=== PATIENT | female | born 1970 | race Caucasian/White ===

== ENCOUNTER 2018-06-03 10:42 | Observation (INO) | payer OTHER ==
--- OUTSIDE RECORDS SUMMARY | 2018-06-03 11:07 | XMS REPORT | Continuity of Care Document ---
:[address] [facility] Address [address] [place] [address] Phone Unavailable Care Team Providers Name Role Phone MARNIE ALVAREZ NP Primary Care Physician Insurance Providers Guarantor Debora Banks Address [address] [place] [address] Email [email or web address] Payer [employer] Policy Number [id number] Subscriber's Name Debora Banks Relationship Self / Same As Patient Group Number [id number] Group Name NA Advance Directives Directive Response Recorded Date/Time Advance Directives No 08/12/13 8:16pm Patient/Family Given Education Material R/T Y - 05/22/18....SBM 05/22/18 4: 20pm Directives? Chief Complaint and Reason for Visit Chief Complaint Chest Pain Reason for Visit Myalgia Lupus Anxiety Chest pain Problems Medical Problem Onset Date Status Anxiety Unknown Acute Chest pain Unknown Acute Dental caries into dentine Unknown Acute [id number] Unknown Acute Lupus Unknown Acute Myalgia Unknown Acute Odontalgia Unknown Acute Odontalgia Unknown Acute Medications No medication information available. Social History Social History Problem Response Recorded Date/Time Onset Date Status Hx Physical Abuse No 05/22/2018 3:32pm Not Applicable Not Applicable Smoking Status Start Date Stop Date Never smoker Hospital Discharge Instructions No hospital discharge instruction information available. Plan of Care Discharge Date 05/22/18 6:18pm Instructions/Education Provided Muscle Pain, Adult Nonspecific Chest Pain, [id number] Generalized Anxiety Disorder, Adult Forms Provided Portal Welcome Letter Prescriptions See Medication Section Referrals MARNIE ALVAREZ NP Address: [address] [place] [id number] Additional Instructions/Education SEE YOUR LEATHER CUTTER FOR RECHECK, NECT WEEK. TAKE ALEVE 2 TABLETS TWICE DAILY FOR ACHES & PAIN, AFTER MEALS. CONTACT DR SWEENEY SECRETARY FOR FURTHER DIAGNOSTIC EVALUATION WITHIN 4-5 DAYS Functional Status No functional status information available. Allergies, Adverse Reactions, Alerts Allergen Type Severity Reaction Status Last Updated Codeine ([id number]) Allergy Active 03/30/13 PENICILLIN Allergy Active 03/30/13 SULFA Allergy Active 03/30/13 Immunizations No immunization information available. Vital Signs Acute Vital Signs Vital Response Date/Time Blood Pressure 119/76 mm Hg 05/22/2018 6:31pm Pulse Pulse Rate (adult) 76 beats per minute (60 - 100) 05/22/2018 6:31pm Respiratory Rate 18 breaths per minute (10 - 24) 05/22/2018 6:31pm Temperature Source Oral 05/22/2018 3:32pm Height 5 ft 2 in 05/22/2018 3:32pm Weight 162 lb 05/22/2018 3:32pm Body Mass Index 29.6 kg/m^2 05/22/2018 3:32pm Results Laboratory Results Test Name Result Units Flags Reference Collection Result Comments Date/Time Date/Time White Blood Count 8.2 K/ul 4.0-11.5 05/22/2018 05/22/2018 4:28pm 4:34pm Red Blood Count 4.25 M/ul 3.80-5.20 05/22/2018 05/22/2018 4:28pm 4:34pm Hemoglobin 12.5 g/dl 10.5-15.7 05/22/2018 05/22/2018 4:28pm 4:34pm Hematocrit 38.5 % 34.0-50.0 05/22/2018 05/22/2018 4:28pm 4:34pm Mean Corpuscular 90.7 fl 78-98 05/22/2018 05/22/2018 Volume 4:28pm 4:34pm Mean Corpuscular 29.4 pg 26.2-33.4 05/22/2018 05/22/2018 Hemoglobin 4:28pm 4:34pm Mean Corpuscular 32.4 g/dl 31.5-36.2 05/22/2018 05/22/2018 Hemoglobin Concent 4:28pm 4:34pm Red Cell 12.8 % 11.5-15.5 05/22/2018 05/22/2018 Distribution Width 4:28pm 4:34pm Platelet Count 274 K/ul 137-338 05/22/2018 05/22/2018 4:28pm 4:34pm Mean Platelet 7.7 fl L 8.4-11.8 05/22/2018 05/22/2018 Volume 4:28pm 4:34pm Neutrophils (%) 52.9 % 44.4-80.1 05/22/2018 05/22/2018 (Auto) 4:28pm 4:34pm Lymphocytes (%) 38.6 % 10.0-50.0 05/22/2018 05/22/2018 (Auto) 4:28pm 4:34pm Monocytes (%) 6.2 % 3.6-12.04 05/22/2018 05/22/2018 (Auto) 4:28pm 4:34pm Eosinophils (%) 1.4 % 0.0-5.41 05/22/2018 05/22/2018 (Auto) 4:28pm 4:34pm Basophils (%) 1.0 % H 0.0-0.79 05/22/2018 05/22/2018 (Auto) 4:28pm 4:34pm Prothrombin Time 10.2 SECONDS L 10.3-12.3 05/22/2018 05/22/2018 4:28pm 5:08pm THERAPEUTIC LEVEL: 1.5 to 1.9 times normal range of PT Prothromb Time 0.92 05/22/2018 05/22/2018 International 4:28pm 5:08pm Recommended therapeutic range for patients receiving Ratio warfarin (coumadin) therapy: INR is 2.0 to 3.0 Recommended range for patients with mechanical prosthetic heart valves: INR is 2.5 to 3.5 Activated Partial 19.4 SECONDS L 22.5-37.0 05/22/2018 05/22/2018 Thromboplast Time 4:28pm 5:08pm Random Glucose 107 mg/dL H 74-106 05/22/2018 05/22/2018 4:28pm 4:49pm Blood Urea 13 mg/dL 11-0505/22/2018 05/22/2018 Nitrogen 4:28pm 4:49pm Serum Osmolality 276 L 280-300 05/22/2018 05/22/2018 4:28pm 4:49pm Creatinine 0.6 mg/dL 0.50-0.90 05/22/2018 05/22/2018 4:28pm 4:49pm Glomerular > 60.00 05/22/2018 05/22/2018 GFR RESULTS ARE REPORTED IN mL/min/1.73m2. Filtration Rate 4:28pm 4:49pm Calc Normal GFR: >60mL/min Moderately decreased GFR: 30-59 mL/min Severely decreased GFR: 15-29 mL/min Kidney Failure (or Dialysis): <15 mL/min The calculated eGFR is not valid for patients younger than 18 years or older than 75 years. BUN/Creatinine 21.7 H 12-05/22/2018 05/22/2018 Ratio 4:28pm 4:49pm Sodium Level 138 mmol/L 135-145 05/22/2018 05/22/2018 4:28pm 4:49pm Potassium Level 4.0 mmol/L 3.5-5.2 05/22/2018 05/22/2018 4:28pm 4:49pm Chloride Level 102 mmol/L 98-108 05/22/2018 05/22/2018 4:28pm 4:49pm Carbon Dioxide 24 mmol/L 21-32 05/22/2018 05/22/2018 Level 4:28pm 4:49pm Anion Gap 16.0 mEq/L 12-05/22/2018 05/22/2018 4:28pm 4:49pm Calcium Level 9.1 mg/dL 8.6-10.0 05/22/2018 05/22/2018 4:28pm 4:49pm Total Protein 7.6 g/dL 6.6-8.7 05/22/2018 05/22/2018 4:28pm 4:49pm Albumin 3.9 g/dL 3.5-5.2 05/22/2018 05/22/2018 4:28pm 4:49pm Globulin 3.7 gm/dL 05/22/2018 05/22/2018 4:28pm 4:49pm Albumin/Globulin 1.1 >1.0 05/22/2018 05/22/2018 Ratio 4:28pm 4:49pm Total Bilirubin 0.3 mg/dL 0.0-1.2 05/22/2018 05/22/2018 4:28pm 4:49pm Aspartate Amino 16 U/L 15-32 05/22/2018 05/22/2018 Transf (AST/SGOT) 4:28pm 4:49pm Alanine 9 U/L 0-33 05/22/2018 05/22/2018 Aminotransferase 4:28pm 4:49pm (ALT/SGPT) ZA-Aks-R-Type 81 pg/mL 0-125 05/22/2018 05/22/2018 Natriuretic 4:28pm 4:52pm Peptide Total Alkaline 121 U/L H 35-105 05/22/2018 05/22/2018 Phosphatase 4:28pm 4:49pm Creatine Kinase 121 U/L 20-180 05/22/2018 05/22/2018 4:28pm 4:49pm Troponin I < 0.30 ng/mL 0.0-0.5 05/22/2018 05/22/2018 Published clinical studies have shown elevations of cTnI in 4:28pm 4:52pm patients with myocardial injury, as seen in unstable angina pectoris, cardiac contusions, and heart transplants. Elevations have also been seen in patients with rhabdomyolysis and polymyositis. Elevated troponin levels point to myocardial injury, but are not necessarily indicative of an ischemic mechanism. The term TX should be used when there is evidence of cardiac damage, as detected by marker proteins in a clinical setting consistent with myocardial ischemia. If the clinical circumstance suggests that an ischemic mechanism is unlikely, other causes of cardiac injury should be considered. For diagnostic purposes, the results should always be assessed in conjunction with the patient's medical history, clinical examination and other findings. Creatine Kinase MB 2.7 ng/ml 0.0-3.6 05/22/2018 05/22/2018 4:28pm 4:52pm DIAGNOSTIC CITERIA: CKMB CKMB RELATIVE INDEX SUGGESTIVE OF NON-AMI < or=5 N/A MURCIA ZONE (INCONCLUSIVE) > 5 < or=4 SUGGESTIVE OF AMI >5 > 4 Procedures Procedure Status Date Provider(s) X-ray of chest, single view Completed 05/22/18 YORDY VOGEL MD Encounters Encounter Location Arrival/Admit Date Discharge/Depart Date Attending Provider Registered Kuna 05/22/18 3:28pm YORDY VOGEL MD Emergency Room [facility] Recent Diagnosis
--- OUTSIDE RECORDS SUMMARY | 2018-06-03 11:07 | XMS REPORT ---
:1970 Author Organization [facility] Address [address] [place] [address] Care Team Providers Name Role Phone ROWAN SWEENEY Primary Care Provider Unavailable ROWAN SWEENEY M.D. Unavailable Unavailable Problems This patient has no known problems. Allergies, Adverse Reactions, Alerts This patient has no known allergies or adverse reactions. Medications This patient has no known medications. Results Test Description Test Time Test Comments Text Results Atomic Results Result Comments Sed Rate ESR ([place]) 2016-12-24 23:36:00 Test Item Value Reference Range Comments ESR (test code=HESR) 27 mm/Hr 0-20 CBC with [id number] 21:38:00 Test Item Value Reference Range Comments WBC (test code=WBC) 6.4 K/cumm 4.4-10.5 RBC (test code=RBC) 4.41 M/cumm 3.75-5.20 Hemoglobin (test code=HGB) 12.9 gm/dL 12.2-14.8 Hematocrit (test code=HCT) 41.2 % 36.5-44.4 MCV (test code=MCV) 93.3 fL 80-100 MCH (test code=MCH) 29.1 pg 27.0-32.5 MCHC (test code=MCHC) 31.2 g/dL 32.0-37.5 RDW (test code=RDW) 14.7 % 11.5-14.5 Platelet Count (test code=PLTCT) 316 K/cumm 140-440 MPV (test code=MPV) 10.6 fL Diff Method (test code=DIFFM) Auto Neutrophil (test code=NEUT) 57.1 % 36-70 Lymphocyte (test code=LYMPH) 34.3 % 12-44 Monocyte (test code=MONO) 6.4 % 0-11 Eosinophil (test code=EOS) 1.8 % 0-7 Basophil (test code=BASO) 0.4 % 0-2 Neutro Abs (test code=ANEUT) 3.6 K/cumm 1.6-7.4 Lymph Abs (test code=ALYMPH) 2.2 K/cumm 0.5-4.6 [place] Abs (test code=AMONO) 0.4 K/cumm 0.0-1.2 Eos Abs (test code=AEOS) 0.12 K/cumm 0.00-0.74 Baso Abs (test code=ABASO) 0.0 K/cumm 0.00-0.21
--- NOTE | 2018-06-03 14:30 | RAD REPORT ---
EXAM DESCRIPTION: MRI - Brain W/Wo Cont - 06/03/2018 1:59 pm CLINICAL HISTORY: R/O STROKE, RIGHT SIDE WEAKNESS CVA symptomology, headache, drowsiness COMPARISON: MRA Head Wo Cont dated 06/03/2018 TECHNIQUE: Multi-sequence, multiplanar MR imaging of the brain was performed with contrast. FINDINGS: No intracranial hemorrhage, hydrocephalus, or extra-axial fluid collection. No edema or sh ift of midline structures. No intracranial mass. DWI is negative for acute CVA. The midline structures are normally formed. Moderate mucosal thickening involves the right maxillary antrum. The paranasal sinuses and mastoids are clear. Post-contrast images show no abnormal enhancement to suggest tumor or infection. A small developmenta l venous anomaly is seen in the left frontal lobe. IMPRESSION: Negative for acute CVA or other acute intracranial abnormality. Moderate chronic sinusitis right maxillary antrum.
--- NOTE | 2018-06-03 14:31 | RAD REPORT ---
EXAM DESCRIPTION: MRI - MRA Head Wo Cont - 06/03/2018 1:59 pm CLINICAL HISTORY: r/o stroke CVA COMPARISON: No comparisons FINDINGS: 3D noncontrast [id number] MR angiography of the [place] was performed. No aneurysm, flow-limiting stenosis or vascular malformation is seen. Forward flow seen in codominant vertebral arteries. Vertebrobasilar dolichoectasia is present. The visualized dural venous sinuses appear patent. IMPRESSION: No significant flow abnormality of the [place] is identified.
--- NOTE | 2018-06-03 14:43 | RAD REPORT ---
EXAM DESCRIPTION: MRI - MRA Neck W/Wo Cont - 06/03/2018 2:00 pm CLINICAL HISTORY: R/O STROKE, RIGHT SIDE WEAKNESS Headache, CVA symptomology. COMPARISON: Brain W/Wo Cont dated 06/03/2018; MRA Head Wo Cont dated 06/03/2018 FINDINGS: Contrast enhance 2D [id number] MR angiography of the neck vessels was performed. A left aortic arch is identified with normal great vessel origin pattern. Both common carotid arteries are normal in caliber and size without significant stenosis. Both gallery intern al carotid arteries are normal in caliber without significant stenosis. Vertebral arteries demonstrat e codominant forward flow. IMPRESSION: No significant flow abnormality of the neck vessels.
--- NOTE | 2018-06-03 15:52 | ECHO ---
HEIGHT: 5 ft 2 in WEIGHT: 162 lb 0 oz DATE OF STUDY: 06/03/[address]: Linda Haines MD 2-DIMENSIONAL: YES M.MODE: YES DOPPLER: YES COLOR FLOW: YES TDS: NO PORTABLE: NO DEFINITY: NO BUBBLE STUDY: NO DIAGNOSIS: SYNCOPE CARDIAC HISTORY: CATHERIZATION: YES SURGERY: NO PROSTHETIC VALVE: NO PACEMAKER: NO MEASUREMENTS (cm) DIASTOLIC (NORMALS) SYSTOLIC (NORMALS) IVSd 0.7 (0.6-1.2) LA Diam 3.1 (1.9-4.0) LVEF 66% LVIDd 4.0 (3.5-5.7) LVIDs 2.5 (2.0-3.5) %FS 36% LVPWd 0.9 (0.6-1.2) Ao Diam 2.7 (2.0-3.7) 2 DIMENSIONAL ASSESSMENT: RIGHT ATRIUM: NORMAL LEFT ATRIUM: NORMAL RIGHT VENTRICLE: NORMAL LEFT VENTRICLE: NORMAL TRICUSPID VALVE: NORMAL MITRAL VALVE: NORMAL PULMONIC VALVE: NORMAL AORTIC VALVE: NORMAL PERICARDIAL EFFUSION: NONE AORTIC ROOT: NORMAL LEFT VENTRICULAR WALL MOTION: NORMAL. DOPPLER/COLOR FLOW: PHYSIOLOGIC TRICUSPID REGURGITATION. NORMAL RIGHT VENTRICULAR SYSTOLIC PRESSURE. COMMENTS: NORMAL 2D ECHO WITH DOPPLER TECHNOLOGIST: SRINI BLAKELY
--- NOTE | 2018-06-03 16:45 | P.SSS ---
Patient History Date of Service: 06/03/18 Reason for admission: Syncope History of Present Illness: This is a 47-year-old female with significant past medical history of systemic lupus and hypothyroidism who presented to the hospital after was seen at the urgent care clinic this morning. Patient had a syncopal episode at the house after she woke up, got out of bed she was walking her dogs in the mid back to her kitchen and had a syncopal episode. Patient stated that he she has been feeling well for over a week now and has been having weakness that she notes that it has been getting progressively worse. Patient has had multiple falls in the past due to weakness as well. Patient was recently seen at the [facility] for the similar complaints at that time she had an echocardiogram done which was consistent with pericarditis. Patient was asked to follow up with her bed setter. Patient's next appointment with her bed setter was on June 20 2018. 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 Patient was not given any medication at that time and pericarditis was mild. Patient however did finish the course of antibiotics and steroids recently. No other complaints to offer at this time. By the time patient got here to the hospital her symptoms had resolved. Initial head CT and the urgent care clinic was negative. Patient was sent over here to rule out TIA and complete the syncopal workup. Allergies Sulfa (Sulfonamide Antibiotics) Allergy (Severe, Verified 05/29/16 18:25) Hives/Rash codeine Allergy (Mild, Verified 06/03/18 14:01) Nausea/Vomiting PENICILLINS Allergy (Severe, Uncoded 05/29/16 18:25) Hives/Rash Home Medications: Gabapentin 300 mg PO BID 06/03/18 Hydroxychloroquine [Plaquenil*] 200 mg PO BID 06/03/18 Levothyroxine [Synthroid*] 112 mcg PO [id number] 06/03/18 Nebivolol HCl [Bystolic*] 10 mg PO DAILY 06/03/18 - Past Medical/Surgical History Has patient received pneumonia vaccine in the past: Yes Diabetic: No -: pericarditis -: thyroid disease- hypothyroidism -: hld -: neuropathy -: hypertension -: lupus -: hysterectomy -: tonsillectomy -: appendectomy -: kidney stone removal -: right knee surgery -: left wrist surgery - Family History Father -: Heart disease Notes: heart failure Mother -: Stroke Notes: abdominal aneurysm - Social History Smoking Status: Never smoker Alcohol use: No CD- Drugs: No Caffeine use: Yes Place of Residence: Home Review of Systems 10-point ROS is otherwise unremarkable Physical Examination - Vital Signs Temperature: 97.4 F Blood Pressure: 152/90 Pulse: 62 Respirations: 18 Pulse Ox (%): 99 - Physical Exam General: Alert, In no apparent distress HEENT: Atraumatic, PERRLA, Mucous membr. moist/pink, EOMI, Sclerae nonicteric Neck: Supple, 2+ carotid pulse no bruit, No LAD, Without JVD or thyroid abnormality Respiratory: Clear to auscultation bilaterally, Normal air movement Cardiovascular: Regular rate/rhythm, Normal S1 S2 Gastrointestinal: Normal bowel sounds, No tenderness Musculoskeletal: No tenderness Integumentary: No rashes Neurological: Normal gait, Normal speech, Normal strength at 5/5 x4 extr, Normal tone, Normal affect Lymphatics: No axilla or inguinal lymphadenopathy - Diagnosis (Problem(s)) (1) Syncope Current Visit: Yes Status: Acute Qualifiers: Syncope type: vasovagal syncope Qualified Code(s): R55 - Syncope and collapse (2) Hypothyroidism (acquired) Current Visit: No Status: Chronic (3) SLE (systemic lupus erythematosus) Current Visit: No Status: Chronic Qualifiers: Systemic lupus erythematosus type: unspecified Systemic lupus erythematosus organ involvement: unspecified Qualified Code(s): M32.9 - Systemic lupus erythematosus, unspecified Treatment Summary: Overall during the hospital stay patient remained stable Patient was initially admitted to the hospital for syncopal workup. Patient had a fall in the kitchen this morning. Patient was transferred from the urgent care across the street for further workup to rule out TIA. Neurology was consulted. Head CT initially was negative. Stroke protocol MRA/MRI was negative for any acute abnormality. Patient had an echocardiogram done here in the hospital as well which was within normal limits as well. Patient most likely had a syncopal episode secondary to vasovagal symptoms. Her orthostatics were within normal limits while here in the hospital. Patient then was was able to ambulate tolerating her diet and thus was discharged home under stable condition. Patient was asked to follow up with primary care provider along with Neurology in about 1-2 weeks post discharge. Patient was asked to get an EEG done on Friday as outpatient as per neurology's recommendation. - Disposition Disposition: ROUTINE DISCHARGE Condition: GOOD Patient Discharge Instructions: Please f.u with Neurology and PCP in 1 to 2 week post discharge. No New medication. You are scheduled for EEG on Friday at 10:00 AM Diet: Regular Activity: Ad stacey
[2018-06-03] MEDS ORDERED: GABAPENTIN 300 MG CAP PO SCH (21:00)
[2018-06-03] MEDS ORDERED: ATORVASTATIN 40 MG TAB PO SCH (21:00)
[2018-06-03] MEDS ORDERED: HYDROXYCHLOROQUINE 200MG TAB PO SCH (21:00)
[2018-06-04] MEDS ORDERED: LEVOTHYROXINE SOD 0.112 MG TAB PO SCH (06:00)
[2018-06-04] MEDS ORDERED: ASPIRIN EC 81 MG TAB PO SCH (09:00)
[2018-06-04] MEDS ORDERED: NEBIVOLOL HCL 5 MG TAB PO SCH (09:00)
== END 2018-06-03 17:06 | disposition home or self-care (01) ==
LOC: 2ND 11:05
PROVIDERS: ADMIT Family Medicine; ATTEND Family Medicine
DX: R55 Syncope and collapse (principal); E03.9 Hypothyroidism, unspecified; I10 Essential (primary) hypertension; M32.9 Systemic lupus erythematosus, unspecified; Z88.0 Allergy status to penicillin; Z88.2 Allergy status to sulfonamides
CPT/HCPCS: 70544; 70549; 70553; 93306; A9577; G0378

== ENCOUNTER 2020-10-24 08:49 | Observation (INO) | payer BC, OTHER ==
--- OUTSIDE RECORDS SUMMARY | 2020-10-24 08:53 | XMS REPORT | Continuity of Care Document ---
:1970 Author Organization [facility] t Address [address] [place] [address] Care Team Providers Name Role Phone PATEL Primary Care Physician Unavailable Charles TORRES, T Attending Clinician Unavailable Lab, Fam Pob I Attending Clinician Unavailable Doctor Unassigned, Name Attending Clinician Unavailable Rowdy JONES Attending Clinician ROWAN SWEENEY M.D. Attending Clinician Unavailable ROWAN SWEENEY M.D. Admitting Clinician Unavailable Problems Condition Condition Condition Status Onset Resolution Last Treating Co mments Source Name Details Category Date Date Treatment Clinician Date Rheumatoid Rheumatoid Disease Active 2019-0 [place] arthritis arthritis 5-21 Meth dor[place] of of 00:00: st multiple multiple 00 sites with sites with negative negative rheumatoid rheumatoid factor factor Lupus Lupus Disease Active [place] arthritis arthritis 5 Meth dorcas 00:00: st 00 Nondisplac Nondisplac Disease Active [facility] ed ed 5-06 Methodi fracture fracture 00:00: st of of 00 proximal proximal phalanx of phalanx of right right little little finger, finger, initial initial encounter encounter for closed for closed fracture fracture Closed Closed Disease Active [place] dislocatio dislocatio 07-09 [place] n of n of 00:00: st metacarpop metacarpop 00 halangeal halangeal (MCP) (MCP) joint of joint of left left little little finger finger Allergies, Adverse Reactions, Alerts Allergy Allergy Status Severity Reaction(s) Onset Inactive Treating Comm ents Source Name Type Date Date Clinician Penicill DA Active U [facility] 218 00:00: 00 Sulfa DA Active U [facility]ching [facility] (Sulfona 18 mide 00:00: Antibiot 00 ics) codeine DA Active U Itching [facility] 18 00:00: 00 Codeine Propensi Active [place] ty to 408 Methodi adverse 00:00: st reaction 00 s to drug [facility]icill [facility] Methodi adverse 00:00: st reaction 00 s to drug Sulfa Propensi Active [place] (Sulfona ty to 408 Methodi mide adverse 00:00: st Antibiot reaction 00 ics) s to drug Family History Family Member Diagnosis Comments Start Date Stop Date Source Natural father Heart disease [place] [facility] Natural mother Arthritis [facility] thodist Social History Social Habit Start Date Stop Date Quantity Comments Source Sex Ass[birth year] At [birth year] [place] Lui ethodist 00:00:00 00:00:00 Medications Ordered Filled Start Stop Current Ordering Indication Dosage Frequency Signature Comments Components Source Medication Medication Date Date Medication? Clinician (SIG) Name Name levothyroxi Yes Q24H daily. [place] 08 [facility] (SYNTHROID, 09:51: st LEVOXYL) 50 112 mcg tablet BYSTOLIC 10 2019-0 Yes [place] mg tablet 3-09 Methodi 00:00: st 00 hydroxychlo 2019-0 Yes [place] roquine 1-11 [facility] (PLAQUENIL) 00:00: st 200 mg 00 tablet Vital Signs Vital Name Observation Time Observation Value Comments Source 02 Sat by Pulse Oximetry 2020-07-10 11:32:34 99 /min Body Mass Index 2020-07-10 11:32:34 32.5 Height 2020-07-10 11:32:34 157.48\S\62 Pulse Rate 2020-07-10 11:32:34 69 /min Pulse Strength 2020-07-10 11:32:34 Normal /min Pulse Assessment Method 2020-07-10 11:32:34 Palpation /min Pulse Rhythm 2020-07-10 11:32:34 Regular /min Respiratory Rate 2020-07-10 11:32:34 17 /min Weight 2020-07-10 11:32:34 23820.442\S\2848 02 Sat by Pulse Oximetry 2020-07-08 00:10:12 99 /min Body Mass Index 2020-07-08 00:10:12 32.5 Height 2020-07-08 00:10:12 157.48\S\62 Pulse Rate 2020-07-08 00:10:12 69 /min Pulse Strength 2020-07-08 00:10:12 Normal /min Pulse Assessment Method 2020-07-08 00:10:12 Palpation /min Pulse Rhythm 2020-07-08 00:10:12 Regular /min Respiratory Rate 2020-07-08 00:10:12 17 /min Weight 2020-07-08 00:10:12 09687.442\S\2848 Body Mass Index 2020-07-07 06:48:40 32.5 Height 2020-07-07 06:48:40 157.48\S\62 Weight 2020-07-07 06:48:40 95671.442\S\2848 Body Mass Index 2020-07-07 06:32:21 32.5 Height 2020-07-07 06:32:21 157.48\S\62 Weight 2020-07-07 06:32:21 50753.442\S\2848 WEIGHT 2020-07-06 13:17:00 80.043784 kg HEIGHT 2020-07-06 13:17:00 157.48 cm Procedures This patient has no known procedures. Plan of Care Planned Activity Planned Date Details Comments Source Future Scheduled 2020-12-17 INFLUENZA VACCINE [place] [facility] 00:00:00 [code = INFLUENZA VACCINE] Future Scheduled 2020 BREAST CANCER [facility] thodist Test 00:00:00 SCREENING [code = BREAST CANCER SCREENING] Future Scheduled 2020 COLONOSCOPY SCREENING [place] [facility] Test 00:00:00 [code = COLONOSCOPY SCREENING] Future Scheduled 2020 SHINGLES VACCINES [place] [facility] 00:00:00 (#1) [code = SHINGLES VACCINES (#1)] Future Scheduled 1991 Screening for [facility] thodist Test 00:00:00 malignant neoplasm of cervix (procedure) [code = 540333954] Future Scheduled 1988 Hepatitis C screening [place] [facility] 00:00:00 (procedure) [code = 637675386] Future Scheduled 1982 COVID-19 VACCINE (1) [place] [facility] Test 00:00:00 [code = COVID-19 VACCINE (1)] Encounters Start End Encounter Admission Attending Care Care Encounter Source Date/Time Date/Time Type Type Clinicians Facility Department ID 2020-01-24 2020-01-24 Letter ROHAN Soto [id number] 00:00:00 00:00:00 (Out) Tracy LAGUNA [id number] 2020-01-23 2020-01-23 Laboratory Lab, Adc [facility] [id number] 09:56:16 10:16:16 Only Fam [facility] [id number] Professandrés [phone] nal [address] One 2020-01-23 2020-01-23 Letter Doctor MADRIGAL [id number] 00:00:00 00:00:00 (Out) UnassLUZ ELENA reyes [id number] [place] [id number] 2019-09-02 2019-09-02 Telephone [place] [id number] 00:00:00 00:00:00 [facility] [id number] [place] [id number] [place] [phone] nal 044 Office [address] One Results Test Description Test Time Test Comments Results Result Comments Source Sed Rate ESR ([place]) 2016-12-24 23:36:00 Test Item Value Reference Range Interpretation Comme nts ESR (test code = HESR) 27 mm/Hr 0-20 H CBC with [id number] 21:38:00 Test Item Value Reference Range Interpretation Comments WBC (test code = WBC) 6.4 K/cumm 4.4-10.5 N RBC (test code = RBC) 4.41 M/cumm 3.75-5.20 N Hemoglobin (test code = HGB) 12.9 gm/dL 12.2-14.8 N Hematocrit (test code = HCT) 41.2 % 36.5-44.4 N MCV (test code = MCV) 93.3 fL 80-100 N MCH (test code = MCH) 29.1 pg 27.0-32.5 N MCHC (test code = MCHC) 31.2 g/dL 32.0-37.5 L RDW (test code = RDW) 14.7 % 11.5-14.5 H Platelet Count (test code = 316 K/cumm 140-440 N PLTCT) MPV (test code = MPV) 10.6 fL Diff Method (test code = DIFFM) Auto Neutrophil (test code = NEUT) 57.1 % 36-70 N Lymphocyte (test code = LYMPH) 34.3 % 12-44 N Monocyte (test code = MONO) 6.4 % 0-11 N Eosinophil (test code = EOS) 1.8 % 0-7 N Basophil (test code = BASO) 0.4 % 0-2 N Neutro Abs (test code = ANEUT) 3.6 K/cumm 1.6-7.4 N Lymph Abs (test code = ALYMPH) 2.2 K/cumm 0.5-4.6 N [place] Abs (test code = AMONO) 0.4 K/cumm 0.0-1.2 N Eos Abs (test code = AEOS) 0.12 K/cumm 0.00-0.74 N Baso Abs (test code = ABASO) 0.0 K/cumm 0.00-0.21 N
[2020-10-24 09:21] LABS: Absolute Lymphocytes (CBC) 3.1 K/uL (0.7-4.9); Basophils % 0.7 % (0-1.3); Hematocrit 37.5 % (36.0-45.0); Lymphocytes % 42.8 % (15.3-44.8); MPV 8.8 fL (7.6-11.3); RBC Red Blood Cell Count 4.31 M/uL (3.86-4.86)
[2020-10-24] MEDS ORDERED: MEPERIDINE HCL 25 MG/ML SYR ONE (09:25)
[2020-10-24 09:26] LABS: Protime INR 0.97
[2020-10-24 09:47] LABS: ALT/SGPT 21 U/L (12-78); AST/SGOT 23 U/L (15-37); Albumin 3.8 g/dL (3.4-5.0); Alkaline Phosphatase 130 U/L (45-117); BUN Blood Urea Nitrogen 16 mg/dL (7-18); Bicarbonate 25 mmol/L (21-32); Bilirubin Direct < 0.1 mg/dL (0-0.2); Bilirubin Total 0.4 mg/dL (0.2-1.0); Glucose Level 110 mg/dL (74-106); Magnesium 2.3 mg/dL (1.8-2.4); NT PRO-BNP 70 pg/mL (<125); Potassium 3.8 mmol/L (3.5-5.1); Protein, Total 8.1 g/dL (6.4-8.2); Sodium Level 141 mmol/L (136-145); Troponin (Emerg Dept Use Only) < 0.02 ng/mL (0.0-0.045)
--- NOTE | 2020-10-24 10:13 | RAD REPORT ---
EXAM DESCRIPTION: US - Extremity Venous Uni Ltd - 10/24/2020 9:49 am CLINICAL HISTORY: hx of dvt;Pain;Swelling COMPARISON: None. TECHNIQUE: Real-time sonographic evaluation of the right lower extremity deep venous systems was per formed. FINDINGS: Normal compressibility, flow augmentation, phasic flow and spontaneous flow are identified in the right lower extremity common femoral, superficial femoral, popliteal and posterior tibial vei ns. No intraluminal filling defects seen. IMPRESSION: No DVT in the right lower extremity.
--- NOTE | 2020-10-24 10:25 | RAD REPORT ---
EXAM DESCRIPTION: CT - Chest For Pe Angio - 10/24/2020 10:05 am CLINICAL HISTORY: CHEST PAIN COMPARISON: Thorax Wo Con dated 05/30/2016 TECHNIQUE: Dynamically enhanced 3 mm thick images of the chest were obtained during administration o f approximately 150mL Isovue 370 IV contrast. Coronal and oblique MIP reconstruction images were gene rated and reviewed. Exam utilizes a protocol to evaluate the pulmonary arterial tree. All CT scans are performed using dose optimization technique as appropriate and may include automated exposure control or mA/KV adjustment according to patient size. FINDINGS: No central, lobar or segmental branch pulmonary emboli identified. Motion degradation limi ts assessment of the subsegmental and distal segmental branches. No suspicion for pulmonary emboli in these areas. The aorta as imaged shows no acute or suspicious finding. No pericardial thickening or effusion. No infiltrate or mass in the lung parenchyma. No pleural effusion or pleural thickening. The amount o f motion present could obscure mild interstitial edema or infiltrate. No mediastinal or hilar suspicious masses. No chest wall masses or abnormal axillary lymphadenopathy. No cardiomegaly or pericardial effusion. No coronary artery calcifications seen. IMPRESSION: No pulmonary emboli identified. For branch assessment is limited due to motion. Emboli a re not suspected. No focal lung parenchymal process seen. Respiratory motion could mask minimal interstitial edema or i nfiltrate.
--- NOTE | 2020-10-24 11:11 | RAD REPORT ---
EXAM DESCRIPTION: RAD - Chest Single View - 10/24/2020 10:25 am CLINICAL HISTORY: CHEST PAIN COMPARISON: Single-view chest May 2016 TECHNIQUE: AP portable chest image was obtained 10/24/2020 10:25 am . FINDINGS: Lung volumes are low. Exam is under penetrated. This accentuates heart, vasculature and freedom ng markings. No peripheral mass consolidation. A mild interstitial edema or infiltrate could be maske d. Heart and vasculature are normal. No measurable pleural effusion and no pneumothorax. No acute bon y abnormality seen. No acute aortic findings suspected. IMPRESSION: No acute cardiopulmonary process. Exam limitations accentuate the interstitial pattern potentially masking mild edema or infiltrate.
--- NOTE | 2020-10-24 11:12 | ER ---
[facility]'s [facility] Name: Debora Friday Age: 50 yrs Sex: Female : 1970 Arrival Date: 10/24/2020 Time: 08:50 Bed 7 Private MD: Diagnosis: Chest pain, unspecified Presentation: 10/24 08:43 Chief complaint: EMS states: pt states she was on her way to work this morning and had tw2 to fur puller because she was having chest pain, then she got to work at [employer] was sitting at her desk and started having pressure mid chest area that radiates down LEFT arm, she also states for the past week or so has noticed Right leg \\T\\ arm swelling, had heart cath with repair done in May, hx: htn, lupus. allergies: codeine, pcn, sulfa. we gave 324 mg ASA and 4 mg Zofran, 20 g. to LEFT hand, ekg showed ns, vs stable. Coronavirus screen: At this time, the client does not indicate any symptoms associated with coronavirus-19. Ebola Screen: Patient denies travel to an Ebola-affected area in the 21 days before illness onset. Initial Sepsis Screen: Does the patient meet any 2 criteria? No. Patient's initial sepsis screen is negative. Does the patient have a suspected source of infection? No. Patient's initial sepsis screen is negative. Risk Assessment: Do you want to hurt yourself or someone else? Patient reports no desire to harm self or others. Onset of symptoms was October 24, 2020. 08:43 Method Of Arrival: [facility] tw2 08:43 Acuity: KAYLYNN 3 tw2 08:50 Note provider at bedside at this time. tw2 08:58 Care prior to arrival: Medication(s) given: ASA, 324 mg zofran 4 mg. tw2 Triage Assessment: 08:56 General: Appears in no apparent distress. well groomed, Behavior is calm, cooperative, tw2 appropriate for age. Pain: Denies pain. EENT: No signs and/or symptoms were reported regarding the EENT system. Neuro: Level of Consciousness is awake, alert, obeys commands, Oriented to person, place, time, situation. Cardiovascular: Reports chest pain, while driving to work and also pressure once at work Capillary refill < 3 seconds Patient's skin is warm and dry. Respiratory: Airway is patent Respiratory effort is even, unlabored, Respiratory pattern is regular, symmetrical. GI: No signs and/or symptoms were reported involving the gastrointestinal system. : No signs and/or symptoms were reported regarding the genitourinary system. Musculoskeletal: Range of motion: intact in all extremities. 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 - Social history:: Smoking status: . - Family history:: not pertinent. - Hospitalizations: : No recent hospitalization is reported. Screenin:57 Abuse screen: Denies threats or abuse. Nutritional screening: No deficits noted. tw2 Tuberculosis screening: No symptoms or risk factors identified. Fall Risk None identified. Assessment: 08:57 Reassessment: see triage assessment. tw2 08:58 Pain: Pain radiates to left arm Pain began suddenly. tw2 10:10 Reassessment: Patient appears in no apparent distress at this time. No changes from tw2 previously documented assessment. Patient and/or family updated on plan of care and expected duration. Pain level reassessed. Patient is alert, oriented x 3, equal unlabored respirations, skin warm/dry/pink. pt states "it helped but i still feel this pressure, its just not gone, to be honest I havent felt right since i got my 2nd Moderna vaccine". 10:37 Reassessment: provider at bedside at this time. tw2 11:08 Reassessment: Patient appears in no apparent distress at this time. No changes from tw2 previously documented assessment. Patient and/or family updated on plan of care and expected duration. Pain level reassessed. Patient is alert, oriented x 3, equal unlabored respirations, skin warm/dry/pink. 12:05 Reassessment: Patient appears in no apparent distress at this time. No changes from tw2 previously documented assessment. Patient and/or family updated on plan of care and expected duration. Pain level reassessed. Patient is alert, oriented x 3, equal unlabored respirations, skin warm/dry/pink. 13:00 Reassessment: Patient appears in no apparent distress at this time. No changes from tw2 previously documented assessment. Patient and/or family updated on plan of care and expected duration. Pain level reassessed. Patient is alert, oriented x 3, equal unlabored respirations, skin warm/dry/pink. 14:11 Reassessment: Patient appears in no apparent distress at this time. No changes from tw2 previously documented assessment. Patient and/or family updated on plan of care and expected duration. Pain level reassessed. Patient is alert, oriented x 3, equal unlabored respirations, skin warm/dry/pink. Vital Signs: 08:43 BP 98 / 78; Pulse 75; Resp 18; Temp 98.1(TE); Pulse Ox 100% on R/A; Weight 80.29 kg (R);tw2 10:19 BP 127 / 96; Pulse 66; Resp 17; Pulse Ox 100% on 2 lpm NC; tw2 11:08 BP 99 / 69; Pulse 64; Resp 17; Pulse Ox 96% on R/A; tw2 12:04 BP 126 / 80; Pulse 66; Resp 17; Pulse Ox 96% on R/A; tw2 13:00 BP 108 / 70; Pulse 59; Resp 17; Pulse Ox 97% on R/A; tw2 14:12 BP 122 / 62; Pulse 66; Resp 17; Pulse Ox 100% on R/A; tw2 ED Course: 08:43 Placed in gown. Bed in low position. Call light in reach. monitor worker on. Pulse ox tw2 on. NIBP on. Warm blanket given. 08:50 Patient arrived in ED. tw2 08:54 Dontae Bella MD is Attending Physician. rn 08:55 Triage completed. tw2 08:57 Neris Bedoya RN is Primary Nurse. tw2 08:57 Arm band placed on. tw2 08:58 Maintain EMS IV. Dressing intact. Good blood return noted. Site clean \\T\\ dry. Gauge \\T\\ tw 2 site: 20 g LEFT hand. Patient maintains SpO2 saturation greater than 95% on room air. 09:49 Extremity Venous Uni Ltd US In Process Unspecified. EDMS 10:05 CT Chest For PE Angio In Process Unspecified. EDMS 10:10 Inserted saline lock: 22 gauge in left forearm, using aseptic technique. ,using aseptic tw2 technique. by MARLEY Beth for PE study. 10:25 XRAY Chest (1 view) In Process Unspecified. EDMS 11:10 Rojas Lynn DO is Hospitalizing Provider. rn 12:06 COVID swab sent to lab. jl7 14:11 No provider procedures requiring assistance completed. Patient admitted, IV remains in tw2 place. Administered Medications: 09:08 Drug: Demerol (meperidine) 25 mg {Note: RASS 0.} Route: IVP; Site: left hand; tw2 10:37 Follow up: Response: No adverse reaction; Pain is decreased; RASS: Alert and Calm (0) tw2 11:02 CANCELLED (Duplicate Order): Demerol (meperidine) 25 mg IVP once; RASS on ADMIN: rn Combtv4, Very Agttd3, Agttd2, Rstlss1, AlertClm0, Drwsy-1, Lt Sdtn-2, Mod Sdtn-3, Dp Sdtn-4, UnArsble-5 11:08 Drug: TORadol - (ketorolac) 15 mg Route: IVP; Site: left hand; tw2 12:45 Follow up: Response: No adverse reaction; Pain is decreased tw2 Outcome: 11:11 Decision to Hospitalize by Provider. rn 14:10 Admitted to Med/surg accompanied by tech, via wheelchair, room 207, with chart, Report tw2 called to MELISSA Garsia 14:10 Condition: stable 14:10 Instructed on the need for admit. 14:12 Patient left the ED. tw2 Signatures: Dispatcher [employer] EDMS Dontae Bella MD MD rn Wise, Tara, RN RN tw2 Yuki Espinoza RN RN jl7 Corrections: (The following items were deleted from the chart) 10:25 10:10 Reassessment: Patient appears in no apparent distress at this time. No changes tw2 from previously documented assessment. Patient and/or family updated on plan of care and expected duration. Pain level reassessed. Patient is alert, oriented x 3, equal unlabored respirations, skin warm/dry/pink. tw2
--- NOTE | 2020-10-24 11:12 | EDPHYS ---
Physician Documentation [facility] Name: Debora Friday Age: 50 yrs Sex: Female : 1970 Arrival Date: 10/24/2020 Time: 08:50 Bed 7 Private MD: ED Physician Dontae Bella HPI: 10/24 09:17 This 50 yrs old Female presents to ER via EMS with complaints of Chest Pain > rn 30 y/o. 09:17 The patient or guardian reports chest pain that is located primarily in the substernal rn area. Onset: this morning. The pain radiates to the left shoulder, back. Associated signs and symptoms: Pertinent positives: lower extremity swelling, shortness of breath, Pertinent negatives: abdominal pain, near syncope, palpitations. The chest pain is described as a pressure. Duration: The patient or guardian reports a single episode, that is still ongoing. Modifying factors: The symptoms are alleviated by nothing. the symptoms are aggravated by nothing. Severity of pain: At its worst the pain was moderate in the emergency department the pain has improved. The patient has experienced a previous episode. The patient has not recently seen a physician. Reports mild chest pain this AM prior to work, continued to have chest pressure, + radiation to back and left shoulder, + mild sob. No recent trauma, doesn't feel ill. + Lupus. Has had this once before but different, told was pericarditis. . 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 - Social history:: Smoking status: . - Family history:: not pertinent. - Hospitalizations: : No recent hospitalization is reported. ROS: 09:17 Constitutional: Negative for fever, chills, and weight loss, Eyes: Negative for injury, rn pain, redness, and discharge, Neck: Negative for injury, pain, and swelling, Cardiovascular: Negative for palpitations, and edema, Respiratory: Negative for wheezing Abdomen/GI: Negative for abdominal pain, nausea, vomiting, diarrhea, and constipation, Back: Negative for injury and pain, : Negative for injury, bleeding, discharge, and swelling, MS/Extremity: Negative for injury and deformity, Skin: Negative for injury, rash, and discoloration, Neuro: Negative for headache, weakness, numbness, tingling, and seizure. Exam: 09:17 Constitutional: This is a well developed, well nourished patient who is awake, alert, rn seems anxious Head/Face: Normocephalic, atraumatic. Eyes: Periorbital areas with no swelling, redness, or edema. ENT: No stridor Cardiovascular: Regular rate and rhythm, no murmur or rub. No pulse deficits. Respiratory: Speaking full sentences. No increased work of breathing, no retractions or nasal flaring. Abdomen/GI: Soft, non-tender Skin: Warm, dry with normal turgor. Normal color with no rashes, no lesions, and no evidence of cellulitis. MS/ Extremity: Pulses equal, no cyanosis. Neurovascular intact. Full, normal range of motion. Equal circumference. Neuro: Awake and alert, GCS 15 Vital Signs: 08:43 BP 98 / 78; Pulse 75; Resp 18; Temp 98.1(TE); Pulse Ox 100% on R/A; Weight 80.29 kg (R);tw2 10:19 BP 127 / 96; Pulse 66; Resp 17; Pulse Ox 100% on 2 lpm NC; tw2 11:08 BP 99 / 69; Pulse 64; Resp 17; Pulse Ox 96% on R/A; tw2 12:04 BP 126 / 80; Pulse 66; Resp 17; Pulse Ox 96% on R/A; tw2 13:00 BP 108 / 70; Pulse 59; Resp 17; Pulse Ox 97% on R/A; tw2 14:12 BP 122 / 62; Pulse 66; Resp 17; Pulse Ox 100% on R/A; tw2 MDM: 08:54 Patient medically screened. rn 09:20 ED course: Reports neg cath 5 months ago. . rn 11:02 Differential diagnosis: acute myocardial infarction, acute pericarditis, anxiety, rn coronary artery disease chest wall pain, costochondritis, pleurisy, pneumonia, pneumothorax, pulmonary embolus, stable angina, thoracic aortic disection, unstable angina. The patient was not given aspirin in the Emergency Department. Administered by EMS. Data reviewed: vital signs, nurses notes, lab test result(s), EKG, radiologic studies, CT scan, plain films, and as a result, I will admit patient. Counseling: I had a detailed discussion with the patient and/or guardian regarding: the historical points, exam findings, and any diagnostic results supporting the discharge/admit diagnosis, lab results, radiology results, the need for further work-up and treatment in the hospital. Response to treatment: the patient's symptoms have mildly improved after treatment, and as a result, I will admit patient. Admission orders: after a detailed discussion of the patient's condition and case, the admit orders are written by me. ED course: Pt still complaining of dyspnea and chest pain, will try toradol given allergy to codeine and hx of lupus, most likely inflammatory, could be early pericarditis. CT chest neg for PE or other acute finding, no thickening or pericardium or pericardial effusion. . 10/24 08:55 Order name: Basic Metabolic Panel; Complete Time: 10:03 rn 10/24 08:55 Order name: CBC with Diff; Complete Time: 09:38 rn 10/24 08:55 Order name: LFT's; Complete Time: 10:03 rn 10/24 08:55 Order name: Magnesium; Complete Time: 10:03 rn 10/24 08:55 Order name: NT PRO-BNP; Complete Time: 10:03 rn 10/24 08:55 Order name: PT-INR; Complete Time: 09:38 rn 10/24 08:55 Order name: Troponin (emerg Dept Use Only); Complete Time: 10:03 rn 10/24 08:55 Order name: XRAY Chest (1 view); Complete Time: 11:11 rn 10/24 08:55 Order name: Extremity Venous Uni Ltd US; Complete Time: 10:35 rn 10/24 08:55 Order name: CT Chest For PE Angio; Complete Time: 10:35 rn 10/24 09:59 Order name: CREATININE WHOLE BLOOD EDNY 10/24 12:58 Order name: SARS-COV-2 RT PCR EDNY 10/24 08:55 Order name: EKG; Complete Time: 08:56 rn 10/24 08:55 Order name: Cardiac monitoring; Complete Time: 08:59 rn 10/24 08:55 Order name: EKG - Nurse/Tech; Complete Time: 09:17 rn 10/24 08:55 Order name: IV Saline Lock; Complete Time: 08:59 rn 10/24 08:55 Order name: Labs collected and sent; Complete Time: 09:17 rn 10/24 08:55 Order name: O2 Per Protocol; Complete Time: 08:59 rn 10/24 08:55 Order name: O2 Sat Monitoring; Complete Time: 08:59 rn 10/24 12:08 Order name: Diet Ada 1800 Deo; Complete Time: 12:08 tw2 Administered Medications: 09:08 Drug: Demerol (meperidine) 25 mg {Note: RASS 0.} Route: IVP; Site: left hand; tw2 10:37 Follow up: Response: No adverse reaction; Pain is decreased; RASS: Alert and Calm (0) tw2 11:02 CANCELLED (Duplicate Order): Demerol (meperidine) 25 mg IVP once; RASS on ADMIN: rn Combtv4, Very Agttd3, Agttd2, Rstlss1, AlertClm0, Drwsy-1, Lt Sdtn-2, Mod Sdtn-3, Dp Sdtn-4, UnArsble-5 11:08 Drug: TORadol - (ketorolac) 15 mg Route: IVP; Site: left hand; tw2 12:45 Follow up: Response: No adverse reaction; Pain is decreased tw2 Disposition: 10/24/20 11:11 Hospitalization ordered by Rojas Lynn for Observation. Preliminary diagnosis is Chest pain, unspecified. - Bed requested for Telemetry/MedSurg (observation). - Status is Observation. tw2 - Condition is Stable. - Problem is new. - Symptoms have improved. Signatures: Dispatcher [employer] EDCheryl Ascencio RN RN dw Nieto, Roman, MD MD rn Wise, Tara, RN RN tw2 Corrections: (The following items were deleted from the chart) 09:19 09:17 Constitutional: Negative for fever, chills, and weight loss, Eyes: Negative for rn injury, pain, redness, and discharge, Neck: Negative for injury, pain, and swelling, Cardiovascular: Negative for palpitations, and edema, Respiratory: Negative for shortness of breath, cough, wheezing, and pleuritic chest pain, Abdomen/GI: Negative for abdominal pain, nausea, vomiting, diarrhea, and constipation, Back: Negative for injury and pain, : Negative for injury, bleeding, discharge, and swelling, MS/Extremity: Negative for injury and deformity, Skin: Negative for injury, rash, and discoloration, Neuro: Negative for headache, weakness, numbness, tingling, and seizure, rn 11:02 11:02 Demerol (meperidine) 25 mg IVP once; RASS on ADMIN: Combtv4, Very Agttd3, Agttd2, rn Rstlss1, AlertClm0, Drwsy-1, Lt Sdtn-2, Mod Sdtn-3, Dp Sdtn-4, UnArsble-5 ordered. rn 12:02 11:42 CORONAVIRUS+MR.LAB.BRZ ordered. EDMS EDMS 13:54 11:11 Hospitalization Ordered by Rojas Lynn DO for Observation. Preliminary dw diagnosis is Chest pain, unspecified. Bed requested for Telemetry/MedSurg (observation). Status is Observation. Condition is Stable. Problem is new. Symptoms have improved. rn 14:12 13:54 10/24/2020 11:11 Hospitalization Ordered by Rojas Lynn DO for Observation. tw2 Preliminary diagnosis is Chest pain, unspecified. Bed requested for Telemetry/MedSurg (observation). Status is Observation. Condition is Stable. Problem is new. Symptoms have improved. dw
--- NOTE | 2020-10-24 13:08 | P.HP ---
Certification for Inpatient Patient admitted to: Observation With expected LOS: <2 Midnights Patient will require the following post-hospital care: None Practitioner: I am a practitioner with admitting privileges, knowledge of patient current condition, hospital course, and medical plan of care. Services: Services provided to patient in accordance with Admission requirements found in Title 42 Section 412.3 of the Code of Federal Regulations <Kiya Metcalf - Last Filed: 10/24/20 12:45> Patient admitted to: Observation <Rojas Lynn - Last Filed: 10/24/20 15:20> Patient History Date of Service: 10/24/20 Primary Care Provider: Dr. Rosario Reason for admission: chest pain History of Present Illness: Friday is a 50 y/o F w/HTN, hypothyroid, lupus, prior hx of pericarditis, who presents today w/ episodes of substernal chest pain. She reports feeling some chest pressure while laying down yesterday but the chest pain 10/10 started suddenly today. Each episode lasts about 15min, constant pain, and reports no relieving or exacerbating factors. She c/o lightheadedness, SOB, and pleuritic pain during the episodes. She reports this chest pain feels similar to her pericarditis several years ago but pain is more severe now. She has been noticing unilateral swelling in her R extremities for the past few days. She reports her R ankle was swollen and tender 2 days ago. She c/o blurry vision x 2 days. She denies any fevers. She had a heart cath w/ Dr. Schwartz 6-7 months ago. She has been off plaquenil for a year and is in the process of re-establishing care w/ rheum. No elevated WC Troponin negative BNP normal CXR: No acute cardiopulmonary process. Exam limitations accentuate the interstitial pattern potentially masking mild edema or infiltrate. chest CT chest: No pulmonary emboli identified. For branch assessment is limited due to motion. Emboli are not suspected. No focal lung parenchymal process seen. Respiratory motion could mask minimal interstitial edema or infiltrate. Extremity u/s: No DVT in the right lower extremity. - Past Medical/Surgical History Diabetic: No -: pericarditis -: thyroid disease- hypothyroidism -: hld -: neuropathy -: hypertension -: lupus -: hysterectomy -: tonsillectomy -: appendectomy -: kidney stone removal -: right knee surgery -: left wrist surgery Psychosocial/ Personal History: lives w/ - Family History Father -: Heart disease Notes: heart failure 50s Mother -: Stroke Notes: abdominal aneurysm Brother -: Heart disease - Social History Smoking Status: Never smoker Alcohol use: Yes CD- Drugs: No Caffeine use: Yes <Kiya Metcalf - Last Filed: 10/24/20 12:45> Date of Service: 10/24/20 - Past Medical/Surgical History -: History of pericarditis -: Hypothyroidism -: Hyperlipidemia -: Neuropathy -: Hypertension -: Lupus - Social History Place of Residence: Home <Rojas Lynn - Last Filed: 10/24/20 15:20> Allergies Sulfa (Sulfonamide Antibiotics) Allergy (Severe, Verified 05/29/16 18:25) Hives/Rash codeine Allergy (Mild, Verified 06/03/18 14:01) Nausea/Vomiting PENICILLINS Allergy (Severe, Uncoded 05/29/16 18:25) Hives/Rash Home Medications: Gabapentin 300 mg PO BID 06/03/18 Hydroxychloroquine [Plaquenil*] 200 mg PO BID 06/03/18 Levothyroxine [Synthroid*] 112 mcg PO [id number] 06/03/18 Nebivolol HCl [Bystolic*] 10 mg PO DAILY 06/03/18 Review of Systems Respiratory: As per HPI Cardiovascular: As per HPI <Kiya Metcalf - Last Filed: 10/24/20 12:45> Physical Examination - Physical Exam General: Alert, In no apparent distress, Cooperative HEENT: Atraumatic, Normocephalic, Mucous membr. moist/pink, EOMI Neck: Supple Respiratory: Clear to auscultation bilaterally, Normal air movement Cardiovascular: No edema, Regular rate/rhythm, No rubs Capillary refill: <2 Seconds Gastrointestinal: Normal bowel sounds, Soft and benign, No tenderness, No guarding Musculoskeletal: No clubbing, No swelling Integumentary: No rashes Neurological: Normal speech, Normal tone, Cranial nerves 3-12 intact, Normal affect - Studies Laboratory Data (last 24 hrs) 10/24/20 08:57: PT 11.2, INR 0.97 10/24/20 08:57: WBC 7.30, Hgb 12.9, Hct 37.5, Plt Count 287 10/24/20 08:57: Sodium 141, Potassium 3.8, BUN 16, Creatinine 0.79, Glucose 110 H, Magnesium 2.3, Total Bilirubin 0.4, AST 23, ALT 21, Alkaline Phosphatase 130 H <Kiya Metcalf - Last Filed: 10/24/20 12:45> - Studies Laboratory Data (last 24 hrs) 10/24/20 08:57: PT 11.2, INR 0.97 10/24/20 08:57: WBC 7.30, Hgb 12.9, Hct 37.5, Plt Count 287 10/24/20 08:57: Sodium 141, Potassium 3.8, BUN 16, Creatinine 0.79, Glucose 110 H, Magnesium 2.3, Total Bilirubin 0.4, AST 23, ALT 21, Alkaline Phosphatase 130 H <Rojas Lynn - Last Filed: 10/24/20 15:20> Assessment and Plan - Problems (Diagnosis) (1) Chest pain Onset Date: 05/30/16 Current Visit: Yes Status: Acute Qualifiers: Chest pain type: chest pain on breathing Qualified Code(s): R07.1 - Chest pain on breathing (2) Hypertension Current Visit: Yes Status: Chronic (3) Hypothyroidism Onset Date: 06/04/18 Current Visit: Yes Status: Chronic (4) SLE (systemic lupus erythematosus) Onset Date: 06/04/18 Current Visit: No Status: Chronic Qualifiers: Systemic lupus erythematosus type: unspecified Systemic lupus erythematosus organ involvement: unspecified Qualified Code(s): M32.9 - Systemic lupus erythematosus, unspecified - Plan ACS rule out vs pericarditis vs costochondritis trend cardiac enzymes CXR, EKG, echo ordered telemetry pain medication NSAID ESR, CRP pending thyroid panel pending restart home meds Discharge Plan: Home Plan to discharge in: 24 Hours - Advance Directives Does patient have a Living Will: No Does patient have a Durable POA for Healthcare: No - Code Status/Comfort Care Code Status Assessed: Yes Code Status: Full Code Critical Care: No Time Spent Managing Pts Care (In Minutes): 70 <Kiya Metcalf - Last Filed: 10/24/20 12:45> - Plan Case discussed in detail with physician recruitment assistant. Continue with plan of care. Impression: Chest pain likely noncardiac possible pericarditis Hypertension Lupus Hypothyroidism Plan: Chest pain likely noncardiac possible pericarditis: Patient with recent cardiac workup which was unremarkable including heart catheterization. Spoke with cardiology. No need for further workup at this time. Venous Doppler and CT scan unremarkable. Will monitor cardiac enzymes and telemetry. Will obtain echocardiogram to rule out other causes like pericardial effusion. Obtain CRP and sed rate to evaluate for pericarditis. If abnormal consider steroid taper. Anticipate improvement over the next 24 hr with likely discharge. Hypertension: Continue home medication. Will monitor and adjust appropriately. Lupus: Patient previously on Plaquenil. Not able to follow up with Rheumatology and restart medication due to insurance. Consider restarting Plaquenil at discharge and make sure she follows up with Rheumatology appropriately. Hypothyroidism: Will check tsh and free T4. Continue with medication. <Rojas Lynn - Last Filed: 10/24/20 15:20>
[2020-10-24] MEDS ORDERED: ACETAMINOPHEN 500 MG TAB PO PRN (14:10)
[2020-10-24] MEDS ORDERED: IBUPROFEN 400 MG TAB PO PRN (15:21)
[2020-10-24 15:26] LABS: C-Reactive Protein 9.85 mg/L (<3.00); Thyroid Stimulating Hormone 10.7 uIU/mL (0.360-3.740)
[2020-10-24] MEDS: ENOXAPARIN 40 MG/0.4 ML SQ SCH (17:17)
[2020-10-24 17:24] LABS: Troponin I < 0.02 ng/mL (0.0-0.045)
[2020-10-24 18:12] VITALS: BMI 32.3
[2020-10-24] MEDS ORDERED: HYDROCODONE/APAP 7.5/325 MG TAB PO PRN (20:45)
[2020-10-24] MEDS: ONDANSETRON 4 MG/2 ML VIAL IV PRN (21:43)
[2020-10-24 22:46] LABS: Urine Appearance CLEAR (Clear); Urine Bilirubin NEGATIVE (Negative); Urine Blood 2+ (Negative); Urine Color YELLOW (Yellow); Urine Glucose NEGATIVE (Negative); Urine Protein NEGATIVE (Negative); Urine Specific Gravity >=1.030 (1.005-1.030); Urine Urobilinogen 0.2 mg/dL (0.2-1.0); Urine pH 5.5 (5.0-7.0)
[2020-10-24 22:47] LABS: Urine Microscopic Reflex ORDER UMIC
[2020-10-24] MEDS ORDERED: LORazepam 2 MG/ML VIAL IV ONE (23:24)
[2020-10-24 23:31] LABS: Urine Bacteria <20 /HPF (<20); Urine Urothelial Cells <5 /HPF (NONE SEEN)
[2020-10-24 23:32] LABS: Calcium Oxalate Crystals- Ur MANY (NONE SEEN)
[2020-10-25 01:57] LABS: CKMB Creatine Kinase MB 1.8 ng/mL (1.0-3.6); Troponin I < 0.02 ng/mL (0.0-0.045)
[2020-10-25 04:33] LABS: Absolute Lymphocytes (CBC) 2.2 K/uL (0.7-4.9); Basophils % 0.3 % (0-1.3); Hematocrit 34.6 % (36.0-45.0); Lymphocytes % 37.9 % (15.3-44.8)
[2020-10-25 04:39] LABS: Albumin 3.2 g/dL (3.4-5.0); Bilirubin Total 0.3 mg/dL (0.2-1.0); Phosphorus 3.2 mg/dL (2.5-4.9); Potassium 4.1 mmol/L (3.5-5.1); Protein, Total 7.5 g/dL (6.4-8.2)
[2020-10-25] MEDS ORDERED: LEVOTHYROXINE SOD 0.025 MG TAB PO SCH (06:00)
[2020-10-25] MEDS ORDERED: METHYLPREDNISOLONE 40 MG INJ IV ONE (06:50)
--- NOTE | 2020-10-25 07:25 | P.DS ---
Admission Date: 10/24/20 Discharge Date: 10/25/20 Primary Care Provider: Dr. Rosario; Cardiology-Dr. Schwartz Disposition: ROUTINE DISCHARGE Discharge Condition: GOOD Reason for Admission: chest pain Consultations: none Procedures: COVID: Negative CT scan: FINDINGS: No central, lobar or segmental branch pulmonary emboli identified. Motion degradation limits assessment of the subsegmental and distal segmental branches. No suspicion for pulmonary emboli in these areas. The aorta as imaged shows no acute or suspicious finding. No pericardial thickening or effusion. No infiltrate or mass in the lung parenchyma. No pleural effusion or pleural thickening. The amount of motion present could obscure mild interstitial edema or infiltrate. No mediastinal or hilar suspicious masses. No chest wall masses or abnormal axillary lymphadenopathy. No cardiomegaly or pericardial effusion. No coronary artery calcifications seen. IMPRESSION: No pulmonary emboli identified. For branch assessment is limited due to motion. Emboli are not suspected. No focal lung parenchymal process seen. Respiratory motion could mask minimal interstitial edema or infiltrate. Venous doppler: FINDINGS: Normal compressibility, flow augmentation, phasic flow and spontaneous flow are identified in the right lower extremity common femoral, superficial femoral, popliteal and posterior tibial veins. No intraluminal filling defects seen. IMPRESSION: No DVT in the right lower extremity. CXR: FINDINGS: Lung volumes are low. Exam is under penetrated. This accentuates heart, vasculature and lung markings. No peripheral mass consolidation. A mild interstitial edema or infiltrate could be masked. Heart and vasculature are normal. No measurable pleural effusion and no pneumothorax. No acute bony abnormality seen. No acute aortic findings suspected. IMPRESSION: No acute cardiopulmonary process. Exam limitations accentuate the interstitial pattern potentially masking mild edema or infiltrate. Medical Problem List: Chest pain likely noncardiac Hypertension Lupus Hypothyroidism Brief History of Present Illness: 50-year-old female with history of hypertension, hypothyroidism, lupus and history of pericarditis. Patient presented to the emergency room with chest pain. Chest pain was worse when lying down. Patient was evaluated in the emergency room. EKG and cardiac enzymes unremarkable. Venous Doppler of the right lower extremity unremarkable. CT chest unremarkable. Patient reports seen by cardiology about 6 months ago. She had a heart catheterization at that time which was unremarkable. She also has been off of her Plaquenil for at least 1 year and needs to establish care with rheumatology. Patient was admitted for observation. Hospital Course: Patient presented with chest pain. Cardiac enzymes unremarkable. No significant EKG changes noted. Venous Doppler of the right lower extremity unremarkable. CT scan showed no pulmonary embolism or evidence of pneumonia. Patient with recent heart catheterization 6 months ago with normal heart catheterization. Spoke with cardiology. This is likely noncardiac. No need for further cardiac evaluation. Patient with history of pericarditis. CRP and sed rate were slightly elevated. Patient with underlying history of lupus. She has been off of Plaquenil. Patient given IV Solu-Medrol. At discharge she is without significant chest pain. At discharge she will continue with prednisone 10 mg 1 pill twice daily for 5 days then 1 pill once daily for 5 days. 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 Recommend follow-up with rheumatology to further evaluate. Patient may need to be restarted back on her Plaquenil if recommended. For now we will also recommend to take aspirin 81 mg daily and folic acid 1 mg daily. Patient with hypertension. This appears stable. At discharge she will continue with her medication of Bystolic 10 mg daily. Recommend to maintain blood pressure less than 130/80. Further adjustment can be done by her PCP. Patient with hypothyroidism. TSH was elevated at 10.7. Free T4 low at 0.6. Patient medication was adjusted for better control. Levoxyl was increased from 25 mcg to 50 mcg daily. At discharge she will continue with Levoxyl 50 mcg daily. Recommend to recheck TSH and free T4 in 4 to 6 weeks to further monitor and adjust medication. This could be done with the help of her PCP. Patient with lupus. Patient has seen rheumatology in the past. She was previously on Plaquenil. This was discontinued about 1 year ago. Recommend to follow-up with rheumatology to follow-up his hospitalization and continue her care. We will recommend to continue folic acid 1 mg daily. Patient may need to be restarted on her Plaquenil if rheumatology recommends. Vital Signs/Physical Exam: Temp Pulse Resp BP Pulse Ox 97.6 F 60 18 101/55 L 93 10/25/20 04:00 10/25/20 04:00 10/25/20 04:00 10/25/20 04:00 10/25/20 04:00 General: Alert, In no apparent distress, Oriented x3, Cooperative HEENT: Atraumatic Neck: Supple Respiratory: Clear to auscultation bilaterally, Normal air movement Cardiovascular: Normal pulses, Regular rate/rhythm Gastrointestinal: Normal bowel sounds, Soft and benign, Non-distended, No tenderness, No masses, No rebound, No guarding Musculoskeletal: No erythema, No tenderness, No warmth Integumentary: No tenderness/swelling Neurological: Normal speech, Normal strength at 5/5 x4 extr, Normal tone, Normal affect Laboratory Data at Discharge: WBC 5.90 K/uL (4.3-10.9) D 10/25/20 03:47 Hgb 11.9 g/dL (12.0-15.0) L 10/25/20 03:47 Hct 34.6 % (36.0-45.0) L 10/25/20 03:47 Plt Count 262 K/uL (152-406) 10/25/20 03:47 PT 11.2 SECONDS (9.5-12.5) 10/24/20 08:57 INR 0.97 10/24/20 08:57 Sodium 141 mmol/L (136-145) 10/25/20 03:47 Potassium 4.1 mmol/L (3.5-5.1) 10/25/20 03:47 BUN 20 mg/dL (7-18) H 10/25/20 03:47 Creatinine 0.75 mg/dL (0.55-1.3) 10/25/20 03:47 Glucose 107 mg/dL (74-106) H 10/25/20 03:47 Phosphorus 3.2 mg/dL (2.5-4.9) 10/25/20 03:47 Magnesium 2.3 mg/dL (1.8-2.4) 10/24/20 08:57 Total Bilirubin 0.3 mg/dL (0.2-1.0) 10/25/20 03:47 AST 16 U/L (15-37) 10/25/20 03:47 ALT 18 U/L (12-78) 10/25/20 03:47 Alkaline Phosphatase 117 U/L (45-117) 10/25/20 03:47 Troponin I < 0.02 ng/mL (0.0-0.045) 10/25/20 00:54 Home Medications: Gabapentin 300 mg PO BID 06/03/18 Nebivolol HCl [Bystolic*] 10 mg PO DAILY 06/03/18 Aspirin [Aspirin EC 81 MG] 81 mg PO DAILY #90 tablet. 10/25/20 Folic Acid 1 mg PO DAILY #90 tablet 10/25/20 Levothyroxine Sodium [Levothyroxine] 50 mcg PO DAILY #30 capsule 10/25/20 predniSONE [Deltasone*] 10 mg PO SEECOM #15 tab 10/25/20 New Medications: Aspirin [Aspirin EC 81 MG] 81 mg PO DAILY #90 tablet. predniSONE [Deltasone*] 10 mg PO SEECOM #15 tab Folic Acid 1 mg PO DAILY #90 tablet Levothyroxine Sodium [Levothyroxine] 50 mcg PO DAILY #30 capsule Physician Discharge Instructions: Patient presented with chest pain. Cardiac enzymes unremarkable. No significant EKG changes noted. Venous Doppler of the right lower extremity unremarkable. CT scan showed no pulmonary embolism or evidence of pneumonia. Patient with recent heart catheterization 6 months ago with normal heart catheterization. Spoke with cardiology. This is likely noncardiac. No need for further cardiac evaluation. Patient with history of pericarditis. CRP and sed rate were slightly elevated. Patient with underlying history of lupus. She has been off of Plaquenil. Patient given IV Solu-Medrol. At discharge she is without significant chest pain. At discharge she will continue with prednisone 10 mg 1 pill twice daily for 5 days then 1 pill once daily for 5 days. 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 Recommend follow-up with rheumatology to further evaluate. Patient may need to be restarted back on her Plaquenil if recommended. For now we will also recommend to take aspirin 81 mg daily and folic acid 1 mg daily. Patient with hypertension. This appears stable. At discharge she will continue with her medication of Bystolic 10 mg daily. Recommend to maintain blood pressure less than 130/80. Further adjustment can be done by her PCP. Patient with hypothyroidism. TSH was elevated at 10.7. Free T4 low at 0.6. Patient medication was adjusted for better control. Levoxyl was increased from 25 mcg to 50 mcg daily. At discharge she will continue with Levoxyl 50 mcg d aily. Recommend to recheck TSH and free T4 in 4 to 6 weeks to further monitor and adjust medication. This could be done with the help of her PCP. Patient with lupus. Patient has seen rheumatology in the past. She was previously on Plaquenil. This was discontinued about 1 year ago. Recommend to follow-up with rheumatology to follow-up his hospitalization and continue her care. We will recommend to continue folic acid 1 mg daily. Patient may need to be restarted on her Plaquenil if rheumatology recommends. Diet: AHA Activity: Ad stacey Followup: NONE,NONE [Primary Care Provider] - Time spent managing pt's care (in minutes): 55
--- NOTE | 2020-10-25 07:27 | EKG ---
Test Date: 2020-10-24 Test Time: 09:03:42 Senior Planning Manager: [facility] MEASUREMENT RESULTS: Intervals: Rate: 71 UT: 174 QRSD: 96 QT: 422 QTc: 458 [place]: P: 62 UT: 174 QRS: 9 T: 53 INTERPRETIVE STATEMENTS: Normal sinus rhythm Septal infarct, age undetermined Abnormal ECG Compared to ECG 05/30/2016 07:21:06 Myocardial infarct finding now present Electronically Signed On 10-25-20 07:26:34 CDT by Derrek Rogers
--- NOTE | 2020-10-25 07:52 | RAD REPORT ---
EXAM DESCRIPTION: RAD - Chest Single View - 10/25/2020 4:33 am CLINICAL HISTORY: chest pain COMPARISON: Portable October 24 TECHNIQUE: AP portable chest image was obtained 10/25/2020 4:33 am . FINDINGS: Lungs are clear. Interstitial pattern matches comparison. Heart and vasculature are normal . No measurable pleural effusion and no pneumothorax. No acute bony abnormality seen. No acute aortic findings suspected. IMPRESSION: No acute cardiopulmonary process. No significant change from comparison study.
[2020-10-25 08:09] VITALS: BP 97/58; TEMP 97.2
[2020-10-25] MEDS: ENOXAPARIN 40 MG/0.4 ML SQ SCH (09:00)
[2020-10-25] MEDS ORDERED: predniSONE 10 MG TAB PO SCH (09:00)
[2020-10-25] MEDS ORDERED: NEBIVOLOL HCL 5 MG TAB PO SCH (09:00)
[2020-10-25] MEDS: ONDANSETRON 4 MG/2 ML VIAL IV PRN (09:34)
[2020-10-25 10:51] VITALS: O2SAT 97
[2020-10-25] MEDS ORDERED: FAMOTIDINE 20 MG/2 ML VIAL IV ONE (23:24)
--- NOTE | 2020-10-26 08:58 | ECHO ---
HEIGHT: 5 ft 2 in WEIGHT: 177 lb 0 oz DATE OF STUDY: 10/25/[address]: Kiya Metcalf 2-DIMENSIONAL: YES M.MODE: YES DOPPLER: YES COLOR FLOW: YES TDS: PORTABLE: DEFINITY: BUBBLE STUDY: DIAGNOSIS: CHEST PAIN CARDIAC HISTORY: CATHERIZATION: NO SURGERY: NO PROSTHETIC VALVE: NO PACEMAKER: NO MEASUREMENTS (cm) DIASTOLIC (NORMALS) SYSTOLIC (NORMALS) IVSd 0.9 (0.6-1.2) LA Diam 3.1 (1.9-4.0) LVEF 75% LVIDd 4.6 (3.5-5.7) LVIDs 2.6 (2.0-3.5) %FS 43% LVPWd 1.0 (0.6-1.2) Ao Diam 2.7 (2.0-3.7) 2 DIMENSIONAL ASSESSMENT: RIGHT ATRIUM: LEFT ATRIUM: RIGHT VENTRICLE: LEFT VENTRICLE: TRICUSPID VALVE: MITRAL VALVE: PULMONIC VALVE: AORTIC VALVE: PERICARDIAL EFFUSION: AORTIC ROOT: LEFT VENTRICULAR WALL MOTION: DOPPLER/COLOR FLOW: COMMENTS: NORMAL 2-DIMENSIONAL ECHOCARDIOGRAM WITH DOPPLER. NO WALL MOTION ABNORMALITY. NO EFFUSION. TECHNOLOGIST: SRINI BLAKELY
== END 2020-10-25 10:07 | disposition home or self-care (01) ==
LOC: ER 08:49 → ERHOLD 12:11 → 2ND 14:08
PROVIDERS: ADMIT Family Medicine; ATTEND Family Medicine
DX: R07.9 Chest pain, unspecified (principal); I10 Essential (primary) hypertension; M32.9 Systemic lupus erythematosus, unspecified; E03.9 Hypothyroidism, unspecified; Z20.822 Contact with and (suspected) exposure to COVID-19; E78.5 Hyperlipidemia, unspecified; G62.9 Polyneuropathy, unspecified
CPT/HCPCS: 36415; 71045; 71275; 80048; 80053; 80076; 81003; 81015; 82553; 82565; 83735; 83880; 84100; 84439; 84443; 84484; 85025; 85610; 85652; 86140; 87086; 87088; 93005; 93306; 93971; 94760; 96374; 96375; 99285; G0378; J1650; J2175; J2405; J2920; J7512; Q9967; U0003

== ENCOUNTER 2022-12-22 13:00 | Emergency (ER) | payer BC ==
--- OUTSIDE RECORDS SUMMARY | 2022-12-22 13:05 | XMS REPORT | Continuity of Care Document ---
:1970 Author Organization [facility] t Address [address] [place] [address] Bhupinder. [address] [place] [address] Care Team Providers Name Role Phone Maria C JONES, Ashleyshukri Adkins Primary Care Physician BROOK ALVAREZ Attending Clinician Unavailable CHRETIEN_F Attending Clinician Unavailable ALETHEA MORFIN Attending Clinician Unavailable Ingrid JONES, Phillip Stuart Attending Clinician WATERS_S Attending Clinician Unavailable Therapy, [facility] Attending Clinician Unavailable Luz Maria JONES, Jaren Hartman Attending Clinician JAREN LOERA Attending Clinician Unavailable Doctor Unassigned, Alda Attending Clinician Unavailable Alpa TORRES, Mellisa Attending Clinician Unavailable LILLIAN PAZ Attending Clinician Unavailable Morgan JONES, Lillian Attending Clinician Lina Schwartz Attending Clinician RASHMI GAO Attending Clinician Unavailable ROWAN SCHWARTZ Attending Clinician Unavailable KNOW, DOES_NOT Attending Clinician Unavailable MARKUS Attending Clinician Unavailable Brook Alvarez Attending Clinician [phone] Rowan Schwartz Attending Clinician Unavailable DOREEN NEWMAN Attending Clinician Unavailable Tracy Soto RN Attending Clinician Unavailable Lab, [facility] I Attending Clinician Unavailable LIVIA BARNES Attending Clinician Unavailable Mekhi Reno MD Attending Clinician VALERIA QUEVEDO Attending Clinician Unavailable YORDY VOGEL Attending Clinician Unavailable ROWAN SCHWARTZ M.D., GEORGE, M.D. Attending Clinician Unav ailable SAMUEL MADRIGAL Attending Clinician Unavailable DUSTIN DAVIS Attending Clinician Unavailable KNOW, DOES_NOT Admitting Clinician Unavailable CHRETIEN_F Admitting Clinician Unavailable WATERS_S Admitting Clinician Unavailable DANIAROSEDRICK_L Admitting Clinician Unavailable ROWAN SCHWARTZ M.D., GEORGE, M.D. 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 7-20 [facility] gland Gland 00:00: ty 00 [facility] Acute Acute Problem Active [place] pharyngiti Pharyngiti 3-16 Co mmuni s s 00:00: ty 00 [facility] Spasm of Spasm of Problem Active [place] [facility] back Back 3-16 [facility]i muscles Muscles 00:00: ty 00 [facility] Fracture Fracture Problem Active [place] of of 2-20 Communi multiple Multiple 00:00: ty ribs Ribs 00 [facility] Vitamin D Vitamin D Problem Active 2021-05 Swe anastacia deficiency Deficiency 1-28 Co mmuni 00:00: ty 00 [facility] Hyperchole Hyperchole Problem Active 2021-05 S [facility] sterolemia sterolemia 1-28 Co mmuni 00:00: ty 00 [facility] Osteoporos Osteoporos Problem Active 2021-05 S [place] is is 1-28 Communi 00:00: ty 00 [facility] Chest pain Chest Pain Problem Active 2021-05 S [facility] 1-28 Communi 00:00: ty 00 [facility] Multiple Multiple Problem Active 2021-05 [place] [facility] joint pain Joint Pain 1-16 Co m[facility]i 00:00: ty 00 [facility] Low back Low Back Problem Active 2021-05 [facility] pain Pain 1-16 Communi 00:00: ty 00 [facility] Chronic Chronic Problem Active [place] Kareem-Ba Kareem-Ba 8-26 Co mmuni rr virus rr Virus 00:00: ty 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 [facility] 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 Cough Cough Disease Active 2019- Univers 4-15 ity of 00:00: [place] 00 [facility] Sore Sore Disease Active 2019- Univers throat throat 4-15 ity of 00:00: [place] 00 Medical Branch Lupus Lupus Disease Active [facility] arthritis arthritis 5-21 st 00:00: Hospita 00 l Rheumatoid Rheumatoid Disease Active M ethodi arthritis arthritis 10-06 of of 00:00: Hospita multiple multiple 00 l sites with sites with negative negative rheumatoid rheumatoid factor factor Lupus Lupus Disease Active [facility] arthritis arthritis 10-06 00:00: Hospita 00 l Nondisplac Nondisplac Disease Active M ethodi ed ed [address] fracture fracture 00:00: Hospit a of of 00 l proximal proximal phalanx of phalanx of right right little little finger, finger, initial initial encounter encounter for closed for closed fracture fracture Closed Closed Disease Active [facility] dislocatio dislocatio 07-09 n of n of 00:00: Hospita metacarpop metacarpop 00 l halangeal halangeal (MCP) (MCP) joint of joint of left left little little finger finger Hypothyroi Hypothyroi Problem Active [facility] dism dism -23 Communi 00:00: ty 00 [facility] Hypertensi Hypertensi Problem Active S [facility] ve ve 10-08 Communi disorder Disorder 00:00: ty 00 [facility] Allergies, Adverse Reactions, Alerts Allergy Allergy Status Severity Reaction(s) Onset Inactive Treating Comm ents Source Name Type Date Date Clinician No Known DA Active [facility] Allergie 02-06 [facility] 00:00: [facility] 00 are [place] No Known DA Active [facility] Allergie 02-06 [facility] 00:00: [facility] 00 are [place] Penicill DA Active U Itching [facility] ins 18 00:00: 00 Sulfa DA Active U Itching [facility] (Sulfona 18 mide 00:00: Antibiot 00 ics) codeine DA Active U Itching [facility] 218 00:00: 00 Codeine Propensi Active Nausea Univers ty to and/or 08-24 ity of adverse Vomiting 00:00: [place] reaction 00 Medical s Branch CODEINE DRUG Active N/V Univers INGREDI 08-24 ity of 00:00: [place] 00 Medical Branch Penicill Propensi Active Method i ins ty to 08-24 st adverse 00:00: Hospita reaction 00 l s to drug Penicill Propensi Active [facility] i ins ty to 08-24 st adverse 00:00: Hospita reaction 00 l s to drug Sulfa Propensi Active [facility]i (Sulfona ty to 08-24 st mide adverse 00:00: Hospita Antibiot reaction 00 l ics) s to drug Codeine Propensi Active [facility]i ty to 08-24 adverse 00:00: Hospita reaction 00 l s to drug Penicill Propensi Active Hives Univer s ins ty to 2-21 ity of adverse 00:00: [place] reaction 00 Medical s Branch Sulfa Propensi Active Hives Univers (Sulfona ty to 2-21 ity of mide adverse 00:00: [place] Antibiot reaction 00 Medica l ics) s Branch PENICILL Drug Active Hives Univers INS Class 2-21 ity of 00:00: [place] 00 Medical Branch SULFA Drug Active Hives Univers (SULFONA Class 2-21 ity of MIDE 00:00: [place] ANTIBIOT 00 Medical ICS) Branch Codeine Allergy Active [place] to Communi substanc ty e Hospita l Clinics PENICILL Allergy Active [place] INS to Communi substanc ty e Hospita l Clinics SULFA Allergy Active [place] (SULFONA to Communi MIDE substanc ty ANTIBIOT e Hospita ICS) l Clinics Family History Family Member Diagnosis Comments Start Date Stop Date Source Natural brother Heart disease Method [facility] Natural brother Heart attack [facility] brother Cancer [facility] Natural brother Liver disease Method [facility] Natural father Heart attack [facility] Natural father Heart disease [facility] mother Arthritis [facility] Natural mother Blood Clots [facility] mother Cancer [facility] mother Stroke [facility] sister Heart disease [facility] sister Cancer [facility] Social History Social Habit Start Date Stop Date Quantity Comments Source Gender identity 2022-07-25 Identifies as Method ist 11:44:41 female gender [facility] (finding) Sexual orientation 2022-07-25 Heterosexual Meth odist 11:44:41 (finding) Hospital Tobacco use and 2022-08-05 2022-08-05 Smokeless tobacco Me thodist exposure 00:00:00 00:00:00 non-user Hospital Alcohol intake 2022-08-05 2022-08-05 Current non-drinker M ethodist 00:00:00 00:00:00 of alcohol Hospital (finding) History of Social 2022-08-05 2022-08-[address] function 00:00:00 00:00:00 Hospital Exposure to 2021-10-21 2021-10-31 Yes University of SARS-CoV-2 (event) 00:00:00 17:45:00 [facility] [place] [facility] Sex Assigned At [birth year] F Rastafarian 00:00:00 00:00:00 Hospital Smoking Status Start Date Stop Date Source Tobacco smoking consumption unknown Rastafarian [facility] Never smoked tobacco [facility] Medications Ordered Filled Start Stop Current Ordering Indication Dosage Frequency Signature Comments Components Source Medication Medication Date Date Medication? Clinician (SIG) Name Name methylPREDN Yes [id number] follow [facility] ISolone 3-[address] (Medrol, 00:00: directions Hos han Ian,) 4 mg 00 l tablet ketorolac ketorolac No ketorolac [place] 60 mg/2 mL 60 mg/2 mL 2-20 60 mg/2 mL Communi intramuscul intramuscul 10:26: intramuscu ty ar ar 00 lar Hospita solutionInj solutionInj solutionIn l ect 2 mL by ect 2 mL by ject 2 mL Clinics intramuscul intramuscul by ar route. ar route. intramuscu lar route. dexamethaso dexamethaso No dexamethas [place] ne sodium ne sodium 2-20 one sodium Communi phosphate phosphate 10:25: phosphate ty 10 mg/mL 10 mg/mL 00 10 mg/mL Hos han injection injection injection l solutionTak solutionTak solutionTa Clinics e 10 mg by e 10 mg by ke 10 mg injection injection by route. route. injection route. Prolia 60 Prolia 60 No 1mL Prolia 60 [place] mg/mL mg/mL 1-10 mg/mL Communi subcutaneou subcutaneou 00:00: subcutaneo ty s syringe s syringe 00 us syringe Hospita Inject 1 mL Inject 1 mL Inject 1 l by by mL by Clinics subcutaneou subcutaneou subcutaneo s route. s route. us route. Prolia 60 Prolia 60 2022-0 No 1mL Prolia 60 [place] mg/mL mg/mL 1-10 mg/mL Communi subcutaneou subcutaneou 00:00: subcutaneo ty s syringe s syringe 00 us syringe Hospita Inject 1 mL Inject 1 mL Inject 1 l by by mL by Clinics subcutaneou subcutaneou subcutaneo s route. s route. us route. Prolia 60 Prolia 60 2022-0 No 1mL Prolia 60 [place] mg/mL mg/mL 1-10 mg/mL Communi subcutaneou subcutaneou 00:00: subcutaneo ty s syringe s syringe 00 us syringe Hospita Inject 1 mL Inject 1 mL Inject 1 l by by mL by Clinics subcutaneou subcutaneou subcutaneo s route. s route. us route. Prolia 60 Prolia 60 2022-0 No 1mL Prolia 60 [place] mg/mL mg/mL 1-10 mg/mL Communi subcutaneou subcutaneou 00:00: subcutaneo ty s syringe s syringe 00 us syringe Hospita Inject 1 mL Inject 1 mL Inject 1 l by by mL by Clinics subcutaneou subcutaneou subcutaneo s route. s route. us route. benzonatate Yes [id number] 200mg Take 2 Univers 100 mg 6-15 capsules ity of capsule 00:00: by mouth [place] every 8 Medical (eight) Branch hours as needed for Cough. bromphenira Yes [id number] 5mL Take 5 mL Univers mine-pseudo 6-15 by mouth 4 it y of ephedrine-D 00:00: (four) [place] M (BROMFED 00 times Medical DM) 2-30-10 daily as Bran ch mg/5 mL needed for syrup Congestion /Allergies . benzonatate Yes [id number] 200mg Take 2 Univers 100 mg 6-15 capsules ity of capsule 00:00: by mouth [place] 00 every 8 Medical (eight) Branch hours as needed for Cough. bromphenira Yes [id number] 5mL Take 5 mL Univers mine-pseudo 6-15 by mouth 4 it y of ephedrine-D 00:00: (four[place] M (BROMFED 00 times Medical DM) 2-30-10 daily as Bran ch mg/5 mL needed for syrup Congestion /Allergies . benzonatate 2021-0 Yes [id number] 200mg Take 2 Univers 100 mg 6-15 capsules ity of capsule 00:00: by mouth [place] 00 every 8 Medical (eight) Branch hours as needed for Cough. bromphenira 2021-0 Yes [id number] 5mL Take 5 mL Univers mine-pseudo 6-15 by mouth 4 it y of ephedrine-D 00:00: (four) [place] M (BROMFED 00 times Medical DM) 2-30-10 daily as Bran ch mg/5 mL needed for syrup Congestion /Allergies . benzonatate 2021-0 Yes [id number] 200mg Take 2 Univers 100 mg 6-15 capsules ity of capsule 00:00: by mouth [place] 00 every 8 Medical (eight) Branch hours as needed for Cough. bromphenira 0 Yes [id number] 5mL Take 5 mL Univers mine-pseudo 6-15 by mouth 4 it y of ephedrine-D 00:00: (four) [place] M (BROMFED 00 times Medical DM) 2-30-10 daily as Bran ch mg/5 mL needed for syrup Congestion /Allergies . citalopram 2020-0 Yes citalopram U nivers 20 mg 4-15 20 mg ity of tablet 15:48: tablet [place] [address] Take 1 Medical tablet Branch every day by oral route. levothyroxi 2020-0 Yes daily. [facility] ers ne 112 mcg 4-15 ity of tablet 15:48: [address] citalopram 2020-0 Yes citalopram U nivers 20 mg 4-15 20 mg ity of tablet 15:48: tablet [place] 13 Take 1 Medical tablet Branch every day by oral route. levothyroxi 2020-0 Yes daily. Univ ers ne 112 mcg 4-15 ity of tablet 15:48: [address] citalopram 2020-0 Yes citalopram U nivers 20 mg 4-15 20 mg ity of tablet 15:48: tablet [place] 13 Take 1 Medical tablet Branch every day by oral route. levothyroxi 2020-0 Yes daily. Univ ers ne 112 mcg 4-15 ity of tablet 15:48: [address] citalopram Yes citalopram U nivers 20 mg 4-15 20 mg ity of tablet 15:48: tablet [place] [address] Take 1 Medical tablet Branch every day by oral route. levothyroxi Yes daily. Univ ers ne 112 mcg 4-15 ity of tablet 15:48: [place] [address] Medical Branch acetaminoph 2021- No [id number] 650mg Take 1 Univers en 650 mg 08-31-15 tablet by ity of CR tablet 00:00: 00:00 mouth [place] 00 :00 every 8 Medical (eight) Branch hours as needed for Pain or Fever. nystatin/ma 2021- No [id number] 5mL Take 5 mL Univers alox/diphen 08-3115 by mouth 4 i ty of hydrAMINE/l 00:00: 00:00 (four) [place] idocaine 2 00 :00 times Medical % viscous daily as Branch 1:1:1:1 needed Susp (Sore suspension throat). Gargle and spit, do not swallow bromphenira 2021- No [id number] 10mL Take 10 mL Univers mine-pseudo 08-3115 by mouth 4 i ty of ephedrine-D 00:00: 00:00 (four) [place] M (BROMFED 00 :00 times Medical DM) 2-30-10 daily as Bran ch mg/5 mL needed for syrup Congestion /Allergies or Cough. pseudoephed 2021- No [id number] 120mg Take 1 Univers rine SA 08-31-15 tablet by ity of (SUDAFED 12 00:00: 00:00 mouth 2 [place] HOUR) 120 00 :00 (two) Medical mg SR times Branch tablet daily. doxycycline 2021- No [id number] 100mg Take 1 Univers hyclate 100 08-31-15 tablet by it y of mg tablet 00:00: 00:00 mouth 2 [place] :[place] (two) Medical times Branch daily. ciprofloxac 2021- No TAKE 1 Uni vers in HCl 500 08-24-15 TABLET BY ity of mg tablet 00:00: 00:00 MOUTH [place] 00 :00 EVERY 12 Medical HOURS Branch DIRECTED FOR 10 DAYS mometasone 2020-0 Yes Univers 50 4-07 ity of mcg/actuati 00:00: [place] on nasal 00 Medical spray Branch mometasone 2020-0 Yes Univers 50 4-07 ity of mcg/actuati 00:00: [place] on nasal 00 Medical spray Branch mometasone 2020-0 Yes Univers 50 4-07 ity of mcg/actuati 00:00: [place] on nasal 00 Medical spray Branch mometasone 2020-0 Yes Univers 50 4-07 ity of mcg/actuati 00:00: [place] on nasal 00 Medical spray Branch levothyroxi 2019-0 Yes Q24H daily. Meth dorcas ne 4-08 st (SYNTHROID, 09:51: Hospit a LEVOXYL) 50 l 112 mcg tablet levothyroxi 2019-0 Yes Q24H daily. Meth dorcas ne 4-08 st (SYNTHROID, 09:51: Hospit a LEVOXYL) 50 l 112 mcg tablet nebivolol Yes [facility] ers ([facility]) 3-09 10 mg ity of 10 mg 00:00: tablet [place] tablet 00 Take 1 Medical tablet Branch every day by oral route. nebivolol Yes [facility] ers ([facility]) 3-09 10 mg ity of 10 mg 00:00: tablet [place] tablet 00 Take 1 Medical tablet Branch every day by oral route. BYSTOLIC 10 Yes Method i mg tablet 07-25 00:00: Hospita 00 l nebivolol 2018- Yes [facility] ers ([facility]) 3-09 10 mg ity of 10 mg 00:00: tablet [place] tablet 00 Take 1 Medical tablet Branch every day by oral route. nebivolol Yes [facility] ers ([facility]) 3-09 10 mg ity of 10 mg 00:00: tablet [place] tablet 00 Take 1 Medical tablet Branch every day by oral route. BYSTOLIC 10 Yes Method i mg tablet 07-25 00:00: Hospita 00 l traMADOL 2021- No [id number] 50mg Take 1 U nivers (ULTRAM) 50 2-21 06-15 tablet by it y of mg tablet 00:00: 00:00 mouth [place] 00 :00 every 6 Medical (six) Branch hours as needed for Pain (scale 4-6). hydroxychlo Yes Method i roquine 1-11 st (PLAQUENIL) 00:00: Hospit a 200 mg 00 l tablet hydroxychlo Yes Method i roquine - st (PLAQUENIL) 00:00: Hospit a 200 mg 00 l tablet hydroxychlo 2021- No Unive rs roquine 200 05-29 06-15 ity of mg tablet 00:00: 00:00 [place] 00 :00 Medical Branch albuterol albuterol No albuterol [place] sulfate HFA sulfate HFA sulfate Communi 90 90 HFA 90 ty mcg/actuati mcg/actuati mcg/actuat Hospita on aerosol on aerosol ion l inhaler inhaler aerosol Clinic s INHALE 2 INHALE 2 inhaler PUFFS BY PUFFS BY INHALE 2 MOUTH EVERY MOUTH EVERY PUFFS BY 4 TO 6 4 TO 6 MOUTH HOURS HOURS EVERY 4 TO NEEDED NEEDED 6 HOURS NEEDED Bystolic 10 Bystolic 10 No Bystolic [place] mg tablet mg tablet 10 mg Comm uni TAKE 1 TAKE 1 tablet ty TABLET BY TABLET BY TAKE 1 Hos han MOUTH ONCE MOUTH ONCE TABLET BY l DAILY DAILY MOUTH ONCE Clinics DAILY folic acid folic acid No folic acid [place] 1 mg tablet 1 mg tablet 1 mg C ommuni TAKE 1 TAKE 1 tablet ty TABLET BY TABLET BY TAKE 1 Hos han MOUTH ONCE MOUTH ONCE TABLET BY l DAILY DAILY MOUTH ONCE Clinics DAILY ivermectin ivermectin No 1 BID ivermectin [place] 3 mg tablet 3 mg tablet 3 mg C ommuni Take 1 Take 1 tablet ty tablet tablet Take 1 Hospita twice a day twice a day tablet l by oral by oral twice a Clinic s route as route as day by directed directed oral route for 5 days. for 5 days. as directed for 5 days. levothyroxi levothyroxi No levothyrox [place] ne 137 mcg ne 137 mcg ine 137 Communi tablet TAKE tablet TAKE mcg tablet ty 1 TABLET BY 1 TABLET BY TAKE 1 Hospita MOUTH EVERY MOUTH EVERY TABLET BY l DAY IN THE DAY IN THE MOUTH Cl inics MORNING ON MORNING ON EVERY DAY AN EMPTY AN EMPTY IN THE STOMACH STOMACH MORNING ON AN EMPTY STOMACH NAC 600 mg NAC 600 mg No 2capsul BID NAC 600 mg [place] capsule capsule e(s) capsule Commun i Take 2 Take 2 Take 2 ty capsules capsules capsules Hos han twice a day twice a day twice a l by oral by oral day by Clinics route as route as oral route directed directed as for 30 for 30 directed days. days. for 30 days. prednisone prednisone No 1 BID prednisone [place] 20 mg 20 mg 20 mg Communi tablet Take tablet Take tablet ty 1 tablet 1 tablet Take 1 Hospi ta twice a day twice a day tablet l by oral by oral twice a Clinic s route as route as day by directed directed oral route for 7 days. for 7 days. as directed for 7 days. Zithromax Zithromax No Zithromax [place] Z-Ian 250 Z-Ian 250 Z-Ian 250 Communi mg tablet mg tablet mg tablet ty TAKE 2 TAKE 2 TAKE 2 Hospita TABLETS TABLETS TABLETS l (500 MG) BY (500 MG) BY (500 MG) Clinics ORAL ROUTE ORAL ROUTE BY ORAL ONCE DAILY ONCE DAILY ROUTE ONCE FOR 1 DAY FOR 1 DAY DAILY FOR THEN 1 THEN 1 1 DAY THEN TABLET (250 TABLET (250 1 TABLET MG) BY ORAL MG) BY ORAL (250 MG) ROUTE ONCE ROUTE ONCE BY ORAL DAILY FOR 4 DAILY FOR 4 ROUTE ONCE DAYS DAYS DAILY FOR 4 DAYS albuterol albuterol No albuterol [place] sulfate HFA sulfate HFA sulfate Communi 90 90 HFA 90 ty mcg/actuati mcg/actuati mcg/actuat Hospita on aerosol on aerosol ion l inhaler inhaler aerosol Clinic s INHALE 2 INHALE 2 inhaler PUFFS BY PUFFS BY INHALE 2 MOUTH EVERY MOUTH EVERY PUFFS BY 4 TO 6 4 TO 6 MOUTH HOURS HOURS EVERY 4 TO NEEDED NEEDED 6 HOURS NEEDED Bystolic 10 Bystolic 10 No Bystolic [place] mg tablet mg tablet 10 mg Comm uni TAKE 1 TAKE 1 tablet ty TABLET BY TABLET BY TAKE 1 Hos han MOUTH ONCE MOUTH ONCE TABLET BY l DAILY DAILY MOUTH ONCE Clinics DAILY folic acid folic acid No folic acid [place] 1 mg tablet 1 mg tablet 1 mg C ommuni TAKE 1 TAKE 1 tablet ty TABLET BY TABLET BY TAKE 1 Hos han MOUTH ONCE MOUTH ONCE TABLET BY l DAILY DAILY MOUTH ONCE Clinics DAILY ivermectin ivermectin No 1 BID ivermectin [place] 3 mg tablet 3 mg tablet 3 mg C ommuni Take 1 Take 1 tablet ty tablet tablet Take 1 Hospita twice a day twice a day tablet l by oral by oral twice a Clinic s route as route as day by directed directed oral route for 5 days. for 5 days. as directed for 5 days. levothyroxi levothyroxi No levothyrox [place] ne 137 mcg ne 137 mcg ine 137 Communi tablet TAKE tablet TAKE mcg tablet ty 1 TABLET BY 1 TABLET BY TAKE 1 Hospita MOUTH EVERY MOUTH EVERY TABLET BY l DAY IN THE DAY IN THE MOUTH Cl inics MORNING ON MORNING ON EVERY DAY AN EMPTY AN EMPTY IN THE STOMACH STOMACH MORNING ON AN EMPTY STOMACH NAC 600 mg NAC 600 mg No 2capsul BID NAC 600 mg [place] capsule capsule e(s) capsule Commun i Take 2 Take 2 Take 2 ty capsules capsules capsules Hos han twice a day twice a day twice a l by oral by oral day by Clinics route as route as oral route directed directed as for 30 for 30 directed days. days. for 30 days. prednisone prednisone No 1 BID prednisone [place] 20 mg 20 mg 20 mg Communi tablet Take tablet Take tablet ty 1 tablet 1 tablet Take 1 Hospi ta twice a day twice a day tablet l by oral by oral twice a Clinic s route as route as day by directed directed oral route for 7 days. for 7 days. as directed for 7 days. Zithromax Zithromax No Zithromax [place] Z-Ian 250 Z-Ian 250 Z-Ian 250 Communi mg tablet mg tablet mg tablet ty TAKE 2 TAKE 2 TAKE 2 Hospita TABLETS TABLETS TABLETS l (500 MG) BY (500 MG) BY (500 MG) Clinics ORAL ROUTE ORAL ROUTE BY ORAL ONCE DAILY ONCE DAILY ROUTE ONCE FOR 1 DAY FOR 1 DAY DAILY FOR THEN 1 THEN 1 1 DAY THEN TABLET (250 TABLET (250 1 TABLET MG) BY ORAL MG) BY ORAL (250 MG) ROUTE ONCE ROUTE ONCE BY ORAL DAILY FOR 4 DAILY FOR 4 ROUTE ONCE DAYS DAYS DAILY FOR 4 DAYS Bystolic 10 Bystolic 10 No Bystolic [place] mg tablet mg tablet 10 mg Comm uni Take by Take by tablet ty oral route. oral route. Take by Hospita oral l route. Clinics Macrobid Macrobid No 1capsul Q12H Macrobid [place] 100 mg 100 mg e(s) 100 mg Communi capsule capsule capsule ty Take 1 Take 1 Take 1 Hospita capsule capsule capsule l every 12 every 12 every 12 Cli nics hours by hours by hours by oral route oral route oral route for 10 for 10 for 10 days. days. days. meloxicam meloxicam No 1 Q1D meloxicam [place] 7.5 mg 7.5 mg 7.5 mg Communi tablet Take tablet Take tablet ty 1 tablet 1 tablet Take 1 Hospi ta every day every day tablet l by oral by oral every day Clin ics route. route. by oral route. Bystolic 10 Bystolic 10 No Bystolic [place] mg tablet mg tablet 10 mg Comm uni Take by Take by tablet ty oral route. oral route. Take by Hospita oral l route. Clinics cholecalcif cholecalcif No 1capsul Q1W cholecalci [place] elida elida e(s) ferol Communi (vitamin (vitamin (vitamin ty D3) 1,250 D3) 1,250 D3) 1,250 Hospita mcg (50,000 mcg (50,000 mcg l unit) unit) (50,000 Clinics capsule capsule unit) Take 1 Take 1 capsule capsule capsule Take 1 every week every week capsule by oral by oral every week route. route. by oral route. ciprofloxac ciprofloxac No ciprofloxa [place] in 500 mg in 500 mg hanna 500 mg Communi tablet Take tablet Take tablet ty 1 tablet 1 tablet Take 1 Hospi ta every 12 every 12 tablet l hours by hours by every 12 Cli nics oral route oral route hours by as directed as directed oral route for 10 for 10 as days. days. directed for 10 days. levothyroxi levothyroxi No 1 Q1D levothyrox [place] ne 50 mcg ne 50 mcg ine 50 mcg Communi tablet Take tablet Take tablet ty 1 tablet 1 tablet Take 1 Hospi ta every day every day tablet l by oral by oral every day Clin ics route. route. by oral route. meloxicam meloxicam No meloxicam [place] 7.5 mg 7.5 mg 7.5 mg Communi tablet Take tablet Take tablet ty 1 tablet 1 tablet Take 1 Hospi ta every day every day tablet l by oral by oral every day Clin ics route. route. by oral route. rosuvastati rosuvastati No 1 Q1D rosuvastat [place] n 20 mg n 20 mg in 20 mg Commu ni tablet Take tablet Take tablet ty 1 tablet 1 tablet Take 1 Hospi ta every day every day tablet l by oral by oral every day Clin ics route at route at by oral bedtime. bedtime. route at bedtime. Bystolic 10 Bystolic 10 No Bystolic [place] mg tablet mg tablet 10 mg Comm uni Take by Take by tablet ty oral route. oral route. Take by Hospita oral l route. Clinics cholecalcif cholecalcif No cholecalci [place] elida arroyo Axeli (vitamin (vitamin (vitamin ty D3) 1,250 D3) 1,250 D3) 1,250 Hospita mcg (50,000 mcg (50,000 mcg l unit) unit) (50,000 Clinics capsule capsule unit) TAKE 1 TAKE 1 capsule CAPSULE BY CAPSULE BY TAKE 1 MOUTH ONCE MOUTH ONCE CAPSULE BY A WEEK A WEEK MOUTH ONCE A WEEK cyclobenzap cyclobenzap No 1 TID cyclobenza [place] rine 10 mg rine 10 mg bulmaro 10 Communi tablet Take tablet Take mg tablet ty 1 tablet 3 1 tablet 3 Take 1 H ospita times a day times a day tablet 3 l by oral by oral times a Clinic s route as route as day by needed. needed. oral route as needed. levothyroxi levothyroxi No levothyrox [place] ne 50 mcg ne 50 mcg ine 50 mcg Communi tablet Take tablet Take tablet ty 1 tablet 1 tablet Take 1 Hospi ta every day every day tablet l by oral by oral every day Clin ics route. route. by oral route. meloxicam meloxicam No 1 Q1D meloxicam [place] 7.5 mg 7.5 mg 7.5 mg Communi tablet Take tablet Take tablet ty 1 tablet 1 tablet Take 1 Hospi ta every day every day tablet l by oral by oral every day Clin ics route. route. by oral route. rosuvastati rosuvastati No rosuvastat [place] n 20 mg n 20 mg in 20 mg Commu ni tablet TAKE tablet TAKE tablet ty 1 TABLET BY 1 TABLET BY TAKE 1 Hospita MOUTH ONCE MOUTH ONCE TABLET BY l DAILY AT DAILY AT MOUTH ONCE C linics BEDTIME BEDTIME DAILY AT BEDTIME Bystolic 10 Bystolic 10 No Bystolic [place] mg tablet mg tablet 10 mg Comm uni Take by Take by tablet ty oral route. oral route. Take by Hospita oral l route. Clinics cholecalcif cholecalcif No cholecalci [place] elida ledesmaol Axeli (vitamin (vitamin (vitamin ty D3) 1,250 D3) 1,250 D3) 1,250 Hospita mcg (50,000 mcg (50,000 mcg l unit) unit) (50,000 Clinics capsule capsule unit) TAKE 1 TAKE 1 capsule CAPSULE BY CAPSULE BY TAKE 1 MOUTH ONCE MOUTH ONCE CAPSULE BY A WEEK A WEEK MOUTH ONCE A WEEK cyclobenzap cyclobenzap No 1 TID cyclobenza [place] rine 10 mg rine 10 mg bulmaro 10 Communi tablet Take tablet Take mg tablet ty 1 tablet 3 1 tablet 3 Take 1 H [facility]spita times a day times a day tablet 3 l by oral by oral times a Clinic s route as route as day by needed. needed. oral route as needed. dexamethaso dexamethaso No 10mg dexamethas [place] ne sodium ne sodium one sodium Communi phosphate phosphate phosphate ty 10 mg/mL 10 mg/mL 10 mg/mL [facility] injection injection injection l solution solution solution Cli nics Take 10 mg Take 10 mg Take 10 mg by by by injection injection injection route. route. route. ketorolac ketorolac No 2mL ketorolac [place] 60 mg/2 mL 60 mg/2 mL 60 mg/2 mL Communi intramuscul intramuscul intramuscu ty ar solution ar solution lar H [facility]spita Inject 2 mL Inject 2 mL solution l by by Inject 2 Clinics intramuscul intramuscul mL by ar route. ar route. intramuscu lar route. levothyroxi levothyroxi No levothyrox [place] ne 50 mcg ne 50 mcg ine 50 mcg Communi tablet Take tablet Take tablet ty 1 tablet 1 tablet Take 1 Hospi ta every day every day tablet l by oral by oral every day Clin ics route. route. by oral route. meloxicam meloxicam No 1 Q1D meloxicam [place] 7.5 mg 7.5 mg 7.5 mg Communi tablet Take tablet Take tablet ty 1 tablet 1 tablet Take 1 Hospi ta every day every day tablet l by oral by oral every day Clin ics route. route. by oral route. rosuvastati rosuvastati No rosuvastat [place] n 20 mg n 20 mg in 20 mg Commu ni tablet TAKE tablet TAKE tablet ty 1 TABLET BY 1 TABLET BY TAKE 1 Hospita MOUTH ONCE MOUTH ONCE TABLET BY l DAILY AT DAILY AT MOUTH ONCE C linics BEDTIME BEDTIME DAILY AT BEDTIME Bystolic 10 Bystolic 10 No Bystolic [place] mg tablet mg tablet 10 mg Comm uni Take by Take by tablet ty oral route. oral route. Take by Hospita oral l route. Clinics cholecalcif cholecalcif No cholecalci [place] elidadelfina marrero ferdelfina Axeli (vitamin (vitamin (vitamin ty D3) 1,250 D3) 1,250 D3) 1,250 Hospita mcg (50,000 mcg (50,000 mcg l unit) unit) (50,000 Clinics capsule capsule unit) TAKE 1 TAKE 1 capsule CAPSULE BY CAPSULE BY TAKE 1 MOUTH ONCE MOUTH ONCE CAPSULE BY A WEEK A WEEK MOUTH ONCE A WEEK cyclobenzap cyclobenzap No 1 TID cyclobenza [place] rine 5 mg rine 5 mg bulmaro 5 mg Communi tablet Take tablet Take tablet ty 1 tablet 3 1 tablet 3 Take 1 H [facility]spita times a day times a day tablet 3 l by oral by oral times a Clinic s route as route as day by needed. needed. oral route as needed. levothyroxi levothyroxi No levothyrox [place] ne 50 mcg ne 50 mcg ine 50 mcg Communi tablet Take tablet Take tablet ty 1 tablet 1 tablet Take 1 Hospi ta every day every day tablet l by oral by oral every day Clin ics route. route. by oral route. meloxicam meloxicam No meloxicam [place] 7.5 mg 7.5 mg 7.5 mg Communi tablet TAKE tablet TAKE tablet ty 1 TABLET BY 1 TABLET BY TAKE 1 Hospita MOUTH EVERY MOUTH EVERY TABLET BY l DAY DAY MOUTH Clinics EVERY DAY rosuvastati rosuvastati No rosuvastat [place] n 20 mg n 20 mg in 20 mg Commu ni tablet TAKE tablet TAKE tablet ty 1 TABLET BY 1 TABLET BY TAKE 1 Hospita MOUTH ONCE MOUTH ONCE TABLET BY l DAILY AT DAILY AT MOUTH ONCE C linics BEDTIME BEDTIME DAILY AT BEDTIME Zithromax Zithromax No Zithromax [place] Z-Ian 250 Z-Ian 250 Z-Ian 250 Communi mg tablet mg tablet mg tablet ty TAKE 2 TAKE 2 TAKE 2 Hospita TABLETS TABLETS TABLETS l (500 MG) BY (500 MG) BY (500 MG) Clinics ORAL ROUTE ORAL ROUTE BY ORAL ONCE DAILY ONCE DAILY ROUTE ONCE FOR 1 DAY FOR 1 DAY DAILY FOR THEN 1 THEN 1 1 DAY THEN TABLET (250 TABLET (250 1 TABLET MG) BY ORAL MG) BY ORAL (250 MG) ROUTE ONCE ROUTE ONCE BY ORAL DAILY FOR 4 DAILY FOR 4 ROUTE ONCE DAYS DAYS DAILY FOR 4 DAYS levothyroxi levothyroxi No 1 Q1D levothyrox [place] ne 100 mcg ne 100 mcg ine 100 Communi tablet Take tablet Take mcg tablet ty 1 tablet 1 tablet Take 1 Hospi ta every day every day tablet l by oral by oral every day Clin ics route. route. by oral route. Macrobid Macrobid No 1capsul Q12H Macrobid [place] 100 mg 100 mg e(s) 100 mg Communi capsule capsule capsule ty Take 1 Take 1 Take 1 Hospita capsule capsule capsule l every 12 every 12 every 12 Cli nics hours by hours by hours by oral route oral route oral route for 10 for 10 for 10 days. days. days. meloxicam meloxicam No meloxicam [place] 7.5 mg 7.5 mg 7.5 mg Communi tablet TAKE tablet TAKE tablet ty 1 TABLET BY 1 TABLET BY TAKE 1 Hospita MOUTH EVERY MOUTH EVERY TABLET BY l DAY DAY MOUTH Clinics EVERY DAY nebivolol nebivolol No 1 Q1D nebivolol [place] 20 mg 20 mg 20 mg Communi tablet Take tablet Take tablet ty 1 tablet 1 tablet Take 1 Hospi ta every day every day tablet l by oral by oral every day Clin ics route. route. by oral route. rosuvastati rosuvastati No 1 Q1D rosuvastat [place] n 40 mg n 40 mg in 40 mg Commu ni tablet Take tablet Take tablet ty 1 tablet 1 tablet Take 1 Hospi ta every day every day tablet l by oral by oral every day Clin ics route as route as by oral directed. directed. route as directed. azithromyci azithromyci No azithromyc [place] n 250 mg n 250 mg in 250 mg [facility] tablet tablet tablet ty Hospita l Clinics Bystolic 10 Bystolic 10 No Bystolic [place] mg tablet mg tablet 10 mg Comm uni TAKE 1 TAKE 1 tablet ty TABLET BY TABLET BY TAKE 1 [facility] MOUTH ONCE MOUTH ONCE TABLET BY l DAILY DAILY MOUTH ONCE Clinics DAILY citalopram citalopram No citalopram [place] 20 mg 20 mg 20 mg Communi tablet TAKE tablet TAKE tablet ty 1 TABLET BY 1 TABLET BY TAKE 1 Hospita MOUTH ONCE MOUTH ONCE TABLET BY l DAILY DAILY MOUTH ONCE Clinics DAILY citalopram citalopram No citalopram [place] 20 mg tabs 20 mg tabs 20 mg tabs Communi ty [facility] ergocalcife ergocalcife No ergocalcif [place] yvonne russell elida Annette (vitamin (vitamin (vitamin ty D2) 1,250 D2) 1,250 D2) 1,250 Hospita mcg (50,000 mcg (50,000 mcg l unit) unit) (50,000 Clinics capsule capsule unit) TAKE 1 TAKE 1 capsule CAPSULE BY CAPSULE BY TAKE 1 MOUTH ONCE MOUTH ONCE CAPSULE BY A WEEK A WEEK MOUTH ONCE A WEEK Euthyrox Euthyrox No Euthyrox Swe anastacia 137 mcg 137 mcg 137 mcg Commun i tablet TAKE tablet TAKE tablet ty 1 TABLET BY 1 TABLET BY TAKE 1 Hospita MOUTH ONCE MOUTH ONCE TABLET BY l DAILY IN DAILY IN MOUTH ONCE C linics THE MORNING THE MORNING DAILY IN ON AN EMPTY ON AN EMPTY THE STOMACH STOMACH MORNING ON AN EMPTY STOMACH folic acid folic acid No folic acid [place] 1 mg tablet 1 mg tablet 1 mg C om[facility]i TAKE 1 TAKE 1 tablet ty TABLET BY TABLET BY TAKE 1 [facility] MOUTH ONCE MOUTH ONCE TABLET BY l DAILY DAILY MOUTH ONCE Clinics DAILY furosemide furosemide No furosemide [place] 20 mg 20 mg 20 mg Communi tablet tablet tablet ty [facility] hydroxychlo hydroxychlo No hydroxychl [place] roquine roquine oroquine Commu ni sulfate 200 sulfate 200 sulfate ty mg tabs mg tabs 200 mg Hospita tabs [facility] ibuprofen ibuprofen No ibuprofen [place] 600 mg tabs 600 mg tabs 600 mg Communi tabs ty [facility] levothyroxi levothyroxi No levothyrox [place] ne 112 mcg ne 112 mcg ine 112 Communi tablet tablet mcg tablet ty [facility] levothyroxi levothyroxi No levothyrox [place] ne sodium ne sodium ine sodium Communi 112 mcg 112 mcg 112 mcg ty tabs tabs tabs [facility] levothyroxi levothyroxi No levothyrox [place] ne sodium ne sodium ine sodium Communi 137 mcg 137 mcg 137 mcg ty tabs tabs tabs [facility] meclizine meclizine No meclizine [place] 12.5 mg 12.5 mg 12.5 mg Commun i tablet Take tablet Take tablet ty 2 tablets 3 2 tablets 3 Take 2 Hospita times a day times a day tablets 3 l by oral by oral times a Clinic s route as route as day by needed for needed for oral route 5 days. 5 days. as needed for 5 days. methylpredn methylpredn No methylpred [place] isolone 4 isolone 4 nisolone 4 Communi mg tablets mg tablets mg tablets ty in a dose in a dose in a dose Hospita pack Take pack Take pack Take l as directed as directed as C linics until all until all directed tablets are tablets are until all gone gone tablets are gone mometasone mometasone No mometasone [place] 50 50 50 Communi mcg/actuati mcg/actuati mcg/actuat ty on nasal on nasal ion nasal [facility] spray [place] spray [place] spray l 2 sprays 2 sprays [place] 2 Clin ics every day every day sprays by by every day intranasal intranasal by route as route as intranasal directed directed route as for 30 for 30 directed days. days. for 30 days. neomycin-po neomycin-po No neomycin-p [place] lymyxin-hyd lymyxin-hyd olymyxin-h Communi rocort 3.5 rocort 3.5 ydrocort ty mg-10,000 mg-10,000 3.5 Hospi ta unit/mL-1 % unit/mL-1 % mg-10,000 l ear ear unit/mL-1 Clinics drops,susp drops,susp % ear INSTILL 4 INSTILL 4 drops,susp DROPS INTO DROPS INTO INSTILL 4 AFFECTED AFFECTED DROPS INTO EAR(S) BY EAR(S) BY AFFECTED OTIC ROUTE OTIC ROUTE EAR(S) BY 3 TIMES PER 3 TIMES PER OTIC ROUTE DAY DAY 3 TIMES PER DAY ondansetron ondansetron No ondansetro [place] 4 mg 4 mg n 4 mg Communi disintegrat disintegrat disintegra ty ing tablet ing tablet ting [facility] DIS ONE T DIS ONE T tablet DIS l ON THE ON THE ONE T ON Clinics TONGUE Q 6 TONGUE Q 6 THE TONGUE H PRN H PRN Q 6 H PRN ondansetron ondansetron No ondansetro [place] odt 4 mg odt 4 mg n odt 4 mg C [facility] tbdp tbdp tbdp ty Hospita l Clinics prednisone prednisone No prednisone [place] 10 mg 10 mg 10 mg Communi tablet TAKE tablet TAKE tablet ty 1 TABLET BY 1 TABLET BY TAKE 1 Hospita MOUTH TWICE MOUTH TWICE TABLET BY l DAILY FOR 5 DAILY FOR 5 MOUTH Clinics DAYS THEN DAYS THEN TWICE TAKE 1 TAKE 1 DAILY FOR TABLET ONCE TABLET ONCE 5 DAYS DAILY FOR 5 DAILY FOR 5 THEN TAKE DAYS DAYS 1 TABLET ONCE DAILY FOR 5 DAYS prednisone prednisone No 1dose prednisone [place] 10 mg 10 mg pk(s) 10 mg Communi tablets in tablets in tablets in ty a dose pack a dose pack a dose Hospita Take 1 dose Take 1 dose pack Take l pk by oral pk by oral 1 dose pk Clinics route as route as by oral directed directed route as for 6 days. for 6 days. directed for 6 days. Premarin Premarin No Premarin Swe anastacia 0.625 0.625 0.625 Communi mg/gram mg/gram mg/gram ty vaginal vaginal vaginal Hospit a cream cream cream [facility] promethazin promethazin No promethazi [place] e 25 mg e 25 mg ne 25 mg Commu ni tablet tablet tablet ty [facility] tamsulosin tamsulosin No tamsulosin [place] 0.4 mg 0.4 mg 0.4 mg Communi capsule capsule capsule ty Take 1 Take 1 Take 1 Hospita capsule capsule capsule l every day every day every day Clinics by oral by oral by oral route as route as route as directed directed directed for 14 for 14 for 14 days. days. days. tramadol 50 tramadol 50 No tramadol [place] mg tablet mg tablet 50 mg Comm uni tablet ty [facility] vitamin d vitamin d No vitamin d [place] 1.25 mg 1.25 mg 1.25 mg Commun i (47954 ut) (68145 ut) (36734 ut) ty caps caps caps [facility] Bystolic 10 Bystolic 10 No Bystolic [place] mg tablet mg tablet 10 mg Comm uni TAKE 1 TAKE 1 tablet ty TABLET BY TABLET BY TAKE 1 [facility] MOUTH ONCE MOUTH ONCE TABLET BY l DAILY DAILY MOUTH ONCE Clinics DAILY Euthyrox Euthyrox No Euthyrox Swe anastacia 137 mcg 137 mcg 137 mcg Commun i tablet TAKE tablet TAKE tablet ty 1 TABLET BY 1 TABLET BY TAKE 1 Hospita MOUTH ONCE MOUTH ONCE TABLET BY l DAILY IN DAILY IN MOUTH ONCE C linics THE MORNING THE MORNING DAILY IN ON AN EMPTY ON AN EMPTY THE STOMACH STOMACH MORNING ON AN EMPTY STOMACH folic acid folic acid No folic acid [place] 1 mg tablet 1 mg tablet 1 mg C [facility]i TAKE 1 TAKE 1 tablet ty TABLET BY TABLET BY TAKE 1 [facility] MOUTH ONCE MOUTH ONCE TABLET BY l DAILY DAILY MOUTH ONCE Clinics DAILY ondansetron ondansetron No 1 Q5H ondansetro [place] 4 mg 4 mg n 4 mg Communi disintegrat disintegrat disintegra ty ing tablet ing tablet ting [facility] Place 1 Place 1 tablet l tablet tablet Place 1 Clinics every 4-6 every 4-6 tablet hours by hours by every 4-6 translingua translingua hours by l route as l route as translingu directed directed al route for 5 days. for 5 days. as directed for 5 days. Immunizations Ordered Filled Immunization Date Status Comments [facility] e Immunization Name Name CHRISTOPHER 2021-11-01 Completed [facility]00 [facility] ISABELLEB 2021-11-01 Completed [facility]00 [facility] influenza, influenza, 2019-12-24 Completed [place] [facility] ty injectable, injectable, 00:00:00 [facility] Cli nics quadrivalent quadrivalent Tdap Tdap 2019-12-24 Completed [place] [facility] ty 00:[facility] influenza, influenza, 2019-12-24 Completed [place] [facility] ty injectable, injectable, 00:00:00 Hospital Cli nics quadrivalent quadrivalent Tdap Tdap 2019-12-24 Completed [place] [facility] ty 00:00:00 [facility] influenza, influenza, 2019-12-24 Completed [place] [facility] ty injectable, injectable, 00:00:00 Hospital Cli nics quadrivalent quadrivalent Tdap Tdap 2019-12-24 Completed [place] [facility] ty 00:00:00 [facility] influenza, influenza, 2019-12-24 Completed [place] [facility] ty injectable, injectable, 00:00:00 Hospital Cli nics quadrivalent quadrivalent Tdap Tdap 2019-12-24 Completed [place] [facility] ty 00:00:00 [facility] influenza, influenza, 2019-12-24 Completed [place] [facility] ty injectable, injectable, 00:00:00 Hospital Cli nics quadrivalent quadrivalent Tdap Tdap 2019-12-24 Completed [place] [facility] ty 00:00:00 [facility] influenza, influenza, 2019-12-24 Completed [place] [facility] ty injectable, injectable, 00:00:00 Hospital Cli nics quadrivalent quadrivalent Tdap Tdap 2019-12-24 Completed [place] [facility] ty 00:00:00 [facility] influenza, influenza, 2019-12-24 Completed [place] [facility] ty injectable, injectable, 00:00:00 Hospital Cli nics quadrivalent quadrivalent Tdap Tdap 2019-12-24 Completed [place] [facility] ty 00:00:00 [facility] influenza, influenza, 2019-12-24 Completed [place] [facility] ty injectable, injectable, 00:00:00 Hospital Cli nics quadrivalent quadrivalent Tdap Tdap 2019-12-24 Completed [place] [facility] ty 00:00:00 [facility] influenza, influenza, 2019-12-24 Completed [place] [facility] ty injectable, injectable, 00:00:00 Hospital Cli nics quadrivalent quadrivalent Tdap Tdap 2019-12-24 Completed [place] [facility] ty 00:00:00 [facility] influenza, influenza, 2019-12-24 Completed [place] [facility] ty injectable, injectable, 00:00:00 Hospital Cli nics quadrivalent quadrivalent Tdap Tdap 2019-12-24 Completed [place] [facility] ty 00:00:00 [facility] Vital Signs Vital Name Observation Time Observation Value Comments Source BP Diastolic 2022-12-05 00:00:00 85 mm[Hg] [facility] s Height 2022-12-05 00:00:00 62 [in_i] [facility] s BMI (Body Mass 2022-12-05 00:00:00 33.7 kg/m2 [facility] s BP Systolic 2022-12-05 00:00:00 146 mm[Hg] [facility] s Body Weight 2022-12-05 00:00:00 2950.4 [oz_av] [facility] s BP Diastolic 2022-08-01 00:00:00 92 mm[Hg] [facility] s Height 2022-08-01 00:00:00 62 [in_i] [facility] s BMI (Body Mass 2022-08-01 00:00:00 33.9 kg/m2 [facility] s BP Systolic 2022-08-01 00:00:00 143 mm[Hg] [facility] s Body Weight 2022-08-01 00:00:00 2969.6 [oz_av] [facility] s BP Diastolic 2022-07-08 00:00:00 88 mm[Hg] [facility] s Height 2022-07-08 00:00:00 62 [in_i] [facility] s BMI (Body Mass 2022-07-08 00:00:00 33.5 kg/m2 [facility]) [facility] s BP Systolic 2022-07-08 00:00:00 135 mm[Hg] [facility] s Body Weight 2022-07-08 00:00:00 2931.2 [oz_av] [facility] s BP Diastolic 2022-04-15 00:00:00 83 mm[Hg] [facility] s Height 2022-04-15 00:00:00 62 [in_i] [facility] s BMI (Body Mass 2022-04-15 00:00:00 33.6 kg/m2 [facility] s BP Systolic 2022-04-15 00:00:00 154 mm[Hg] [facility] s Body Weight 2022-04-15 00:00:00 2937.6 [oz_av] [facility] s BP Diastolic 2022-04-03 00:00:00 93 mm[Hg] [facility] s Height 2022-04-03 00:00:00 62 [in_i] [facility] s BMI (Body Mass 2022-04-03 00:00:00 33.4 kg/m2 [facility]) [facility] s BP Systolic 2022-04-03 00:00:00 144 mm[Hg] [facility] s Body Weight 2022-04-03 00:00:00 2921.6 [oz_av] [facility] s Systolic blood 2021-11-01 22:20:00 134 mm[Hg] [facility] Diastolic blood 2021-11-01 22:20:00 83 mm[Hg] [facility] Heart rate 2021-11-01 22:20:00 69 /min [facility] Body temperature 2021-11-01 22:20:00 36.61 Marleny [facility] Respiratory rate 2021-11-01 22:20:00 18 /min [facility] Oxygen saturation in 2021-11-01 22:20:00 97 /min [facility] blood by [employer] michelle Pulse oximetry Branch Body height 2021-11-01 21:05:00 160 cm [facility] Body weight 2021-11-01 21:05:00 82.555 kg [facility] BMI 2021-11-01 21:05:00 32.24 kg/m2 [facility] Systolic blood 2021-10-31 22:53:00 148 mm[Hg] [facility] Diastolic blood 2021-10-31 22:53:00 97 mm[Hg] [facility] Heart rate 2021-10-31 22:53:00 71 /min [facility] Body temperature 2021-10-31 22:53:00 36.94 Marleny [facility] Respiratory rate 2021-10-31 22:53:00 18 /min [facility] Body height 2021-10-31 22:53:00 158.8 cm [facility] Body weight 2021-10-31 22:53:00 82.736 kg [facility] BMI 2021-10-31 22:53:00 32.83 kg/m2 [facility] Oxygen saturation in 2021-10-31 22:53:00 98 /min [facility] Arterial blood by [employer] michelle Pulse oximetry Branch BP Diastolic 2021-02-05 00:00:00 94 mm[Hg] [facility] s Height 2021-02-05 00:00:00 62 [in_i] [facility] s BMI (Body Mass 2021-02-05 00:00:00 33.2 kg/m2 [facility]) [facility] s BP Systolic 2021-02-05 00:00:00 154 mm[Hg] [facility] s Body Weight 2021-02-05 00:00:00 2902.4 [oz_av] [facility] s BP Diastolic 2021-01-11 00:00:00 90 mm[Hg] [facility] s Height 2021-01-11 00:00:00 62 [in_i] [facility] s BMI (Body Mass 2021-01-11 00:00:00 33.2 kg/m2 [facility]) [facility] s BP Systolic 2021-01-11 00:00:00 143 mm[Hg] [facility] s Body Weight 2021-01-11 00:00:00 2905.6 [oz_av] [facility] s BP Diastolic 2020-12-19 00:00:00 91 mm[Hg] [facility] s Height 2020-12-19 00:00:00 62 [in_i] [facility] s BMI (Body Mass 2020-12-19 00:00:00 33.7 kg/m2 [facility]) [facility] Clinic s BP Systolic 2020-12-19 00:00:00 147 mm[Hg] [facility] s Body Weight 2020-12-19 00:00:00 2950.4 [oz_av] [facility] s 02 Sat by Pulse 2020-07-10 11:32:34 99 /min Oximetry Body Mass Index 2020-07-10 11:32:34 32.5 Height 2020-07-10 11:32:34 157.48\S\62 Pulse Rate 2020-07-10 11:32:34 69 /min Pulse Strength 2020-07-10 11:32:34 Normal /min Pulse Assessment 2020-07-10 11:32:34 Palpation /min Method Pulse Rhythm 2020-07-10 11:32:34 Regular /min Respiratory Rate 2020-07-10 11:32:34 17 /min Weight 2020-07-10 11:32:34 11407.442\S\2848 02 Sat by Pulse 2020-07-08 00:10:12 99 /min Oximetry Body Mass Index 2020-07-08 00:10:12 32.5 Height 2020-07-08 00:10:12 157.48\S\62 Pulse Rate 2020-07-08 00:10:12 69 /min Pulse Strength 2020-07-08 00:10:12 Normal /min Pulse Assessment 2020-07-08 00:10:12 Palpation /min Method Pulse Rhythm 2020-07-08 00:10:12 Regular /min Respiratory Rate 2020-07-08 00:10:12 17 /min Weight 2020-07-08 00:10:12 00286.442\S\2848 Body Mass Index 2020-07-07 06:48:40 32.5 Height 2020-07-07 06:48:40 157.48\S\62 Weight 2020-07-07 06:48:40 79569.442\S\2848 Body Mass Index 2020-07-07 06:32:21 32.5 Height 2020-07-07 06:32:21 157.48\S\62 Weight 2020-07-07 06:32:21 60151.442\S\2848 WEIGHT 2020-07-06 13:17:00 80.069305 kg HEIGHT 2020-07-06 13:17:00 157.48 cm Procedures Procedure Date / Time Performing Clinician Source Performed US, thyroid 2022-12-05 00:00:00 [facility] XR SPINE SCOLIOSIS 2-3 2022-08-05 13:55:16 Phillip Quintero [facility] VIEWS XR SPINE EXTERNAL STUDY 2022-07-05 15:17:27 Phillip Quintero [facility] XR UPPER EXTREMITY 2022-07-05 15:17:27 Phillip Quintero [facility] EXTERNAL STUDY XR CHEST EXTERNAL STUDY 2022-07-05 15:08:56 Phillip Quintero [facility] MAMMO, screening, 2022-04-03 00:00:00 [facility] bilateral [facility] DEXA, axial skeleton + 2022-04-03 00:00:00 [facility] vertebral fracture [facility] assessment XR, lumbosacral spine, 2022-04-03 00:00:00 [facility] 2 or 3 view Hospital Clinics CONSENT/REFUSAL FOR 2021-11-01 05:01:00 Doctor Unassigned, No Un [facility] DIAGNOSIS AND TREATMENT Name Medical Branch XR, chest, 2 view 2021-01-11 00:00:00 [facility] XR, chest, 2 view 2020-12-19 00:00:00 [facility] Total Hysterectomy 1991-05-19 00:00:00 [facility] Plan of Care Planned Activity Planned Date Details Comments Source Future Scheduled Test 2022-12-18 Screening for Metho [facility] 22:34:15 malignant neoplasm of colon (procedure) [code = [id number]] Future Scheduled Test 2022-12-18 Screening for Metho [facility] 22:34:15 malignant neoplasm of colon (procedure) [code = 796945522] Future Scheduled Test 2022-12-18 [facility] 22:34:15 malignant neoplasm of colon (procedure) [code = 933230660] Future Scheduled Test 2022-12-18 COVID-[address] [facility] 22:34:15 (#1) [code = COVID-19 VACCINE (#1)] Future Scheduled Test 2022-12-18 [facility] 22:34:15 screening (procedure) [code = 018305933] Future Scheduled Test 2022-12-18 Screening for [facility] 22:34:15 malignant neoplasm of cervix (procedure) [code = 113111947] Future Scheduled Test 2022-12-18 [facility] 22:34:15 SCREENING [code = BREAST CANCER SCREENING] Future Scheduled Test 2022-12-18 Screening for [facility] 22:34:15 malignant neoplasm of colon (procedure) [code = 581878346] Future Scheduled Test 2022-12-18 [facility] 22:34:15 malignant neoplasm of colon (procedure) [code = 826910315] Future Scheduled Test 2022-12-18 SHINGLES VACCINES (1 [facility] 22:34:15 of 2) [code = SHINGLES VACCINES (1 of 2)] Future Scheduled Test 2022-12-18 INFLUENZA VACCINE [facility] 22:34:15 [code = INFLUENZA VACCINE] Diagnostic Test 2022-12-05 urinalysis, dipstick [facility] Pending 00:00:00 [code = urinalysis, [facility] dipstick] Diagnostic Test 2022-12-05 urinalysis, reflex [facility] Pending 00:00:00 culture [code = [facility] nic urinalysis, reflex culture] Diagnostic Test 2022-12-05 HbA1c (hemoglobin [facility] Pending 00:00:00 A1c), blood [code = [facility] HbA1c (hemoglobin A1c), blood] Diagnostic Test 2022-12-05 insulin, serum [code [facility] Pending 00:00:00 = insulin, serum] [facility] Diagnostic Test 2022-12-05 cortisol, am, serum [facility] Pending 00:00:00 [code = cortisol, [facility] am, serum] Diagnostic Test 2022-12-05 magnesium, serum or [facility] Pending 00:00:00 plasma [code = [facility] magnesium, serum or plasma] Diagnostic Test 2022-12-05 phosphorus, serum or [facility] Pending 00:00:00 plasma [code = [facility] phosphorus, serum or plasma] Future Scheduled Test 2021-06-25 COVID-19 VACCINE (1) [facility] 20:32:14 [code = COVID-19 VACCINE (1)] Future Scheduled Test 2021-06-25 Hepatitis C [facility] 20:32:14 screening (procedure) [code = 887460427] Future Scheduled Test 2021-06-25 Screening for [facility] 20:32:14 malignant neoplasm of cervix (procedure) [code = 665236141] Future Scheduled Test 2021-06-25 BREAST CANCER [facility] 20:32:14 SCREENING [code = BREAST CANCER SCREENING] Future Scheduled Test 2021-06-25 COLONOSCOPY [facility] 20:32:14 SCREENING [code = COLONOSCOPY SCREENING] Future Scheduled Test 2021-06-25 SHINGLES VACCINES [facility] 20:32:14 (#1) [code = SHINGLES VACCINES (#1)] Future Scheduled Test 2021-06-25 INFLUENZA VACCINE [facility] 20:32:14 [code = INFLUENZA VACCINE] Instructions [facility] Encounters Start End Encounter Admission Attending Care Care Encounter Source Date/Time Date/Time Type Type Clinicians Facility Department ID 2021-02-16 Inpatient ANIVAL ALVAREZ [facility] [id number] [facility] 10:30:00 , BROOK 80 [facility] are [facility] 2022-12-05 2022-12-05 [facility] 256 - [place] 00:00:00 00:00:00 720 [facility] 2022-12-05 2022-12-05 Bev [facility] [place] 20 [place] 00:00:00 00:00:00 Elaine [facility] mmuni CREDIT RISK OFFICER-ESCAPEMENT MATCHER-B Hospital - ty C: [address] [facility], [address], [place] [address] , Ph. 2022-09-10 2022-09-10 Outpatient ANIVAL MORFIN [facility] [id number] [place] 09:52:00 09:52:00 ALETHEA -[id number] [facility] 2022-08-19 2022-08-19 Outpatient [facility] 2563 - [place] 00:00:00 00:00:00 615 [facility] 2022-08-05 2022-08-05 [facility] 1.2.840.1 [id number] Methodi 08:34:38 23:59:00 [address]1.[address] 3.430.2.7 Hospit a .3.579775 l .8 2022-08-05 2022-08-05 [facility] 1.2.840.1 [id number] 2 [id number] Methodi 08:34:37 23:59:00 Encounter Narciso [address]28.1.[address] 3.430.2.7 Hospit a .3.684448 l .8 2022-08-05 2022-08-05 [facility] Phillip Quintero 1.2.840.1 [id number] Methodi 08:34:36 23:59:00 Encounter Narciso 27185.1.[address] 3.430.2.7 Hospit a .3.575893 l .8 2022-08-05 2022-08-05 Office IngridPhillip kohler 1.2.840.1 [id number] Methodi 08:45:00 09:41:12 Visit Narciso 35135.1.[address] 3.430.2.7 Hospit a .3.318550 l .8 2022-08-05 2022-08-05 Outpatient PHILLIP QUINTERO [facility] [id number] [place] 00:00:00 00:00:[address] 2022-08-05 2022-08-05 Outpatient PHILLIP QUINTERO [facility] [id number] [place] 00:00:00 00:00:[address] 2022-08-05 2022-08-05 Outpatient PHILLIP QUINTERO [facility] [id number] [place] 00:00:00 00:00:[address] 2022-08-05 2022-08-05 Outpatient PHILLIP QUINTERO [facility] [id number] [place] 00:00:00 00:00:[address] 2022-08-05 2022-08-05 Outpatient PHILLIP QUINTERO [facility] [id number] [id number] [place] 00:00:00 00:00:[address] 2022-08-05 2022-08-05 Outpatient PHILLIP QUINTERO [facility] 001 [id number] [place] 00:00:00 00:00:[address] 2022-08-05 2022-08-05 Outpatient PHILLIP QUINTERO [facility] [id number] [id number] [place] 00:00:00 00:00:[address] 2022-08-05 2022-08-05 Outpatient PHILLIP QUINTERO [facility] 320 [id number] [place] 00:00:00 00:00:[address] 2022-08-05 2022-08-05 Phillip Li 1.2.840.1 [id number] Methodi 00:00:00 00:00:00 [address]arciso [address]10.1.[address] 3.430.2.7 Hospit a .3.333787 l .8 2022-08-05 2022-08-05 Travel 1.2.840.1 1.2.955.040 [id number] Methodi 00:00:00 00:00:[address] 3.430.2.7 0.2.7.3.698 Ho spita .3.657580 084.8 l .8 2022-08-01 2022-08-01 Outpatient [facility] 256 - [place] 00:00:00 00:00:00 316 [facility] 2022-08-01 2022-08-01 Bev [facility] [place] [id number] [place] 00:00:00 00:00:00 Elaine [facility] mmuni CREDIT RISK OFFICER-ESCAPEMENT MATCHER-B [facility] C: [address] [facility] [facility], [address], [place] [address] , Ph. 2022-07-25 2022-07-25 Travel 1.2.840.1 1.2.996.056 [id number] Methodi 00:00:00 00:00:[address] 3.430.2.7 0.2.7.3.698 Ho spita .3.290747 084.8 l .8 2022-07-09 2022-07-09 Outpatient [facility] [id number] [place] 00:00:00 00:00:00 221 [facility] i [facility]ics 2022-07-08 2022-07-08 Outpatient [facility] 2563 - [place] 00:00:00 00:00:00 220 [facility] 2022-07-08 2022-07-08 Bev [facility] [place] 00:00:00 00:00:00 Luis Henry Pr mmuni CREDIT RISK OFFICER-ESCAPEMENT MATCHER-B Hospital - ty C: [address] [facility], [address], [place] [address] , Ph. 2022-04-15 2022-04-15 Outpatient [facility] 2563 - [place] 00:00:00 00:00:00 128 Commun i ty [facility] 2022-04-15 2022-04-15 Bev [facility] [place] [id number] [place] 00:00:00 00:00:00 [facility] - ty C: [address] [facility], [address], [place] [address] , Ph. 2022-04-03 2022-04-03 Outpatient [facility] 2563 - [place] 00:00:00 00:00:00 116 Commun i ty [facility] Clinics 2022-04-03 2022-04-03 Bev [facility] [place] [id number] [place] 00:00:00 00:00:00 Luis Henry Pr tashai CREDIT RISK OFFICER-ESCAPEMENT MATCHER-B Hospital - ty C: [address] [facility], [address], [place] [address] , Ph. 2021-12-19 2021-12-19 Outpatient [facility] 2563 - [place] 00:00:00 00:00:00 803 [facility] i ty [facility] Clinics 2021-12-12 2021-12-12 Outpatient [facility] [id number] [place] 00:00:00 00:00:00 727 [facility] 2021-11-01 2021-11-01 Nurse Therapy, Adc Covid Infusion [facility] 1.2.840.114 [id number] Univers 16:00:00 17:00:00 Visit Jaren Loera 350.1.13.10 ity of [place] [id number] [facility] [address] 2021-11-01 2021-11-01 Outpatient R LUZ MARIA [facility] [id number] Univers 16:00:00 16:00:00 JAREN tineo [facility] 2021-11-01 2021-11-01 Orders Doctor MADRIGAL 1.2.840.114 [id number] Univers 00:00:00 00:00:00 Only Unassigned, LUZ ELENA 350.1.13.[address] [facility] 4.2.7.2.686 Joel as [id number] [facility] 009 [place] 2021-11-01 2021-11-01 ROHAN [place] 1.2.840.114 [id number] Univers 00:00:00 00:00:00 (Out) Mellisa LAGUNA 350.1.13.[address] [facility] 4.2.7.2.686 Joel as [id number] [facility] 019 [place] 2021-10-31 2021-10-31 [facility] [id number] Univers 17:20:00 18:04:35 LILLIAN tineo [facility] 2021-10-31 2021-10-31 Outpatient R MORGAN [facility] [id number] Univers 17:20:00 18:04:35 LILLIANSALINA tineo [facility] 2021-10-31 2021-10-31 Urgent Morgan Lillian [facility] 1.2.840.114 [id number] Univers 17:20:00 18:04:35 [facility] 350.1.13.10 ity of [facility] 4.2.7.2.686 Joel as FABIAN?BLEA [id number] [address] MEDICAL OFFICE BUILDING 2021-06-01 2021-06-01 Emergency ER SIMA, [facility] [id number] [place] 12:50:00 17:10:00 RASHMI -[id number] [facility] 2021-05-31 2021-05-31 Outpatient ANIVAL SCHWARTZ, [facility] [id number] [place] 12:51:00 12:51:00 ROWAN -[id number] [facility] 2021-05-31 2021-05-31 Outpatient [facility] [id number] [place] 09:08:00 09:08:00 113 Commun i ty [facility] Clinics 2021-02-06 2021-02-15 Inpatient ANIVAL VILLASEÑOR, [facility] INF [id number] [facility] 10:30:00 00:00:00 DOES_NOT 70 [place] [facility] 2021-02-05 2021-02-[address] [facility] 256 [place] 05:33:00 05:33:00 _L 920 Commun i ty [facility]osp[facility] Clinics 2021-02-05 2021-02-05 [place] Rachel [facility] [place] 202 [id number] [place] 00:00:00 00:00:00 [facility] BRIGID baxterC: [address], [facility] Clinics [address], [place] [address] , Ph. 2021-02-05 2021-02-05 Outpatient [facility] d24 [id number] 00:00:00 00:00:00 , Brook [id number] Virginie [id number] 2021-02-05 2021-02-05 Outpatient [facility] 143 [id number] 00:00:00 00:00:00 , [place] [id number] Virginie [id number] 2021-01-15 2021-01-[address] [facility] 256 4 [place] 01:46:00 01:46:00 _L 830 [facility] 2021-01-11 2021-01-[address] [facility] 256 4 [place] 11:02:00 11:02:00 _L 826 Commun i [facility] 2021-01-11 2021-01-11 Outpatient [facility] ebd [id number] 00:00:00 00:00:00 , [place] [id number] Virginie [id number] 2021-01-11 2021-01-11 Hawa [facility] [place] [id number] [place] 00:00:00 00:00:[facility]: [facility] ty [address] [place] [address], [place] [address] , Ph. 2021-01-04 2021-01-[address] [facility] 256 4 [place] 06:47:00 06:47:00 _L 819 Commun i ty [facility] 2021-01-02 2021-01-[address] [facility] 256 4 [place] 11:29:00 11:29:00 _L 817 [facility] 2020-12-19 2020-12-[address] [facility] 256 4 [place] 03:14:00 03:14:00 _L 803 Commun i ty [facility] 2020-12-19 2020-12-19 Outpatient [facility] d9a [id number] 00:00:00 00:00:00 , Brook [id number] Virginie [id number] 2020-12-19 2020-12-19 Hawa [facility] [place] 202 [id number] [place] 00:00:00 00:00:[facility] Hospital ty [address] [place] [address], [place] [address] , Ph. 2020-07-07 2020-07-07 Outpatient Elective Lana, [facility] [id number] [facility] 06:27:00 06:27:00 Rowan 30 2020-07-07 2020-07-07 Outpatient [facility] [id number] [facility] 06:27:00 06:27:00 30 2020-05-22 2020-05-22 Emergency ER DOREEN NEWMAN [facility] [id number] [place] 16:45:00 22:47:00 -[id number] [facility] 2020-04-07 2020-04-07 Outpatient [facility] 256 [place] 02:17:00 02:17:00 _L 120 Commun i ty [facility] 2020-01-24 2020-01-24 Letter ROHAN Soto 1.2.840.114 [id number] 00:00:00 00:00:00 (Out) Tracy L[place] 350.1.13.10 HOSPITAL 4.2.7.2.686 [id number] 2020-01-23 2020-01-23 Laboratory Lab, [facility] 1.2.840.114 [id number] 09:56:16 10:16:16 Only Fam Pob I Health 350.1.13.10 [place] 4.2.7.2.686 Professio [id number] nal [address] 2020-01-23 2020-01-23 Outpatient Jeffery BARNES [facility] [id number] Univers 09:40:00 09:40:00 LIVIA tineo [facility] 2020-01-23 2020-01-23 Letter Doctor MADRIGAL 1.2.840.114 [id number] 00:00:00 00:00:00 (Out) LUZ ELENA [place] 350.1.13.10 [place] [facility] 4.2.7.2.686 [id number] 2019-09-02 2019-09-[address] [facility] 1.2.840.114 [id number] 00:00:00 00:00:00 [facility] 350.1.13.10 [place] 4.2.7.2.686 Pretty [id number] nal [address] 2019-09-01 2019-09-01 Outpatient R EMY, [facility] [id number] Univers 15:20:00 15:20:00 VALERIA tineo [facility] 2018-05-22 2018-05-22 Emergency ER RAMILA VOGELS [facility] [id number] 1984 [place] 15:28:00 18:18:00 -[id number] [facility] 2013-08-12 2013-08-12 Emergency ER , [facility] [id number] [place] 20:09:00 22:22:00 WASIM -[id number] [facility] 2013-03-30 2013-03-30 Emergency ER RYAN, [facility] [id number] [place] 12:15:00 16:22:00 CLEMENT -[id number] [facility] Results Test Description Test Time Test Comments Results Result Comments Source Urinalysis macro (dipstick) panel - Urine 2022-12-05 13:24:0 0 Test Item Value Reference Range Interpretation Comme nts Leukocytes (test code = Leukocytes) Moderate Nitrite (test code = Nitrite) negative Urobilinogen (test code = Urobilinogen) .2 Protein (test code = Protein) Negative pH (test code = pH) 7.0 Blood (test code = Blood) Large Specific Accord (test code = Specific Accord) 1.015 Ketone (test code = Ketone) Negative Bilirubin (test code = Bilirubin) Negative Glucose (test code = Glucose) Negative Appearance (test code = Appearance) Clear Color (test code = Color) Pale Yellow [facility] panel - Urine 2022-04-03 17:02:00 Test Item Value Reference Range Interpretation Comments Leukocytes (test code = Leukocytes) Large Nitrite (test code = Nitrite) negative Urobilinogen (test code = .2 Urobilinogen) Protein (test code = Protein) Trace pH (test code = pH) 5.0 Blood (test code = Blood) Large Specific Accord (test code = 1.015 Specific Accord) Ketone (test code = Ketone) Negative Bilirubin (test code = Bilirubin) Negative Glucose (test code = Glucose) Negative Appearance (test code = Appearance) Cloudy Color (test code = Color) Yellow [facility]OVID[facility]19) Ag [Presence] in Respiratory specimen by Rapid [id number] 15:33:00 Test Item Value Reference Range Interpretation Comments SARS CoV 2 (test code = SARS CoV 2) positive [facility] ([facility]19) Ag [Presence] in Respiratory specimen by Rapid [id number] 15:33:00 Test Item Value Reference Range Interpretation Comments SARS CoV 2 (test code = SARS CoV 2) positive [facility] strep group A, [id number] 13:33:00 Test Item Value Reference Range Interpretation Comments Strep (test code = Strep) negative [facility]-CoV-2 (COVID-19) Ag [Presence] in Respiratory specimen by Rapid [id number] 13:33:00 Test Item Value Reference Range Interpretation Comments SARS CoV 2 (test code = SARS CoV 2) negative [facility] strep group A, [id number] 13:33:00 Test Item Value Reference Range Interpretation Comments Strep (test code = Strep) negative [facility]-CoV-2 (COVID-19) Ag [Presence] in Respiratory specimen by Rapid [id number] 13:33:00 Test Item Value Reference Range Interpretation Comments SARS CoV 2 (test code = SARS CoV 2) negative [facility] Auto [id number] 09:00:00 Test Item Value Reference Range Interpretation Comments White Blood Count (test code = 6.6 x10 3/uL 4.4-10.5 N WBCT) Red Blood Count (test code = 4.71 x10 6/uL 3.75-5.20 N RBC) Hemoglobin (test code = HGBT) 14.0 g/dL 12.2-14.8 N Hematocrit (test code = HCTT) 44.1 % 36.5-44.4 N Mean Corpuscular Volume (test 93.60 fL 80.00-100.00 N code = MCV) Mean Corpuscular Hemoglobin 29.7 pg 27.0-32.5 N (test code = MCH) Mean Corpuscular HGB Conc 31.70 g/dL 32.00-37.50 L (test code = MCHC) RDW Coefficient of Variation 12.6 % 11.5-14.5 N (test code = RDWCV) Platelet Count (test code = 287.0 x10 3/uL 140.0-440.0 N PLTT) Mean Platelet Volume (test 11.1 fL code = MPV) Immature Granulocytes % (Auto) 0.2 % 0.0-5.0 N (test code = IMMGRAN%) Neutrophils % (Auto) (test 47.1 % 36.0-70.0 N code = NE%) Lymphocytes % (Auto) (test 42.1 % 12.0-44.0 N code = LY%) Monocytes % (Auto) (test code 7.3 % 0.0-11.0 N = MO%) Eosinophils % (Auto) (test 2.7 % 0.0-7.0 N code = EO%) Basophils % (Auto) (test code 0.6 % 0.0-2.0 N = BA%) Immature Granulocytes # (Auto) 0.01 x10 3/uL (test code = IMMGRAN#) Neutrophils # (Auto) (test 3.1 x10 3/uL 1.6-7.4 N code = NE#) Lymphocytes # (Auto) (test 2.76 x10 3/uL 0.50-4.60 N code = LY#) Monocytes # (Auto) (test code 0.48 x10 3/uL 0.00-1.20 N = MO#) Eosinophils # (Auto) (test 0.18 x10 3/uL 0.00-0.74 N code = EO#) Basophils # (Auto) (test code 0.04 x10 3/uL 0.00-0.21 N = BA#) nRBC Abs (test code = NRBCA) 0 nRBC Pct (test code = NRBCP) 0 % Comprehensive Metabolic [id number] 09:00:00 Test Item Value Reference Range Interpretation Comments SODIUM (test code = NA) 136.0 mmol/L 136.0-145.0 N Potassium,K (test code = mmol/L 3.0-5.1 Sweta ssly Hemolyzed K) notified Siomara Ordonez Chloride (test code = 107 mmol/L 98-107 N CL) Carbon Dioxide (test 22 mmol/L 20-31 N code = CO2) Anion Gap (test code = 7 mmol/L 5-15 N GAP) Blood Urea Nitrogen 18 mg/dL 9-23 N (test code = BUN) Creatinine (test code = 0.71 mg/dL 0.55-1.02 N CREATT) Creatinine Clr Calc 93.31 mL/min Pharmacy (test code = CRCLPHA) Estimated GFR ( > 60 mL/min/1.73m2 Liliana (test code = EGFRAA) Estimated GFR (Non Afr > 60 mL/min/1.73m2 Liliana (test code = EGFRNAA) BUN/Creatinine Ratio 25 ratio 10-20 H (test code = BCRATIO) Glucose (test code = 91 mg/dL 74-106 N GLU) Osmolality,Calculated 283.4 (test code = OSMOC) Calcium (test code = CA) 9.8 mg/dL 8.3-10.6 N Bilirubin,Total (test 0.6 mg/dL 0.2-1.1 N code = BILIT) Aspartate Amino 57 U/L 0-34 H Transferase (test code = AST) Alanine Aminotransferase 25 U/L 10-49 N (test code = ALT) Total Protein (test code 7.5 g/dL 5.7-8.2 N = TP) Albumin Level (test code 5.0 g/dL 3.2-4.8 H = ALB) Globulin (test code = 2.5 mg/dL 2.3-3.5 N GLOB) Albumin/Globulin Ratio 2.0 ratio 0.8-2.0 N (test code = AGRATIO) Alkaline Phosphatase 146 U/L 46-116 H (test code = ALP) Sed Rate ESR ([place])2016-12-24 23:36:00 Test Item Value Reference Range Interpretation Comments ESR (test code = HESR) 27 mm/Hr 0-20 H CBC with [id number] 21:38:00 Test Item Value Reference Range Interpretation [...] code = ALYMPH) 2.2 K/cumm 0.5-4.6 N Dane Abs (test code = AMONO) 0.4 K/cumm 0.0-1.2 N Eos Abs (test code = AEOS) 0.12 K/cumm 0.00-0.74 N Baso Abs (test code = ABASO) 0.0 K/cumm 0.00-0.21 N Notes Date/Time Note Provider Source 2017-02-04 21:53:03-00:00 [facility] Operative Report/Procedure PATIENT NAME: DEBORA LOZANO PHYSICIAN: Rowan Schwartz MD Admitted: MR NUMBER: [id number] DISCHARGED: DATE OF PROCEDURE: 01/24/2017 PROCEDURE: 1. Moderate conscious sedation. 2. Left heart catheterization. 3. Selective coronary angiography. 4. Left ventriculography. 5. Sheath angiography. 6. A 6 Maldivian AngioSeal deployment. PROCEDURE: A common right common femoral vein ac cess was performed at the beginning of the procedure due to lack of periph eral IV access. So after appropriate consent, the patient was taken to [facility] lab, where she was draped in usual sterile manner. Right groin was anesthe tized with lidocaine x 20 mL. Right common femoral vein was punctured, caridad dewire was introduced. A 5-Maldivian sheath was advanced and flushed. Then, the right common femoral artery was punctured guidewire was introduced. A 6-Maldivian sheath advanced and flushed. A 6-Maldivian JL4 was utilized to robbie ulate the left main in the GREGORY projection. Angiography demonstrated patent left main, LAD and left circumflex system. It was a large vessel, large ramus intermedius also which was patent. No angiographic disease was observed but increased tortuosity consistent with hypertensive cardiovascular dise ase was noted. Then, the catheter was exchanged to a 6-Maldivian right Judki ns cannulating the RCA in the GREGORY projection. Angiography demonstrated dominan t right coronary artery which was angiographically normal. Then, the cat heter was exchanged to a 6-Maldivian pigtail catheter across the aortic valv e in the GREGORY projection. LVEDP was 17 mmHg and angiography demonstrated n ormal left ventricular systolic function. Mitral valve prolapse was not ed. Upon pullback, there was no gradient across the aortic valve. Then, t he catheter was taken out of the wound. Then the sheath was advanced and flus hed. Angiography demonstrated good position for the sheath. A 6-F rench AngioSeal was deployed. MD FARRAH Linda/ELISA TD: 01/24/2017 10:[address] [facility] Operative Report/Procedure PATIENT NAME: DEBORA LOZANO PHYSICIAN: Rowan Schwartz MD Admitted: MR NUMBER: [id number] DISCHARGED: DATE OF PROCEDURE: 01/24/2017 PROCEDURE: 1. Moderate conscious sedation. 2. Left heart catheterization. 3. Selective coronary angiography. 4. Left ventriculography. 5. Sheath angiography. 6. A 6 Maldivian AngioSeal deployment. PROCEDURE: A common right common femoral vein ac cess was performed at the beginning of the procedure due to lack of periph eral IV access. So after appropriate consent, the patient was taken to [facility] lab, where she was draped in usual sterile manner. Right groin was anesthe tized with lidocaine x 20 mL. Right common femoral vein was punctured, caridad dewire was introduced. A 5-Maldivian sheath was advanced and flushed. Then, the right common femoral artery was punctured guidewire was introduced. A 6-Maldivian sheath advanced and flushed. A 6-Maldivian JL4 was utilized to robbie ulate the left main in the GREGORY projection. Angiography demonstrated patent left main, LAD and left circumflex system. It was a large vessel, large ramus intermedius also which was patent. No angiographic disease was observed but increased tortuosity consistent with hypertensive cardiovascular dise ase was noted. Then, the catheter was exchanged to a 6-Maldivian right Judki ns cannulating the RCA in the GREGORY projection. Angiography demonstrated dominan t right coronary artery which was angiographically normal. Then, the cat heter was exchanged to a 6-Maldivian pigtail catheter across the aortic valv e in the GREGORY projection. LVEDP was 17 mmHg and angiography demonstrated n ormal left ventricular systolic function. Mitral valve prolapse was not ed. Upon pullback, there was no gradient across the aortic valve. Then, t he catheter was taken out of the wound. Then the sheath was advanced and flus hed. Angiography demonstrated good position for the sheath. A 6-F rench AngioSeal was deployed. MD FARRAH Linda/ELISA TD: 01/24/2017 10:53 Electronically Authenticated by: Rowan Schwartz MD On 02/04/2017 09:52 PM CDT
[2022-12-22 13:49] LABS: Absolute Lymphocytes (CBC) 3.8 K/uL (0.7-4.9); Hematocrit 38.9 % (36.0-45.0); Lymphocytes % 41.1 % (15.3-44.8); MCV 89.7 fL (80-100); MPV 8.4 fL (7.6-11.3); Platelets 275 thou/uL (152-406); RBC Red Blood Cell Count 4.34 M/uL (3.86-4.86)
[2022-12-22 13:52] LABS: Specific Gravity 1.018 (1.005-1.030); Urine Bacteria None Seen /HPF (<20); Urine Bilirubin NEGATIVE (Negative); Urine Blood 3+ (Negative); Urine Clarity Turbid (Clear); Urine Color Light-Yellow (Yellow); Urine Glucose NEGATIVE (Negative); Urine Protein NEGATIVE (Negative); Urine RBC 21-50 /HPF (None Seen); Urine Urobilinogen Normal (Normal); Urine pH 5.5 (5.0-7.0)
[2022-12-22 14:09] LABS: Albumin 3.7 g/dL (3.4-5.0); Bilirubin Total 0.3 mg/dL (0.2-1.0); Potassium 3.6 mEq/L (3.5-5.1); Protein, Total 7.9 g/dL (6.4-8.2)
--- NOTE | 2022-12-22 14:09 | RAD REPORT ---
EXAM DESCRIPTION: CT - Abdomen Pelvis Wo Contrast - 12/22/2022 1:48 pm CLINICAL HISTORY: Abdominal pain left flank pain COMPARISON: 2015 TECHNIQUE: Computed axial tomography of the abdomen and pelvis was obtained. IV and oral contrast we re not requested. All CT scans are performed using dose optimization technique as appropriate and may include automated exposure control or mA/KV adjustment according to patient size. FINDINGS: The evaluation of solid organs, vessels and bowel is limited secondary to the lack of con trast administration. Tiny left renal calculus. No hydronephrosis. A ureteral calculus is not seen. Liver, spleen, pancreas and adrenals appear grossly normal. Hysterectomy. No adnexal mass Small umbilical hernia IMPRESSION: Tiny nonobstructing left renal calculus
[2022-12-22] MEDS ORDERED: CEFTRIAXONE 1000 MG/VIAL ONE (14:14)
[2022-12-22] MEDS ORDERED: NA CHLORIDE 0.9% 1,000 ML ONE (14:14)
[2022-12-22] MEDS ORDERED: FENTANYL CITR 100 MCG/2 ML ONE (14:14)
[2022-12-22] MEDS ORDERED: NA CHLORIDE 0.9% 100 ML ONE (14:14)
--- NOTE | 2022-12-22 14:58 | EDPHYS ---
Physician Documentation [facility] King Name: Debora Friday Age: 52 yrs Sex: Female : 1970 Arrival Date: 12/22/2022 Time: 13:00 Bed 12 Private MD: ED Physician Nic Richards HPI: 12/22 19:14 This 52 yrs old Female presents to ER via Ambulatory with complaints of Low Back Pain. rt 19:14 Patient presents to the ED with a low back pain as well as hematuria starting rt yesterday. Patient states that the pain was worse previously but that somewhat improved, is somewhat uncomfortable now with associated nausea. She had been on antibiotics for a UTI, completed a course of Macrobid for that. Denies other acute complaints at this time, symptoms are moderate severity, no other aggravating alleviating factors.. 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 - Social history:: Smoking status: Patient denies any tobacco usage or history of. - Family history:: not pertinent. ROS: 19:14 Constitutional: Negative for fever, chills, and weight loss, Cardiovascular: Negative rt for chest pain, palpitations, and edema, Respiratory: Negative for shortness of breath, cough, wheezing, and pleuritic chest pain, MS/Extremity: Negative for injury and deformity, Skin: Negative for injury, rash, and discoloration, Neuro: Negative for headache, weakness, numbness, tingling, and seizure, Psych: Negative for depression, anxiety, suicide ideation, homicidal ideation, and hallucinations. 19:14 Abdomen/GI: Positive for abdominal pain, nausea. 19:14 Back: Positive for flank pain, Negative for radiated pain. Exam: 19:14 Constitutional: This is a well developed, well nourished patient who is awake, alert, rt and in no acute distress. Head/Face: Normocephalic, atraumatic. Chest/axilla: Normal chest wall appearance and motion. Nontender with no deformity. No lesions are appreciated. Cardiovascular: Regular rate and rhythm with a normal S1 and S2. No gallops, murmurs, or rubs. Normal PMI, no JVD. No pulse deficits. Respiratory: Lungs have equal breath sounds bilaterally, clear to auscultation and percussion. No rales, rhonchi or wheezes noted. No increased work of breathing, no retractions or nasal flaring. Abdomen/GI: Soft, non-tender, with normal bowel sounds. No distension or tympany. No guarding or rebound. No evidence of tenderness throughout. Skin: Warm, dry with normal turgor. Normal color with no rashes, no lesions, and no evidence of cellulitis. MS/ Extremity: Pulses equal, no cyanosis. Neurovascular intact. Full, normal range of motion. Neuro: Awake and alert, GCS 15, oriented to person, place, time, and situation. Cranial nerves II-XII grossly intact. Motor strength 5/5 in all extremities. Sensory grossly intact. Cerebellar exam normal. Normal gait. Psych: Awake, alert, with orientation to person, place and time. Behavior, mood, and affect are within normal limits. 19:14 Back: Left CVAT, no midline tenderness. Vital Signs: 13:15 BP 141 / 90; Pulse 74; Resp 18; Temp 98.2; Pulse Ox 100% on R/A; Weight 81.65 kg; mb9 Height 5 ft. 3 in. ; Pain 8/10; 13:15 Body Mass Index 31.89 (81.65 kg, 160.02 cm) mb9 13:15 Pain Scale: Adult mb9 MDM: 13:26 Patient medically screened. rt 19:14 Differential diagnosis: Pyelonephritis, ureterolithiasis, kidney stones, mechanical rt back pain. Data reviewed: vital signs, nurses notes, lab test result(s), radiologic studies. Independent interpretation of the following test(s) in the Emergency Department CT Scan: My interpretation is No bowel obstruction seen mitral rotation of the CT scan images. Care significantly affected by the following chronic conditions: Hypertension. Counseling: I had a detailed discussion with the patient and/or guardian regarding: the historical points, exam findings, and any diagnostic results supporting the discharge/admit diagnosis, lab results, radiology results, the need for outpatient follow up, to return to the emergency department if symptoms worsen or persist or if there are any questions or concerns that arise at home. 12/22 13:28 Order name: CBC with Diff; Complete Time: 14:09 rt 12/22 13:28 Order name: CMP; Complete Time: 14: rt 12/22 13:28 Order name: UAM; Complete Time: 14: rt 12/22 13:28 Order name: CT Abd/Pelvis - Without Contrast; Complete Time: 14:10 rt Administered Medications: 14:22 Drug: fentaNYL (PF) IVP 50 mcg Route: IVP; Site: left antecubital; iw 14:22 Drug: NS 0.9% IV 1000 ml Route: IV; Rate: 1 bolus; Site: left antecubital; iw 14:22 Drug: Rocephin IV 2 grams Route: IV; Rate: calculated rate; Site: left antecubital; iw 15:03 Drug: fentaNYL (PF) IVP 100 mcg Route: IVP; Site: left antecubital; iw 15:03 Drug: Ondansetron IVP 4 mg Route: IVP; Site: left antecubital; iw Disposition Summary: 12/22/22 14:58 Discharge Ordered Location: Home rt Problem: an acute exacerbation rt Symptoms: have improved rt Condition: Stable rt Diagnosis - Calculus of kidney rt Followup: rt - With: Vincent Whiting MD - When: 7 - 10 days - Reason: Discharge Instructions: - Discharge Summary Sheet rt - Kidney Stones rt Forms: - Medication Reconciliation Form rt - Thank You Letter rt - Antibiotic Education rt - Prescription Opioid Use rt - Patient Portal Instructions rt Prescriptions: - ondansetron 4 mg Oral Tablet,disintegrating - take 1 tablet by ORAL route every 6 hours; 15 tablet; Refills: 0, Product rt Selection Permitted - Ultram 50 mg Oral Tablet - take 1 tablet by ORAL route every 6 hours As needed; 15 tablet; Refills: 0, rt Product Selection Permitted Signatures: Dispatcher [employer] Aparna Santiago RN RN iw Violeat Greene RN RN mb9 Nic Richards MD MD rt
--- NOTE | 2022-12-22 14:58 | ER ---
Nurse's Notes [facility] King Name: Debora Friday Age: 52 yrs Sex: Female : 1970 Arrival Date: 12/22/2022 Time: 13:00 Bed 12 Private MD: Diagnosis: Calculus of kidney Presentation: 12/22 13:15 Chief complaint: Patient states: "I had a UTI in November and have been taking medicine as mb9 prescribed but nothing has helped. Now my back hurts and feel like it went into my Kidneys and my left side of my back hurtrs. Now I have visible blood in my urine". Coronavirus screen: At this time, the client does not indicate any symptoms associated with coronavirus-19. Ebola Screen: No symptoms or risks identified at this time. Initial Sepsis Screen: Does the patient meet any 2 criteria? No. Patient's initial sepsis screen is negative. Does the patient have a suspected source of infection? No. Patient's initial sepsis screen is negative. Risk Assessment: Do you want to hurt yourself or someone else? Patient reports no desire to harm self or others. Onset of symptoms was December 22, 2022. 13:15 Method Of Arrival: Ambulatory mb9 13:15 Acuity: KAYLYNN 3 mb9 Triage Assessment: 13:20 General: Appears uncomfortable, Behavior is calm, cooperative. Pain: Complains of pain mb9 in back Pain radiates to left flank Pain currently is 8 out of 10 on a pain scale. Quality of pain is described as aching, throbbing, Pain began gradually, Is continuous. EENT: No signs and/or symptoms were reported regarding the EENT system. Neuro: Lucio Agitation-Sedation Scale (RASS): 0 - Alert and Calm Level of Consciousness is awake, alert, obeys commands, Oriented to person, place, time, situation, Appropriate for age. Cardiovascular: Patient's skin is warm and dry. Respiratory: Airway is patent Respiratory effort is even, unlabored, Respiratory pattern is regular, symmetrical. GI: No signs and/or symptoms were reported involving the gastrointestinal system. : Reports pain in left flank(s), with urination. Derm: Skin is pink, warm \\T\\ dry. Musculoskeletal: Range of motion: intact in all extremities. 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 - Social history:: Smoking status: Patient denies any tobacco usage or history of. - Family history:: not pertinent. Screenin:44 [facility] ED Fall Risk Assessment (Adult) History of falling in the last 3 months, iw including since admission No falls in past 3 months (0 pts). Abuse screen: Denies threats or abuse. Denies injuries from another. Nutritional screening: No deficits noted. Tuberculosis screening: No symptoms or risk factors identified. Assessment: 13:44 General: Appears in no apparent distress. Behavior is calm, cooperative. Pain: iw Complains of pain in back. Neuro: Level of Consciousness is awake, alert, obeys commands, Oriented to person, place, time, situation, Moves all extremities. Full function. : Reports pain flank(s). Derm: Skin is intact, is healthy with good turgor. Vital Signs: 13:15 BP 141 / 90; Pulse 74; Resp 18; Temp 98.2; Pulse Ox 100% on R/A; Weight 81.65 kg; mb9 Height 5 ft. 3 in. ; Pain 8/10; 13:15 Body Mass Index 31.89 (81.65 kg, 160.02 cm) mb9 13:15 Pain Scale: Adult mb9 ED Course: 13:06 Patient arrived in ED. im 13:12 Nic Richards MD is Attending Physician. rt 13:17 Triage completed. mb9 13:19 Arm band placed on. mb9 13:29 Aparna Reilly, MELISSA is Primary Nurse. iw 13:43 Inserted saline lock: 22 gauge in left antecubital area, using aseptic technique. Blood iw collected. 13:50 CT Abd/Pelvis - Without Contrast In Process Unspecified. EDMS 14:57 Vincent Whiting MD is Referral Physician. rt Administered Medications: 14:22 Drug: fentaNYL (PF) IVP 50 mcg Route: IVP; Site: left antecubital; iw 14:22 Drug: NS 0.9% IV 1000 ml Route: IV; Rate: 1 bolus; Site: left antecubital; iw 14:22 Drug: Rocephin IV 2 grams Route: IV; Rate: calculated rate; Site: left antecubital; iw 15:03 Drug: fentaNYL (PF) IVP 100 mcg Route: IVP; Site: left antecubital; iw 15:03 Drug: Ondansetron IVP 4 mg Route: IVP; Site: left antecubital; iw Medication: 13:21 VIS not applicable for this client. mb9 Outcome: 14:58 Discharge ordered by . rt 15:46 Patient left the ED. iw Signatures: Dispatcher [employer] Aparna Santiago RN RN iw Violeta Greene RN RN mb9 Nic Richards MD MD rt Elyssa Kitchen
[2022-12-22] MEDS ORDERED: ONDANSETRON 4 MG/2 ML VIAL ONE (15:04)
[2022-12-22] MEDS ORDERED: ONDANSETRON 4 MG (ODT) TAB ONE (15:54)
[2022-12-22 16:09] VITALS: BP 141/90; TEMP 98.2; O2SAT 100
== END 2022-12-22 15:46 | disposition home or self-care (01) ==
LOC: ER 13:00
DX: N20.0 Calculus of kidney (principal); Z88.0 Allergy status to penicillin; Z88.2 Allergy status to sulfonamides; Z88.5 Allergy status to narcotic agent
CPT/HCPCS: 85025; 81001; 36415; 80053; 74176; 96375; 96374; 99284; Q0162; J3010; J2405; J7030; J0696

== ENCOUNTER 2023-03-09 15:37 | Observation (INO) | payer BC ==
--- OUTSIDE RECORDS SUMMARY | 2023-03-09 15:42 | XMS REPORT | Continuity of Care Document ---
:1970 Author Organization [facility] t Address [address] [facility] Bhupinder. [address] [place] [address] Support Name Relationship Address Phone Gwyn Verde Spouse Unavailable Zenaida Camilo Mother Unavailable Unavailable Friday, Parviz Spouse [address] [place] [address] FRIDAYDEBORA Unavailable [address] [phone] [place] [address] LELA JONES, YORDY Jorge Emergency Provider [address] [facility] [place] [address] KIM ROUSTABOUT CREW, BROOK Lui Primary Care Physician [address] [facility] [place] [address] DARREN, PARVIZ Next of Kin [address] [place] [address] MD BERNARD NEWMANG Emergency Provider [address] [facility] [address] [place] [address] JAZMIN ALVAREZ Primary Care Physician [address] [facility] [place] [address] MD RASHMI GAO Emergency Provider [address] [place] [id number] MD ROWAN SCHWARTZ Other Provider [address] [phone] [place] [address] Debora Lozano Unavailable Unavailable [phone] FRIDAY, PARVIZ Spouse [address] [place] [address] [employer] Unavailable [address] [facility] [place] [address] Unavailable Unavailable Unavailable Unavailable Care Team Providers Name Role Phone Brook Alvarez Primary Care Physician BROOK ALVAREZ Attending Clinician Unavailable CHRETIEN_F Attending Clinician Unavailable ALETHEA MORFIN Attending Clinician Unavailable Alan JONES, Phillip Stuart Attending Clinician WATERS_S Attending Clinician Unavailable Therapy, [facility] Covid Infusion Attending Clinician Unavailable Jaren Loera MD Attending Clinician JAREN LOERA Attending Clinician Unavailable Doctor Unassigned, [place] Attending Clinician Unavailable Alpa TORRES, Mellisa Attending Clinician Unavailable LILLIAN PAZ Attending Clinician Unavailable Morgan JONES, Lillian Attending Clinician Lina Schwartz Attending Clinician RASHMI GAO Attending Clinician Unavailable ROWAN SCHWARTZ Attending Clinician Unavailable KNOW, DOES_NOT Attending Clinician Unavailable SCHAZHOUROSEDRICK_L Attending Clinician Unavailable Brook Alvarez Attending Clinician [phone] Rowan Schwartz Attending Clinician Unavailable DOREEN NEWMAN Attending Clinician Unavailable Charles TORRES, Tracy Benedict Attending Clinician Unavailable Lab, [facility] Fam Pob I Attending Clinician Unavailable LIVIA BARNES Attending Clinician Unavailable Mekhi Reno MD Attending Clinician VALERIA QUEVEDO Attending Clinician Unavailable YORDY VOGEL Attending Clinician Unavailable ROWAN SCHWARTZ M.D., GEORGE, M.D. Attending Clinician Unav ailable SAMUEL MADRIGAL Attending Clinician Unavailable DUSTIN DAVIS Attending Clinician Unavailable KNOW, DOES_NOT Admitting Clinician Unavailable CHRETIEN_F Admitting Clinician Unavailable WATERS_S Admitting Clinician Unavailable SCHAUBROECK_L Admitting Clinician Unavailable ROWAN SCHWARTZ M.D., Ayanna DONAHUE Admitting Clinician Unav ailable Payers Payer Name Policy Type Policy Number Effective Date Expiration Date S amada [facility]: [place] [id number] 2020 OF [place] (PPO[place] 00:00:00 AETNA [id number] 2015 2020 00:00:00 00:00:00 Problems Condition Condition Condition Status Onset Resolution Last Treating Co mments Source Name Details Category Date Date Treatment Clinician Date 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 7-20 [facility] gland Gland 00:00: ty 00 [facility] Acute Acute Problem Active [place] pharyngiti Pharyngiti 3-16 [facility] s s 00:00: ty 00 [facility] Spasm of Spasm of Problem Active [place] back Back 3-16 [facility] muscles Muscles 00:00: ty 00 [facility] Fracture Fracture Problem Active [place] of of 2-20 Communi multiple Multiple 00:00: ty ribs Ribs 00 [facility] Vitamin D Vitamin D Problem Active 2021-05 [place] anastacia deficiency Deficiency 1-28 Co mmuni 00:00: ty 00 [facility] Hyperchole Hyperchole Problem Active 2021-05 [facility] sterolemia sterolemia 1-28 Co m[facility]i 00:00: ty 00 [facility] Osteoporos Osteoporos Problem Active 2021-05 [facility] is is 1-28 Communi 00:00: ty 00 [facility] Chest pain Chest Pain Problem Active 2021-05 S [facility] 1-28 Communi 00:00: ty 00 [facility] Multiple Multiple Problem Active 2021-05 [place] joint pain Joint Pain 1-16 Co [facility]i 00:00: ty 00 [facility] Low back Low Back Problem Active 2021-05 [place] pain Pain 1-16 Communi 00:00: ty 00 [facility] Chronic Chronic Problem Active [place] Kareem-Ba Kareem-Ba 8-26 Co m[facility]i rr virus rr Virus 00:00: ty 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 [facility] 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 [place] [facility] Cough Cough Disease Active 2019- Univers 4-15 ity of 00:00: 00 Medical Branch Sore Sore Disease Active Univers throat throat 4-15 ity of 00:00: Medical Branch Lupus Lupus Disease Active [facility] arthritis arthritis 5- st 00:00: Hospita 00 l Rheumatoid Rheumatoid Disease Active M ethodi arthritis arthritis 10-06 of of 00:00: Hospita multiple multiple 00 l sites with sites with negative negative rheumatoid rheumatoid factor factor Lupus Lupus Disease Active [facility] arthritis arthritis 10-06 00:00: Hospita 00 l Nondisplac Nondisplac Disease Active 2018- M ethodi ed ed [address] fracture [...] Hypothyroi Problem Active [facility] dism dism 10-08 [facility] 00:00: ty [facility] Hypertensi Hypertensi Problem Active S [facility] ve ve 10-08 Communi disorder Disorder 00:00: ty 00 [facility] Allergies, Adverse Reactions, Alerts Allergy Allergy Status Severity Reaction(s) Onset Inactive Treating Comm ents Source Name Type Date Date Clinician No Known DA Active [facility] Allergie 02-06 [place] [facility] 00:00: [facility] 00 are [place] No Known DA Active [facility] Allergie 02-06 [place] 00:[facility]: [facility] 00 are [place] Penicill DA Active U Itching [facility] ins 18 00:00: 00 Sulfa DA Active U Itching SJm (Sulfona 18 mide 00:00: Antibiot 00 ics) codeine DA Active U Itching [facility] 18 00:00: 00 Penicill Propensi Active Method i ins ty to 08-24 st adverse 00:00: Hospita reaction 00 l s to drug Codeine Propensi Active Nausea Univers ty to and/or 08 ity of adverse Vomiting 00:00: [place] reaction 00 Medical s Branch CODEINE DRUG Active N/V Univers INGREDI 4-08 ity of 00:00: [place] 00 Medical Branch Penicill Propensi Active [facility] i ins ty to 08-24 st adverse 00:00: Hospita reaction 00 l s to drug Sulfa Propensi Active [facility] (Sulfona ty to 08-24 st mide adverse 00:00: Hospita Antibiot reaction 00 l ics) s to drug Codeine Propensi Active Methodi ty to 08-24 st adverse 00:00: Hospita reaction 00 l s to drug Penicill Propensi Active Hives Univer s ins ty to 2-21 ity of adverse 00:00: [place] reaction 00 Medical s Branch Penicill Propensi Active Hives Univer s ins [...] 00 Medical ICS) Branch Codeine Allergy Active [place] to Communi substanc ty e Hospita l Clinics PENICILL Allergy Active [place] INS to Communi substanc ty e Hospita l Clinics SULFA Allergy Active [place] (SULFONA to Communi MIDE substanc ty ANTIBIOT e Hospita ICS) l Clinics Family History Family Member Diagnosis Comments Start Date Stop Date Source Natural brother Heart disease [facility] Natural brother Heart attack [facility] brother Cancer [facility] Natural brother Liver disease [facility] Natural father [facility] Natural father Heart disease [facility] mother Arthritis [facility] Natural mother Blood Clots [facility] mother Cancer [facility] Natural mother Stroke [facility] Natural sister Heart disease [facility] sister Cancer [facility] Social History Social Habit Start Date Stop Date Quantity Comments Source Gender identity 2022-07-25 Identifies as Method ist 11:44:41 female gender Hospital (finding) Sexual orientation [facility] Tobacco use and 2022-08-05 2022-08-05 Smokeless tobacco Me [facility] exposure 00:00:00 00:00:00 non-user Hospital Alcohol intake 2022-08-05 2022-08-05 Current Rastafari 00:00:00 00:00:00 non-drinker of Hospital alcohol (finding) History of Social 2022-08-05 2022-08-[address] function 00:00:00 00:00:00 Hospital Exposure to 2021-10-21 2021-10-31 Yes University of SARS-CoV-2 (event) 00:00:00 17:45:00 [facility] Sex Ass[birth year] At [birth year] F Rastafari 00:00:00 00:00:00 Hospital Smoking Status Start Date Stop Date Source Tobacco smoking consumption [facility] Never smoked tobacco [facility] Medications Ordered Filled Start Stop Current Ordering Indication Dosage Frequency Signature Comments Components Source Medication Medication Date Date Medication? Clinician (SIG) Name Name methylPREDN Yes [id number] follow [facility] ISolone 3-[address] (Medrol, 00:00: directions Hos han Ian,) 4 mg 00 l tablet methylPREDN Yes [id number] follow [facility] ISolone 3-[address] (Medrol, 00:00: directions Hos han Ian,) 4 mg 00 l tablet ketorolac ketorolac No ketorolac [place] 60 mg/2 mL 60 mg/2 mL 2-20 60 mg/2 mL Communi intramuscul intramuscul 10:26: intramuscu ty ar ar 00 lar Hospita solutionInj solutionInj solutionIn l ect 2 mL by ect 2 mL by ject 2 mL Clinics intramuscul intramuscul by ar route. ar route. intramuscu lar route. dexamethaso dexamethaso No dexamethas [place] ne sodium ne sodium 2-20 one sodium Communi phosphate phosphate 10:25: phosphate ty 10 mg/mL 10 mg/mL 00 10 mg/mL Hos han injection injection injection l solutionTak solutionTak solutionTa Clinics e 10 mg by e 10 mg by ke 10 mg injection injection by route. route. injection route. Prolia 60 Prolia 60 No 1mL Prolia 60 [place] mg/mL mg/mL 1-10 mg/mL Communi subcutaneou subcutaneou 00:00: subcutaneo ty s syringe s syringe 00 us syringe Hospita Inject 1 mL Inject 1 mL Inject 1 l by by mL by Clinics subcutaneou subcutaneou subcutaneo s route. s route. us route. Prolia 60 Prolia 60 2022-0 No 1mL Prolia 60 [place] mg/mL mg/mL 1-10 mg/mL Communi subcutaneou subcutaneou 00:00: subcutaneo ty s syringe s syringe 00 us syringe Hospita Inject 1 mL Inject 1 mL Inject 1 l by by mL by Clinics subcutaneou subcutaneou subcutaneo s route. s route. us route. Prolia 60 Prolia 60 2022-0 No 1mL Prolia 60 [place] mg/mL mg/mL 1-10 mg/mL Communi subcutaneou subcutaneou 00:00: subcutaneo ty s syringe s syringe 00 us syringe Hospita Inject 1 mL Inject 1 mL Inject 1 l by by mL by Clinics subcutaneou subcutaneou subcutaneo s route. s route. us route. Prolia 60 Prolia 60 2022-0 No 1mL Prolia 60 [place] mg/mL mg/mL 1-10 mg/mL Communi subcutaneou subcutaneou 00:00: subcutaneo ty s syringe s syringe 00 us syringe Hospita Inject 1 mL Inject 1 mL Inject 1 l by by mL by Clinics subcutaneou subcutaneou subcutaneo s route. s route. us route. benzonatate Yes [id number] 200mg Take 2 Univers 100 mg 6-15 capsules ity of capsule 00:00: by mouth [place] 00 every 8 Medical (eight) Branch hours as needed for Cough. bromphenira Yes [id number] 5mL Take 5 mL Univers mine-pseudo 6-15 by mouth 4 it y of ephedrine-D 00:00: (four) [place] (BROMFED 00 times Medical DM) 2-30-10 daily as Bran ch mg/5 mL needed for syrup Congestion /Allergies . benzonatate Yes [id number] 200mg Take 2 Univers 100 mg 6-15 capsules ity of capsule 00:00: by mouth [place] 00 every 8 Medical (eight) Branch hours as needed for Cough. bromphenira 2022-0 Yes [id number] 5mL Take 5 mL Univers mine-pseudo 6-15 by mouth 4 it y of ephedrine-D 00:00: (four) [place] M (BROMFED 00 times Medical DM) 2-30-10 daily as Bran ch mg/5 mL needed for syrup Congestion /Allergies . benzonatate 2022-0 Yes [id number] 200mg Take 2 Univers 100 mg 6-15 capsules ity of capsule 00:00: by mouth [place] 00 every 8 Medical (eight) Branch hours as needed for Cough. bromphenira 2022-0 Yes [id number] 5mL Take 5 mL Univers mine-pseudo 6-15 by mouth 4 it y of ephedrine-D 00:00: (four) [place] M (BROMFED 00 times Medical DM) 2-30-10 daily as Bran ch mg/5 mL needed for syrup Congestion /Allergies . benzonatate 2021-0 Yes [id number] 200mg Take 2 Univers 100 mg 6-15 capsules ity of capsule 00:00: by mouth [place] 00 every 8 Medical (eight) Branch hours as needed for Cough. bromphenira 2021-0 Yes [id number] 5mL Take 5 mL Univers mine-pseudo 6-15 by mouth 4 it y of ephedrine-D 00:00: (four) [place] M (BROMFED 00 times Medical DM) 2-30-10 daily as Bran ch mg/5 mL needed for syrup Congestion /Allergies . citalopram 2020-0 Yes citalopram U nivers 20 mg 4-15 20 mg ity of tablet 15:48: tablet [place] [id number] Take 1 Medical tablet Branch every day by oral route. levothyroxi 2020-0 Yes daily. [facility] ers ne 112 mcg 4-15 ity of tablet 15:48: [address] Branch citalopram 2020-0 Yes citalopram U nivers 20 mg 4-15 20 mg ity of tablet 15:48: tablet [place] 13 Take 1 Medical tablet Branch every day by oral route. levothyroxi 2020-0 Yes daily. [facility] ers ne 112 mcg 4-15 ity of tablet 15:48: [address] Branch citalopram 2020-0 Yes citalopram U nivers 20 mg 4-15 20 mg ity of tablet 15:48: tablet [place] 13 Take 1 Medical tablet Branch every day by oral route. levothyroxi 2020-0 Yes daily. [facility] ers ne 112 mcg 4-15 ity of tablet 15:48: [place] [id number] Medical Branch citalopram 2020-0 Yes citalopram U nivers 20 mg 4-15 20 mg ity of tablet 15:48: tablet [place] 13 Take 1 Medical tablet Branch every day by oral route. levothyroxi 2020-0 Yes daily. Univ ers ne 112 mcg 4-15 ity of tablet 15:48: [address] Branch citalopram 2020-0 Yes citalopram U nivers 20 mg 4-15 20 mg ity of tablet 15:48: tablet [place] 13 Take 1 Medical tablet Branch every day by oral route. levothyroxi 2020-0 Yes daily. Univ ers ne 112 mcg 4-15 ity of tablet 15:48: [address] acetaminoph 2021- No [id number] 650mg Take 1 Univers en 650 mg -15 -15 tablet by ity of CR tablet 00:00: 00:00 mouth [place] 00 :00 every 8 Medical (eight) Branch hours as needed for Pain or Fever. nystatin/ma 2021- No [id number] 5mL Take 5 mL Univers alox/diphen [id number] by mouth 4 i ty of hydrAMINE/l 00:00: 00:00 (four) [place] idocaine 2 00 :00 times Medical % viscous daily as Branch 1:1:1:1 needed Susp (Sore suspension throat). Gargle and spit, do not swallow bromphenira 2021- No [id number] 10mL Take 10 mL Univers mine-pseudo -15 by mouth 4 i ty of ephedrine-D 00:00: 00:00 (four) [place] M (BROMFED 00 :00 times Medical DM) 2-30-10 daily as Bran ch mg/5 mL needed for syrup Congestion /Allergies or Cough. pseudoephed 2021- No [id number] 120mg Take 1 Univers rine SA -15 -15 tablet by ity of (SUDAFED 12 00:00: 00:00 mouth 2 [place] HOUR) 120 00 :00 (two) Medical mg SR times Branch tablet daily. doxycycline 2021- No [id number] 100mg Take 1 Univers hyclate 100 4-15 06-15 tablet by it y of mg tablet 00:00: 00:00 mouth 2 [place] 00 :00 (two) Medical times Branch daily. ciprofloxac 2021- No TAKE 1 Uni vers in HCl 500 4-08 06-15 TABLET BY ity of mg tablet 00:00: 00:00 MOUTH [place] 00 :00 EVERY 12 Medical HOURS Branch DIRECTED FOR 10 DAYS mometasone 2019-0 Yes Univers 50 4-07 ity of mcg/actuati 00:00: [place] on nasal 00 Medical spray Branch mometasone 2019-0 Yes Univers 50 4-07 ity of mcg/actuati 00:00: [place] on nasal 00 Medical spray Branch mometasone 2019-0 Yes Univers 50 4-07 ity of mcg/actuati 00:00: [place] on nasal 00 Medical spray Branch mometasone 2019-0 Yes Univers 50 4-07 ity of mcg/actuati [...] LEVOXYL) 50 l 112 mcg tablet nebivolol 2018- Yes [facility] ers ([facility]) 3-09 10 mg ity of 10 mg 00:00: tablet [place] tablet 00 Take 1 Medical tablet Branch every day by oral route. nebivolol 2018- Yes [facility] ers ([facility]) 3-09 10 mg ity of 10 mg 00:00: tablet [place] tablet 00 Take 1 Medical tablet Branch [facility] mg tablet [facility]-09 st 00:00: Hospita 00 l OLIC 10 Yes Method i mg tablet 07-25 00:00: Hospita 00 l OLIC Yes Method i mg tablet 07-25 00:00: Hospita 00 l nebivolol Yes [facility] ([facility]) 3- 10 mg ity of 10 mg 00:00: tablet [place] tablet 00 Take 1 Medical tablet Branch every day by oral route. nebivolol Yes [facility] ers ([facility]) 07-25 10 mg ity of 10 mg 00:00: tablet [place] tablet 00 Take 1 Medical tablet Branch every day by oral route. nebivolol Yes [facility] ([facility]) - 10 mg ity of 10 mg 00:00: tablet [place] tablet 00 Take 1 Medical tablet Branch every day by oral route. traMADOL 2021- No [id number] 50mg Take 1 U nivers (ULTRAM) 50 07-09 06-15 tablet by it y of mg tablet 00:00: 00:00 mouth [place] 00 :00 every 6 Medical (six) Branch hours as needed for Pain (scale 4-6). hydroxychlo Yes Method i roquine 1-11 st (PLAQUENIL) 00:00: Hospit a 200 mg 00 l tablet hydroxychlo Yes [facility] i roquine 1-11 st (PLAQUENIL) 00:00: Hospit a 200 mg 00 l tablet hydroxychlo Yes Method i roquine 1-11 st (PLAQUENIL) 00:00: Hospit a 200 mg 00 l tablet hydroxychlo 2021- No Unive rs roquine 200 - 06-15 ity of mg tablet 00:00: 00:00 [place] 00 :00 Medical Branch albuterol albuterol No albuterol [place] sulfate HFA sulfate HFA sulfate Communi 90 90 HFA 90 ty mcg/actuati mcg/actuati mcg/actuat Hospita on aerosol on aerosol ion l inhaler inhaler aerosol Clinic s INHALE 2 INHALE 2 inhaler PUFFS BY PUFFS BY INHALE 2 MOUTH EVERY MOUTH EVERY PUFFS BY 4 TO 6 4 TO 6 MOUTH HOURS HOURS EVERY 4 TO NEEDED NEEDED 6 HOURS NEEDED Bystpan [facility] 10 Bystolic 10 No Bystolic [place] mg tablet mg tablet 10 mg Comm uni TAKE 1 TAKE 1 tablet ty TABLET BY TABLET BY TAKE 1 Hos han MOUTH ONCE MOUTH ONCE TABLET BY l DAILY DAILY MOUTH ONCE Clinics DAILY folic acid folic acid No folic acid [place] 1 mg tablet 1 mg tablet 1 mg C ommuni TAKE 1 TAKE 1 tablet ty TABLET BY TABLET BY TAKE 1 Hos han MOUTH ONCE MOUTH ONCE TABLET BY l DAILY DAILY MOUTH ONCE Clinics DAILY ivermectin ivermectin No 1 BID ivermectin [place] 3 mg tablet 3 mg tablet 3 mg C ommuni Take 1 Take 1 tablet ty tablet tablet Take 1 Hospita twice a day twice a day tablet l by oral by oral twice a Clinic s route as route as day by directed directed oral route for 5 days. for 5 days. as directed for 5 days. levothyroxi levothyroxi No levothyrox [place] ne 137 mcg ne 137 mcg ine [...] mg No 2capsul BID NAC 600 mg [place] capsule capsule e(s) capsule Commun i Take 2 Take 2 Take 2 ty capsules capsules capsules Hos han twice a day twice a day twice a l by oral by oral day by Clinics route as route as oral route directed directed as for 30 for 30 directed days. days. for 30 days. prednisone prednisone No 1 BID prednisone [place] 20 mg 20 mg 20 mg Communi tablet Take tablet Take tablet ty 1 tablet 1 tablet Take 1 Hospi ta twice a day twice a day tablet l by oral by oral twice a Clinic s route as route as day by directed directed oral route for 7 days. for 7 days. as directed for 7 days. Zithromax Zithromax No Zithromax [place] Z-Ian 250 Z-Ian 250 Z-Ian 250 Communi [...] FOR 4 DAYS albuterol albuterol No albuterol [place] sulfate HFA sulfate HFA sulfate Communi 90 [...] NEEDED Bystolic 10 Bystolic 10 No Bystolic [place] mg tablet mg tablet 10 mg Comm uni TAKE 1 TAKE 1 tablet ty TABLET BY TABLET BY TAKE 1 Hos han MOUTH ONCE MOUTH ONCE TABLET BY l DAILY DAILY MOUTH ONCE Clinics DAILY folic acid folic acid No folic acid [place] 1 mg tablet 1 mg tablet 1 mg C ommuni TAKE 1 TAKE 1 tablet ty TABLET BY TABLET BY TAKE 1 Hos han MOUTH ONCE MOUTH ONCE TABLET BY l DAILY DAILY MOUTH ONCE Clinics DAILY ivermectin ivermectin No 1 BID ivermectin [place] 3 mg tablet 3 mg tablet 3 mg C ommuni Take 1 Take 1 tablet ty tablet tablet Take 1 Hospita twice a day twice a day tablet l by oral by oral twice a Clinic s route as route as day by directed directed oral route for 5 days. for 5 days. as directed for 5 days. levothyroxi levothyroxi No levothyrox [place] ne 137 mcg ne 137 mcg ine [...] mg No 2capsul BID NAC 600 mg [place] capsule capsule e(s) capsule Commun i Take 2 Take 2 Take 2 ty capsules capsules capsules Hos han twice a day twice a day twice a l by oral by oral day by Clinics route as route as oral route directed directed as for 30 for 30 directed days. days. for 30 days. prednisone prednisone No 1 BID prednisone [place] 20 mg 20 mg 20 mg Communi tablet Take tablet Take tablet ty 1 tablet 1 tablet Take 1 Hospi ta twice a day twice a day tablet l by oral by oral twice a Clinic s route as route as day by directed directed oral route for 7 days. for 7 days. as directed for 7 days. Zithromax Zithromax No Zithromax [place] Z-Ian 250 Z-Ian 250 Z-Ian 250 Communi [...] DAYS Bystolic 10 Bystolic 10 No Bystolic [place] mg tablet mg tablet 10 mg Comm uni Take by Take by tablet ty oral route. oral route. Take by Hospita oral l route. [facility] Macrobid Macrobid No 1capsul Q12H Macrobid [place] 100 mg 100 mg e(s) 100 mg Communi capsule capsule capsule ty Take 1 Take 1 Take 1 Hospita capsule capsule capsule l every 12 every 12 every 12 Cli nics hours by hours by hours by oral route oral route oral route for 10 for 10 for 10 days. days. days. meloxicam meloxicam No 1 Q1D meloxicam [place] 7.5 mg 7.5 mg 7.5 mg Communi tablet Take tablet Take tablet ty 1 tablet 1 tablet Take 1 Hospi ta every day every day tablet l by oral by oral every day Clin ics route. route. by oral route. Bystolic 10 Bystolic 10 No Bystolic [place] mg tablet mg tablet 10 mg Comm uni Take by Take by tablet ty oral route. oral route. Take by Hospita oral l route. [facility] cholecalcif cholecalcif No 1capsul Q1W cholecalci [place] elida elida e(s) ferol Communi (vitamin (vitamin (vitamin ty D3) 1,250 D3) 1,250 D3) 1,250 Hospita mcg (50,000 mcg (50,000 mcg l unit) unit) (50,000 Clinics capsule capsule unit) Take 1 Take 1 capsule capsule capsule Take 1 every week every week capsule by oral by oral every week route. route. by oral route. ciprofloxac ciprofloxac No ciprofloxa [place] in 500 mg in 500 mg hanna [...] days. levothyroxi levothyroxi No 1 Q1D levothyrox [place] ne 50 mcg ne 50 mcg ine 50 mcg Communi tablet Take tablet Take tablet ty 1 tablet 1 tablet Take 1 Hospi ta every day every day tablet l by oral by oral every day Clin ics route. route. by oral route. meloxicam meloxicam No meloxicam [place] 7.5 mg 7.5 mg 7.5 mg Communi tablet Take tablet Take tablet ty 1 tablet 1 tablet Take 1 Hospi ta every day every day tablet l by oral by oral every day Clin ics route. route. by oral route. rosuvastati rosuvastati No 1 Q1D rosuvastat [place] n 20 mg n 20 mg in 20 mg Commu ni tablet Take tablet Take tablet ty 1 tablet 1 tablet Take 1 Hospi ta every day every day tablet l by oral by oral every day Clin ics route at route at by oral bedtime. bedtime. route at bedtime. Bystolic 10 Bystolic 10 No Bystolic [place] mg tablet mg tablet 10 mg Comm uni Take by Take by tablet ty oral route. oral route. Take by Hospita oral l route. Clinics cholecalcif cholecalcif No cholecalci [place] elida [place] (vitamin (vitamin (vitamin ty D3) 1,250 D3) 1,250 D3) 1,250 Hospita mcg (50,000 mcg (50,000 mcg l unit) unit) (50,000 Clinics capsule capsule unit) TAKE 1 TAKE 1 capsule CAPSULE BY CAPSULE BY TAKE 1 MOUTH ONCE MOUTH ONCE CAPSULE BY A WEEK A WEEK MOUTH ONCE A WEEK cyclobenzap cyclobenzap No 1 TID cyclobenza [place] rine 10 mg rine 10 mg bulmaro 10 Communi tablet Take tablet Take mg tablet ty 1 tablet 3 1 tablet 3 Take 1 H ospita times a day times a day tablet 3 l by oral by oral times a Clinic s route as route as day by needed. needed. oral route as needed. levothyroxi levothyroxi No levothyrox [place] ne 50 mcg ne 50 mcg ine 50 mcg Communi tablet Take tablet Take tablet ty 1 tablet 1 tablet Take 1 Hospi ta every day every day tablet l by oral by oral every day Clin ics route. route. by oral route. meloxicam meloxicam No 1 Q1D meloxicam [place] 7.5 mg 7.5 mg 7.5 mg Communi tablet Take tablet Take tablet ty 1 tablet 1 tablet Take 1 Hospi ta every day every day tablet l by oral by oral every day Clin ics route. route. by oral route. rosuvastati rosuvastati No rosuvastat [place] n 20 mg n 20 mg in 20 mg Commu ni tablet TAKE tablet TAKE tablet ty 1 TABLET BY 1 TABLET BY TAKE 1 Hospita MOUTH ONCE MOUTH ONCE TABLET BY l DAILY AT DAILY AT MOUTH ONCE C linics BEDTIME BEDTIME DAILY AT BEDTIME Bystolic 10 Bystolic 10 No Bystolic [place] mg tablet mg tablet 10 mg Comm uni Take by Take by tablet ty oral route. oral route. Take by Hospita oral l route. Clinics cholecalcif cholecalcif No cholecalci [place] elida elida ferol Communi (vitamin (vitamin (vitamin ty D3) 1,250 D3) 1,250 D3) 1,250 Hospita mcg (50,000 mcg (50,000 mcg l unit) unit) (50,000 Clinics capsule capsule unit) TAKE 1 TAKE 1 capsule CAPSULE BY CAPSULE BY TAKE 1 MOUTH ONCE MOUTH ONCE CAPSULE BY A WEEK A WEEK MOUTH ONCE A WEEK cyclobenzap cyclobenzap No 1 TID cyclobenza [place] rine 10 mg rine 10 mg bulmaro 10 Communi tablet Take tablet Take mg tablet ty 1 tablet 3 1 tablet 3 Take 1 H ospita times a day times a day tablet 3 l by oral by oral times a Clinic s route as route as day by needed. needed. oral route as needed. dexamethaso dexamethaso No 10mg dexamethas [place] ne sodium ne sodium one sodium Communi phosphate phosphate phosphate ty 10 mg/mL 10 mg/mL 10 mg/mL Hos [facility] injection injection injection l solution solution solution Cli nics Take 10 mg Take 10 mg Take 10 mg by by by injection injection injection route. route. route. ketorolac ketorolac No 2mL ketorolac [place] 60 mg/2 mL 60 mg/2 mL 60 mg/2 mL Communi intramuscul intramuscul intramuscu ty ar solution ar solution lar H ospita Inject 2 mL Inject 2 mL solution l by by Inject 2 Clinics intramuscul intramuscul mL by ar route. ar route. intramuscu lar route. levothyroxi levothyroxi No levothyrox [place] ne 50 mcg ne 50 mcg ine 50 mcg Communi tablet Take tablet Take tablet ty 1 tablet 1 tablet Take 1 Hospi ta every day every day tablet l by oral by oral every day Clin ics route. route. by oral route. meloxicam meloxicam No 1 Q1D meloxicam [place] 7.5 mg 7.5 mg 7.5 mg Communi tablet Take tablet Take tablet ty 1 tablet 1 tablet Take 1 Hospi ta every day every day tablet l by oral by oral every day Clin ics route. route. by oral route. rosuvastati rosuvastati No rosuvastat [place] n 20 mg n 20 mg in 20 mg Commu ni tablet TAKE tablet TAKE tablet ty 1 TABLET BY 1 TABLET BY TAKE 1 Hospita MOUTH ONCE MOUTH ONCE TABLET BY l DAILY AT DAILY AT MOUTH ONCE C linics BEDTIME BEDTIME DAILY AT BEDTIME Bystolic 10 Bystolic 10 No Bystolic [place] mg tablet mg tablet 10 mg Comm uni Take by Take by tablet ty oral route. oral route. Take by Hospita oral l route. Clinics cholecalcif cholecalcif No cholecalci [place] elida elida ferol Axeli (vitamin (vitamin (vitamin ty D3) 1,250 D3) 1,250 D3) 1,250 Hospita mcg (50,000 mcg (50,000 mcg l unit) unit) (50,000 Clinics capsule capsule unit) TAKE 1 TAKE 1 capsule CAPSULE BY CAPSULE BY TAKE 1 MOUTH ONCE MOUTH ONCE CAPSULE BY A WEEK A WEEK MOUTH ONCE A WEEK cyclobenzap cyclobenzap No 1 TID cyclobenza [place] rine 5 mg rine 5 mg bulmaro 5 mg Communi tablet Take tablet Take tablet ty 1 tablet 3 1 tablet 3 Take 1 H ospita times a day times a day tablet 3 l by oral by oral times a Clinic s route as route as day by needed. needed. oral route as needed. levothyroxi levothyroxi No levothyrox [place] ne 50 mcg ne 50 mcg ine 50 mcg Communi tablet Take tablet Take tablet ty 1 tablet 1 tablet Take 1 Hospi ta every day every day tablet l by oral by oral every day Clin ics route. route. by oral route. meloxicam meloxicam No meloxicam [place] 7.5 mg 7.5 mg 7.5 mg Commun[facility] tablet TAKE tablet TAKE tablet ty 1 TABLET BY 1 TABLET BY TAKE 1 Hospita MOUTH EVERY MOUTH EVERY TABLET BY l DAY DAY MOUTH Clinics EVERY DAY rosuvastati rosuvastati No rosuvastat [place] n 20 mg n 20 mg in 20 mg Commu ni tablet TAKE tablet TAKE tablet ty 1 TABLET BY 1 TABLET BY TAKE 1 Hospita MOUTH ONCE MOUTH ONCE TABLET BY l DAILY AT DAILY AT MOUTH ONCE C linics BEDTIME BEDTIME DAILY AT BEDTIME Zithromax Zithromax No Zithromax [place] Z-Ian 250 Z-Ian 250 Z-Ian 250 Communi [...] DAYS levothyroxi levothyroxi No 1 Q1D levothyrox [place] ne 100 mcg ne 100 mcg ine 100 Communi tablet Take tablet Take mcg tablet ty 1 tablet 1 tablet Take 1 Hospi ta every day every day tablet l by oral by oral every day Clin ics route. route. by oral route. Macrobid Macrobid No 1capsul Q12H Macrobid [place] 100 mg 100 mg e(s) 100 mg Communi capsule capsule capsule ty Take 1 Take 1 Take 1 Hospita capsule capsule capsule l every 12 every 12 every 12 Cli nics hours by hours by hours by oral route oral route oral route for 10 for 10 for 10 days. days. days. meloxicam meloxicam No meloxicam [place] 7.5 mg 7.5 mg 7.5 mg Communi tablet TAKE tablet TAKE tablet ty 1 TABLET BY 1 TABLET BY TAKE 1 Hospita MOUTH EVERY MOUTH EVERY TABLET BY l DAY DAY MOUTH Clinics EVERY DAY nebivolol nebivolol No 1 Q1D nebivolol [place] 20 mg 20 mg 20 mg Commun[facility] tablet Take tablet Take tablet ty 1 tablet 1 tablet Take 1 Hospi ta every day every day tablet l by oral by oral every day Clin ics route. route. by oral route. rosuvastati rosuvastati No 1 Q1D rosuvastat [place] n 40 mg n 40 mg in 40 mg Commu ni tablet Take tablet Take tablet ty 1 tablet 1 tablet Take 1 Hospi ta every day every day tablet l by oral by oral every day Clin ics route as route as by oral directed. directed. route as directed. azithromyci azithromyci No azithromyc [place] n 250 mg n 250 mg in 250 mg Co [facility]i tablet tablet tablet ty Hospita l Clinics Bystolic 10 Bystolic 10 No Bystolic [place] mg tablet mg tablet 10 mg Comm uni TAKE 1 TAKE 1 tablet ty TABLET BY TABLET BY TAKE 1 [facility] MOUTH ONCE MOUTH ONCE TABLET BY l DAILY DAILY MOUTH ONCE Clinics DAILY citalopram citalopram No citalopram [place] 20 mg 20 mg 20 mg Communi tablet TAKE tablet TAKE tablet ty 1 TABLET BY 1 TABLET BY TAKE 1 Hospita MOUTH ONCE MOUTH ONCE TABLET BY l DAILY DAILY MOUTH ONCE Clinics DAILY citalopram citalopram No citalopram [place] 20 mg tabs 20 mg tabs 20 mg tabs Communi ty Hospita l Clinics ergocalcife ergocalcife No ergocalcif [place] yvonne Reynai (vitamin (vitamin (vitamin ty D2) 1,250 D2) [...] folic acid folic acid No folic acid [place] 1 mg tablet 1 mg tablet 1 mg C ommuni TAKE 1 TAKE 1 tablet ty TABLET BY TABLET BY TAKE 1 Hos [facility] MOUTH ONCE MOUTH ONCE TABLET BY l DAILY DAILY MOUTH ONCE Clinics DAILY furosemide furosemide No furosemide [place] 20 mg 20 mg 20 mg Communi tablet tablet tablet ty [facility] hydroxychlo hydroxychlo No hydroxychl [place] roquine roquine oroquine Commu ni sulfate 200 sulfate 200 sulfate ty mg tabs mg tabs 200 mg Hospita tabs Clinics ibuprofen ibuprofen No ibuprofen [place] 600 mg tabs 600 mg tabs 600 mg Communi tabs ty [facility] levothyroxi levothyroxi No levothyrox [place] ne 112 mcg ne 112 mcg ine 112 Communi tablet tablet mcg tablet ty [facility] levothyroxi levothyroxi No levothyrox [place] ne sodium ne sodium ine sodium Communi 112 mcg 112 mcg 112 mcg ty tabs tabs tabs [facility] levothyroxi levothyroxi No levothyrox [place] ne sodium ne sodium ine sodium Communi 137 mcg 137 mcg 137 mcg ty tabs tabs tabs [facility] meclizine meclizine No meclizine [place] 12.5 mg 12.5 mg 12.5 mg Commun [...] for 5 days. methylpredn methylpredn No methylpred [place] isolone 4 isolone 4 nisolone 4 Communi mg tablets mg tablets mg tablets ty in a dose in a dose in a dose Hospita pack Take pack Take pack Take l as directed as directed as C linics until all until all directed tablets are tablets are until all gone gone tablets are gone mometasone mometasone No mometasone [place] 50 50 50 Communi mcg/actuati mcg/actuati mcg/actuat ty on nasal on nasal ion nasal [facility] spray [facility] spray [facility] spray l 2 sprays 2 sprays [facility] 2 Clin ics every day every day sprays by by every day intranasal intranasal by route as route as intranasal directed directed route as for 30 for 30 directed days. days. for 30 days. neomycin-po neomycin-po No neomycin-p [place] lymyxin-hyd lymyxin-hyd olymyxin-h Communi rocort 3.5 rocort [...] TIMES PER DAY ondansetron ondansetron No ondansetro [place] 4 mg 4 mg n 4 mg Communi disintegrat disintegrat disintegra ty ing tablet ing tablet ting [facility] DIS ONE T DIS ONE T tablet DIS l ON THE ON THE ONE T ON Clinics TONGUE Q 6 TONGUE Q 6 THE TONGUE H PRN H PRN Q 6 H PRN ondansetron ondansetron No ondansetro [place] odt 4 mg odt 4 mg n odt 4 mg C [facility] tbdp tbdp tbdp ty Hospita l Clinics prednisone prednisone No prednisone [place] 10 mg 10 mg 10 mg Communi [...] 5 DAYS prednisone prednisone No 1dose prednisone [place] 10 mg 10 mg pk(s) 10 mg [...] vaginal vaginal Hospit a cream cream cream l [facility] promethazin promethazin No promethazi [place] e 25 mg e 25 mg ne 25 mg Commu ni tablet tablet tablet ty [facility] tamsulosin tamsulosin No tamsulosin [place] 0.4 mg 0.4 mg 0.4 mg Communi capsule capsule capsule ty Take 1 Take 1 Take 1 Hospita capsule capsule capsule l every day every day every day Clinics by oral by oral by oral route as route as route as directed directed directed for 14 for 14 for 14 days. days. days. tramadol 50 tramadol 50 No tramadol [place] mg tablet mg tablet 50 mg Comm uni tablet ty [facility] vitamin d vitamin d No vitamin d [place] 1.25 mg 1.25 mg 1.25 mg Commun i (64592 ut) (12088 ut) (21622 ut) ty caps caps caps [facility] Bystolic 10 Bystolic 10 No Bystolic [place] mg tablet mg tablet 10 mg Comm [...] folic acid folic acid No folic acid [place] 1 mg tablet 1 mg tablet 1 mg C om[facility]i TAKE 1 TAKE 1 tablet ty TABLET BY TABLET BY TAKE 1 Hos han MOUTH ONCE MOUTH ONCE TABLET BY l DAILY DAILY MOUTH ONCE Clinics DAILY ondansetron ondansetron No 1 Q5H ondansetro [place] 4 mg 4 mg n 4 mg [...] 5 days. as directed for 5 days. Vital Signs Vital Name Observation Time Observation Value Comments Source BP Diastolic 2022-12-05 00:00:00 85 mm[Hg] [facility] Height 2022-12-05 00:00:00 62 [in_i] [facility] BMI (Body Mass 2022-12-05 00:00:00 33.7 kg/m2 [facility] s BP Systolic 2022-12-05 00:00:00 146 mm[Hg] [facility] Body Weight 2022-12-05 00:00:00 2950.4 [oz_av] [facility] s BP Diastolic 2022-08-01 00:00:00 92 mm[Hg] [facility] s Height 2022-08-01 00:00:00 62 [in_i] [facility] s BMI (Body Mass 2022-08-01 00:00:00 33.9 kg/m2 [facility]) [facility] s BP Systolic 2022-08-01 00:00:00 143 mm[Hg] [facility] Body Weight 2022-08-01 00:00:00 2969.6 [oz_av] [facility] s BP Diastolic 2022-07-08 00:00:00 88 mm[Hg] [facility] s Height 2022-07-08 00:00:00 62 [in_i] [facility] s BMI (Body Mass 2022-07-08 00:00:00 33.5 kg/m2 [facility] s BP Systolic 2022-07-08 00:00:00 135 mm[Hg] [facility] s Body Weight 2022-07-08 00:00:00 2931.2 [oz_av] [facility] s BP Diastolic 2022-04-15 00:00:00 83 mm[Hg] [facility] s Height 2022-04-15 00:00:00 62 [in_i] [facility] s BMI (Body Mass 2022-04-15 00:00:00 33.6 kg/m2 [facility] s BP Systolic 2022-04-15 00:00:00 154 mm[Hg] [facility] Body Weight 2022-04-15 00:00:00 2937.6 [oz_av] [facility] s BP Diastolic 2022-04-03 00:00:00 93 mm[Hg] [facility] s Height 2022-04-03 00:00:00 62 [in_i] [facility] s BMI (Body Mass 2022-04-03 00:00:00 33.4 kg/m2 [facility] s BP Systolic 2022-04-03 00:00:00 144 mm[Hg] [facility] s Body Weight 2022-04-03 00:00:00 2921.6 [oz_av] [facility] s Systolic blood 2021-11-01 22:20:00 134 mm[Hg] Univer s[facility] of pressure [facility] Diastolic blood 2021-11-01 22:20:00 83 mm[Hg] Unive rsity of [facility] Heart rate 2021-11-01 22:20:00 69 /min [facility] Body temperature 2021-11-01 22:20:00 36.61 Marleny [facility] Respiratory rate 2021-11-01 22:20:00 18 /min [facility] Oxygen saturation in 2021-11-01 22:20:00 97 /min [facility] Arterial blood by [facility] Pulse oximetry Branch Body height 2021-11-01 21:05:00 160 cm [facility] Body weight 2021-11-01 21:05:00 82.555 kg [facility] BMI 2021-11-01 21:05:00 32.24 kg/m2 [facility] Systolic blood 2021-10-31 22:53:00 148 mm[Hg] Univer s[facility] of pressure [facility] Diastolic blood 2021-10-31 22:53:00 97 mm[Hg] Unive rsity of pressure [facility] Heart rate 2021-10-31 22:53:00 71 /min [facility] Body temperature 2021-10-31 22:53:00 36.94 Marleny [facility] Respiratory rate 2021-10-31 22:53:00 18 /min [facility] Body height 2021-10-31 22:53:00 158.8 cm [facility] Body weight 2021-10-31 22:53:00 82.736 kg [facility] BMI 2021-10-31 22:53:00 32.83 kg/m2 [facility] Oxygen saturation in 2021-10-31 22:53:00 98 /min [facility] Arterial blood by [facility] Pulse oximetry Branch BP Diastolic 2021-02-05 00:00:00 94 mm[Hg] [facility] s Height 2021-02-05 00:00:00 62 [in_i] [facility] s BMI (Body Mass 2021-02-05 00:00:00 33.2 kg/m2 [facility] Clinic s BP Systolic 2021-02-05 00:00:00 154 mm[Hg] [facility] s Body Weight 2021-02-05 00:00:00 2902.4 [oz_av] [facility] s BP Diastolic 2021-01-11 00:00:00 90 mm[Hg] [facility] s Height 2021-01-11 00:00:00 62 [in_i] [facility] s BMI (Body Mass 2021-01-11 00:00:00 33.2 kg/m2 [facility] Clinic s BP Systolic 2021-01-11 00:00:00 143 mm[Hg] [facility] s Body Weight 2021-01-11 00:00:00 2905.6 [oz_av] [facility] s BP Diastolic 2020-12-19 00:00:00 91 mm[Hg] [facility] s Height 2020-12-19 00:00:00 62 [in_i] [facility] s BMI (Body Mass 2020-12-19 00:00:00 33.7 kg/m2 [facility] Clinic s BP Systolic 2020-12-19 00:00:00 147 mm[Hg] [facility] s Body Weight 2020-12-19 00:00:00 2950.4 [oz_av] [facility] s 02 Sat by Pulse 2020-07-10 11:32:34 99 /min Oximetry Body Mass Index 2020-07-10 11:32:34 32.5 Height 2020-07-10 11:32:34 157.48\S\62 Pulse Rate 2020-07-10 11:32:34 69 /min Pulse Strength 2020-07-10 11:32:34 Normal /min Pulse Assessment 2020-07-10 11:32:34 Palpation /min Method Pulse Rhythm 2020-07-10 11:32:34 Regular /min Respiratory Rate 2020-07-10 11:32:34 17 /min Weight 2020-07-10 11:32:34 61337.442\S\2848 02 Sat by Pulse 2020-07-08 00:10:12 99 /min Oximetry Body Mass Index 2020-07-08 00:10:12 32.5 Height 2020-07-08 00:10:12 157.48\S\62 Pulse Rate 2020-07-08 00:10:12 69 /min Pulse Strength 2020-07-08 00:10:12 Normal /min Pulse Assessment 2020-07-08 00:10:12 Palpation /min Method Pulse Rhythm 2020-07-08 00:10:12 Regular /min Respiratory Rate 2020-07-08 00:10:12 17 /min Weight 2020-07-08 00:10:12 21580.442\S\2848 Body Mass Index 2020-07-07 06:48:40 32.5 Height 2020-07-07 06:48:40 157.48\S\62 Weight 2020-07-07 06:48:40 12571.442\S\2848 Body Mass Index 2020-07-07 06:32:21 32.5 Height 2020-07-07 06:32:21 157.48\S\62 Weight 2020-07-07 06:32:21 86739.442\S\2848 WEIGHT 2020-07-06 13:17:00 80.618279 kg HEIGHT 2020-07-06 13:17:00 157.48 cm Procedures Procedure Date / Time Performing Clinician Source Performed US, thyroid 2022-12-05 00:00:00 [facility] XR SPINE SCOLIOSIS 2-3 2022-08-05 13:55:16 [facility] VIEWS XR SPINE EXTERNAL STUDY 2022-07-05 15:17:27 [facility] XR UPPER EXTREMITY 2022-07-05 15:17:[facility] EXTERNAL STUDY XR CHEST EXTERNAL STUDY 2022-07-05 15:08:56 [facility] MAMMO, screening, 2022-04-03 00:00:00 [facility], bilateral [facility] DEXA, axial skeleton + 2022-04-03 00:00:00 [facility] vertebral fracture [facility] assessment XR, lumbosacral spine, 2022-04-03 00:00:00 [facility] 2 or 3 view [facility] CONSENT/REFUSAL FOR 2021-11-01 05:01:00 Doctor Unassigned, No Un [facility] DIAGNOSIS AND TREATMENT Name Medical Branch XR, chest, 2 view 2021-01-11 00:00:00 [facility] XR, chest, 2 view 2020-12-19 00:00:00 [facility] Total Hysterectomy 1991-05-19 00:00:00 [facility] Plan of Care Planned Activity Planned Date Details Comments Source Future Scheduled Test 2023-03-05 [facility] 19:22:43 malignant neoplasm of colon (procedure) [code = 474038169] Future Scheduled Test 2023-03-05 [facility] 19:22:43 malignant neoplasm of colon (procedure) [code = 207825335] Future Scheduled Test 2023-03-05 [facility] 19:22:43 malignant neoplasm of colon (procedure) [code = 787013645] Future Scheduled Test 2023-03-05 COVID-19 VACCINE [facility] 19:22:43 (#1) [code = COVID-19 VACCINE (#1)] Future Scheduled Test 2023-03-05 Hepatitis C [facility] 19:22:43 screening (procedure) [code = 217980500] Future Scheduled Test 2023-03-05 [facility] 19:22:43 malignant neoplasm of cervix (procedure) [code = 810511443] Future Scheduled Test 2023-03-05 [facility] 19:22:43 SCREENING [code = BREAST CANCER SCREENING] Future Scheduled Test 2023-03-05 [facility] 19:22:43 malignant neoplasm of colon (procedure) [code = 283858244] Future Scheduled Test 2023-03-05 [facility] 19:22:43 malignant neoplasm of colon (procedure) [code = 889526592] Future Scheduled Test 2023-03-05 SHINGLES VACCINES (1 [facility] 19:22:43 of 2) [code = SHINGLES VACCINES (1 of 2)] Future Scheduled Test 2023-03-05 INFLUENZA VACCINE [facility] 19:22:43 (#1) [code = INFLUENZA VACCINE (#1)] Future Scheduled Test 2023-03-05 RSV VACCINES > 60 YR [facility] 19:22:43 (1 - 1-dose 60+ series) [code = RSV VACCINES > 60 YR (1 - 1-dose 60+ series)] Future Scheduled Test 2022-12-18 [facility] 22:34:15 malignant neoplasm of colon (procedure) [code = 711546919] Future Scheduled Test 2022-12-18 [facility] 22:34:15 malignant neoplasm of colon (procedure) [code = 779586101] Future Scheduled Test 2022-12-18 Scre[facility] 22:34:15 malignant neoplasm of colon (procedure) [code = 135071750] Future Scheduled Test 2022-12-18 COVID-19 VACCINE [facility] 22:34:15 (#1) [code = COVID-19 VACCINE (#1)] Future Scheduled Test 2022-12-18 Hepatitis C [facility] 22:34:15 screening (procedure) [code = 223620545] Future Scheduled Test 2022-12-18 Scre[facility] 22:34:15 malignant neoplasm of cervix (procedure) [code = 472170145] Future Scheduled Test 2022-12-18 BREAST CANCER [facility] 22:34:15 SCREENING [code = BREAST CANCER SCREENING] Future Scheduled Test 2022-12-18 [facility] 22:34:15 malignant neoplasm of colon (procedure) [code = 934127288] Future Scheduled Test 2022-12-18 [facility] 22:34:15 malignant neoplasm of colon (procedure) [code = 954715866] Future Scheduled Test 2022-12-18 SHINGLES VACCINES (1 [facility] 22:34:15 of 2) [code = SHINGLES VACCINES (1 of 2)] Future Scheduled Test 2022-12-18 INFLUENZA VACCINE [facility] 22:34:15 [code = INFLUENZA VACCINE] Diagnostic Test 2022-12-05 urinalysis, dipstick [facility] Pending 00:00:00 [code = urinalysis, [facility] dipstick] Diagnostic Test 2022-12-05 urinalysis, reflex [facility] Pending 00:00:00 culture [code = [facility] urinalysis, reflex culture] Diagnostic Test 2022-12-05 HbA1c (hemoglobin [place] [facility] Pending 00:00:00 A1c), blood [code = [facility] HbA1c (hemoglobin A1c), blood] Diagnostic Test 2022-12-05 insulin, serum [code [facility] Pending 00:00:00 = insulin, serum] [facility] Diagnostic Test 2022-12-05 cortisol, am, serum [facility] Pending 00:00:00 [code = cortisol, [facility] am, serum] Diagnostic Test 2022-12-05 magnesium, serum or [facility] Pending 00:00:00 plasma [code = Hospital Clin ics magnesium, serum or plasma] Diagnostic Test 2022-12-05 phosphorus, serum or [facility] Pending 00:00:00 plasma [code = Hospital Clin ics phosphorus, serum or plasma] Future Scheduled Test 2021-06-25 COVID-19 [facility] ([facility] 20:32:14 [code = COVID-19 VACCINE (1)] Future Scheduled Test 2021-06-25 Hepatitis C [facility] 20:32:14 screening (procedure) [code = 791534462] Future Scheduled Test 2021-06-[address] [facility] 20:32:14 malignant neoplasm of cervix (procedure) [code = 688801152] Future Scheduled Test 2021-06-[address] [facility] 20:32:14 SCREENING [code = BREAST CANCER SCREENING] Future Scheduled Test 2021-06-25 COLONOSCOPY [facility] 20:32:14 SCREENING [code = COLONOSCOPY SCREENING] Future Scheduled Test 2021-06-25 SHINGLES VACCINES [facility] 20:32:14 (#1) [code = SHINGLES VACCINES (#1)] Future Scheduled Test 2021-06-25 INFLUENZA VACCINE [facility] 20:32:14 [code = INFLUENZA VACCINE] Instructions [facility] Encounters Start End Encounter Admission Attending Care Care Encounter Source Date/Time Date/Time Type Type Clinicians Facility Department ID 2021-02-16 Inpatient ANIVAL ALVAREZ [facility] [id number] [facility] 10:30:00 , [place] [address] 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 2022-09-10 2022-09-10 Outpatient ANIVAL MORFIN [facility] [id number] [place] 09:52:00 09:52:00 ALETHEA [id number] [facility] 2022-08-19 2022-08-19 Outpatient CHRETIEN_F [facility] 2563 [place] 00:00:00 00:00:00 [facility] 2022-08-05 2022-08-05 [facility] Phillip Quintero 1.2.840.1 [id number] Methodi 08:34:38 23:59:00 Encounter Narciso 74533.1.[address] 3.430.2.7 Hospit a .3.400885 l .8 2022-08-05 2022-08-05 [facility] 1.2.840.1 [id number] 2 [id number] Methodi 08:34:38 23:59:00 Encounter Narciso 33113.1.[address] 3.430.2.7 Hospit a .3.864044 l .8 2022-08-05 2022-08-05 [facility] 1.2.840.1 [id number] 2 [id number] Methodi 08:34:37 23:59:00 Encounter Narciso 74424.1.[address] 3.430.2.7 Hospit a .3.178294 l .8 2022-08-05 2022-08-05 [facility] 1.2.840.1 [id number] 2 [id number] Methodi 08:34:37 23:59:00 Encounter Narciso 86585.1.[address] 3.430.2.7 Hospit a .3.322391 l .8 2022-08-05 2022-08-05 [facility] 1.2.840.1 [id number] 2 [id number] Methodi 08:34:36 23:59:00 Encounter Narciso 29284.1.[address] 3.430.2.7 Hospit a .3.725549 l .8 2022-08-05 2022-08-05 [facility] 1.2.840.1 [id number] 2 [id number] Methodi 08:34:36 23:59:00 Encounter Narciso 48660.1.[address] 3.430.2.7 Hospit a .3.643375 l .8 2022-08-05 2022-08-05 [facility] 1.2.840.1 [id number] 21 [id number] Methodi 08:45:00 09:41:12 Visit Narciso 08567.1.[address] 3.430.2.7 Hospit a .3.196643 l .8 2022-08-05 2022-08-05 Office Phillip Quintero 1.2.840.1 [id number] 21 [id number] Methodi 08:45:00 09:41:12 Visit Narciso 21725.1.[address] 3.430.2.7 Hospit a .3.335342 l .8 2022-08-05 2022-08-05 Outpatient PHILLIP QUINTERO [facility] [id number] [place] 00:00:00 00:00:[address] 2022-08-05 2022-08-05 Outpatient ALAN, [facility] [id number] [place] 00:00:00 00:00:[address] 2022-08-05 2022-08-05 Outpatient ALAN, [facility] [id number] [place] 00:00:00 00:00:[address] 2022-08-05 2022-08-05 Outpatient ALAN [facility] [id number] [place] 00:00:00 00:00:[address] 2022-08-05 2022-08-05 Orders Phillip Quintero 1.2.840.1 [id number] Methodi 00:00:00 00:00:00 Only Narciso 52918.1.[address] 3.430.2.7 Hospit a .3.387214 l .8 2022-08-05 2022-08-05 Travel 1.2.840.1 1.2.985.694 6301 [id number] Methodi 00:00:00 00:00:[address] 3.430.2.7 0.2.7.3.698 Ho spita .3.422725 084.8 l .8 2022-08-05 2022-08-05 Orders Phillip Quintero 1.2.840.1 [id number] 21 [id number] Methodi 00:00:00 00:00:00 Only Narciso 31300.1.[address] 3.430.2.7 Hospit a .3.088616 l .8 2022-08-05 2022-08-05 Travel 1.2.840.1 1.2.768.253 [id number] [id number] Methodi 00:00:00 00:00:[address] 3.430.2.7 0.2.7.3.698 Ho spita .3.542667 084.8 l .8 2022-08-01 2022-08-01 Outpatient CHRETIEN_F [facility] [address] [place] 00:00:00 00:00:00 316 [facility] 2022-08-01 2022-08-01 Bev [place] 00:00:00 00:00:00 Luis Henry Tn 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 2022-07-25 2022-07-25 Travel 1.2.840.1 1.2.630.515 2260 [id number] Methodi 00:00:00 00:00:[address] 3.430.2.7 0.2.7.3.698 Ho spita .3.780912 084.8 l .8 2022-07-25 2022-07-25 Travel 1.2.840.1 1.2.140.969 3947 [id number] Methodi 00:00:00 00:00:[address] 3.430.2.7 0.2.7.3.698 Ho spita .3.554777 084.8 l .8 2022-07-09 2022-07-09 Outpatient CHRETIEN_F [facility] [address] [place] 00:00:00 00:00:00 221 [facility] 2022-07-08 2022-07-08 Outpatient CHRETIEN_F [facility] [address] [place] 00:00:00 00:00:00 220 [facility] 2022-07-08 2022-07-08 [place] 20 [place] 00:00:00 00:00:00 Luis Henry mmuni 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 2022-04-15 2022-04-15 Outpatient CHRETIEN_F [facility] 256 - [place] 00:00:00 00:00:00 128 [facility] 2022-04-15 2022-04-15 [place]ev [place] [id number] [place] 00:00:00 00:00:00 Luis Henry Tn tashauni BATCH STILL OPERATOR-HYDROLOGY TEACHER-B Hospital [facility] C: [address] [facility], [address], [place] [address] , Ph. 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 2021-12-19 2021-12-19 Outpatient CHRETIEN_F [facility] 256 - [place] 00:00:00 00:00:00 803 [facility] 2021-12-12 2021-12-12 Outpatient WATERS_S [facility] [id number] [place] 00:00:00 00:00:00 727 [facility] 2021-11-01 2021-11-01 Nurse Therapy, Adc Covid Infusion [facility] 1.2.840.114 [id number] Univers 16:00:00 17:00:00 Visit Jaren Loera 350.1.13.10 ity of [place] [phone] [place] [id number] [place] 2021-11-01 2021-11-01 Outpatient Jeffery LOERA [facility] [id number] Univers 16:00:00 16:00:00 JAREN tineo [facility] 2021-11-01 2021-11-01 Orders Doctor MADRIGAL 1.2.840.114 [id number] Univers 00:00:00 00:00:00 Only Unassigned, LUZ ELENA 350.1.13.10 ity of [place] [facility] 4.2.7.2.686 Joel as [phone] [facility] 009 [place] 2021-11-01 2021-11-01 ROHAN [place] 1.2.840.114 [id number] Univers 00:00:00 00:00:00 (Out) Mellisa LUZ ELENA 350.1.13.10 it y of [facility] 4.2.7.2.686 Joel as [phone] [facility] 019 [place] 2021-10-31 2021-10-31 [facility] [id number] Univers 17:20:00 18:04:35 [facility] 2021-10-31 2021-10-31 [facility] [id number] Univers 17:20:00 18:04:35 [facility] 2021-10-31 2021-10-31 [facility] 1.2.840.114 [id number] Univers 17:20:00 18:04:[facility] 350.1.13.10 ity of [place] 4.2.7.2.686 Joel as FABIAN?BLEA [phone] [address] MEDICAL OFFICE BUILDING 2021-06-01 2021-06-01 Emergency ER SIMA [facility] [id number] [place] 12:50:00 17:10:00 RASHMI -[id number] [facility] 2021-05-31 2021-05-31 Outpatient ANIVAL SCHWARTZ [facility] [id number] [place] 12:51:00 12:51:00 ROWAN -[id number] [facility] 2021-05-31 2021-05-31 Outpatient WATERS_S [facility] [id number] [place] 09:08:00 09:08:00 113 [facility] 2021-02-06 2021-02-15 Inpatient ANIVAL VILLASEÑOR, [facility] [id number] [facility] 10:30:00 00:00:00 DOES_NOT 70 [place] [facility] 2021-02-05 2021-02-05 Outpatient [facility] 256 [place] 05:33:00 05:33:00 _L 920 [facility] 2021-02-05 2021-02-05 Brook Rachel [place] 20 [place] 00:00:00 00:00:00 [facility] ARELIS baxter-C: [address], [place] [address] , Ph. 2021-02-05 2021-02-05 Outpatient [facility] d24 [id number] 00:00:00 00:00:00 , [place] [id number] Virginie [id number] 2021-02-05 2021-02-05 Outpatient [facility] 143 [id number] 00:00:00 00:00:00 , [place] [id number] Virginie [id number] 2021-01-15 2021-01-15 Outpatient [facility] 256 [place] 01:46:00 01:46:00 _L 830 [facility] 2021-01-11 2021-01-11 Outpatient [facility] 256 [place] 11:02:00 11:02:00 _L 826 [facility] 2021-01-11 2021-01-11 Outpatient [facility] ebd [id number] 00:00:00 00:00:00 , [place] [id number] Virginie [id number] 2021-01-11 2021-01-11 Hawa [place] 26 [place] 00:00:00 00:00:00 [facility] ARELIS Polanco-C: [address] [address], [place] [address] , Ph. 2021-01-04 2021-01-04 Outpatient [facility] 256 [place] 06:47:00 06:47:00 _L 819 [facility] 2021-01-02 2021-01-02 Outpatient [facility] 256 4 [place] 11:29:00 11:29:00 _L 817 [facility] 2020-12-19 2020-12-19 Outpatient [facility] 256 4 [place] 03:14:00 03:14:00 _L 803 [facility] 2020-12-19 2020-12-19 Outpatient [facility] d9a [id number] 00:00:00 00:00:00 , [place] [id number] Virginie [id number] 2020-12-19 2020-12-19 Hawa [place] 202 [id number] [place] 00:00:00 00:00:00 [facility] NEREIDA PolancoP-C: [address], [place] [address] , Ph. 2020-07-07 2020-07-07 Outpatient Elective Lana, [facility] [id number] [facility] 06:27:00 06:27:00 Rowan 30 2020-07-07 2020-07-07 Outpatient [facility] [id number] [facility] 06:27:00 06:27:00 30 2020-05-22 2020-05-22 Emergency ER BA, DOREEN [facility] [id number] [place] 16:45:00 22:47:00 -[id number] da [facility] 2020-04-07 2020-04-07 Outpatient SCHAUBROECK [facility] 256 [place] 02:17:00 02:17:00 _L 120 [facility] 2020-01-24 2020-01-24 Patient Doctor ROHAN 1.2.840.114 [id number] Univers 00:00:00 00:00:00 Secure Msg LUZ ELENA [place] 350.1.13.10 ity [facility] 4.2.7.2.686 Joel as [phone] [address] 2020-01-24 2020-01-24 Letter ROHAN [place] 1.2.840.114 [id number] 00:00:00 00:00:00 (Out) Tracy LAGUNA 350.1.13.10 [facility] 4.2.7.2.686 [id number] 2020-01-23 2020-01-23 Laboratory Lab, [facility] 1.2.840.114 [id number] 09:56:16 10:16:16 Only Fam Pob I Health 350.1.13.10 [place] 4.2.7.2.686 Professio [phone] nal [address] 2020-01-23 2020-01-23 Outpatient Jeffery BARNES [facility] [id number] Univers 09:40:00 09:40:00 [facility] 2020-01-23 2020-01-23 Letter Doctor MADRIGAL 1.2.840.114 [id number] 00:00:00 00:00:00 (Out) LUZ ELENA [place] 350.1.13.10 [facility] 4.2.7.2.686 [id number] 2019-09-02 2019-09-02 Telephone Rowdy [facility] 1.2.840.114 [id number] 00:00:00 00:00:00 [facility] 350.1.13.10 [place] 4.2.7.2.686 Pretty [id number] nal [address] 2019-09-01 2019-09-01 Outpatient R EMY, [facility] [id number] Univers 15:20:00 15:20:00 VALERIA tineo [facility] 2018-05-22 2018-05-22 Emergency ER OWO, TOKS [facility] [id number] [place] 15:28:00 18:18:00 -[id number] [facility] 2013-08-12 2013-08-12 Emergency ER , [facility] [id number] [place] 20:09:00 22:22:00 WASIM -[id number] [facility] 2013-03-30 2013-03-30 Emergency ER RYAN, [facility] [id number] [place] 12:15:00 16:22:00 CLEMENT -[id number] [facility] Results Test Description Test Time Test Comments [...] Blood (test code = Blood) Large Specific [place] (test code = Specific [place]) 1.015 Ketone (test code = Ketone) Negative Bilirubin (test code = Bilirubin) Negative Glucose (test code = Glucose) Negative Appearance (test code = Appearance) Clear Color (test code = Color) Pale Yellow [facility] (dipstick) panel - Urine 2022-04-03 17:02:00 Test Item Value Reference Range Interpretation Comments Leukocytes (test code = Leukocytes) Large Nitrite (test code = Nitrite) negative Urobilinogen (test code = .2 Urobilinogen) Protein (test code = Protein) Trace pH (test code = pH) 5.0 Blood (test code = Blood) Large Specific [place] (test code = 1.015 Specific [place]) Ketone (test code = Ketone) Negative Bilirubin (test code = Bilirubin) Negative Glucose (test code = Glucose) Negative Appearance (test code = Appearance) Cloudy Color (test code = Color) Yellow [facility]2 (COVID-19) Ag [Presence] in Respiratory specimen by Rapid [id number] 15:33:00 Test Item Value Reference Range Interpretation Comments SARS CoV 2 (test code = SARS CoV 2) positive [facility]-CoV-2 (COVID-19) Ag [Presence] in Respiratory specimen by Rapid [id number] 15:33:00 Test Item Value Reference Range Interpretation Comments SARS CoV 2 (test code = SARS CoV 2) positive [facility] strep group A, [id number] 13:33:00 Test Item Value Reference Range Interpretation Comments Strep (test code = Strep) negative [facility] (COVID-19) Ag [Presence] in Respiratory specimen by Rapid [id number] 13:33:00 Test Item Value Reference Range Interpretation Comments SARS CoV 2 (test code = SARS CoV 2) negative [facility] strep group A, [id number] 13:33:00 Test Item Value Reference Range Interpretation Comments Strep (test code = Strep) negative [facility]-CoV-2 (COVID-19) Ag [Presence] in Respiratory specimen by Rapid [id number] 13:33:00 Test Item Value Reference Range Interpretation Comments SARS CoV 2 (test code = SARS CoV 2) negative [facility] System[facility] Blood Count Auto [id number] 09:00:00 Test Item Value Reference Range Interpretation [...] code = NRBCP) 0 % Comprehensive Metabolic [id number] 09:00:00 Test Item Value Reference Range Interpretation [...] HESR) 27 mm/Hr 0-20 H CBC with [id number] 21:38:00 Test Item Value Reference Range Interpretation [...] code = ALYMPH) 2.2 K/cumm 0.5-4.6 N Ware Abs (test code = AMONO) 0.4 K/cumm 0.0-1.2 N Eos Abs (test code = AEOS) 0.12 K/cumm 0.00-0.74 N Baso Abs (test code = ABASO) 0.0 K/cumm 0.00-0.21 N
[2023-03-09 16:43] LABS: Absolute Lymphocytes (CBC) 4.2 K/uL (0.7-4.9); Lymphocytes % 40.5 % (15.3-44.8); MCV 89.1 fL (80-100); MPV 8.5 fL (7.6-11.3); Platelets 266 thou/uL (152-406); RBC Red Blood Cell Count 4.49 M/uL (3.86-4.86)
[2023-03-09 17:08] LABS: Protime INR 1.01
[2023-03-09] MEDS ORDERED: ASPIRIN 81 MG CHEWABLE TABLET ONE (17:29)
[2023-03-09 17:31] LABS: ALT/SGPT 22 U/L (13-56); AST/SGOT 17 U/L (15-37); Albumin 3.2 g/dL (3.4-5.0); Alkaline Phosphatase 69 U/L (45-117); BUN Blood Urea Nitrogen 14 mg/dL (7-18); Bicarbonate 26 mEq/L (21-32); Bilirubin Total 0.3 mg/dL (0.2-1.0); Glomerular Filtration Rate 104 ml/min (=/>90); Glucose Level 103 mg/dL (74-106); Magnesium 1.8 mg/dL (1.6-2.4); NT PRO-BNP 123 pg/mL (<125); Potassium 3.3 mEq/L (3.5-5.1); Protein, Total 6.6 g/dL (6.4-8.2); Sodium Level 143 mEq/L (136-145); Troponin High Sensitivity 3.4 pg/mL (<58.9)
[2023-03-09 17:32] LABS: Bilirubin Direct < 0.1 mg/dL (0-0.2); Bilirubin Indirect, Calculated ND mg/dL (0.2-0.8)
--- NOTE | 2023-03-09 17:34 | RAD REPORT ---
EXAM DESCRIPTION: RAD - Chest Single View - 03/09/2023 5:08 pm CLINICAL HISTORY: CHEST PAIN COMPARISON: Chest Single View dated 10/25/2020; Chest Single View dated 10/24/2020; Chest Single View da alba 05/29/2016; CHEST SINGLE VIEW dated 07/03/2015 FINDINGS: Lines: None. Lungs: No evidence of edema or pneumonia. Pleural: No significant pleural effusions or pneumothorax. Cardiac: The heart size is within normal limits. Mediastinum: Within normal limits. Bones: No acute fractures. Thoracolumbar curvature . Other: None IMPRESSION: No acute cardiopulmonary disease.
--- NOTE | 2023-03-09 17:57 | RAD REPORT ---
EXAM DESCRIPTION: CT - Head Brain Wo Cont - 03/09/2023 5:49 pm CLINICAL HISTORY: Headache;Dizziness COMPARISON: No comparisons TECHNIQUE: All CT scans are performed using dose optimization technique as appropriate and may inclu de automated exposure control or mA/KV adjustment according to patient size. FINDINGS: No intracranial hemorrhage, hydrocephalus or extra-axial fluid collection.No areas of brai n edema or evidence of midline shift. Mucous tension cyst in right maxillary sinus. The calvarium is intact. IMPRESSION: No acute intracranial abnormality.
[2023-03-09] MEDS ORDERED: DIPHENHYDRAMINE 50 MG/ML VIAL ONE (18:06)
[2023-03-09] MEDS ORDERED: dexAMETHasone 10 MG/ML VIAL ONE (18:06)
--- NOTE | 2023-03-09 18:07 | RAD REPORT ---
EXAM DESCRIPTION: CTAngio Aorta For Dissection - 03/09/2023 5:49 pm CLINICAL HISTORY: HTN emergency COMPARISON: CT ABD PELVIS W CONTRAST dated 07/03/2015; Abdomen Pelvis Wo Contrast dated 12/22/2022 TECHNIQUE: CTA of the chest, abdomen, and pelvis was performed. MIPs of the aorta were created. All CT scans are performed using dose optimization technique as appropriate and may include automated exposure control or mA/KV adjustment according to patient size. FINDINGS: Thorax: Chest Wall: No abnormal mass Lungs: No acute abnormality. Pleura: No effusions or pneumothorax. Lisa/Mediastinum: No lymphadenopathy. Aorta/Pulmonary Arteries: Unremarkable Heart: Normal size. Abdomen/Pelvis: Liver: No acute abnormality or suspicious lesions. Biliary: No biliary ductal dilatation. Stomach: No significant focal abnormality. Duodenum: No significant focal abnormality. Pancreas: No significant abnormality. Spleen: No significant abnormality. Adrenal: No suspicious lesions. Kidney/ureter: No hydronephrosis. No renal calculi. Retroperitoneum: No retroperitoneal adenopathy. Vascular: No aneurysm. Bowel: No significant focal abnormality. Appendectomy . Peritoneum: No ascites or free air. Bladder: Grossly unremarkable. Reproductive: No adnexal masses. Hysterectomy Bones: Well-defined lytic lesion with peripheral sclerosis and aneurysm transition in the left acetab ulum measuring 3.1 x 1.8 cm. Other: n/a IMPRESSION: No acute findings within the chest, abdomen, or pelvis. No aortic aneurysm or dissection . No pulmonary embolus. Nonaggressive appearing osseous lesion in the left acetabulum which is new since 07/03/2015 but uncha nged since 12/22/2022. Consider nonemergent MRI of the left hip with and without contrast to evaluate .
--- NOTE | 2023-03-09 18:59 | ER ---
Nurse's Notes [facility] [place] Name: Debora Friday Age: 52 yrs Sex: Female : 1970 Arrival Date: 03/09/2023 Time: 15:37 Bed 4 Private MD: Diagnosis: Hypertensive urgency;Chest pain, unspecified Presentation: 03/09 16:03 Chief complaint: Patient states: PATEL, HTN, arms/legs hurt, muscle cramps, SOB, tired ll1 easily, chest heaviness for 1 day. Coronavirus screen: Client denies travel out of the [place] in the last 14 days. At this time, the client does not indicate any symptoms associated with coronavirus-19. Ebola Screen: Patient denies travel to an Ebola-affected area in the 21 days before illness onset. Initial Sepsis Screen: Does the patient meet any 2 criteria? No. Patient's initial sepsis screen is negative. Does the patient have a suspected source of infection? No. Patient's initial sepsis screen is negative. Risk Assessment: Do you want to hurt yourself or someone else? Patient reports no desire to harm self or others. Onset of symptoms was March 09, 2023. 16:03 Method Of Arrival: Ambulatory ll1 16:03 Acuity: KAYLYNN 2 ll1 Triage Assessment: 21:35 Headache History: Denies prior headaches. General: Appears uncomfortable, well nw1 nourished, Behavior is cooperative, anxious. Pain: Also complains of. Pain: Pain currently is 7 out of 10 on a pain scale. Pain began 1 day ago. 21:36 Pain: Also complains of. Pain: Pain currently is 8 out of 10 on a pain scale. Pain la4 began 4 hours ago. 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 - Social history:: Smoking status: Patient denies any tobacco usage or history of. Screenin:50 [facility] ED Fall Risk Assessment (Adult) Score/Fall Risk Level 0 - 2 = Low Risk. Abuse iw screen: Denies threats or abuse. Denies injuries from another. Nutritional screening: No deficits noted. Tuberculosis screening: No symptoms or risk factors identified. Assessment: 16:51 General: Appears in no apparent distress. Behavior is calm, cooperative. Pain: iw Complains of pain in head and chest. Neuro: Level of Consciousness is awake, alert, obeys commands, Oriented to person, place, time, situation, Moves all extremities. Full function. Cardiovascular: Reports chest pain, shortness of breath, Capillary refill < 3 seconds Patient's skin is warm and dry. Respiratory: Respiratory effort is even, unlabored, Respiratory pattern is regular, symmetrical. Derm: No signs and/or symptoms reported regarding the dermatologic system. Skin is intact, is healthy with good turgor. 17:27 Reassessment: Patient appears in no apparent distress at this time. Patient and/or iw family updated on plan of care and expected duration. Pain level reassessed. Patient is alert, oriented x 3, equal unlabored respirations, skin warm/dry/pink. 17:57 Reassessment: CT brought back to room after IV contrast. Pt c/o SOB \\T\\ "feels like my ld1 throat is swelling." Notified ERP. See MAR for orders. 19:38 Reassessment: Per report from MELISSA Braun, diltiazem PO 30mg not available in pyxis. nw1 Pharmacy called but not available at this time. Notified charge nurse and charge nurse Az states he will get the medication for this patient. Vital Signs: 16:03 BP 171 / 114; Pulse 76; Resp 17; Temp 98.4; Pulse Ox 99% ; Weight 77.11 kg; Height 5 ll1 ft. 2 in. ; Pain 8/10; 16:23 BP 169 / 109; Pulse 77; Resp 18 S; Pulse Ox 100% on R/A; iw 16:54 BP 148 / 95; Pulse 72; Resp 16; Pulse Ox 98% ; iw 17:26 BP 130 / 102; Pulse 81; Resp 18; Pulse Ox 100% on R/A; iw 17:45 BP 189 / 112; bp 17:57 Pulse 81; Resp 20; Pulse Ox 100% on R/A; ld1 18:05 BP 164 / 105; Pulse 80; Resp 19 S; Pulse Ox 98% on R/A; iw 19:06 BP 153 / 97; Pulse 73; Resp 22; Pulse Ox 99% ; Pain 0/10; la4 20:00 BP 146 / 95; Pulse 75; Resp 18; Pulse Ox 99% ; la4 21:32 BP 144 / 98; Pulse 89; Resp 20; Pulse Ox 93% on R/A; Pain 8/10; la4 16:03 Body Mass Index 31.09 (77.11 kg, 157.48 cm) ll1 16:03 Pain Scale: Adult ll1 19:06 Pain Scale: Adult la4 21:32 Pain Scale: Adult la4 21:32 c/o persistent headache la4 Vitals: 20:00 Cardiac Rhythm Assessment Regular Sinus rhythm. la4 [place] Coma Score: 20:00 Eye Response: spontaneous(4). Motor Response: obeys commands(6). Verbal Response: la4 oriented(5). Total: 15. ED Course: 15:39 Patient arrived in ED. am2 15:40 Regla Delaney FNP-C is [facility]. snw 15:40 Dontae Bella MD is Attending Physician. snw 16:05 Triage completed. ll1 16:05 Arm band placed on. ll1 16:40 Missed attempt(s): 22 gauge in left antecubital area. Bleeding controlled, band aid iw applied, catheter tip intact. 16:46 Inserted saline lock: 20 gauge in right antecubital area, using aseptic technique. hb 16:51 XRAY Chest (1 view) In Process Unspecified. EDMS 16:56 Patient has correct armband on for positive identification. Bed in low position. Call iw light in reach. Client placed on continuous cardiac and pulse oximetry monitoring. NIBP monitoring applied. 16:56 Missed attempt(s): 20 gauge in left antecubital area. ld1 17:09 Aparna Reilly, RN is Primary Nurse. iw 17:50 CT Head Brain wo Cont In Process Unspecified. EDMS 17:51 CT Aorta for Dissection In Process Unspecified. EDMS 18:56 Jackeline Marcus MD is Hospitalizing Provider. snw 19:54 Harvinder Prado is Hospitalizing Provider. snw 21:34 No provider procedures requiring assistance completed. IV not discontinued due to nw1 admission. 21:38 Provided Education on: admission. nw1 Administered Medications: 17:26 Drug: Aspirin PO Chewable Tablet 324 mg PO once; 81 mg tablets x 4 Route: PO; iw 17:58 Drug: diphenhydrAMINE IVP 50 mg IVP once Route: IVP; Site: right antecubital; ld1 17:58 Drug: Decadron - Dexamethasone IVP 10 mg IVP once Route: IVP; Site: right antecubital; ld1 19:06 Not Given (Physician Discretion): diltiazem 5 mg/hr IV at calculated rate See iw Administration Instructions; (standard dilution 125 mg diltiazem mixed in 125 mL NS; final concentration 1mg/mL). Recommended max rate 15 mg/hr; Titrate 5 mg/hr as often as every 15 minute; Goal parameter HR less than 100 bpm 19:14 Drug: fentaNYL (PF) IVP 25 mcg IVP once Route: IVP; Site: right antecubital; ld1 19:14 Drug: Promethazine IVP 12.5 mg IVP once Route: IVP; Site: right antecubital; ld1 20:16 Drug: Diltiazem PO 30 mg PO once Route: PO; la4 Medication: 16:50 VIS not applicable for this client. iw Outcome: 18:58 Decision to Hospitalize by Provider. snw 21:36 Admitted to Tele accompanied by tech, via stretcher, room 206, on monitor, with chart, la4 Report called to Stephenie TORRES 21:36 Condition: stable 22:26 Patient left the ED. nw1 Signatures: Dispatcher [employer] EDMS Regla Delaney, HEAD OF SCIENCE-C HEAD OF SCIENCE-Csnw Aparna Reilly RN RN iw Nancy Leon RN MELISSA Lillian Russell am2 Garret Dean RN RN bp Aminah Hernandez RN RN ll1 Jeanine Nash RN RN ld1 Prabhjot Beth RN RN la4 Nataly Reilly, MELISSA RN nw1 Corrections: (The following items were deleted from the chart) 18:02 17:57 BP 189 / 112; Pulse 81bpm; Resp 20bpm; Pulse Ox 100% RA; ld1 ld1 21:36 21:32 BP 140 / 84; Pulse 58bpm; Resp 20bpm; Pulse Ox 100% RA; Pain 8, Adult; c/o la4 persistent headache; la4
--- NOTE | 2023-03-09 18:59 | EDPHYS ---
Physician Documentation [facility] [place] Name: Debora Friday Age: 52 yrs Sex: Female : 1970 Arrival Date: 03/09/2023 Time: 15:37 Bed 4 Private MD: ED Physician Dontae Bella HPI: 03/09 16:31 This 52 yrs old Female presents to ER via Ambulatory with complaints of High Blood snw Pressure, Headache, Chest Pressure - heaviness. 16:31 Onset: The symptoms/episode began/occurred acutely, 2 day(s) ago, and became snw persistent. Severity of symptoms: At its worst the blood pressure was 210 mm Hg. The patient has not experienced similar symptoms in the past. takes Bystolic, atorvastatin, baby asa, levothyroxine, all taken this am. 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 - Social history:: Smoking status: Patient denies any tobacco usage or history of. ROS: 16:30 Eyes: Negative for injury, pain, redness, and discharge, ENT: Negative for injury, snw pain, and discharge, Neck: Negative for injury, pain, and swelling, 16:30 Abdomen/GI: Negative for abdominal pain, nausea, vomiting, diarrhea, and constipation, Back: Negative for injury and pain, : Negative for injury, bleeding, discharge, and swelling, MS/Extremity: Negative for injury and deformity, Skin: Negative for injury, rash, and discoloration, 16:30 Constitutional: Positive for body aches, fatigue, malaise, poor PO intake, 16:30 Cardiovascular: Positive for chest pain, of the chest, 16:30 Respiratory: Positive for shortness of breath, at rest. 16:30 Neuro: Positive for headache, 16:30 Psych: Positive for anxiety, Exam: 16:21 Back: No spinal tenderness. No costovertebral tenderness. Full range of motion. snw Skin: Warm, dry with normal turgor. Normal color with no rashes, no lesions, and no evidence of cellulitis. MS/ Extremity: Pulses equal, no cyanosis. Neurovascular intact. Full, normal range of motion. Neuro: Awake and alert, GCS 15, oriented to person, place, time, and situation. Cranial nerves II-XII grossly intact. Motor strength 5/5 in all extremities. Sensory grossly intact. Cerebellar exam normal. Normal gait. Psych: Awake, alert, with orientation to person, place and time. Behavior, mood, and affect are within normal limits. 16:21 Respiratory: the patient does not display signs of respiratory distress, Respirations: intervals of deep inspiration, Breath sounds: are clear throughout, 16:26 Head/Face: Normocephalic, atraumatic. Eyes: Pupils equal round and reactive to light, snw extra-ocular motions intact. Lids and lashes normal. Conjunctiva and sclera are non-icteric and not injected. Cornea within normal limits. Periorbital areas with no swelling, redness, or edema. ENT: Nares patent. No nasal discharge, no septal abnormalities noted. Tympanic membranes are normal and external auditory canals are clear. Oropharynx with no redness, swelling, or masses, exudates, or evidence of obstruction, uvula midline. Mucous membranes moist. Neck: Trachea midline, no thyromegaly or masses palpated, and no cervical lymphadenopathy. Supple, full range of motion without nuchal rigidity, or vertebral point tenderness. No Meningismus. Chest/axilla: Normal chest wall appearance and motion. Nontender with no deformity. No lesions are appreciated. 16:26 Constitutional: The patient appears awake, anxious, uncomfortable, 16:26 Cardiovascular: Rate: normal, Rhythm: regular, Heart sounds: normal, Edema: is not appreciated, JVD: is not appreciated, pt tremorous, feel like she cannot get air so deeply inhales occasionally. , Vital Signs: 16:03 BP 171 / 114; Pulse 76; Resp 17; Temp 98.4; Pulse Ox 99% ; Weight 77.11 kg; Height 5 ll1 ft. 2 in. ; Pain 8/10; 16:23 BP 169 / 109; Pulse 77; Resp 18 S; Pulse Ox 100% on R/A; iw 16:54 BP 148 / 95; Pulse 72; Resp 16; Pulse Ox 98% ; iw 17:26 BP 130 / 102; Pulse 81; Resp 18; Pulse Ox 100% on R/A; iw 17:45 BP 189 / 112; bp 17:57 Pulse 81; Resp 20; Pulse Ox 100% on R/A; ld1 18:05 BP 164 / 105; Pulse 80; Resp 19 S; Pulse Ox 98% on R/A; iw 19:06 BP 153 / 97; Pulse 73; Resp 22; Pulse Ox 99% ; Pain 0/10; la4 20:00 BP 146 / 95; Pulse 75; Resp 18; Pulse Ox 99% ; la4 21:32 BP 144 / 98; Pulse 89; Resp 20; Pulse Ox 93% on R/A; Pain 8/10; la4 16:03 Body Mass Index 31.09 (77.11 kg, 157.48 cm) ll1 16:03 Pain Scale: Adult ll1 19:06 Pain Scale: Adult la4 21:32 Pain Scale: Adult la4 21:32 c/o persistent headache la4 [place] Coma Score: 20:00 Eye Response: spontaneous(4). Motor Response: obeys commands(6). Verbal Response: la4 oriented(5). Total: 15. MDM: 15:41 Patient medically screened. snw 16:31 Differential diagnosis: hypertensive crisis, CVA, [place]. Data interpreted: Cardiac snw monitor: rate is 77 beats/min, Pulse oximetry: on room air is 100 %. Interpretation: acceptable. Data reviewed: vital signs, nurses notes. 03/09 16:10 Order name: Basic Metabolic Panel; Complete Time: 17:47 snw 03/09 16:10 Order name: CBC with Diff; Complete Time: 16:49 snw 03/09 16:10 Order name: LFT's; Complete Time: 17:47 snw 03/09 16:10 Order name: Magnesium; Complete Time: 17:47 snw 03/09 16:10 Order name: NT PRO-BNP; Complete Time: 17:47 snw 03/09 16:10 Order name: PT-INR; Complete Time: 17:11 snw 03/09 16:10 Order name: Troponin HS; Complete Time: 17:47 snw 03/09 16:10 Order name: TSH; Complete Time: 17:47 snw 03/09 17:34 Order name: T4 Free; Complete Time: 17:47 EDMS 03/09 19:44 Order name: Basic Metabolic Panel EDMS 03/09 19:44 Order name: Basic Metabolic Panel EDMS 03/09 19:44 Order name: CBC with Automated Diff EDMS 03/09 19:44 Order name: CBC with Automated Diff EDMS 03/09 19:44 Order name: Lipid Profile EDMS 03/09 19:44 Order name: Lipid Profile EDMS 03/09 19:44 Order name: Magnesium EDMS 03/09 19:44 Order name: Magnesium EDMS 03/09 19:44 Order name: NT PRO-BNP EDMS 03/09 19:44 Order name: NT PRO-BNP EDMS 03/09 19:44 Order name: Troponin High Sensitivity EDMS 03/09 19:44 Order name: Troponin High Sensitivity; Complete Time: 21:04 EDMS 03/09 19:44 Order name: Troponin High Sensitivity EDMS 03/09 19:44 Order name: Troponin High Sensitivity EDMS 03/09 16:10 Order name: XRAY Chest (1 view); Complete Time: 17:36 snw 03/09 16:18 Order name: CT Head Brain wo Cont; Complete Time: 17:59 snw 03/09 16:18 Order name: CT Aorta for Dissection; Complete Time: 18:09 snw 03/09 16:10 Order name: EKG; Complete Time: 16:11 snw 03/09 16:10 Order name: Cardiac monitoring; Complete Time: 16:25 snw 03/09 16:10 Order name: EKG - Nurse/Tech; Complete Time: 16:25 snw 03/09 16:10 Order name: IV Saline Lock; Complete Time: 16:46 snw 03/09 16:10 Order name: Labs collected and sent; Complete Time: 16:38 snw 03/09 16:10 Order name: O2 Per Protocol; Complete Time: 16:25 snw 03/09 16:10 Order name: O2 Sat Monitoring; Complete Time: 16:25 snw 03/09 16:59 Order name: Labs - recollect needed; Complete Time: 16:59 hb EC:21 Rate is 77 beats/min. Rhythm is regular. QRS [place] is Normal. [place] interval is normal. QRS snw interval is normal. T waves are Inverted in lead aVR. T waves are Flattened in leads III, aVL, V3. Clinical impression: NSR w/ Non-specific ST/T Changes. Administered Medications: 17:26 Drug: Aspirin PO Chewable Tablet 324 mg PO once; 81 mg tablets x 4 Route: PO; iw 17:58 Drug: diphenhydrAMINE IVP 50 mg IVP once Route: IVP; Site: right antecubital; ld1 17:58 Drug: Decadron - Dexamethasone IVP 10 mg IVP once Route: IVP; Site: right antecubital; ld1 19:06 Not Given (Physician Discretion): diltiazem 5 mg/hr IV at calculated rate See iw Administration Instructions; (standard dilution 125 mg diltiazem mixed in 125 mL NS; final concentration 1mg/mL). Recommended max rate 15 mg/hr; Titrate 5 mg/hr as often as every 15 minute; Goal parameter HR less than 100 bpm 19:14 Drug: fentaNYL (PF) IVP 25 mcg IVP once Route: IVP; Site: right antecubital; ld1 19:14 Drug: Promethazine IVP 12.5 mg IVP once Route: IVP; Site: right antecubital; ld1 20:16 Drug: Diltiazem PO 30 mg PO once Route: PO; la4 Disposition: 03/10 10:06 Co-signature as Attending Physician, Dontae Bella MD I reviewed the patient's care rn provided by the Advanced Practice Provider and agree with the diagnosis and treatment plan. Disposition Summary: 03/09/23 18:58 Hospitalization Ordered Notes: Hospitalization Status: Observation snw Condition: Stable snw Problem: an acute exacerbation snw Symptoms: are unchanged snw Bed/Room Type: Standard snw Provider: Harvinder Prado(03/09/23 19:54) snw Location: Telemetry/MedSurg (observation)(03/09/23 20:28) mw Room Assignment: 206(03/09/23 21:01) Diagnosis - Hypertensive urgency snw - Chest pain, unspecified snw Forms: - Medication Reconciliation Form snw - SBAR form snw - Leadership Thank You Letter snw Signatures: Dispatcher [employer] Shyla Cabrera RN RN Regla Macias FNP-C CASTING SUPERVISOR-Csnw Aparna Reilly, RN RN Dontae Pickard MD MD rn Baxter, Heather, MELISSA RN Aminah Ignacio RN RN ll1 Jeanine Nash RN RN ld1 Terrell Rausch RN RN tm6 Prabhjot Beth RN RN la4 Corrections: (The following items were deleted from the chart) 03/09 19:54 18:58 Jackeline Marcus snw snw 20:26 18:58 snw mw 20:28 18:58 Telemetry/MedSurg (observation) snw mw 20:28 20:26 409 mw mw 21:01 20:28 mw mw
[2023-03-09] MEDS ORDERED: FENTANYL CITR 100 MCG/2 ML ONE (19:05)
[2023-03-09] MEDS ORDERED: PROMETHAZINE INJ 25 MG/ML AMP ONE (19:16)
--- NOTE | 2023-03-09 19:39 | P.HP ---
Certification for Inpatient Patient admitted to: Observation With expected LOS: <2 Midnights Patient will require the following post-hospital care: None Practitioner: I am a practitioner with admitting privileges, knowledge of patient current condition, hospital course, and medical plan of care. Services: Services provided to patient in accordance with Admission requirements found in Title 42 Section 412.3 of the Code of Federal Regulations Patient History Date of Service: 03/09/23 Reason for admission: Hypertension History of Present Illness: 52-year-old female with a past medical history of hypertension, hyperlipidemia, hypothyroidism, pericarditis, presents to the emergency room with headache and chest pressure. She reports symptoms started 2 days ago and is progressively getting worse. She reports associated high blood pressure systolic 210 at home, on arrival to ER 190/110, she reports associated chest pain she described as chest tightness. She reports B) arm heaviness. Chest pain, shortness of breath worse when laying flat. She reports blurry vision that is constant. She denies fever, nausea vomiting diarrhea, chills, cough, recent infection. EKG evaluation normal sinus rhythm rate 77 inverted T waves in aVR, flattened T waves in 3, aVL, normal sinus rhythm with nonspecific T wave abnormality. She was treated with Cardizem drip for hypertensive emergency. Given fentanyl for pain. Diltiazem IV and po 30 mg, Phenergan 12.5 IV x1 was given with some relief. ER lab evaluation mild hypokalemia potassium 3.3 hypothyroidism TSH elevated 4.55, free T4 low, CBC unremarkable magnesium normal, BNP 123 normal, troponin normal at 3.4 chest x-ray no acute abnormality, CT of the brain no acute intracranial abnormality CTA for aortic dissection no acute acute findings in the chest abdomen or pelvis, no aortic dissection aneurysm or pulmonary embolus Allergies Sulfa (Sulfonamide Antibiotics) Allergy (Severe, Verified 05/29/16 18:25) Hives/Rash codeine Allergy (Mild, Verified 06/03/18 14:01) Nausea/Vomiting PENICILLINS Allergy (Severe, Uncoded 05/29/16 18:25) Hives/Rash Home Medications: Gabapentin 300 mg PO BID 06/03/18 Nebivolol HCl [Bystolic*] 10 mg PO DAILY 06/03/18 Aspirin [Aspirin EC 81 MG] 81 mg PO DAILY #90 tablet. 10/25/20 Folic Acid 1 mg PO DAILY #90 tablet 10/25/20 Levothyroxine Sodium [Levothyroxine] 50 mcg PO DAILY #30 capsule 10/25/20 predniSONE [Deltasone*] 10 mg PO SEECOM #15 tab 10/25/20 - Past Medical/Surgical History Diabetic: No -: History of pericarditis -: Hypothyroidism -: Hyperlipidemia -: Neuropathy -: Hypertension -: Lupus -: hysterectomy -: tonsillectomy -: appendectomy -: kidney stone removal -: right knee surgery -: left wrist surgery Psychosocial/ Personal History: lives w/ - Family History Father -: Heart disease Notes: heart failure 50s Mother -: Stroke Notes: abdominal aneurysm Brother -: Heart disease - Social History Alcohol use: Yes CD- Drugs: No Caffeine use: Yes Review of Systems 10-point ROS is otherwise unremarkable Physical Examination - Physical Exam General: Alert, In no apparent distress, Other (mildly anxious) HEENT: Atraumatic, Normocephalic, PERRLA Neck: Supple, 2+ carotid pulse no bruit, JVD not distended Respiratory: Clear to auscultation bilaterally, Normal air movement Cardiovascular: No edema, Normal pulses, Regular rate/rhythm Capillary refill: <2 Seconds Gastrointestinal: Normal bowel sounds, Soft and benign Musculoskeletal: No clubbing, No swelling Integumentary: No rashes, No breakdown Neurological: Normal speech, Normal strength at 5/5 x4 extr, Sensation intact - Studies Laboratory Data (last 24 hrs) 03/09/23 03/09/23 03/09/23 16:56 16:56 16:30 WBC 10.30 Hgb 13.7 Hct 40.0 Plt Count 266 PT 11.1 INR 1.01 Sodium 143 Potassium 3.3 L BUN 14 Creatinine 0.70 Glucose 103 Magnesium 1.8 Total Bilirubin 0.3 AST 17 ALT 22 Alkaline Phosphatase 69 Assessment and Plan - Plan Assessment plan Hypertensive emergency acute Chest pain rule out [place] acute Hypokalemia acute Thyroidism uncontrolled acute on chronic Hyperlipidemia DVT prophylaxis Assessment plan Hypertensive emergency acute Chest pain rule out [place] acute cardiology consulted, Trend troponins, telemetry telemetry, as needed antihypertensives, prn analgesic, asa, BNP 123 normal, troponin normal at 3.4 chest x-ray no acute abnormality, lipid p obi in am CT of the brain no acute intracranial abnormality CTA for aortic dissection no acute acute findings in the chest abdomen or pelvis, no aortic dissection aneurysm or pulmonary embolus normal sinus rhythm rate 77 inverted T waves in aVR, flattened T waves in 3, aVL, normal sinus rhythm with nonspecific T wave abnormality. Hypokalemia acute Trend electrolytes replace as needed potassium 3.3 Thyroidism uncontrolled acute on chronic Resume appropriate home meds TSH elevated 4.55, free T4 low Hyperlipidemia Resume appropriate home meds Full code Diet n.p.o. after midnight DVT prophylaxis Discharge Plan: Home Plan to discharge in: 24 Hours - Advance Directives Does patient have a Living Will: No Does patient have a Durable POA for Healthcare: No - Code Status/Comfort Care Code Status: Full Code Physician Review: Patient Assessed, Agree with Above Assessment and Plan Critical Care: No Time Spent Managing Pts Care (In Minutes): 50
[2023-03-09] MEDS ORDERED: ALPRAZOLAM 0.25 MG TABLET PO PRN (19:41)
[2023-03-09] MEDS ORDERED: ACETAMINOPHEN 500 MG TAB PO PRN (19:41)
[2023-03-09] MEDS ORDERED: DILTIAZEM HCL 60 MG TAB ONE (20:16)
[2023-03-09] MEDS ORDERED: METOPROLOL TARTRATE 5 MG/5 ML INJ IV PRN (21:04)
[2023-03-10 04:03] LABS: Absolute Lymphocytes (CBC) 1.5 K/uL (0.7-4.9); Hematocrit 37.2 % (36.0-45.0); Lymphocytes % 18.5 % (15.3-44.8); MCV 89.4 fL (80-100); MPV 8.5 fL (7.6-11.3); Platelets 268 thou/uL (152-406); RBC Red Blood Cell Count 4.17 M/uL (3.86-4.86)
[2023-03-10 04:28] LABS: Magnesium 2.3 mg/dL (1.6-2.4); Potassium 4.1 mEq/L (3.5-5.1)
[2023-03-10] MEDS ORDERED: HOME MED 1 EA UNK (Levothyroxine Sodium [Levothyroxine Sodium] 50 MCG Capsule) PO SCH (06:00)
[2023-03-10] MEDS: LEVOTHYROXINE SOD 0.112 MG TAB PO SCH (06:06)
--- NOTE | 2023-03-10 08:28 | P.PN ---
Subjective Date of Service: 03/10/23 Primary Care Provider: Dr. Prado Chief Complaint: Hypertension Subjective: No new changes, Tolerating diet, Doing well HPI 03/09/2023 52-year-old female with a past medical history of hypertension, hyperlipidemia, hypothyroidism, pericarditis, presents to the emergency room with headache and chest pressure. She reports symptoms started 2 days ago and is progressively getting worse. She reports associated high blood pressure systolic 210 at home, on arrival to ER 190/110, she reports associated chest pain she described as chest tightness. She reports B) arm heaviness. Chest pain, shortness of breath worse when laying flat. She reports blurry vision that is constant. She denies fever, nausea vomiting diarrhea, chills, cough, recent infection. EKG evaluation normal sinus rhythm rate 77 inverted T waves in aVR, flattened T waves in 3, aVL, normal sinus rhythm with nonspecific T wave abnormality. She was treated with Cardizem drip for hypertensive emergency. Given fentanyl for pain. Diltiazem IV and po 30 mg, Phenergan 12.5 IV x1 was given with some relief. ER lab evaluation mild hypokalemia potassium 3.3 hypothyroidism TSH elevated 4.55, free T4 low, CBC unremarkable magnesium normal, BNP 123 normal, troponin normal at 3.4 chest x-ray no acute abnormality, CT of the brain no acute intracranial abnormality CTA for aortic dissection no acute acute findings in the chest abdomen or pelvis, no aortic dissection aneurysm or pulmonary embolus Patient is alert oriented x3 Patient reports headache 5/10 Patient reports her blood pressure was high at home. On Bystolic Review of Systems 10-point ROS is otherwise unremarkable Physical Examination - Vital Signs Temperature: 97.5 F Blood Pressure: 108/69 Pulse: 66 Respirations: 17 Pulse Ox (%): 95 - Studies Laboratory Data (last 24 hrs) 03/09/23 03/09/23 03/09/23 16:56 16:56 16:30 WBC 10.30 Hgb 13.7 Hct 40.0 Plt Count 266 PT 11.1 INR 1.01 Sodium 143 Potassium 3.3 L BUN 14 Creatinine 0.70 Glucose 103 Magnesium 1.8 Total Bilirubin 0.3 AST 17 ALT 22 Alkaline Phosphatase 69 Assessment And Plan - Plan - Physical Exam General: Alert, In no apparent distress, Other (mildly anxious) HEENT: Atraumatic, Normocephalic, PERRLA Neck: Supple, 2+ carotid pulse no bruit, JVD not distended Respiratory: Clear to auscultation bilaterally, Normal air movement Cardiovascular: No edema, Normal pulses, Regular rate/rhythm Capillary refill: <2 Seconds Gastrointestinal: Normal bowel sounds, Soft and benign Musculoskeletal: No clubbing, No swelling Integumentary: No rashes, No breakdown Neurological: Normal speech, Normal strength at 5/5 x4 extr, Sensation intact - Plan Assessment Hypertensive emergency acute Chest pain rule out [place] acute Hypokalemia acute Thyroidism uncontrolled acute on chronic Hyperlipidemia DVT prophylaxis Plan Hypertensive emergency acute Chest pain rule out [place] acute -Acute, controlled. BP readings are WNL now. cardiology consulted, Trend troponins, telemetry telemetry, as needed antihypertensives, prn analgesic, asa, BNP 123 normal, troponin normal at 3.4 chest x-ray no acute abnormality, lipid panel in am CT of the brain no acute intracranial abnormality CTA for aortic dissection no acute acute findings in the chest abdomen or pelvis, no aortic dissection aneurysm or pulmonary embolus normal sinus rhythm rate 77 inverted T waves in aVR, flattened T waves in 3, aVL, normal sinus rhythm with nonspecific T wave abnormality. Hypokalemia acute Improved, today's potassium is 4.1 Trend electrolytes replace as needed Thyroidism uncontrolled acute on chronic TSH elevated 4.55, free T4 low Resume home medications levothyroxine 50 mcg p.o. daily Hyperlipidemia Chronic, LDL 194. Resume rosuvastatin home meds Full code Diet n.p.o. after midnight DVT prophylaxis Discharge Plan: Home Plan to discharge in: 24 Hours - Code Status/Comfort Care Code Status Assessed: Yes (full code) Code Status: Full Code Physician Review: Patient Assessed, Agree with Above Assessment and Plan Time Spent Managing PTS Care (In Minutes): 35 (min)
[2023-03-10] MEDS: NEBIVOLOL HCL 5 MG TAB PO SCH (09:00)
[2023-03-10] MEDS: MORPHINE 4 MG/ML SYR IV PRN ×3 (11:50→21:48)
[2023-03-10] MEDS: ONDANSETRON 4 MG/2 ML VIAL IV PRN (11:50)
[2023-03-10] MEDS: ASPIRIN 325 MG TAB PO SCH (12:00)
[2023-03-10] MEDS ORDERED: PROMETHAZINE 25 MG TABLET PO ONE (14:00)
--- NOTE | 2023-03-10 18:07 | EKG ---
Test Date: 2023-03-09 Test Time: 16:20:42 Soil Specialist: MICHAEL MEASUREMENT RESULTS: Intervals: Rate: 77 ND: 166 QRSD: 96 QT: 402 QTc: 454 [place]: P: 61 ND: 166 QRS: -7 T: 57 INTERPRETIVE STATEMENTS: Normal sinus rhythm Normal ECG Compared to ECG 10/24/2020 09:03:42 Myocardial infarct finding no longer present Electronically Signed On 03-10-23 18:05:19 CDT by Biran Caldwell
[2023-03-10] MEDS ORDERED: HOME MED 1 EA UNK (Rosuvastatin Calcium [Rosuvastatin Calcium] 40 MG Tablet) PO SCH (21:00)
[2023-03-10] MEDS ORDERED: ROSUVASTATIN 10 MG TAB PO SCH (21:00)
--- NOTE | 2023-03-10 21:30 | CON ---
Date of Consultation: 03/10/2023 Reason For Consultation: Chest pain. History Of Present Illness: 52-year-old female, history of hypertension, dyslipidemia, hypothyroidis m, and history of pericarditis. She has history of lupus, presented with the pleuritic type of chest pain, increases when she lays down and gets better when she sits up. She apparently had 2 heart cat hs in the past, last one was 4 years ago. It was totally normal and she was diagnosed with pericardi tis and she at this moment is comfortable. Does not have any upper respiratory tract infection sympt oms and she feels well. Past Medical History: As outlined above in the HPI. Medications: Refer consultation sheet for detailed list. Allergies: SULFA AND CODEINE. Family History: No premature coronary artery disease or cancer. Social History: She does not smoke or drink. Does not use any drugs. Review of Systems: All systems reviewed and they were negative except as mentioned in the HPI. Physical Examination: Vital Signs: Reviewed. Head and Neck: Pupils are equal, reactive to light. Intact eye movements. No JVD. No cervical lym phadenopathy. Neck is supple. Thyroid is not enlarged. Lungs: Clear to auscultation bilaterally. No rhonchi, wheezing, or crackles. No accessory muscle u se. Heart: Regular rate and rhythm. No extra sounds. Abdomen: Soft, nontender. Bowel sounds positive. No organomegaly. No masses or hernia. No rigidi ty or rebound. Extremities: No edema, clubbing, cyanosis. Intact pulses. Skin: No rash or nodule. Neurologic: Alert, awake, oriented x3. No acute focal deficits appreciated. Lymph Nodes: No cervical or axillary lymphadenopathy. Investigations: Her cardiac enzymes x4 are negative. BUN 17, creatinine 0.80, and hemoglobin is 12. 7. Assessment And Recommendations: 1.Chest pain. The symptoms are suggestive of pericarditis. Try colchicine 0.6 mg twice a day and i f that works, that will confirm the diagnosis and check the sedimentation rate and the CRP and also o btain an echocardiogram. I do not believe this is a coronary syndrome issue as she had an extensive cardiac evaluation including heart catheterization that was normal and she had a stress test this yea r was negative. 2.Hypertension. Blood pressure is controlled now. Continue home medications. 3.Dyslipidemia. I recommend rosuvastatin 40 mg q.h.s. SR/WESLYL Voice ID: [id number] Report ID: [id number]
[2023-03-11] MEDS: MORPHINE 4 MG/ML SYR IV PRN ×3 (02:36→13:32)
[2023-03-11] MEDS: ONDANSETRON 4 MG/2 ML VIAL IV PRN ×2 (02:40→09:12)
[2023-03-11] MEDS ORDERED: LEVOTHYROXINE SOD 0.1 MG TAB PO SCH (06:00)
[2023-03-11] MEDS: LEVOTHYROXINE SOD 0.112 MG TAB PO SCH (06:10)
[2023-03-11] MEDS: ASPIRIN 325 MG TAB PO SCH (08:41)
[2023-03-11] MEDS ORDERED: COLCHICINE 0.6 MG TAB PO SCH (09:00)
[2023-03-11] MEDS ORDERED: ASPIRIN 81 MG CHEWABLE TABLET PO SCH (09:00)
[2023-03-11] MEDS: NEBIVOLOL HCL 5 MG TAB PO SCH (09:11)
--- NOTE | 2023-03-11 09:38 | P.PN ---
Subjective Date of Service: 03/11/23 Primary Care Provider: Dr. Jena Moffett Chief Complaint: Hypertension Subjective: No C/O voiced, Improving, Doing well HPI 03/09/2023 52-year-old female with a past medical history of hypertension, hyperlipidemia, hypothyroidism, pericarditis, presents to the emergency room with headache and chest pressure. She reports symptoms started 2 days ago and is progressively getting worse. She reports associated high blood pressure systolic 210 at home, on arrival to ER 190/110, she reports associated chest pain she described as chest tightness. She reports B) arm heaviness. Chest pain, shortness of breath worse when laying flat. She reports blurry vision that is constant. She denies fever, nausea vomiting diarrhea, chills, cough, recent infection. EKG evaluation normal sinus rhythm rate 77 inverted T waves in aVR, flattened T waves in 3, aVL, normal sinus rhythm with nonspecific T wave abnormality. She was treated with Cardizem drip for hypertensive emergency. Given fentanyl for pain. Diltiazem IV and po 30 mg, Phenergan 12.5 IV x1 was given with some relief. ER lab evaluation mild hypokalemia potassium 3.3 hypothyroidism TSH elevated 4.55, free T4 low, CBC unremarkable magnesium normal, BNP 123 normal, troponin normal at 3.4 chest x-ray no acute abnormality, CT of the brain no acute intracranial abnormality CTA for aortic dissection no acute acute findings in the chest abdomen or pelvis, no aortic dissection aneurysm or pulmonary embolus Patient is alert oriented x3 Patient denies any pain Review of Systems 10-point ROS is otherwise unremarkable Physical Examination - Vital Signs Temperature: 97.5 F Blood Pressure: 137/97 Pulse: 58 Respirations: 17 Pulse Ox (%): 96 Assessment And Plan - Plan - Physical Exam General: Alert, In no apparent distress, Other (mildly anxious) HEENT: Atraumatic, Normocephalic, PERRLA Neck: Supple, 2+ carotid pulse no bruit, JVD not distended Respiratory: Clear to auscultation bilaterally, Normal air movement Cardiovascular: No edema, Normal pulses, Regular rate/rhythm Capillary refill: <2 Seconds Gastrointestinal: Normal bowel sounds, Soft and benign Musculoskeletal: No clubbing, No swelling Integumentary: No rashes, No breakdown Neurological: Normal speech, Normal strength at 5/5 x4 extr, Sensation intact - Plan Assessment Hypertensive emergency acute Chest pain rule out [place] acute Hypokalemia acute Thyroidism uncontrolled acute on chronic Hyperlipidemia DVT prophylaxis Plan Hypertensive emergency acute Chest pain rule out [place] acute -Acute, controlled. BP readings are WNL now. cardiology consulted, Trend troponins, telemetry telemetry, as needed antihypertensives, prn analgesic, asa, BNP 123 normal, troponin normal at 3.4 chest x-ray no acute abnormality, lipid panel in am CT of the brain no acute intracranial abnormality CTA for aortic dissection no acute acute findings in the chest abdomen or pelvis, no aortic dissection aneurysm or pulmonary embolus Ordered CRP and Colchecin 0.6mg po bid Hypokalemia acute Improved, today's potassium is 4.1 Trend electrolytes replace as needed Thyroidism uncontrolled acute on chronic TSH elevated 4.55, free T4 low Resume home medications levothyroxine 50 mcg p.o. daily Hyperlipidemia Chronic, LDL 194. Resume rosuvastatin home meds Full code Diet n.p.o. after midnight DVT prophylaxis Physician Review: Patient Assessed, Agree with Above Assessment and Plan
--- NOTE | 2023-03-11 12:23 | ECHO ---
HEIGHT: ft in WEIGHT: lb oz DATE OF STUDY: 03/11/[address]: Harvinder Prado MD 2-DIMENSIONAL: YES M.MODE: YES DOPPLER: YES COLOR FLOW: YES TDS: PORTABLE: YES DEFINITY: BUBBLE STUDY: DIAGNOSIS: CHEST PRESSURE, SEVERE HYPERTENSION CARDIAC HISTORY: CATHERIZATION: YES SURGERY: NO PROSTHETIC VALVE: NO PACEMAKER: NO MEASUREMENTS (cm) DIASTOLIC (NORMALS) SYSTOLIC (NORMALS) IVSd 1.1 (0.6-1.2) LA Diam 2.6 (1.9-4.0) LVEF 59% LVIDd 4.0 (3.5-5.7) LVIDs 2.8 (2.0-3.5) %FS 31% LVPWd 1.1 (0.6-1.2) Ao Diam 2.7 (2.0-3.7) 2 DIMENSIONAL ASSESSMENT: RIGHT ATRIUM: NORMAL LEFT ATRIUM: NORMAL RIGHT VENTRICLE: NORMAL LEFT VENTRICLE: NORMAL TRICUSPID VALVE: MILD TRICUSPID REGURGITATION MITRAL VALVE: MILD MITRAL REGURGITATION PULMONIC VALVE: NORMAL AORTIC VALVE: NORMAL PERICARDIAL EFFUSION: NONE AORTIC ROOT: NORMAL LEFT VENTRICULAR WALL MOTION: NORMAL DOPPLER/COLOR FLOW: MILD TRICUSPID REGURGITATION, MITRAL REGURGITATION COMMENTS: 1. NORMAL LEFT VENTRICULAR EJECTION FRACTION 55-60% WITH NORMAL WALL MOTION 2. NORMAL DIASTOLIC DYSFUNCTION 3. MILD TRICUSPID REGURGITATION 4. MILD MITRAL REGURGITATION TECHNOLOGIST: SRINI BANKS
--- NOTE | 2023-03-11 12:46 | PN ---
Date of Progress Note: 03/11/2023 Subjective: Seen by bedside. Feeling better. Review of Systems: There is no chest pain, shortness of breath, orthopnea, or cough. No nausea, vomiting, or diarrhea. All other systems were reviewed, they were negative. Objective: Vital Signs: Reviewed. Head and Neck: Pupils are equal, reactive to light. Intact eye movements. No JVD. No cervical lym phadenopathy. Neck is supple. Thyroid is not enlarged. Lungs: Clear to auscultation bilaterally. No rhonchi, wheezing, or crackles. No accessory muscle u se. Heart: Regular rate and rhythm. No extra sounds. Abdomen: Soft, nontender. Bowel sounds positive. No organomegaly. No masses or hernia. No rigidi ty or rebound. Extremities: No edema, clubbing, cyanosis. Intact pulses. Skin: No rash or nodule. Neurologic: Alert, awake, oriented x3. No acute focal deficits appreciated. Investigations: CRP is 3.74, and cardiac enzymes are negative. Assessment And Recommendations: 1.Chest pain. It is atypical, likely acute pericarditis. Continue colchicine for a total of 2 week s treatment and patient had an extensive ischemia evaluation that was negative recently. So she will follow up postdischarge with her primary grocery stocker at [place]. 2.Hypertension. Blood pressure is controlled. Continue current management. 3.Dyslipidemia. Continue Crestor 40 mg q.h.s. SR/MODL Voice ID: [id number] Report ID: [id number]
--- NOTE | 2023-03-11 13:47 | P.PN ---
Subjective Date of Service: 03/11/23 Primary Care Provider: Dr. Jena Moffett Chief Complaint: Hypertension HPI 03/09/2023 52-year-old female with a past medical history of hypertension, hyperlipidemia, hypothyroidism, pericarditis, presents to the emergency room with headache and chest pressure. She reports symptoms started 2 days ago and is progressively getting worse. She reports associated high blood pressure systolic 210 at home, on arrival to ER 190/110, she reports associated chest pain she described as chest tightness. She reports B) arm heaviness. Chest pain, shortness of breath worse when laying flat. She reports blurry vision that is constant. She denies fever, nausea vomiting diarrhea, chills, cough, recent infection. EKG evaluation normal sinus rhythm rate 77 inverted T waves in aVR, flattened T waves in 3, aVL, normal sinus rhythm with nonspecific T wave abnormality. She was treated with Cardizem drip for hypertensive emergency. Given fentanyl for pain. Diltiazem IV and po 30 mg, Phenergan 12.5 IV x1 was given with some relief. ER lab evaluation mild hypokalemia potassium 3.3 hypothyroidism TSH elevated 4.55, free T4 low, CBC unremarkable magnesium normal, BNP 123 normal, troponin normal at 3.4 chest x-ray no acute abnormality, CT of the brain no acute intracranial abnormality CTA for aortic dissection no acute acute findings in the chest abdomen or pelvis, no aortic dissection aneurysm or pulmonary embolus Patient is alert oriented x3 Patient denies any pain Physical Examination - Vital Signs Temperature: 97.5 F Blood Pressure: 137/97 Pulse: 58 Respirations: 17 Pulse Ox (%): 96 Assessment And Plan - Plan - Physical Exam General: Alert, In no apparent distress, Other (mildly anxious) HEENT: Atraumatic, Normocephalic, PERRLA Neck: Supple, 2+ carotid pulse no bruit, JVD not distended Respiratory: Clear to auscultation bilaterally, Normal air movement Cardiovascular: No edema, Normal pulses, Regular rate/rhythm Capillary refill: <2 Seconds Gastrointestinal: Normal bowel sounds, Soft and benign Musculoskeletal: No clubbing, No swelling Integumentary: No rashes, No breakdown Neurological: Normal speech, Normal strength at 5/5 x4 extr, Sensation intact - Plan Assessment Hypertensive emergency acute Chest pain rule out [place] acute Hypokalemia acute Thyroidism uncontrolled acute on chronic Hyperlipidemia DVT prophylaxis Plan Hypertensive emergency acute Chest pain rule out [place] acute -Acute, controlled. BP readings are WNL now. cardiology consulted, Trend troponins, telemetry telemetry, as needed antihypertensives, prn analgesic, asa, BNP 123 normal, troponin normal at 3.4 chest x-ray no acute abnormality, lipid panel in am CT of the brain no acute intracranial abnormality CTA for aortic dissection no acute acute findings in the chest abdomen or pelvis, no aortic dissection aneurysm or pulmonary embolus Ordered CRP and Colchecin 0.6mg po bid Hypokalemia acute Improved, today's potassium is 4.1 Trend electrolytes replace as needed Thyroidism uncontrolled acute on chronic TSH elevated 4.55, free T4 low Resume home medications levothyroxine 50 mcg p.o. daily Hyperlipidemia Chronic, LDL 194. Resume rosuvastatin home meds Full code Diet n.p.o. after midnight DVT prophylaxis Physician Review: Patient Assessed, Agree with Above Assessment and Plan
--- NOTE | 2023-03-11 13:48 | P.DS ---
Admission Date: 03/09/23 Discharge Date: 03/11/23 Primary Care Provider: Dr. Jena Moffett Disposition: ROUTINE DISCHARGE Discharge Condition: GOOD Reason for Admission: Hypertension - Problems (1) Pericarditis Current Visit: No Status: Acute Qualifiers: Pericarditis type: idiopathic (2) Hypertension Current Visit: No Status: Chronic Qualifiers: Hypertension type: primary hypertension Qualified Code(s): I10 - Essential (primary) hypertension (3) Hypothyroidism Onset Date: 06/04/18 Current Visit: No Status: Chronic Qualifiers: Hypothyroidism type: acquired Qualified Code(s): E03.9 - Hypothyroidism, unspecified Brief History of Present Illness: HPI 03/09/2023 52-year-old female with a past medical history of hypertension, hyperlipidemia, hypothyroidism, pericarditis, presents to the emergency room with headache and chest pressure. She reports symptoms started 2 days ago and is progressively getting worse. She reports associated high blood pressure systolic 210 at home, on arrival to ER 190/110, she reports associated chest pain she described as chest tightness. She reports B) arm heaviness. Chest pain, shortness of breath worse when laying flat. She reports blurry vision that is constant. She denies fever, nausea vomiting diarrhea, chills, cough, recent infection. EKG evaluation normal sinus rhythm rate 77 inverted T waves in aVR, flattened T waves in 3, aVL, normal sinus rhythm with nonspecific T wave abnormality. She was treated with Cardizem drip for hypertensive emergency. Given fentanyl for pain. Diltiazem IV and po 30 mg, Phenergan 12.5 IV x1 was given with some relief. ER lab evaluation mild hypokalemia potassium 3.3 hypothyroidism TSH elevated 4.55, free T4 low, CBC unremarkable magnesium normal, BNP 123 normal, troponin normal at 3.4 chest x-ray no acute abnormality, CT of the brain no acute intracranial abnormality CTA for aortic dissection no acute acute findings in the chest abdomen or pelvis, no aortic dissection aneurysm or pulmonary embolus Hospital Course: Patient was admitted on 03/09/2023 with complaints of chest pressure and hypertension. Ms. Lozano is a pleasant female with a past medical history significant for hypertension, hyperlipidemia, hypothyroidism and pericarditis who was admitted to the [facility] on 03/09/2023 for chest pressure and hypertension. Cardiac enzymes and EKG unremarkable, elevated TSH thyroid medications dose adjusted. Patient continued to have chest wall pain and general and generalized body pain. : Her cardiac enzymes x4 are negative. BUN 17, creatinine 0.80, and hemoglobin is 12.7. Cardiology was consulted. As per cardiology patient's symptoms suggestive of pericarditis, started the patient on colchicine 0.6 mg p.o. twice daily. Check CRP level which is 3.4. Patient's blood pressure is controlled now on the current medications. On 03/11/2023, I was seen on morning rounds and deemed medically stable for discharge. Ms. Lozano was discharged with instructions to schedule follow-up appointments with technical solution architect. Ms. Lozano was provided prescriptions for colchicine. The patient was given the opportunity to ask questions and reported no further questions. Furthermore, all questions were answered to the best of my ability. A copy of this discharge summary will be sent to the above providers to facilitate continuity of care. Today, I personally spent 55 minutes with Ms. hung, of which greater than 50% of the time was spent in patient education, counseling, and coordination of care as described above. Vital Signs/Physical Exam: Temp Pulse Resp BP Pulse Ox 97.5 F 58 17 137/97 H 96 03/11/23 13:47 03/11/23 13:47 03/11/23 13:47 03/11/23 13:47 03/11/23 13:47 Laboratory Data at Discharge: WBC 8.00 thou/uL (4.3-10.9) 03/10/23 03:39 Hgb 12.7 g/dL (12.0-15.0) 03/10/23 03:39 Hct 37.2 % (36.0-45.0) 03/10/23 03:39 Plt Count 268 thou/uL (152-406) 03/10/23 03:39 PT 11.1 SECONDS (9.5-12.5) 03/09/23 16:56 INR 1.01 03/09/23 16:56 Sodium 138 mEq/L (136-145) D 03/10/23 03:39 Potassium 4.1 mEq/L (3.5-5.1) D 03/10/23 03:39 BUN 17 mg/dL (7-18) 03/10/23 03:39 Creatinine 0.80 mg/dL (0.55-1.02) 03/10/23 03:39 Glucose 171 mg/dL (74-106) H 03/10/23 03:39 Magnesium 2.3 mg/dL (1.6-2.4) 03/10/23 03:39 Total Bilirubin 0.3 mg/dL (0.2-1.0) 03/09/23 16:56 AST 17 U/L (15-37) 03/09/23 16:56 ALT 22 U/L (13-56) 03/09/23 16:56 Alkaline Phosphatase 69 U/L (45-117) 03/09/23 16:56 Triglycerides 125 mg/dL (<150) 03/10/23 03:39 Cholesterol 276 mg/dL (<200) H 03/10/23 03:39 HDL Cholesterol 57 mg/dL (40-60) 03/10/23 03:39 Cholesterol/HDL Ratio 4.84 03/10/23 03:39 Home Medications: Nebivolol HCl [Bystolic*] 10 mg PO DAILY 06/03/18 Aspirin 81 mg PO DAILY 03/09/23 Levothyroxine [Synthroid] 100 mcg PO [id number] 03/09/23 Rosuvastatin Calcium 40 mg PO BEDTIME 03/09/23 Colchicine 0.6 mg PO BID 30 Days #60 03/11/23 New Medications: Colchicine 0.6 mg PO BID 30 Days #60 Diet: Regular Activity: Ad stacey Followup: Bev Henry NP [Primary Care Provider] -
== END 2023-03-11 17:13 | disposition home or self-care (01) ==
LOC: ER 15:37 → ERHOLD 19:39 → 2ND 22:19
PROVIDERS: ADMIT Internal Medicine; ATTEND Hospitalist
DX: I30.9 Acute pericarditis, unspecified (principal); I16.0 Hypertensive urgency; R07.9 Chest pain, unspecified; E87.6 Hypokalemia; E78.5 Hyperlipidemia, unspecified; E03.9 Hypothyroidism, unspecified; M32.9 Systemic lupus erythematosus, unspecified; Z88.2 Allergy status to sulfonamides; Z88.5 Allergy status to narcotic agent; Z79.82 Long term (current) use of aspirin; Z79.52 Long term (current) use of systemic steroids
CPT/HCPCS: 93005; 93306; 85025 ×2; 80048 ×2; 36415 ×2; 83735 ×2; 85610; 80061; 80076; 84443; 84484 ×4; 84439; 83880 ×2; 86140; 70450; 71275; 74175; 71045; 94760 ×3; 96375; 96374; 99285; Q9967; J2550; Q0169; J1200; J3010; J1100; J2405 ×3; G0378

== ENCOUNTER 2023-03-15 04:00 | Observation (INO) | payer BC ==
--- OUTSIDE RECORDS SUMMARY | 2023-03-15 04:05 | XMS REPORT | Continuity of Care Document ---
:1970 Author Organization [facility] t Address [address] [place] [address] Support Name Relationship Address Phone DEBORA LOZANO Unavailable [address] [phone] [place] [address] DEBORA LOZANO Unavailable [address] [phone] [place] [address] Gwyn Verde Spouse Unavailable Zenaida Camilo Mother Unavailable Unavailable FridayParviz Spouse [address] [place] [address] Debora Lozano Unavailable Unavailable [phone] PARVIZ LOZANO Spouse [address] Unavailable [place] [phone] [employer] Unavailable [address] [place] [phone] Unavailable Unavailable Unavailable Unavailable LELA JONES, YORDY Jorge Emergency Provider [address] [phone] [place] [address] KIM WU, BROOK Lui Primary Care Physician [address] [facility] [address] PARVIZ LOZANO Next of Kin [address] [place] [address] MD DOREEN NEWMAN Emergency Provider [address] [phone] [place] [address] JAZMIN ALVAREZ Primary Care Physician [address] [place] [address] [place] [address] MD RASHMI GAO Emergency Provider [address] [place] [address] MD ROWAN SCHWARTZ Other Provider [address] [phone] [place] [address] Care Team Providers Name Role Phone Brook Alvarez Primary Care Physician BROOK ALVAREZ Attending Clinician Unavailable CHRETIEN_F Attending Clinician Unavailable ALETHEA MORFIN Attending Clinician Unavailable Alan JONES, Phillip Stuart Attending Clinician WATERS_S Attending Clinician Unavailable Therapy, [facility] Attending Clinician Unavailable Luz Maria JONES, Jaren Hartman Attending Clinician JAREN LOERA Attending Clinician Unavailable Doctor Unassigned, Farber Attending Clinician Unavailable Mellisa Yuen RN Attending Clinician Unavailable LILLIAN MORA Attending Clinician Unavailable Lillian Mora MD Attending Clinician Lina Schwartz Attending Clinician RASHMI GAO Attending Clinician Unavailable ROWAN SCHWARTZ Attending Clinician Unavailable KNOW, DOES_NOT Attending Clinician Unavailable KIM_L Attending Clinician Unavailable Brook Alvarez Attending Clinician [phone] Rowan Schwartz Attending Clinician Unavailable DOREEN NEWMAN Attending Clinician Unavailable Tracy Soto RN Attending Clinician Unavailable Lab, [facility] Attending Clinician Unavailable LIVIA BARNES Attending Clinician Unavailable Mekhi Reno MD Attending Clinician VALERIA QUEVEDO Attending Clinician Unavailable YORDY VOGEL Attending Clinician Unavailable ROWAN SCHWARTZ M.D., Ayanna DONAHUE Attending Clinician Unav ailable SAMUEL MADRIGAL Attending Clinician Unavailable DUSTIN DAVIS Attending Clinician Unavailable KNOW, DOES_NOT Admitting Clinician Unavailable CHRETIEN_F Admitting Clinician Unavailable WATERS_S Admitting Clinician Unavailable SCHAUBROECK_L Admitting Clinician Unavailable ROWAN SCHWARTZ M.D., Ayanna DONAHUE Admitting Clinician Unav ailable Payers Payer Name Policy Type Policy Number Effective Date Expiration Date S [facility] [id number] 2020 OF [place] (PPO[place] 00:00:00 SOLEDAD [id number] 2015 2020 00:00:00 00:00:00 Problems Condition Condition Condition Status Onset Resolution Last Treating Co mments Source Name Details Category Date Date Treatment Clinician Date 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 7-20 [facility] gland Gland 00:00: ty 00 [employer] Acute Acute Problem Active [place] pharyngiti Pharyngiti 3-16 [facility] s s 00:00: ty 00 [employer] Spasm of Spasm of Problem Active [facility] back Back 3-16 [facility] muscles Muscles 00:00: ty 00 [employer] Fracture Fracture Problem Active [place] of of 2-20 Communi multiple Multiple 00:00: ty ribs Ribs 00 [employer] Vitamin D Vitamin D Problem Active 2021-05 Swe anastacia deficiency Deficiency 1-28 Co [facility]i 00:00: ty 00 [employer] Hyperchole Hyperchole Problem Active 2021-05 S [facility] sterolemia sterolemia 1-28 [facility]i 00:00: ty 00 [employer] Osteoporos Osteoporos Problem Active 2021-05 S [facility] is is 1-28 Communi 00:00: ty 00 [employer] Chest pain Chest Pain Problem Active 2021-05 S weeny 1-28 Communi 00:00: ty 00 [employer] Multiple Multiple Problem Active 2021-05 [facility] joint pain Joint Pain 1-16 Co [facility]i 00:00: ty 00 [employer] Low back Low Back Problem Active 2021-05 [facility] pain Pain 1-16 Communi 00:00: ty 00 [employer] Chronic Chronic Problem Active [place] Kareem-Ba Kareem-Ba 8-26 Co mmuni rr virus rr Virus 00:00: ty 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 [facility] 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 Cough Cough Disease Active [facility] 4-15 ity of 00:00: [place] 00 [facility] Sore Sore Disease Active [facility] throat throat 4-15 ity of 00:00: [place] 00 [facility] Lupus Lupus Disease Active [facility] arthritis arthritis 10-06 st 00:00: Hospita 00 l Rheumatoid Rheumatoid Disease Active M [facility] arthritis arthritis 10-06 of of 00:00: Hospita multiple multiple 00 l sites with sites with negative negative rheumatoid rheumatoid factor factor Lupus Lupus Disease Active [facility] arthritis arthritis 10-06 st 00:00: Hospita 00 l Nondisplac Nondisplac Disease Active M ethodi ed ed 09-21 st fracture fracture 00:00: Hospit a of [...] dism dism 10-08 Communi 00:00: ty 00 [facility] Hypertensi Hypertensi Problem Active S weeny ve ve 10-08 Communi disorder Disorder 00:00: ty 00 [facility] Allergies, Adverse Reactions, Alerts Allergy Allergy Status Severity Reaction(s) Onset Inactive Treating Comm ents Source Name Type Date Date Clinician No Known DA Active [facility]ie 02-06 [place] [facility] 00:00: [facility] 00 are [place] No Known DA Active [facility] Allergie 02-06 [place] 00:00: [facility] 00 are [place] Penicill DA Active U Itching [facility] ins 18 00:00: 00 Sulfa DA Active U Itching [facility] (Sulfona 07-06 mide 00:00: Antibiot 00 ics) codeine DA Active U Itching [facility] 18 00:00: 00 Codeine Propensi Active Nausea Univers ty to and/or 4-08 ity of adverse Vomiting 00:00: [place] reaction 00 Medical s Branch CODEINE DRUG Active N/V Univers INGREDI 08 ity of 00:00: [place] 00 Medical Branch [...] 00 Medical ICS) Branch Codeine Allergy Active [place] to Communi substanc ty e Hospita l Clinics PENICILL Allergy Active [place] INS to Communi substanc ty e Hospita l Clinics SULFA Allergy Active [place] (SULFONA to Communi MIDE substanc ty ANTIBIOT e Hospita ICS) l Clinics Family History Family Member Diagnosis Comments Start Date Stop Date Source Natural brother Heart disease [facility] Natural brother Heart attack [facility] brother Cancer [facility] Natural brother Liver disease [facility] Natural father Heart attack [facility] Natural father Heart disease [facility] mother Arthritis [facility] Natural mother Blood Clots [facility] mother Cancer [facility] Natural mother Stroke [facility] Natural sister Heart disease [facility] sister Cancer [facility] Social History Social Habit Start Date Stop Date Quantity Comments Source Gender identity 2022-07-25 Identifies as [facility] 11:44:41 female gender Hospital (finding) Sexual orientation [facility] Tobacco use and 2022-08-05 2022-08-05 Smokeless tobacco [facility] exposure 00:00:00 00:00:00 non-user Hospital Alcohol intake 2022-08-05 2022-08-05 Current [employer] 00:00:00 00:00:00 non-drinker of Hospital alcohol (finding) History of Social 2022-08-05 2022-08-[address] function 00:00:00 00:00:00 Hospital Exposure to 2021-10-21 2021-10-31 Yes University of SARS-CoV-2 (event) 00:00:00 17:45:00 [facility] Sex Assigned At [birth year] F [employer] [facility] 00:00:00 00:00:00 Hospital Smoking Status Start Date Stop Date Source Tobacco smoking consumption [facility] Never smoked tobacco [facility] Medications Ordered Filled Start Stop Current Ordering Indication Dosage Frequency Signature Comments Components Source Medication Medication Date Date Medication? Clinician (SIG) Name Name methylPREDN Yes [id number] follow [facility] ISolone 3-[address] (Medrol, 00:00: directions [facility] Ian,) 4 mg 00 l tablet methylPREDN 2022-0 Yes [id number] follow [facility] ISolone 3-[address] (Medrol, 00:00: directions [facility] Ian,) 4 mg 00 l tablet methylPREDN 2022-0 Yes [id number] follow [facility] ISolone 3-[address] (Medrol, 00:00: directions Hos [facility] Ian,) 4 mg 00 l tablet ketorolac ketorolac No ketorolac [place] 60 mg/2 mL 60 mg/2 mL 2-20 60 mg/2 mL Communi intramuscul intramuscul 10:26: intramuscu ty ar ar 00 lar Hospita solutionInj solutionInj solutionIn l ect 2 mL by ect 2 mL by ject 2 mL Clinics intramuscul intramuscul by ar route. ar route. intramuscu lar route. dexamethaso dexamethaso No dexamethas [place] ne sodium ne sodium 2-20 one sodium Communi phosphate phosphate 10:25: phosphate ty 10 mg/mL 10 mg/mL 00 10 mg/mL Hos han injection injection injection l solutionTak solutionTak solutionTa Clinics e 10 mg by e 10 mg by ke 10 mg injection injection by route. route. injection route. Prolia 60 Prolia 60 2022-0 No 1mL Prolia 60 [place] mg/mL mg/mL 1-10 mg/mL Communi subcutaneou subcutaneou 00:00: subcutaneo ty s syringe s syringe 00 us syringe Hospita Inject 1 mL Inject 1 mL Inject 1 l by by mL by Clinics subcutaneou subcutaneou subcutaneo s route. s route. us route. Prolia 60 Prolia 60 2022-0 No 1mL Prolia 60 [place] mg/mL mg/mL 1-10 mg/mL Communi subcutaneou subcutaneou 00:00: subcutaneo ty s syringe s syringe 00 us syringe Hospita Inject 1 mL Inject 1 mL Inject 1 l by by mL by Clinics subcutaneou subcutaneou subcutaneo s route. s route. us route. Prolia 60 Prolia 60 2022-0 No 1mL Prolia 60 [place] mg/mL mg/mL 1-10 mg/mL Communi subcutaneou subcutaneou 00:00: subcutaneo ty s syringe s syringe 00 us syringe Hospita Inject 1 mL Inject 1 mL Inject 1 l by by mL by Clinics subcutaneou subcutaneou subcutaneo s route. s route. us route. Prolia 60 Prolia 60 2022-0 No 1mL Prolia 60 [place] mg/mL mg/mL 1-10 mg/mL Communi subcutaneou subcutaneou 00:00: subcutaneo ty s syringe s syringe 00 us syringe Hospita Inject 1 mL Inject 1 mL Inject 1 l by by mL by Clinics subcutaneou subcutaneou subcutaneo s route. s route. us route. benzonatate Yes [id number] 200mg Take 2 Univers 100 mg 6-15 capsules ity of capsule 00:00: by mouth [place] 00 every 8 Medical (eight) Branch hours as needed for Cough. bromphenira Yes [id number] 5mL Take 5 mL Univers mine-pseudo 6-15 by mouth 4 it y of ephedrine-D 00:00: (four) [place] (BROMFED 00 times Medical DM) 2-30-10 daily as Bran ch mg/5 mL needed for syrup Congestion /Allergies . benzonatate 2021-0 Yes [id number] 200mg Take 2 Univers 100 mg 6-15 capsules ity of capsule 00:00: by mouth [place] 00 every 8 Medical (eight) Branch hours as needed for Cough. bromphenira 2021-0 Yes [id number] 5mL Take 5 mL Univers mine-pseudo 6-15 by mouth 4 it y of ephedrine-D 00:00: (four[place] (BROMFED 00 times Medical DM) 2-30-10 daily as Bran ch mg/5 mL needed for syrup Congestion /Allergies . benzonatate 2021-0 Yes [id number] 200mg Take 2 Univers 100 mg 6-15 capsules ity of capsule 00:00: by mouth [place] 00 every 8 Medical (eight) Branch hours as needed for Cough. bromphenira 2021-0 Yes [id number] 5mL Take 5 mL Univers mine-pseudo 6-15 by mouth 4 it y of ephedrine-D 00:00: (four[place] (BROMFED 00 times Medical DM) 2-30-10 daily as Bran ch mg/5 mL needed for syrup Congestion /Allergies . benzonatate 0 Yes [id number] 200mg Take 2 Univers 100 mg 6-15 capsules ity of capsule 00:00: by mouth [place] 00 every 8 Medical (eight) Branch hours as needed for Cough. bromphenira 2021-0 Yes [id number] 5mL Take 5 mL Univers mine-pseudo 6-15 by mouth 4 it y of ephedrine-D 00:00: (four[place] (BROMFED 00 times Medical DM) 2-30-10 daily as Bran ch mg/5 mL needed for syrup Congestion /Allergies . citalopram 2020-0 Yes citalopram U nivers 20 mg 4-15 20 mg ity of tablet 15:48: tablet [place] [address] Take 1 Medical tablet Branch every day by oral route. levothyroxi 2020-0 Yes daily. Univ ers ne 112 mcg 4-15 ity of tablet 15:48: [place] [address] Medical Branch citalopram 2020-0 Yes citalopram U nivers 20 mg 4-15 20 mg ity of tablet 15:48: tablet [place] 13 Take 1 Medical tablet Branch every day by oral route. levothyroxi 2020-0 Yes daily. Univ ers ne 112 mcg 4-15 ity of tablet 15:48: [address] citalopram 2020-0 Yes citalopram U nivers 20 mg 4-15 20 mg ity of tablet 15:48: tablet [place] 13 Take 1 Medical tablet Branch every day by oral route. levothyroxi 2020-0 Yes daily. Univ ers ne 112 mcg 4-15 ity of tablet 15:48: [address] citalopram 2020-0 Yes citalopram U nivers 20 mg 4-15 20 mg ity of tablet 15:48: tablet [place] 13 Take 1 Medical tablet Branch every day by oral route. levothyroxi 2020-0 Yes daily. Univ ers ne 112 mcg 4-15 ity of tablet 15:48: [address] citalopram 2020-0 Yes citalopram U nivers 20 mg 4-15 20 mg ity of tablet 15:48: tablet [place] [address] Take 1 Medical tablet Branch every day by oral route. levothyroxi 2020-0 Yes daily. Univ ers ne 112 mcg 4-15 ity of tablet 15:48: [address] acetaminoph 2021- No [id number] 650mg Take 1 Univers en 650 mg 08-3115 tablet by ity of CR tablet 00:00: 00:00 mouth [place] 00 :00 every 8 Medical (eight) Branch hours as needed for Pain or Fever. nystatin/ma 2021- No [id number] 5mL Take 5 mL Univers alox/diphen 08-31 by mouth 4 i ty of hydrAMINE/l 00:00: 00:00 (four) [place] idocaine 2 00 :00 times Medical % viscous daily as Branch 1:1:1:1 needed Susp (Sore suspension throat). Gargle and spit, do not swallow bromphenira 2021- No [id number] 10mL Take 10 mL Univers mine-pseudo 08-31 by mouth 4 i ty of ephedrine-D 00:00: 00:00 (four) [place] M (BROMFED 00 :00 times Medical DM) 2-30-10 daily as Bran ch mg/5 mL needed for syrup Congestion /Allergies or Cough. pseudoephed 2021- No [id number] 120mg Take 1 Univers rine SA 4-15 06-15 tablet by ity of (SUDAFED 12 00:00: 00:00 [place] 2 [place] HOUR[place] 120 00 :00 (two) Medical mg SR times Branch tablet daily. doxycycline 2021- No [id number] 100mg Take 1 Univers hyclate 100 -15 06-15 tablet by it y of mg tablet 00:00: 00:00 mouth 2 [place] :[place] (two) Medical times Branch daily. ciprofloxac 2021- No TAKE 1 Uni vers in HCl 500 08 -15 TABLET BY ity of mg tablet 00:00: [...] a LEVOXYL) 50 l 112 mcg tablet [facility] Yes Method i mg tablet 07-25 00:00: Hospita 00 l [facility] Yes Method i mg tablet 07-25 00:00: Hospita 00 l [facility] Yes Method i mg tablet 07-25 00:00: Hospita 00 l nebivolol Yes [facility] ([facility]) 3- 10 mg ity of 10 mg 00:00: tablet [place] tablet 00 Take 1 Medical tablet Branch every day by oral route. nebivolol Yes [facility] ([facility]) - 10 mg ity of 10 mg 00:00: tablet [place] tablet 00 Take 1 Medical tablet Branch every day by oral route. nebivolol Yes [facility] ([facility]) 3- 10 mg ity of 10 mg 00:00: tablet [place] tablet 00 Take 1 Medical tablet Branch every day by oral route. nebivolol Yes [facility] ([facility]) 3- 10 mg ity of 10 mg 00:00: tablet [place] tablet 00 Take 1 Medical tablet Branch every day by oral route. nebivolol Yes [facility] ([facility]) 3- 10 mg ity of 10 mg 00:00: tablet [place] tablet 00 Take 1 Medical tablet Branch every day by oral route. [facility] Yes Method i mg tablet 07-25 00:00: Hospita 00 l traMADOL 2022- No [id number] 50mg Take 1 U nivers (ULTRAM) 50 [...] 2021- No Unive rs roquine 200 05-29 ity of mg tablet 00:00: 00:00 [place] 00 :00 Medical Branch albuterol albuterol No albuterol [place] sulfate HFA sulfate HFA sulfate Communi 90 [...] NEEDED Bystolic 10 Bystolic 10 No Bystolic [place] mg tablet mg tablet 10 mg Comm uni TAKE 1 TAKE 1 tablet ty TABLET BY TABLET BY TAKE 1 Hos han MOUTH ONCE MOUTH ONCE TABLET BY l DAILY DAILY MOUTH ONCE Clinics DAILY folic acid folic acid No folic acid [place] 1 mg tablet 1 mg tablet 1 mg C ommuni TAKE 1 TAKE 1 tablet ty TABLET BY TABLET BY TAKE 1 Hos han MOUTH ONCE MOUTH ONCE TABLET BY l DAILY DAILY MOUTH ONCE Clinics DAILY ivermectin ivermectin No 1 BID ivermectin [place] 3 mg tablet 3 mg tablet 3 mg C ommuni Take 1 Take 1 tablet ty tablet tablet Take 1 Hospita twice a day twice a day tablet l by oral by oral twice a Clinic s route as route as day by directed directed oral route for 5 days. for 5 days. as directed for 5 days. levothyroxi levothyroxi No levothyrox [place] ne 137 mcg ne 137 mcg ine [...] mg No 2capsul BID NAC 600 mg [place] capsule capsule e(s) capsule Commun i Take 2 Take 2 Take 2 ty capsules capsules capsules Hos [facility] twice a day twice a day twice a l by oral by oral day by Clinics route as route as oral route directed directed as for 30 for 30 directed days. days. for 30 days. prednisone prednisone No 1 BID prednisone [place] 20 mg 20 mg 20 mg Communi tablet Take tablet Take tablet ty 1 tablet 1 tablet Take 1 Hospi ta twice a day twice a day tablet l by oral by oral twice a Clinic s route as route as day by directed directed oral route for 7 days. for 7 days. as directed for 7 days. Zithromax Zithromax No Zithromax [place] Z-Ian 250 Z-Ian 250 Z-Ian 250 Communi [...] FOR 4 DAYS albuterol albuterol No albuterol [place] sulfate HFA sulfate HFA sulfate Communi 90 [...] NEEDED Bystolic 10 Bystolic 10 No Bystolic [place] mg tablet mg tablet 10 mg Comm uni TAKE 1 TAKE 1 tablet ty TABLET BY TABLET BY TAKE 1 Hos han MOUTH ONCE MOUTH ONCE TABLET BY l DAILY DAILY MOUTH ONCE Clinics DAILY folic acid folic acid No folic acid [place] 1 mg tablet 1 mg tablet 1 mg C ommuni TAKE 1 TAKE 1 tablet ty TABLET BY TABLET BY TAKE 1 Hos han MOUTH ONCE MOUTH ONCE TABLET BY l DAILY DAILY MOUTH ONCE Clinics DAILY ivermectin ivermectin No 1 BID ivermectin [place] 3 mg tablet 3 mg tablet 3 mg C ommuni Take 1 Take 1 tablet ty tablet tablet Take 1 Hospita twice a day twice a day tablet l by oral by oral twice a Clinic s route as route as day by directed directed oral route for 5 days. for 5 days. as directed for 5 days. levothyroxi levothyroxi No levothyrox [place] ne 137 mcg ne 137 mcg ine [...] mg No 2capsul BID NAC 600 mg [place] capsule capsule e(s) capsule Commun i Take 2 Take 2 Take 2 ty capsules capsules capsules Hos [facility] twice a day twice a day twice a l by oral by oral day by Clinics route as route as oral route directed directed as for 30 for 30 directed days. days. for 30 days. prednisone prednisone No 1 BID prednisone [place] 20 mg 20 mg 20 mg Communi tablet Take tablet Take tablet ty 1 tablet 1 tablet Take 1 Hospi ta twice a day twice a day tablet l by oral by oral twice a Clinic s route as route as day by directed directed oral route for 7 days. for 7 days. as directed for 7 days. Zithromax Zithromax No Zithromax [place] Z-Ian 250 Z-Ian 250 Z-Ian 250 Communi [...] DAYS Bystolic 10 Bystolic 10 No Bystolic [place] mg tablet mg tablet 10 mg Comm uni Take by Take by tablet ty oral route. oral route. Take by Hospita oral l route. [facility] Macrobid Macrobid No 1capsul Q12H Macrobid [place] 100 mg 100 mg e(s) 100 mg Communi capsule capsule capsule ty Take 1 Take 1 Take 1 Hospita capsule capsule capsule l every 12 every 12 every 12 Cli nics hours by hours by hours by oral route oral route oral route for 10 for 10 for 10 days. days. days. meloxicam meloxicam No 1 Q1D meloxicam [place] 7.5 mg 7.5 mg 7.5 mg Communi tablet Take tablet Take tablet ty 1 tablet 1 tablet Take 1 Hospi ta every day every day tablet l by oral by oral every day Clin ics route. route. by oral route. Bystolic 10 Bystolic 10 No Bystolic [place] mg tablet mg tablet 10 mg Comm uni Take by Take by tablet ty oral route. oral route. Take by Hospita oral l route. Clinics cholecalcif cholecalcif No 1capsul Q1W cholecalci [place] elida elida e(s) ferol Communi (vitamin (vitamin (vitamin ty D3) 1,250 D3) 1,250 D3) 1,250 Hospita mcg (50,000 mcg (50,000 mcg l unit) unit) (50,000 Clinics capsule capsule unit) Take 1 Take 1 capsule capsule capsule Take 1 every week every week capsule by oral by oral every week route. route. by oral route. ciprofloxac ciprofloxac No ciprofloxa [place] in 500 mg in 500 mg hanna [...] days. levothyroxi levothyroxi No 1 Q1D levothyrox [place] ne 50 mcg ne 50 mcg ine 50 mcg Communi tablet Take tablet Take tablet ty 1 tablet 1 tablet Take 1 Hospi ta every day every day tablet l by oral by oral every day Clin ics route. route. by oral route. meloxicam meloxicam No meloxicam [place] 7.5 mg 7.5 mg 7.5 mg Communi tablet Take tablet Take tablet ty 1 tablet 1 tablet Take 1 Hospi ta every day every day tablet l by oral by oral every day Clin ics route. route. by oral route. rosuvastati rosuvastati No 1 Q1D rosuvastat [place] n 20 mg n 20 mg in 20 mg Commu ni tablet Take tablet Take tablet ty 1 tablet 1 tablet Take 1 Hospi ta every day every day tablet l by oral by oral every day Clin ics route at route at by oral bedtime. bedtime. route at bedtime. Bystolic 10 Bystolic 10 No Bystolic [place] mg tablet mg tablet 10 mg Comm uni Take by Take by tablet ty oral route. oral route. Take by Hospita oral l route. Clinics cholecalcif cholecalcif No cholecalci [place] elida elida ferol Communi (vitamin (vitamin (vitamin ty D3) 1,250 D3) 1,250 D3) 1,250 Hospita mcg (50,000 mcg (50,000 mcg l unit) unit) (50,000 Clinics capsule capsule unit) TAKE 1 TAKE 1 capsule CAPSULE BY CAPSULE BY TAKE 1 MOUTH ONCE MOUTH ONCE CAPSULE BY A WEEK A WEEK MOUTH ONCE A WEEK cyclobenzap cyclobenzap No 1 TID cyclobenza [place] rine 10 mg rine 10 mg bulmaro 10 Communi tablet Take tablet Take mg tablet ty 1 tablet 3 1 tablet 3 Take 1 H ospita times a day times a day tablet 3 l by oral by oral times a Clinic s route as route as day by needed. needed. oral route as needed. levothyroxi levothyroxi No levothyrox [place] ne 50 mcg ne 50 mcg ine 50 mcg Communi tablet Take tablet Take tablet ty 1 tablet 1 tablet Take 1 Hospi ta every day every day tablet l by oral by oral every day Clin ics route. route. by oral route. meloxicam meloxicam No 1 Q1D meloxicam [place] 7.5 mg 7.5 mg 7.5 mg Communi tablet Take tablet Take tablet ty 1 tablet 1 tablet Take 1 Hospi ta every day every day tablet l by oral by oral every day Clin ics route. route. by oral route. rosuvastati rosuvastati No rosuvastat [place] n 20 mg n 20 mg in 20 mg Commu ni tablet TAKE tablet TAKE tablet ty 1 TABLET BY 1 TABLET BY TAKE 1 Hospita MOUTH ONCE MOUTH ONCE TABLET BY l DAILY AT DAILY AT MOUTH ONCE C linics BEDTIME BEDTIME DAILY AT BEDTIME Bystolic 10 Bystolic 10 No Bystolic [place] mg tablet mg tablet 10 mg Comm uni Take by Take by tablet ty oral route. oral route. Take by Hospita oral l route. [facility] cholecalcif cholecalcif No cholecalci [place] elida elida ferol Communi (vitamin (vitamin (vitamin ty D3) 1,250 D3) 1,250 D3) 1,250 Hospita mcg (50,000 mcg (50,000 mcg l unit) unit) (50,000 Clinics capsule capsule unit) TAKE 1 TAKE 1 capsule CAPSULE BY CAPSULE BY TAKE 1 MOUTH ONCE MOUTH ONCE CAPSULE BY A WEEK A WEEK MOUTH ONCE A WEEK cyclobenzap cyclobenzap No 1 TID cyclobenza [place] rine 10 mg rine 10 mg bulmaro 10 Communi tablet Take tablet Take mg tablet ty 1 tablet 3 1 tablet 3 Take 1 H ospita times a day times a day tablet 3 l by oral by oral times a Clinic s route as route as day by needed. needed. oral route as needed. dexamethaso dexamethaso No 10mg dexamethas [place] ne sodium ne sodium one sodium Communi phosphate phosphate phosphate ty 10 mg/mL 10 mg/mL 10 mg/mL [facility] injection injection injection l solution solution solution Cli nics Take 10 mg Take 10 mg Take 10 mg by by by injection injection injection route. route. route. ketorolac ketorolac No 2mL ketorolac [place] 60 mg/2 mL 60 mg/2 mL 60 mg/2 mL Communi intramuscul intramuscul intramuscu ty ar solution ar solution lar H ospita Inject 2 mL Inject 2 mL solution l by by Inject 2 Clinics intramuscul intramuscul mL by ar route. ar route. intramuscu lar route. levothyroxi levothyroxi No levothyrox [place] ne 50 mcg ne 50 mcg ine 50 mcg Communi tablet Take tablet Take tablet ty 1 tablet 1 tablet Take 1 Hospi ta every day every day tablet l by oral by oral every day Clin ics route. route. by oral route. meloxicam meloxicam No 1 Q1D meloxicam [place] 7.5 mg 7.5 mg 7.5 mg Communi tablet Take tablet Take tablet ty 1 tablet 1 tablet Take 1 Hospi ta every day every day tablet l by oral by oral every day Clin ics route. route. by oral route. rosuvastati rosuvastati No rosuvastat [place] n 20 mg n 20 mg in 20 mg Commu ni tablet TAKE tablet TAKE tablet ty 1 TABLET BY 1 TABLET BY TAKE 1 Hospita MOUTH ONCE MOUTH ONCE TABLET BY l DAILY AT DAILY AT MOUTH ONCE C linics BEDTIME BEDTIME DAILY AT BEDTIME Bystolic 10 Bystolic 10 No Bystolic [place] mg tablet mg tablet 10 mg Comm uni Take by Take by tablet ty oral route. oral route. Take by Hospita oral l route. Clinics cholecalcif cholecalcif No cholecalci [place] elida elida ferol Communi (vitamin (vitamin (vitamin ty D3) 1,250 D3) 1,250 D3) 1,250 Hospita mcg (50,000 mcg (50,000 mcg l unit) unit) (50,000 Clinics capsule capsule unit) TAKE 1 TAKE 1 capsule CAPSULE BY CAPSULE BY TAKE 1 MOUTH ONCE MOUTH ONCE CAPSULE BY A WEEK A WEEK MOUTH ONCE A WEEK cyclobenzap cyclobenzap No 1 TID cyclobenza [place] rine 5 mg rine 5 mg bulmaro 5 mg Communi tablet Take tablet Take tablet ty 1 tablet 3 1 tablet 3 Take 1 H ospita times a day times a day tablet 3 l by oral by oral times a Clinic s route as route as day by needed. needed. oral route as needed. levothyroxi levothyroxi No levothyrox [place] ne 50 mcg ne 50 mcg ine 50 mcg Communi tablet Take tablet Take tablet ty 1 tablet 1 tablet Take 1 Hospi ta every day every day tablet l by oral by oral every day Clin ics route. route. by oral route. meloxicam meloxicam No meloxicam [place] 7.5 mg 7.5 mg 7.5 mg Communi tablet TAKE tablet TAKE tablet ty 1 TABLET BY 1 TABLET BY TAKE 1 Hospita MOUTH EVERY MOUTH EVERY TABLET BY l DAY DAY MOUTH Clinics EVERY DAY rosuvastati rosuvastati No rosuvastat [place] n 20 mg n 20 mg in 20 mg Commu ni tablet TAKE tablet TAKE tablet ty 1 TABLET BY 1 TABLET BY TAKE 1 Hospita MOUTH ONCE MOUTH ONCE TABLET BY l DAILY AT DAILY AT MOUTH ONCE C linics BEDTIME BEDTIME DAILY AT BEDTIME Zithromax Zithromax No Zithromax [place] Z-Ian 250 Z-Ian 250 Z-Ian 250 Communi [...] DAYS levothyroxi levothyroxi No 1 Q1D levothyrox [place] ne 100 mcg ne 100 mcg ine 100 Communi tablet Take tablet Take mcg tablet ty 1 tablet 1 tablet Take 1 Hospi ta every day every day tablet l by oral by oral every day Clin ics route. route. by oral route. Macrobid Macrobid No 1capsul Q12H Macrobid [place] 100 mg 100 mg e(s) 100 mg Communi capsule capsule capsule ty Take 1 Take 1 Take 1 Hospita capsule capsule capsule l every 12 every 12 every 12 Cli nics hours by hours by hours by oral route oral route oral route for 10 for 10 for 10 days. days. days. meloxicam meloxicam No meloxicam [place] 7.5 mg 7.5 mg 7.5 mg Communi tablet TAKE tablet TAKE tablet ty 1 TABLET BY 1 TABLET BY TAKE 1 Hospita MOUTH EVERY MOUTH EVERY TABLET BY l DAY DAY MOUTH Clinics EVERY DAY nebivolol nebivolol No 1 Q1D nebivolol [place] 20 mg 20 mg 20 mg Communi tablet Take tablet Take tablet ty 1 tablet 1 tablet Take 1 Hospi ta every day every day tablet l by oral by oral every day Clin ics route. route. by oral route. rosuvastati rosuvastati No 1 Q1D rosuvastat [place] n 40 mg n 40 mg in 40 mg Commu ni tablet Take tablet Take tablet ty 1 tablet 1 tablet Take 1 Hospi ta every day every day tablet l by oral by oral every day Clin ics route as route as by oral directed. directed. route as directed. azithromyci azithromyci No azithromyc [place] n 250 mg n 250 mg in 250 mg [facility] tablet tablet tablet ty Hospita l Clinics Bystolic 10 Bystolic 10 No Bystolic [place] mg tablet mg tablet 10 mg Comm uni TAKE 1 TAKE 1 tablet ty TABLET BY TABLET BY TAKE 1 [facility] MOUTH ONCE MOUTH ONCE TABLET BY l DAILY DAILY MOUTH ONCE Clinics DAILY citalopram citalopram No citalopram [place] 20 mg 20 mg 20 mg Communi tablet TAKE tablet TAKE tablet ty 1 TABLET BY 1 TABLET BY TAKE 1 Hospita MOUTH ONCE MOUTH ONCE TABLET BY l DAILY DAILY MOUTH ONCE Clinics DAILY citalopram citalopram No citalopram [place] 20 mg tabs 20 mg tabs 20 mg tabs Communi ty Hospita l Clinics ergocalcife ergocalcife No ergocalcif [place] yvonne russell elida Communi (vitamin (vitamin (vitamin ty D2) 1,250 D2) [...] folic acid folic acid No folic acid [place] 1 mg tablet 1 mg tablet 1 mg C om[facility]i TAKE 1 TAKE 1 tablet ty TABLET BY TABLET BY TAKE 1 [facility] MOUTH ONCE MOUTH ONCE TABLET BY l DAILY DAILY MOUTH ONCE Clinics DAILY furosemide furosemide No furosemide [place] 20 mg 20 mg 20 mg Communi tablet tablet tablet ty [employer] hydroxychlo hydroxychlo No hydroxychl [place] roquine roquine oroquine Commu ni sulfate 200 sulfate 200 sulfate ty mg tabs mg tabs 200 mg Hospita tabs [facility] ibuprofen ibuprofen No ibuprofen [place] 600 mg tabs 600 mg tabs 600 mg Communi tabs ty [employer] levothyroxi levothyroxi No levothyrox [place] ne 112 mcg ne 112 mcg ine 112 Communi tablet tablet mcg tablet ty [employer] levothyroxi levothyroxi No levothyrox [place] ne sodium ne sodium ine sodium Communi 112 mcg 112 mcg 112 mcg ty tabs tabs tabs [employer] levothyroxi levothyroxi No levothyrox [place] ne sodium ne sodium ine sodium Communi 137 mcg 137 mcg 137 mcg ty tabs tabs tabs [employer] meclizine meclizine No meclizine [place] 12.5 mg 12.5 mg 12.5 mg Commun [...] for 5 days. methylpredn methylpredn No methylpred [place] isolone 4 isolone 4 nisolone 4 Communi mg tablets mg tablets mg tablets ty in a dose in a dose in a dose Hospita pack Take pack Take pack Take l as directed as directed as Etta irvin until all until all directed tablets are tablets are until all gone gone tablets are gone mometasone mometasone No mometasone [place] 50 50 50 Communi mcg/actuati mcg/actuati mcg/actuat ty on nasal on nasal ion nasal [facility]ita spray [place] spray [place] spray l 2 sprays 2 sprays [place] 2 Clin ics every day every day sprays by by every day intranasal intranasal by route as route as intranasal directed directed route as for 30 for 30 directed days. days. for 30 days. neomycin-po neomycin-po No neomycin-p [place] lymyxin-hyd lymyxin-hyd olymyxin-h Communi rocort 3.5 rocort [...] TIMES PER DAY ondansetron ondansetron No ondansetro [place] 4 mg 4 mg n 4 mg Communi disintegrat disintegrat disintegra ty ing tablet ing tablet ting [facility] DIS ONE T DIS ONE T tablet DIS l ON THE ON THE ONE T ON Clinics TONGUE Q 6 TONGUE Q 6 THE TONGUE H PRN H PRN Q 6 H PRN ondansetron ondansetron No ondansetro [place] odt 4 mg odt 4 mg n odt 4 mg C [facility] tbdp tbdp tbdp ty Hospita Clinics prednisone prednisone No prednisone [place] 10 mg 10 mg 10 mg Communi tablet TAKE tablet TAKE tablet ty 1 TABLET BY 1 [facility]T [facility] MOUTH TWICE TABLET BY l DAILY FOR 5 DAILY FOR 5 MOUTH Clinics DAYS THEN DAYS THEN TWICE TAKE 1 TAKE 1 DAILY FOR TABLET ONCE TABLET ONCE 5 DAYS DAILY FOR 5 DAILY FOR 5 THEN TAKE DAYS DAYS 1 TABLET ONCE DAILY FOR 5 DAYS prednisone prednisone No 1dose prednisone [place] 10 mg 10 mg pk(s) 10 mg [...] vaginal Hospit a cream cream cream l Clinics promethazin promethazin No promethazi [place] e 25 mg e 25 mg ne 25 mg Commu ni tablet tablet tablet ty Hospita l [facility] tamsulosin tamsulosin No tamsulosin [place] 0.4 mg 0.4 mg 0.4 mg Communi capsule capsule capsule ty Take 1 Take 1 Take 1 Hospita capsule capsule capsule l every day every day every day Clinics by oral by oral by oral route as route as route as directed directed directed for 14 for 14 for 14 days. days. days. tramadol 50 tramadol 50 No tramadol [place] mg tablet mg tablet 50 mg Comm uni tablet ty Hospita l [facility] vitamin d vitamin d No vitamin d [place] 1.25 mg 1.25 mg 1.25 mg Commun i (12282 ut) (68514 ut) (15863 ut) ty [facility] Bystolic 10 Bystolic 10 No Bystolic [place] mg tablet mg tablet 10 mg Comm [...] folic acid folic acid No folic acid [place] 1 mg tablet 1 mg tablet 1 mg C om[facility]i TAKE 1 TAKE 1 tablet ty TABLET BY TABLET BY TAKE 1 Hos han MOUTH ONCE MOUTH ONCE TABLET BY l DAILY DAILY MOUTH ONCE Clinics DAILY ondansetron ondansetron No 1 Q5H ondansetro [place] 4 mg 4 mg n 4 mg [...] Source BP Diastolic 2022-12-05 00:00:00 85 mm[Hg] [facility] Height 2022-12-05 00:00:00 62 [in_i] [facility] BMI (Body Mass 2022-12-05 00:00:00 33.7 kg/m2 [facility]) [facility] s BP Systolic 2022-12-05 00:00:00 146 mm[Hg] [facility] Body Weight 2022-12-05 00:00:00 2950.4 [oz_av] [facility] Clinic s BP Diastolic 2022-08-01 00:00:00 92 mm[Hg] [facility] Height 2022-08-01 00:00:00 62 [in_i] [facility] s BMI (Body Mass 2022-08-01 00:00:00 33.9 kg/m2 [facility] s BP Systolic 2022-08-01 00:00:00 143 mm[Hg] [facility] Body Weight 2022-08-01 00:00:00 2969.6 [oz_av] [facility] Clinic s BP Diastolic 2022-07-08 00:00:00 88 mm[Hg] [facility] Height 2022-07-08 00:00:00 62 [in_i] [facility] BMI (Body Mass 2022-07-08 00:00:00 33.5 kg/m2 [facility]) [facility] Clinic s BP Systolic 2022-07-08 00:00:00 135 mm[Hg] [facility] Body Weight 2022-07-08 00:00:00 2931.2 [oz_av] [facility] s BP Diastolic 2022-04-15 00:00:00 83 mm[Hg] [facility] Height 2022-04-15 00:00:00 62 [in_i] [facility] BMI (Body Mass 2022-04-15 00:00:00 33.6 kg/m2 [facility]) [facility] s BP Systolic 2022-04-15 00:00:00 154 mm[Hg] [facility] s Body Weight 2022-04-15 00:00:00 2937.6 [oz_av] [facility] s BP Diastolic 2022-04-03 00:00:00 93 mm[Hg] [facility] Height 2022-04-03 00:00:00 62 [in_i] [facility] BMI (Body Mass 2022-04-03 00:00:00 33.4 kg/m2 [facility]) [facility] s BP Systolic 2022-04-03 00:00:00 144 mm[Hg] [facility] Body Weight 2022-04-03 00:00:00 2921.6 [oz_av] [facility] s Systolic blood 2021-11-01 22:20:00 134 mm[Hg] Univer sity of pressure [facility] Diastolic blood 2021-11-01 22:20:00 83 mm[Hg] Unive rsity of pressure [facility] Heart rate 2021-11-01 22:20:00 69 /min [facility] Body temperature 2021-11-01 22:20:00 36.61 [facility]y [facility] Respiratory rate 2021-11-01 22:20:00 18 /min [facility] Oxygen saturation in 2021-11-01 22:20:00 97 /min [facility] blood by [facility] Pulse oximetry Branch Body height 2021-11-01 21:05:00 160 cm [facility] Branch Body weight 2021-11-01 21:05:00 82.555 kg Universi ty [facility] BMI 2021-11-01 21:05:00 32.24 kg/m2 [facility] ty [facility] Systolic blood 2021-10-31 22:53:00 148 mm[Hg] Univer sity of pressure [facility] Diastolic blood 2021-10-31 22:53:00 97 mm[Hg] Unive rsity of [facility] Heart rate 2021-10-31 22:53:00 71 /min Universi ty [facility] Body temperature 2021-10-31 22:53:00 36.94 Marleny [facility] Respiratory rate 2021-10-31 22:53:00 18 /min [facility] Body height 2021-10-31 22:53:00 158.8 cm Universi [facility] Body weight 2021-10-31 22:53:00 82.736 kg Universi [facility] BMI 2021-10-31 22:53:00 32.83 kg/m2 [facility] Oxygen saturation in 2021-10-31 22:53:00 98 /min [facility] Arterial blood by [facility] Pulse oximetry Branch BP Diastolic 2021-02-05 00:00:00 94 mm[Hg] [facility] s Height 2021-02-05 00:00:00 62 [in_i] [facility] s BMI (Body Mass 2021-02-05 00:00:00 33.2 kg/m2 [facility] Clinic s BP Systolic 2021-02-05 00:00:00 154 mm[Hg] [facility] s Body Weight 2021-02-05 00:00:00 2902.4 [oz_av] [facility] s BP Diastolic 2021-01-11 00:00:00 90 mm[Hg] [facility] s Height 2021-01-11 00:00:00 62 [in_i] [facility] s BMI (Body Mass 2021-01-11 00:00:00 33.2 kg/m2 [facility]) [facility] Clinic s BP Systolic 2021-01-11 00:00:00 143 mm[Hg] [facility] Body Weight 2021-01-11 00:00:00 2905.6 [oz_av] [facility] Clinic s BP Diastolic 2020-12-19 00:00:00 91 mm[Hg] [facility] s Height 2020-12-19 00:00:00 62 [in_i] [facility] s BMI (Body Mass 2020-12-19 00:00:00 33.7 kg/m2 [facility] Clinic s BP Systolic 2020-12-19 00:00:00 147 mm[Hg] [facility] Body Weight 2020-12-19 00:00:00 2950.4 [oz_av] [facility] Clinic s 02 Sat by Pulse 2020-07-10 11:32:34 99 /min Oximetry Body Mass Index 2020-07-10 11:32:34 32.5 Height 2020-07-10 11:32:34 157.48\S\62 Pulse Rate 2020-07-10 11:32:34 69 /min Pulse Strength 2020-07-10 11:32:34 Normal /min Pulse Assessment 2020-07-10 11:32:34 Palpation /min Method Pulse Rhythm 2020-07-10 11:32:34 Regular /min Respiratory Rate 2020-07-10 11:32:34 17 /min Weight 2020-07-10 11:32:34 99893.442\S\2848 02 Sat by Pulse 2020-07-08 00:10:12 99 /min Oximetry Body Mass Index 2020-07-08 00:10:12 32.5 Height 2020-07-08 00:10:12 157.48\S\62 Pulse Rate 2020-07-08 00:10:12 69 /min Pulse Strength 2020-07-08 00:10:12 Normal /min Pulse Assessment 2020-07-08 00:10:12 Palpation /min Method Pulse Rhythm 2020-07-08 00:10:12 Regular /min Respiratory Rate 2020-07-08 00:10:12 17 /min Weight 2020-07-08 00:10:12 20667.442\S\2848 Body Mass Index 2020-07-07 06:48:40 32.5 Height 2020-07-07 06:48:40 157.48\S\62 Weight 2020-07-07 06:48:40 88574.442\S\2848 Body Mass Index 2020-07-07 06:32:21 32.5 Height 2020-07-07 06:32:21 157.48\S\62 Weight 2020-07-07 06:32:21 94905.442\S\2848 WEIGHT 2020-07-06 13:17:00 80.103774 kg HEIGHT 2020-07-06 13:17:00 157.48 cm Procedures Procedure Date / Time Performing Clinician Source Performed US, thyroid 2022-12-05 00:00:00 [facility] XR SPINE SCOLIOSIS 2-3 2022-08-05 13:55:16 [facility] VIEWS XR SPINE EXTERNAL STUDY 2022-07-05 15:17:27 [facility] XR UPPER EXTREMITY 2022-07-05 15:17:27 [facility] EXTERNAL STUDY XR CHEST EXTERNAL STUDY 2022-07-05 15:08:56 [facility] MAMMO, screening, 2022-04-03 00:00:00 [facility], bilateral [facility] DEXA, axial skeleton + 2022-04-03 00:00:00 [facility] vertebral fracture [facility] assessment XR, lumbosacral spine, 2022-04-03 00:00:00 [facility] 2 or 3 view [facility] CONSENT/REFUSAL FOR 2021-11-01 05:01:00 Doctor Unassigned, No Un [facility] DIAGNOSIS AND TREATMENT Name Medical Branch XR, chest, 2 view 2021-01-11 00:00:00 [facility] XR, chest, 2 view 2020-12-19 00:00:00 [facility] Total Hyste[facility] 1991-05[facility]19 [facility] Activity Planned Date Details Comments Source Future Scheduled Test 2023-03-12 Scre[facility] 18:58:25 malignant neoplasm of colon (procedure) [code = 002768362] Future Scheduled Test 2023-03-12 [facility] 18:58:25 malignant neoplasm of colon (procedure) [code = 342103289] Future Scheduled Test 2023-03-12 [facility] 18:58:25 malignant neoplasm of colon (procedure) [code = [id number]] Future Scheduled Test 2023-03-12 [facility] 18:58:25 (#1) [code = COVID-19 VACCINE (#1)] Future Scheduled Test 2023-03-12 [facility] 18:58:25 screening (procedure) [code = [id number]] Future Scheduled Test 2023-03-12 [facility] 18:58:25 malignant neoplasm of cervix (procedure) [code = 763375081] Future Scheduled Test 2023-03-12 BREAST CANCER [facility] 18:58:25 SCREENING [code = BREAST CANCER SCREENING] Future Scheduled Test 2023-03-12 [facility] 18:58:25 malignant neoplasm of colon (procedure) [code = 879518320] Future Scheduled Test 2023-03-12 [facility] 18:58:25 malignant neoplasm of colon (procedure) [code = 020808801] Future Scheduled Test 2023-03-12 SHINGLES VACCINES (1 [facility] 18:58:25 of 2) [code = SHINGLES VACCINES (1 of 2)] Future Scheduled Test 2023-03-12 [facility] 18:58:25 (#1) [code = INFLUENZA VACCINE (#1)] Future Scheduled Test 2023-03-05 [facility] 19:22:43 malignant neoplasm of colon (procedure) [code = 462466063] Future Scheduled Test 2023-03-05 [facility] 19:22:43 malignant neoplasm of colon (procedure) [code = 177850924] Future Scheduled Test 2023-03-05 [facility] 19:22:43 malignant neoplasm of colon (procedure) [code = 423169205] Future Scheduled Test 2023-03-05 COVID-19 VACCINE [facility] 19:22:43 (#1) [code = COVID-19 VACCINE (#1)] Future Scheduled Test 2023-03-05 Hepatitis C [facility] 19:22:43 screening (procedure) [code = 171872951] Future Scheduled Test 2023-03-05 Screening for [facility] 19:22:43 malignant neoplasm of cervix (procedure) [code = 714234612] Future Scheduled Test 2023-03-05 [facility] 19:22:43 SCREENING [code = BREAST CANCER SCREENING] Future Scheduled Test 2023-03-05 Screening for [facility] 19:22:43 malignant neoplasm of colon (procedure) [code = 487743676] Future Scheduled Test 2023-03-05 [facility] 19:22:43 malignant neoplasm of colon (procedure) [code = 469896611] Future Scheduled Test 2023-03-05 SHINGLES VACCINES (1 [facility] 19:22:43 of 2) [code = SHINGLES VACCINES (1 of 2)] Future Scheduled Test 2023-03-05 INFLUENZA VACCINE [facility] 19:22:43 (#1) [code = INFLUENZA VACCINE (#1)] Future Scheduled Test 2023-03-05 RSV VACCINES > 60 YR [facility] 19:22:43 (1 - 1-dose 60+ series) [code = RSV VACCINES > 60 YR (1 - 1-dose 60+ series)] Future Scheduled Test 2022-12-18 Screening for [facility] 22:34:15 malignant neoplasm of colon (procedure) [code = 335877289] Future Scheduled Test 2022-12-18 Screening for [facility] 22:34:15 malignant neoplasm of colon (procedure) [code = 305688905] Future Scheduled Test 2022-12-18 Screening for [facility] 22:34:15 malignant neoplasm of colon (procedure) [code = 148561043] Future Scheduled Test 2022-12-18 COVID-19 VACCINE [facility] 22:34:15 (#1) [code = COVID-19 VACCINE (#1)] Future Scheduled Test 2022-12-18 Hepatitis C [facility] 22:34:15 screening (procedure) [code = 610840885] Future Scheduled Test 2022-12-18 [facility] 22:34:15 malignant neoplasm of cervix (procedure) [code = 105896081] Future Scheduled Test 2022-12-18 [facility] CANCER [facility] 22:34:15 SCREENING [code = BREAST CANCER SCREENING] Future Scheduled Test 2022-12-18 [facility] 22:34:15 malignant neoplasm of colon (procedure) [code = 005963400] Future Scheduled Test 2022-12-18 [facility] 22:34:15 malignant neoplasm of colon (procedure) [code = 995204765] Future Scheduled Test 2022-12-18 SHINGLES VACCINES (1 [facility] 22:34:15 of 2) [code = SHINGLES VACCINES (1 of 2)] Future Scheduled Test 2022-12-18 INFLUENZA VACCINE [facility] 22:34:15 [code = INFLUENZA VACCINE] Diagnostic Test 2022-12-05 urinalysis, dipstick [facility] Pending 00:00:00 [code = urinalysis, [facility] dipstick] Diagnostic Test 2022-12-05 urinalysis, reflex [facility] Pending 00:00:00 culture [code = [facility] urinalysis, reflex culture] Diagnostic Test 2022-12-05 HbA1c (hemoglobin [place] [facility] Pending 00:00:00 A1c), blood [code = [facility] HbA1c (hemoglobin A1c), blood] Diagnostic Test 2022-12-05 insulin, serum [code [facility] Pending 00:00:00 = insulin, serum] [facility] 2022-12-05 cortisol, am, serum [facility] Pending 00:00:00 [code = cortisol, [facility] am, serum] Diagnostic Test 2022-12-05 magnesium, serum or [facility] Pending 00:00:00 plasma [code = [facility] magnesium, serum or plasma] Diagnostic Test 2022-12-05 phosphorus, serum or [facility] Pending 00:00:00 plasma [code = Hospital Clin [facility] phosphorus, serum or plasma] Future Scheduled Test 2021-06-25 COVID-19 VACCINE (1) [facility] 20:32:14 [code = COVID-19 VACCINE (1)] Future Scheduled Test 2021-06-25 Hepatitis C [facility] 20:32:14 screening (procedure) [code = [id number]] Future Scheduled Test 2021-06-25 Screening for [facility] 20:32:14 malignant neoplasm of cervix (procedure) [code = 322756200] Future Scheduled Test 2021-06-25 BREAST CANCER [facility] 20:32:14 SCREENING [code = BREAST CANCER SCREENING] Future Scheduled Test 2021-06-25 COLONOSCOPY [facility] 20:32:14 SCREENING [code = COLONOSCOPY SCREENING] Future Scheduled Test 2021-06-25 SHINGLES VACCINES [facility] 20:32:14 (#1) [code = SHINGLES VACCINES (#1)] Future Scheduled Test 2021-06-25 INFLUENZA VACCINE [facility] 20:32:14 [code = INFLUENZA VACCINE] Instructions [place] [facility] s Encounters Start End Encounter Admission Attending Care Care Encounter Source Date/Time Date/Time Type Type Clinicians Facility Department ID 2021-02-16 Inpatient ANIVAL ALVAREZ [facility] IN[facility] [id number] [facility] 10:30:00 , BROOK 80 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 2022-09-10 2022-09-10 Outpatient ANIVAL MORFIN [facility] [id number] [place] 09:52:00 09:52:00 ALETHEA -[id number] [facility] 2022-08-19 2022-08-19 Outpatient CHRETIEN_F [facility] [address] [place] 00:00:00 00:00:00 615 Commun i ty Hospita [facility] 2022-08-05 2022-08-05 [facility] 1.2.840.1 [id number] 2 [id number] Methodi 08:34:38 23:59:00 Encounter [address]arciso 34844.1.[address] 3.430.2.7 Hospit a .3.484925 l .8 2022-08-05 2022-08-05 [facility] 1.2.840.1 [id number] 2 [id number] Methodi 08:34:38 23:59:00 Encounter Narciso 49995.1.[address] 3.430.2.7 Hospit a .3.751162 l .8 2022-08-05 2022-08-05 [facility] 1.2.840.1 [id number] 2 [id number] Methodi 08:34:37 23:59:00 Encounter Narciso 56262.1.[address] 3.430.2.7 Hospit a .3.092702 l .8 2022-08-05 2022-08-05 [facility] 1.2.840.1 [id number] 2 [id number] Methodi 08:34:37 23:59:00 Encounter Narciso [address]8581.1.[address] 3.430.2.7 Hospit a .3.720458 l .8 2022-08-05 2022-08-05 [facility] 1.2.840.1 [id number] 2 [id number] Methodi 08:34:36 23:59:00 Encounter Narciso 88567.1.[address] 3.430.2.7 Hospit a .3.548137 l .8 2022-08-05 2022-08-05 [facility] 1.2.840.1 [id number] 2 [id number] Methodi 08:34:36 23:59:00 Encounter Narciso 25428.1.[address] 3.430.2.7 Hospit a .3.216239 l .8 2022-08-05 2022-08-05 [facility] 1.2.840.1 [id number] 21 [id number] Methodi 08:45:00 09:41:12 Visit Narciso 75281.1.[address] 3.430.2.7 Hospit a .3.007824 l .8 2022-08-05 2022-08-05 Office AlanDaniel tomasi 1.2.840.1 [id number] 21 [id number] Methodi 08:45:00 09:41:12 Visit Narciso 76107.1.[address] 3.430.2.7 Hospit a .3.565903 l .8 2022-08-05 2022-08-05 Outpatient [facility] [id number] [place] 00:00:00 00:00:[address] 2022-08-05 2022-08-05 Outpatient ALAN, PHILLIP [facility] 187 [id number] [place] 00:00:00 00:00:[address] 2022-08-05 2022-08-05 Outpatient [facility] [id number] [place] 00:00:00 00:00:[address] 2022-08-05 2022-08-05 Outpatient [facility] [id number] [place] 00:00:00 00:00:[address] 2022-08-05 2022-08-05 Orders Phillip Quintero 1.2.840.1 [id number] Methodi 00:00:00 00:00:00 Only Narciso 84267.1.[address] 3.430.2.7 Hospit a .3.726670 l .8 2022-08-05 2022-08-05 Travel 1.2.840.1 1.2.871.256 4430 [id number] Methodi 00:00:00 00:00:[address] 3.430.2.7 0.2.7.3.698 Ho spita .3.322299 084.8 l .8 2022-08-05 2022-08-05 Orders Phillip Quintero 1.2.840.1 [id number] 21 [id number] Methodi 00:00:00 00:00:00 Only Narciso 99848.1.[address] 3.430.2.7 Hospit a .3.377652 l .8 2022-08-05 2022-08-05 Travel 1.2.840.1 1.2.212.025 0425 [id number] Methodi 00:00:00 00:00:[address] 3.430.2.7 0.2.7.3.698 Ho spita .3.343982 084.8 l .8 2022-08-01 2022-08-01 [facility] [address] [place] 00:00:00 00:00:00 316 [facility] 2022-08-01 2022-08-01 Bev [facility] [place] [address] [place] 00:00:00 00:00:00 Elaine, [facility] Co mmuni [employer]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 2022-07-25 2022-07-25 Travel 1.2.840.1 1.2.402.973 [id number] [id number] Methodi 00:00:00 00:00:[address] 3.430.2.7 0.2.7.3.698 Ho spita .3.152603 084.8 l .8 2022-07-25 2022-07-25 Travel 1.2.840.1 1.2.034.861 0115 073154 Methodi 00:00:00 00:00:[address] 3.430.2.7 0.2.7.3.698 Ho spita .3.251770 084.8 l .8 2022-07-09 2022-07-09 Outpatient CHRETIEN_F [facility] [address] [place] 00:00:00 00:00:00 221 Commun i ty Hospita l Clinics 2022-07-08 2022-07-08 Outpatient CHRETIEN_F [facility] [address] [place] 00:00:00 00:00:00 220 Commun i ty [facility]osp[facility] Clinics 2022-07-08 2022-07-08 Bev [facility] [place] [address] [place] 00:00:00 00:00:00 [facility] m[facility]i [employer]CIAL [employer]ES INSURANCE AGENT-SFDC DEVELOPER-B Hospital - ty C: [facility], CL[address], [place] [address] , Ph. 2022-04-15 2022-04-15 Outpatient CHRETIEN_F [facility] [address] [place] 00:00:00 00:00:00 128 Commun i ty Hospita l Clinics 2022-04-15 2022-04-15 Bev [facility] [place] [id number] [place] 00:00:00 00:00:00 Elaine [facility] Co mmuni COMMERCIAL LINES INSURANCE AGENT-SFDC DEVELOPER-B Hospital - ty C: [address] [facility], CL[address], [place] [address] , Ph. 2022-04-03 2022-04-03 Outpatient CHRETIEN_F [facility] [address] [place] 00:00:00 00:00:00 116 Commun i ty Hospita l Clinics 2022-04-03 2022-04-03 Bev [facility] [place] [id number] [place] 00:00:00 00:00:00 Elaine [facility] Co mmuni COMMERCIAL LINES INSURANCE AGENT-SFDC DEVELOPER-B Hospital - ty C: [address] [facility], CL[address], [place] [address] , Ph. 2021-12-19 2021-12-19 Outpatient CHRETIEN_F [facility] 256 - [place] 00:00:00 00:00:00 803 Commun i ty Hospita l Clinics 2021-12-12 2021-12-12 Outpatient WATERS_S [facility] 2564-2 [address] [place] 00:00:00 00:00:00 727 Commun i ty Hospita l Clinics 2021-11-01 2021-11-01 Nurse Therapy, Adc Covid Infusion [facility] 1.2.840.114 [id number] Univers 16:00:00 17:00:00 Visit Jaren Loera 350.1.13.10 ity [facility] 4.2.7.2.686 [place] [id number] [facility] 053 Branch 2021-11-01 2021-11-01 Outpatient R LUZ MARIA [facility] [id number] Univers 16:00:00 16:00:00 JAREN tineo [facility] 2021-11-01 2021-11-01 Orders Doctor MADRIGAL 1.2.840.114 [id number] Univers 00:00:00 00:00:00 Only Unassigned, LUZ ELENA 350.1.13.10 ity of [place] [facility] 4.2.7.2.[phone] [facility] 009 [address] 2021-11-01 2021-11-01 ROHAN [place] 1.2.840.114 [id number] Univers 00:00:00 00:00:00 (Out) Mellisa LUZ ELENA 350.1.13.10 it y of [facility] 4.2.7.2.[id number] [facility] 019 Branch 2021-10-31 2021-10-31 Outpatient Jeffery MORA [facility] [id number] Univers 17:20:00 18:04:35 LILLIAN tineo [facility] 2021-10-31 2021-10-31 Outpatient Jeffery MORA [facility] [id number] Univers 17:20:00 18:04:35 LILLIAN tineo [facility] 2021-10-31 2021-10-31 Kailash Mora Lillian [facility] 1.2.840.114 9 [id number] Univers 17:20:00 18:04:35 [facility] 350.1.13.10 ity [facility] 4.2.7.2.686 Joel as FABIAN?BLEA [phone] Me francisco j [address] MEDICAL OFFICE BUILDING 2021-06-01 2021-06-01 Emergency ER SIMA, [facility] [id number] [address] [place] 12:50:00 17:10:00 RASHMI -[id number] [facility] 2021-05-31 2021-05-31 Outpatient ANIVAL SCHWARTZ [facility] [id number] [place] 12:51:00 12:51:00 ROWAN -[id number] [facility] 2021-05-31 2021-05-31 Outpatient WATERS_S [facility] [id number] [address] [place] 09:08:00 09:08:00 113 Commun i ty Hospita Clinics 2021-02-06 2021-02-15 Inpatient ANIVAL VILLASEÑOR, [facility] INF [id number] [facility] 10:30:00 00:00:00 DOES_NOT 70 [place] [facility] Emergency Department are [facility] 2021-02-05 2021-02-05 Outpatient [facility] [id number] [place] 05:33:00 05:33:00 _L 920 Commun i ty Hospita Clinics 2021-02-05 2021-02-05 Brook Rachel [facility] [place] 202 [id number] [place] 00:00:00 00:00:00 [facility] ARELIS baxter-C: [facility] [address] [place] [address] [address], [place] [address] , Ph. 2021-02-05 2021-02-05 Outpatient [facility] d24 [id number] 00:00:00 00:00:00 , Brook [id number] Virginie [id number] 2021-02-05 2021-02-05 Outpatient [facility] 143 [id number] 00:00:00 00:00:00 , Brook [id number] Virginie [id number] 2021-01-15 2021-01-15 Outpatient [facility] [address] [place] 01:46:00 01:46:00 _L 830 Commun i ty Hospita l Clinics 2021-01-11 2021-01-11 Outpatient [facility] [address] [place] 11:02:00 11:02:00 _L 826 Commun i ty Hospita l Clinics 2021-01-11 2021-01-11 Outpatient [facility] ebd [id number] 00:00:00 00:00:00 , Brook [id number] Virginie [id number] 2021-01-11 2021-01-11 [place] Rachel [facility] [place] 00:00:00 00:00:00 [facility]LY Polanco: [address], [facility] [address], [place] [address] , Ph. 2021-01-04 2021-01-04 Outpatient [facility] [address] [place] 06:47:00 06:47:00 _L 819 Commun i ty Hospita l Clinics 2021-01-02 2021-01-02 Outpatient [facility] [address] [place] 11:29:00 11:29:00 _L 817 Commun i ty Hospita l Clinics 2020-12-19 2020-12-19 Outpatient [facility] [address] [place] 03:14:00 03:14:00 _L 803 Commun i ty Hospita l Clinics 2020-12-19 2020-12-19 Outpatient [facility] d9a [id number] 00:00:00 00:00:00 , Brook [id number] Virginie [id number] 2020-12-19 2020-12-19 Brook Rachel [facility] [place] 202 [address] [place] 00:00:00 00:00:00 [facility] ARELIS Polanco-C: Hospital - ty 668 [facility], [facility] Clinics [address], [place] [address] , Ph. 2020-07-07 2020-07-07 Outpatient Elective Lana, [facility] [id number] [facility] 06:27:00 06:27:00 Rowan 30 2020-07-07 2020-07-07 Outpatient [facility] [id number] [facility] 06:27:00 06:27:00 30 2020-05-22 2020-05-22 Emergency ER BA, DOREEN [facility] [id number] [place] 16:45:00 22:47:00 -[id number] da [facility] 2020-04-07 2020-04-07 [facility] [address] [place] 02:17:00 02:17:00 _L 120 Commun i ty Hospita [facility] 2020-01-24 2020-01-24 Letter ROHAN Soto 1.2.840.114 [id number] 00:00:00 00:00:00 (Out) Tracy LAGUNA 350.1.13.10 [facility] 4.2.7.2.686 [id number] 2020-01-24 2020-01-24 Patient Doctor ROHAN 1.2.840.114 [id number] Univers 00:00:00 00:00:00 Secure Msg Unassigned, LUZ ELENA 350.1.13.10 ity of [place] [facility] 4.2.7.2.686 Joel as [id number] [address] 2020-01-23 2020-01-23 Laboratory Lab, [facility] 1.2.840.114 77 [id number] 09:56:16 10:16:16 Only Fam Pob I Health 350.1.13.10 [place] 4.2.7.2.686 Professio [id number] nal [address] 2020-01-23 2020-01-23 Outpatient Jeffery BARNES [facility] [id number] Univers 09:40:00 09:40:00 LIVIA tineo [facility] 2020-01-23 2020-01-23 Letter Doctor ROHAN 1.2.840.114 [id number] 00:00:00 00:00:00 (Out) Unassigned, LUZ ELENA 350.1.13.10 [place] [facility] 4.2.7.2.686 [id number] 2019-09-02 2019-09-02 Telephone Rowdy [facility] 1.2.840.114 [id number] 00:00:00 00:00:00 [facility] 350.1.13.10 [place] 4.2.7.2.686 Professio [phone] nal [address] 2019-09-01 2019-09-01 Outpatient R EMY, [facility] [id number] Univers 15:20:00 15:20:00 VALERIA tineo [facility] 2018-05-22 2018-05-22 Emergency ER YORDY VOGEL [facility] [id number] 1984 [place] 15:28:00 18:18:00 -[id number] [facility] 2013-08-12 2013-08-12 Emergency ER , [facility] [id number] [place] 20:09:00 22:22:00 WASIM -[id number] [facility] 2013-03-30 2013-03-30 Emergency ER RYAN, [facility] [id number] [place] 12:15:00 16:22:00 CLEMENT -[id number] [facility] Results Test Description Test Time [...] Blood (test code = Blood) Large Specific Mar[place]hal (test code = Specific Mar[place]hal) 1.015 Ketone (test code = Ketone) Negative Bilirubin (test code = Bilirubin) Negative Glucose (test code = Glucose) Negative Appearance (test code = Appearance) Clear Color (test code = Color) Pale Yellow [facility] ClinicsUrinalysis macro (dipstick) panel - Urine 2022-04-03 17:02:00 Test Item Value Reference Range Interpretation Comments Leukocytes (test code = Leukocytes) Large Nitrite (test code = Nitrite) negative Urobilinogen (test code = .2 Urobilinogen) Protein (test code = Protein) Trace pH (test code = pH) 5.0 Blood (test code = Blood) Large Specific Mar[place]hal (test code = 1.015 Specific [place]) Ketone (test code = Ketone) Negative Bilirubin (test code = Bilirubin) Negative Glucose (test code = Glucose) Negative Appearance (test code = Appearance) Cloudy Color (test code = Color) Yellow [facility] Ag [Presence] in Respiratory specimen by Rapid [id number] 15:33:00 Test Item Value Reference Range Interpretation Comments SARS CoV 2 (test code = SARS CoV 2) positive [facility] (COVID-19) Ag [Presence] in Respiratory specimen by Rapid [id number] 15:33:00 Test Item Value Reference Range Interpretation Comments SARS CoV 2 (test code = SARS CoV 2) positive [facility] strep group A, [id number] 13:33:00 Test Item Value Reference Range Interpretation Comments Strep (test code = Strep) negative [facility] (COVID-19) Ag [Presence] in Respiratory specimen by Rapid [id number] 13:33:00 Test Item Value Reference Range Interpretation Comments SARS CoV 2 (test code = SARS CoV 2) negative [facility] strep group A, [id number] 13:33:00 Test Item Value Reference Range Interpretation Comments Strep (test code = Strep) negative [facility]19[facility] Ag [Presence] in Respiratory specimen by Rapid [id number] 13:33:00 Test Item Value Reference Range Interpretation Comments SARS CoV 2 (test code = SARS CoV 2) negative [facility] Blood Count Auto [id number] 09:00:00 Test Item Value Reference Range Interpretation [...] code = NRBCP) 0 % Comprehensive Metabolic [id number] 09:00:00 Test Item Value Reference Range Interpretation [...] HESR) 27 mm/Hr 0-20 H CBC with [id number] 21:38:00 Test Item Value Reference Range Interpretation [...] code = ALYMPH) 2.2 K/cumm 0.5-4.6 N [place] Abs (test code = AMONO) 0.4 K/cumm 0.0-1.2 N Eos Abs (test code = AEOS) 0.12 K/cumm 0.00-0.74 N Baso Abs (test code = ABASO) 0.0 K/cumm 0.00-0.21 N
[2023-03-15 04:28] LABS: Absolute Lymphocytes (CBC) 5.4 K/uL (0.7-4.9); Hematocrit 40.4 % (36.0-45.0); Lymphocytes % 52.1 % (15.3-44.8); MCV 89.1 fL (80-100); MPV 8.4 fL (7.6-11.3); Platelets 292 thou/uL (152-406); RBC Red Blood Cell Count 4.53 M/uL (3.86-4.86)
[2023-03-15 04:32] LABS: Protime INR 0.94
[2023-03-15] MEDS ORDERED: MORPHINE 2 MG/ML SYR ONE (04:41)
[2023-03-15] MEDS ORDERED: FAMOTIDINE 20 MG/2 ML VIAL IV ONE (04:42)
[2023-03-15] MEDS ORDERED: ONDANSETRON 4 MG/2 ML VIAL ONE ×2 (04:42→16:39)
[2023-03-15 04:46] LABS: Potassium 3.6 mEq/L (3.5-5.1); Troponin High Sensitivity 3.1 pg/mL (<58.9)
[2023-03-15] MEDS ORDERED: LORazepam 2 MG/ML VIAL ONE ×2 (05:14→06:32)
--- NOTE | 2023-03-15 06:44 | EDPHYS ---
Physician Documentation [facility] Name: Debora Friday Age: 52 yrs Sex: Female : 1970 Arrival Date: 03/15/2023 Time: 04:00 Bed 18 Private MD: ED Physician Dontae Bella HPI: 03/15 04:14 This 52 yrs old Female presents to ER via Ambulatory with complaints of Chest Pain, rn Back Pain, Arm Pain. 04:14 The patient or guardian reports chest pain that is located primarily in the substernal rn area. Onset: just prior to arrival. The pain radiates to back. Associated signs and symptoms: Pertinent positives: shortness of breath, Pertinent negatives: abdominal pain, cough. The chest pain is described as a pressure. Duration: The patient or guardian reports a single episode, that is still ongoing. Modifying factors: The symptoms are alleviated by nothing. the symptoms are aggravated by Supine position. Severity of pain: At its worst the pain was moderate in the emergency department the pain is unchanged. The patient has not experienced similar symptoms in the past. The patient has been recently been admitted at [facility]. Patient reports recent admission for pericarditis, discharged 4 days ago, returns with about an hour of substernal chest pain that radiates to the back. Feels like pressure. Associated with shortness of breath. Reports never really felt better when went home after hospitalization. Taking her colchicine. No trauma. No fever. No cough.. 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 - Social history:: Smoking status: Patient denies any tobacco usage or history of. - Family history:: not pertinent. - Hospitalizations: : No recent hospitalization is reported. ROS: 04:17 Constitutional: Negative for fever, chills, and weight loss, Cardiovascular: Negative rn for palpitations, and edema, Respiratory: Negative for cough, wheezing, and pleuritic chest pain, Abdomen/GI: Negative for abdominal pain, nausea, vomiting, diarrhea, and constipation, Back: Negative for injury MS/Extremity: Negative for injury and deformity, Skin: Negative for injury, rash, and discoloration, Neuro: Negative for headache, weakness, numbness, tingling, and seizure, Exam: 04:17 Constitutional: This is a well developed, well nourished patient who is awake, alert, rn and in no acute distress. Cardiovascular: Regular rate and rhythm. No pulse deficits. Respiratory: Mild tachypnea, no retractions. Abdomen/GI: Soft, non-tender MS/ Extremity: Pulses equal, no cyanosis. Neurovascular intact. Full, normal range of motion. Equal circumference. Neuro: Awake and alert, GCS 15 04:19 ECG was reviewed by the Attending Physician. rn Vital Signs: 04:08 BP 194 / 117; Pulse 79; Resp 17; Temp 98; Pulse Ox 100% ; Weight 83.91 kg (M); rv 04:15 BP 154 / 100; Pulse 72; Resp 18; Pulse Ox 98% on R/A; km8 04:30 BP 136 / 95; Pulse 72; Resp 14 S; Pulse Ox 99% on R/A; km8 05:15 BP 142 / 82; Pulse 65; Resp 14 S; Pulse Ox 96% on R/A; km8 06:01 BP 113 / 93; Pulse 70; Resp 18 S; Pulse Ox 95% on R/A; km8 06:30 BP 121 / 85; Pulse 70; Resp 16 S; Pulse Ox 97% on R/A; km8 MDM: 04:02 Patient medically screened. rn 04:59 ED course: Patient very anxious at this time taking off her close and rocking in bed, rn denies significant pain, will try small dose of Ativan as morphine did not help.. 06:40 Differential diagnosis: acute myocardial infarction, acute pericarditis, anxiety, rn coronary artery disease chest wall pain, pericarditis, pleurisy, pneumonia, pneumothorax, pulmonary embolus, stable angina, thoracic aortic disection, unstable angina. HEART Score: History: Moderately Suspicious (1), ECG: Normal (0), Age: > 45 and < 65 years (1), Risk Factors: 1 or 2 risk factors (1), Troponin: < or = 1 x Normal Limit (0), Total Score = 3. Data reviewed: vital signs, nurses notes, lab test result(s), EKG, radiologic studies, CT scan, and as a result, I will admit patient. Consideration of Admission/Observation Patient was admitted/placed on observation. Escalation of care including admission/observation considered. Management of patient was discussed with the following: Hospitalist: . Counseling: I had a detailed discussion with the patient and/or guardian regarding the historical points, exam findings, and any diagnostic results supporting the discharge/admit diagnosis, lab results, radiology results, the need for further work-up and treatment in the hospital. Response to treatment: the patient's symptoms have mildly improved after treatment. 03/15 04:03 Order name: Basic Metabolic Panel; Complete Time: 04: rn 03/15 04:03 Order name: CBC with Diff; Complete Time: rn 03/15 04:03 Order name: NT PRO-BNP; Complete Time: 04: rn 03/15 04:03 Order name: PT-INR; Complete Time: : rn 03/15 04:03 Order name: Troponin HS; Complete Time: : rn 03/15 07:20 Order name: Lipase la1 03/15 11:02 Order name: Troponin High Sensitivity; Complete Time: : EDMS 03/15 16:51 Order name: Troponin High Sensitivity; Complete Time: : EDMS 03/16 02:14 Order name: CBC with Automated Diff; Complete Time: : EDMS 03/16 02:34 Order name: Basic Metabolic Panel; Complete Time: : EDMS 03/16 02:34 Order name: T4 Free; Complete Time: : EDMS 03/16 02:34 Order name: Thyroid Stimulating Hormone; Complete Time: 05: EDMS 03/16 09:21 Order name: Urinalysis w/ reflexes EDMS 03/15 04:03 Order name: XRAY Chest (1 view); Complete Time: 05: rn 03/15 04:10 Order name: CT Chest For PE Angio; Complete Time: 05: rn 03/15 04:03 Order name: EKG; Complete Time: 04:04 rn 03/15 04:03 Order name: Cardiac monitoring; Complete Time: 04:08 rn 03/15 04:03 Order name: EKG - Nurse/Tech; Complete Time: 04:21 rn 03/15 04:03 Order name: IV Saline Lock; Complete Time: 04:21 rn 03/15 04:03 Order name: Labs collected and sent; Complete Time: 04: rn 03/15 04:03 Order name: O2 Per Protocol; Complete Time: 04:08 rn 03/15 04:03 Order name: O2 Sat Monitoring; Complete Time: 04:08 rn EC:19 Rate is 73 beats/min. Rhythm is regular. QRS [place] is Normal. [place] interval is normal. QRS rn interval is normal. QT interval is normal. No Q waves. T waves are Normal. No ST changes noted. Clinical impression: Normal ECG. Interpreted by me. Reviewed by me. Administered Medications: 04:36 Drug: morphine IVP or IV 2 mg IVP once over 4 mins Route: IVP; Infused Over: 4 mins; km8 Site: left antecubital; 05:04 Follow up: Response: No adverse reaction; No change in condition; Pain is unchanged, km8 physician notified 04:36 Drug: Ondansetron IVP 4 mg IVP once; over 2 minutes Route: IVP; Site: left antecubital; km8 05:04 Follow up: Response: No adverse reaction; Nausea is decreased km8 04:37 Drug: Famotidine IVP 20 mg IVP once; dilute with 10 mL 0.9% NaCl; give over 2 minutes km8 Route: IVP; Site: left antecubital; 05:04 Follow up: Response: No adverse reaction km8 05:10 Drug: Ativan IVP 0.5 mg IVP once Route: IVP; Site: left antecubital; km8 06:05 Follow up: Response: No adverse reaction; Anxiety decreased km8 06:21 Drug: Ativan IVP 0.5 mg IVP once Route: IVP; Site: left antecubital; km8 06:47 Follow up: Response: No adverse reaction; Anxiety decreased km8 Disposition Summary: 03/15/23 06:44 Hospitalization Ordered Notes: Hospitalization Status: Observation rn Provider: Zuhair Bella rn Condition: Stable rn Problem: new rn Symptoms: have improved rn Bed/Room Type: Standard rn Location: [facility] ER HOLD(03/15/23 08:57) eb Room Assignment: ERHOLD-(03/15/23 08:57) padmini 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
--- NOTE | 2023-03-15 06:44 | ER ---
Nurse's Notes [facility] Name: Debora Friday Age: 52 yrs Sex: Female : 1970 Arrival Date: 03/15/2023 Time: 04:00 Bed 18 Private MD: Diagnosis: Chest pain, unspecified Presentation: 03/15 04:08 Chief complaint: Patient states: sudden onset of pain mid upper back rad/to chest area, rv with sob. Coronavirus screen: At this time, the client does not indicate any symptoms associated with coronavirus-19. Ebola Screen: No symptoms or risks identified at this time. Initial Sepsis Screen: Does the patient meet any 2 criteria? No. Patient's initial sepsis screen is negative. Does the patient have a suspected source of infection? No. Patient's initial sepsis screen is negative. Risk Assessment: Do you want to hurt yourself or someone else? Patient reports no desire to harm self or others. Onset of symptoms was March 15, 2023. 04:08 Method Of Arrival: Ambulatory rv 04:08 Acuity: KAYLYNN 2 rv Triage Assessment: 04:09 General: Appears uncomfortable, Behavior is cooperative, anxious. Pain: Complains of rv pain in back Pain radiates to chest. Neuro: Level of Consciousness is awake, alert, obeys commands, Oriented to person, place, time, situation. Cardiovascular: Rhythm is regular Chest pain began suddenly. Respiratory: Airway is patent Respiratory effort is even, unlabored. Respiratory: Reports shortness of breath at rest Breath sounds are clear bilaterally. GI: No signs and/or symptoms were reported involving the gastrointestinal system. : No signs and/or symptoms were reported regarding the genitourinary system. 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 - Social history:: Smoking status: Patient denies any tobacco usage or history of. - Family history:: not pertinent. - Hospitalizations: : No recent hospitalization is reported. Screenin:10 [facility] ED Fall Risk Assessment (Adult) History of falling in the last 3 months, rv including since admission No falls in past 3 months (0 pts) Score/Fall Risk Level 0 - 2 = Low Risk Oriented to surroundings, Maintained a safe environment, Educated pt \T\ family on fall prevention, incl call for assistance when getting out of bed, Assessed \T\ reinforced patient's understanding of fall precautions, Provided non-skid footwear, Hourly rounding (assess needs \T\ fall precautionary measures) done, Used ambulatory aids as needed (educated on \T\ assisted with), Used gait belt as appropriate. Abuse screen: Denies threats or abuse. Denies injuries from another. Nutritional screening: No deficits noted. Tuberculosis screening: No symptoms or risk factors identified. Assessment: 04:15 General: Appears in no apparent distress. uncomfortable, Behavior is calm, cooperative. km8 04:15 Pain: Complains of pain in back Pain radiates to chest Pain currently is 9 out of 10 on km8 a pain scale. Quality of pain is described as aching, pressure, Pain began suddenly, 2 hours ago. Is continuous. Neuro: Lucio Agitation-Sedation Scale (RASS): 0 - Alert and Calm Level of Consciousness is awake, alert, obeys commands, Oriented to person, place, time, situation. Cardiovascular: Reports chest pain, shortness of breath, Capillary refill < 3 seconds Patient's skin is warm and dry. Rhythm is sinus rhythm Chest pain is located in anterior began suddenly, 2 hours prior to arrival. Respiratory: Reports shortness of breath at rest Airway is patent Respiratory effort is even, labored, Respiratory pattern is regular, symmetrical. GI: No deficits noted. No signs and/or symptoms were reported involving the gastrointestinal system. : No deficits noted. No signs and/or symptoms were reported regarding the genitourinary system. EENT: No deficits noted. No signs and/or symptoms were reported regarding the EENT system. Derm: No deficits noted. No signs and/or symptoms reported regarding the dermatologic system. Skin is intact, is healthy with good turgor, Skin is dry, Skin is normal, Skin temperature is warm. Musculoskeletal: No deficits noted. No signs and/or symptoms reported regarding the musculoskeletal system. Circulation, motion, and sensation intact. Range of motion: intact in all extremities. 06:07 Reassessment: Patient appears in no apparent distress at this time. Patient and/or km8 family updated on plan of care and expected duration. Pain level reassessed. Patient is alert, oriented x 3, equal unlabored respirations, skin warm/dry/pink. Patient states symptoms have improved. Vital Signs: 04:08 BP 194 / 117; Pulse 79; Resp 17; Temp 98; Pulse Ox 100% ; Weight 83.91 kg (M); rv 04:15 BP 154 / 100; Pulse 72; Resp 18; Pulse Ox 98% on R/A; km8 04:30 BP 136 / 95; Pulse 72; Resp 14 S; Pulse Ox 99% on R/A; km8 05:15 BP 142 / 82; Pulse 65; Resp 14 S; Pulse Ox 96% on R/A; km8 06:01 BP 113 / 93; Pulse 70; Resp 18 S; Pulse Ox 95% on R/A; km8 06:30 BP 121 / 85; Pulse 70; Resp 16 S; Pulse Ox 97% on R/A; km8 ED Course: 04:01 Patient arrived in ED. mr 04:02 Dontae Bella MD is Attending Physician. rn 04:07 Radha Gonzales, MELISSA is Primary Nurse. km8 04:09 Triage completed. rv 04:09 Arm band placed on right wrist. rv 04:15 Patient has correct armband on for positive identification. Placed in gown. Bed in low km8 position. Call light in reach. Side rails up X 1. Client placed on continuous cardiac and pulse oximetry monitoring. NIBP monitoring applied. gambling monitor on. Door closed. Visitors limited. 04:15 Inserted saline lock: 20 gauge in left antecubital area, using aseptic technique. Blood km8 collected. Patient maintains SpO2 saturation greater than 95% on room air. 04:21 Basic Metabolic Panel Sent. km8 04:21 CBC with Diff Sent. km8 04:21 NT PRO-BNP Sent. km8 04:21 PT-INR Sent. km8 04:21 Troponin HS Sent. km8 04:49 XRAY Chest (1 view) In Process Unspecified. EDMS 05:40 CT Chest For PE Angio In Process Unspecified. EDMS 06:43 Zuhair Bella MD is Hospitalizing Provider. rn 06:49 Provided Education on: admission process. km8 06:49 No provider procedures requiring assistance completed. km8 07:02 Report given to MELISSA Ospina. km8 11:19 Patient admitted, IV remains in place. ko1 11:20 Primary Nurse role handed off by Radha Gonzales RN ko1 11:20 Anai Cabrera RN is Primary Nurse. ko1 Administered Medications: 04:36 Drug: morphine IVP or IV 2 mg IVP once over 4 mins Route: IVP; Infused Over: 4 mins; km8 Site: left antecubital; 05:04 Follow up: Response: No adverse reaction; No change in condition; Pain is unchanged, km8 physician notified 04:36 Drug: Ondansetron IVP 4 mg IVP once; over 2 minutes Route: IVP; Site: left antecubital; km8 05:04 Follow up: Response: No adverse reaction; Nausea is decreased km8 04:37 Drug: Famotidine IVP 20 mg IVP once; dilute with 10 mL 0.9% NaCl; give over 2 minutes km8 Route: IVP; Site: left antecubital; 05:04 Follow up: Response: No adverse reaction km8 05:10 Drug: Ativan IVP 0.5 mg IVP once Route: IVP; Site: left antecubital; km8 06:05 Follow up: Response: No adverse reaction; Anxiety decreased km8 06:21 Drug: Ativan IVP 0.5 mg IVP once Route: IVP; Site: left antecubital; km8 06:47 Follow up: Response: No adverse reaction; Anxiety decreased km8 Medication: 06:49 VIS not applicable for this client. km8 Outcome: 06:44 Decision to Hospitalize by Provider. rn 11:19 Condition: stable ko1 11:19 Instructed on the need for admit, 03/16 18:44 Discharged to home ambulatory, with significant other, me1 Condition: stable Discharge instructions given to patient, Instructed on discharge instructions, follow up and referral plans. medication usage, Demonstrated understanding of instructions, follow-up care, medications, Prescriptions given X 4, 18:51 Patient left the ED. me1 Signatures: Dispatcher [employer] EDMS Violeta Lambert, Reg Reg mr Dontae Bella MD MD rn Vicente, Ronaldo RN RN rv Anai Cabrera, RN RN ko1 Nohemi Westbrook, RN RN me1 Radha Gonzales, RN RN km8
--- NOTE | 2023-03-15 07:27 | P.HP ---
Certification for Inpatient Patient admitted to: Observation With expected LOS: <2 Midnights Patient will require the following post-hospital care: None Practitioner: I am a practitioner with admitting privileges, knowledge of patient current condition, hospital course, and medical plan of care. Services: Services provided to patient in accordance with Admission requirements found in Title 42 Section 412.3 of the Code of Federal Regulations Patient History Date of Service: 03/15/23 Reason for admission: Chest pain History of Present Illness: 52-year-old female who was recently admitted at our hospital from 03/07/2023 to 03/11/2023 for chest pain, suspected pericarditis presents emergency department with recurrence of chest pain. During her recent hospitalization she was evaluated with CT aorta for dissection, echocardiogram, troponins were trended and patient was seen by cardiology. Her CT was negative for acute findings at that time echocardiogram showed normal EF, normal diastolic dysfunction, mild tricuspid regurg, mild mitral regurg and troponins trended negative. CRP was 3.74. She was given a prescription for colchicine 0.6 mg p.o. twice daily which she has been taking. She also reports having a heart catheterization around 2 years ago and the second heart catheterization around 5 years ago which did not require intervention, last stress test and May of this year again reportedly normal. She reports waking up at 02 45 this morning with severe pain that originally started in her back and radiated to her chest described as pressure associated with nausea which persisted and for that reason she came to the emergency department. She was evaluated in the emergency department her EKG was without STEMI criteria, sinus rhythm initial high-sensitivity troponin -3.[address] PE protocol was performed which was negative for acute findings. ED provider wishes to admit under observation given ongoing chest pain. Allergies Sulfa (Sulfonamide Antibiotics) Allergy (Severe, Verified 05/29/16 18:25) Hives/Rash codeine Allergy (Mild, Verified 06/03/18 14:01) Nausea/Vomiting PENICILLINS Allergy (Severe, Uncoded 05/29/16 18:25) Hives/Rash Home Medications: Nebivolol HCl [Bystolic*] 10 mg PO DAILY 06/03/18 Aspirin 81 mg PO DAILY 03/09/23 Levothyroxine [Synthroid] 100 mcg PO [id number] 03/09/23 Rosuvastatin Calcium 40 mg PO BEDTIME 03/09/23 Colchicine 0.6 mg PO BID #60 tab 03/11/23 - Past Medical/Surgical History Diabetic: No -: History of pericarditis -: Hypothyroidism -: Hyperlipidemia -: Neuropathy -: Hypertension -: Lupus -: hysterectomy -: tonsillectomy -: appendectomy -: kidney stone removal -: right knee surgery -: left wrist surgery Psychosocial/ Personal History: lives w/ - Family History Father -: Heart disease Notes: heart failure 50s Mother -: Stroke Notes: abdominal aneurysm Brother -: Heart disease - Social History Smoking Status: Never smoker Alcohol use: Yes CD- Drugs: No Caffeine use: Yes Place of Residence: Home Review of Systems 10-point ROS is otherwise unremarkable Cardiovascular: Chest Pain Physical Examination - Physical Exam General: Alert, In no apparent distress, Oriented x3 HEENT: Atraumatic, PERRLA, Mucous membr. moist/pink, EOMI, Sclerae nonicteric Neck: Supple, 2+ carotid pulse no bruit, No LAD, Without JVD or thyroid abnormality Respiratory: Clear to auscultation bilaterally, Normal air movement Cardiovascular: Regular rate/rhythm, Normal S1 S2 Gastrointestinal: Normal bowel sounds, No tenderness Musculoskeletal: No tenderness Integumentary: No rashes Neurological: Normal gait, Normal speech, Normal strength at 5/5 x4 extr, Normal tone, Normal affect Lymphatics: No axilla or inguinal lymphadenopathy - Studies Laboratory Data (last 24 hrs) 03/15/23 03/15/23 03/15/23 04:20 04:20 04:20 WBC 10.30 Hgb 14.0 Hct 40.4 Plt Count 292 PT 10.3 INR 0.94 Sodium 136 Potassium 3.6 BUN 25 H Creatinine 0.96 Glucose 116 H Assessment and Plan - Plan Assessment: Chest pain rule out ACS-recent history of pericarditis Hypertension Hypothyroidism Lupus Plan: Chest pain rule out ACS-recent history of pericarditis Echocardiogram performed on 03/11 with normal EF, normal diastolic dysfunction Last heart cath around 2 years ago "looked good" per patient, had another heart cath around 5 years ago again without intervention Last tress test May, normal per patient Troponins trended negative during last admission, initial high-sensitivity opponent negative this admission Possibilities ongoing pericarditis, continue colchicine, as needed pain medication Cardiology consult, trend troponins. Hypertension Hypothyroidism Continue home medications Lupus Discussed follow-up with rheumatology discharge. DVT PPX: Lovenox Code status: Full Discharge Plan: Home Plan to discharge in: 24 Hours - Advance Directives Does patient have a Living Will: No Does patient have a Durable POA for Healthcare: No - Code Status/Comfort Care Code Status Assessed: Yes (Full code) Critical Care: No Time Spent Managing Pts Care (In Minutes): 55
[2023-03-15] MEDS: LEVOTHYROXINE SOD 0.1 MG TAB PO SCH (08:00)
[2023-03-15] MEDS: ASPIRIN 81 MG CHEWABLE TABLET PO SCH (08:20)
[2023-03-15] MEDS: COLCHICINE 0.6 MG TAB PO SCH ×2 (08:20→22:10)
[2023-03-15] MEDS ORDERED: ASPIRIN 81 MG CHEWABLE TABLET ONE (08:32)
[2023-03-15] MEDS ORDERED: COLCHICINE 0.6 MG TAB ONE ×2 (08:32→21:27)
[2023-03-15] MEDS ORDERED: MORPHINE 2 MG/ML SYR IV PRN (08:35)
[2023-03-15] MEDS: ENOXAPARIN 40 MG/0.4 ML SQ SCH (08:56)
[2023-03-15] MEDS: ONDANSETRON 4 MG/2 ML VIAL IV PRN ×2 (08:57→16:23)
[2023-03-15] MEDS ORDERED: KETOROLAC 30 MG/ML INJ IV ONE (14:45)
[2023-03-15 15:38] VITALS: BMI 33.3
--- NOTE | 2023-03-15 16:12 | P.CNS ---
Date of Consult: 03/15/23 Reason for Consult: Chest pain Chief Complaint: Chest pain History of Present Illness: This is a very pleasant 53-year-old female with past medical history of hypertension, hyperlipidemia, lupus who is here with chest pain. Patient was here recently for chest pain and was diagnosed with pericarditis and discharged on colchicine. Last night she woke up with severe chest pain felt as a bubble came from her back to her chest and settled in her chest it was positional hurts when she lays flat better when she leans forward and sit on the left side. Patient denies any recent URI. Allergies Sulfa (Sulfonamide Antibiotics) Allergy (Severe, Verified 05/29/16 18:25) Hives/Rash codeine Allergy (Mild, Verified 06/03/18 14:01) Nausea/Vomiting PENICILLINS Allergy (Severe, Uncoded 05/29/16 18:25) Hives/Rash Home medications list reviewed: Yes Home Medications: Nebivolol HCl [Bystolic*] 10 mg PO DAILY 06/03/18 Aspirin 81 mg PO DAILY 03/09/23 Levothyroxine [Synthroid] 100 mcg PO [id number] 03/09/23 Rosuvastatin Calcium 40 mg PO BEDTIME 03/09/23 Colchicine 0.6 mg PO BID #60 tab 03/11/23 - Past Medical/Surgical History Diabetic: No -: History of pericarditis -: Hypothyroidism -: Hyperlipidemia -: Neuropathy -: Hypertension -: Lupus -: hysterectomy -: tonsillectomy -: appendectomy -: kidney stone removal -: right knee surgery -: left wrist surgery Psychosocial/ Personal History: lives w/ - Family History Father Medical History: Heart disease Notes: heart failure 50s Mother Medical History: Stroke Notes: abdominal aneurysm Brother Medical History: Heart disease - Social History Smoking Status: Never smoker Alcohol use: Yes CD- Drugs: No Caffeine use: Yes Place of Residence: Home Review of Systems 10-point ROS is otherwise unremarkable Physical Examination Temp Pulse Resp BP Pulse Ox 97 F 86 14 108/83 98 03/15/23 12:00 03/15/23 12:00 03/15/23 12:00 03/15/23 12:00 03/15/23 12:00 General: In no apparent distress, Oriented x3 HEENT: Normocephalic, PERRLA Neck: Supple Respiratory: Clear to auscultation bilaterally Cardiovascular: No edema Gastrointestinal: Normal bowel sounds Integumentary: No rashes Laboratory Data (last 24 hrs) 03/15/23 03/15/23 03/15/23 04:20 04:20 04:20 WBC 10.30 Hgb 14.0 Hct 40.4 Plt Count 292 PT 10.3 INR 0.94 Sodium 136 Potassium 3.6 BUN 25 H Creatinine 0.96 Glucose 116 H Conclusions/Impression: 1.: Chest pain: Atypical and pleuritic in nature likely pericarditis, patient on colchicine we will continue with that, will give her 2 doses of IV Toradol switch to p.o. indomethacin 25 mg 3 times daily for a week and follow-up with her molecular pathologist for titrating the dose down to 2. Hyperlipidemia: Continue with 3. Hypertension continue home meds
[2023-03-15] MEDS: ALPRAZOLAM 0.25 MG TABLET PO PRN (16:23)
[2023-03-15] MEDS ORDERED: ALPRAZOLAM 0.25 MG TABLET ONE (16:39)
--- NOTE | 2023-03-15 19:26 | RAD REPORT ---
EXAM DESCRIPTION: CT - Chest For Pe Angio - 03/15/2023 6:47 am CLINICAL HISTORY: Recent pericarditis;Chest pain;Dyspnea COMPARISON: None Available. TECHNIQUE: CTA of the chest obtained following the uncomplicated intravenous administration of iodin ated contrast. 3-D/MIP reformatted images of the chest available for evaluation. This exam was perfor med according to our departmental dose-optimization program, which includes automated exposure contro l, adjustment of the mA and/or kV according to patient size and/or use of iterative reconstruction te chnique. FINDINGS: Chest: Pulmonary arteries: Contrast bolus is adequate.No filling defects identified in the pulmonary arterie s to suggest pulmonary embolus. Respiratory motion artifact. Thyroid: No abnormalities of the visualized thyroid. Great Vessels: Great vessels have normal anatomic configuration. Thoracic Aorta: Normal caliber thoracic aorta without evidence of dissection. Heart: No cardiomegaly, significant pericardial effusion, or coronary artery atherosclerosis Lymph Nodes: No enlarged mediastinal lymph nodes identified. Esophagus: No abnormalities of the esophagus identified. Other: No additional findings. Lungs: Mild respiratory motion artifact. No confluent airspace consolidation. Pleura: No pleural effusion or pneumothorax. Trachea/Airways: No abnormalities of the visualized trachea or airways. Bones: Dextroconvex scoliosis of the thoracolumbar spine partially visualized. Upper Abdomen: Limited images of the upper abdomen demonstrate no definite abnormalities of visualize d portions of the liver, gallbladder, pancreas, spleen, adrenal glands, or kidneys. IMPRESSION: No pulmonary embolus. No evidence of aortic dissection. No significant pericardial effus ion. Electronically signed by: Isidro Hickey 03/15/2023 6:21 AM CDT Due to temporary technical issues with the PACS/Fluency reporting system, reports are being signed by the in house radiologists without review as a courtesy to insure prompt reporting. The interpreting radiologist is fully responsible for the content of the report.
--- NOTE | 2023-03-15 19:32 | RAD REPORT ---
EXAM DESCRIPTION: RAD - Chest Single View - 03/15/2023 4:47 am CLINICAL HISTORY: CHEST PAIN COMPARISON: None. FINDINGS: Single frontal radiograph view of the chest. Cardiomediastinal silhouette: Normal size and contour. Lungs: No consolidation, pneumothorax, or pleural effusion. Bones: Dextroconvex curvature of the thoracic spine. Leads overlie the chest. Upper abdomen: No abnormality identified. IMPRESSION: 1. No acute pulmonary process identified. Electronically signed by: Isidro Hickey 03/15/2023 6:18 AM CDT Due to temporary technical issues with the PACS/Fluency reporting system, reports are being signed by the in house radiologists without review as a courtesy to insure prompt reporting. The interpreting radiologist is fully responsible for the content of the report.
[2023-03-15] MEDS ORDERED: ROSUVASTATIN 10 MG TAB PO SCH (21:00)
[2023-03-15] MEDS ORDERED: KETOROLAC 30 MG/ML INJ ONE (23:45)
[2023-03-15] MEDS: KETOROLAC 30 MG/ML INJ IV SCH (23:46)
[2023-03-16 02:12] LABS: Hematocrit 36.3 % (36.0-45.0); Lymphocytes % 41.7 % (15.3-44.8); MCV 89.9 fL (80-100); MPV 8.7 fL (7.6-11.3); Platelets 256 thou/uL (152-406); RBC Red Blood Cell Count 4.04 M/uL (3.86-4.86)
[2023-03-16 02:32] LABS: Potassium 4.1 mEq/L (3.5-5.1)
[2023-03-16 02:34] LABS: Thyroid Stimulating Hormone 7.7 uIU/mL (0.358-3.740)
[2023-03-16] MEDS ORDERED: KETOROLAC 30 MG/ML INJ ONE ×2 (06:09→14:37)
[2023-03-16] MEDS: KETOROLAC 30 MG/ML INJ IV SCH ×2 (06:18→14:26)
[2023-03-16] MEDS: LEVOTHYROXINE SOD 0.1 MG TAB PO SCH (06:18)
[2023-03-16 09:21] LABS: Specific Gravity 1.009 (1.005-1.030); Urine Bacteria None Seen /HPF (<20); Urine Bilirubin NEGATIVE (Negative); Urine Blood 2+ (Negative); Urine Clarity Clear (Clear); Urine Color Colorless (Yellow); Urine Glucose NEGATIVE (Negative); Urine Protein NEGATIVE (Negative); Urine RBC <5 /HPF (None Seen); Urine Urobilinogen Normal (Normal)
[2023-03-16] MEDS: COLCHICINE 0.6 MG TAB PO SCH (09:39)
[2023-03-16] MEDS: ASPIRIN 81 MG CHEWABLE TABLET PO SCH (09:39)
[2023-03-16] MEDS: ENOXAPARIN 40 MG/0.4 ML SQ SCH (09:40)
[2023-03-16] MEDS ORDERED: COLCHICINE 0.6 MG TAB ONE (09:41)
[2023-03-16] MEDS ORDERED: ENOXAPARIN 40 MG/0.4 ML SQ ONE (09:42)
[2023-03-16] MEDS ORDERED: ASPIRIN EC 81 MG TAB PO ONE (09:42)
--- NOTE | 2023-03-16 12:55 | P.PN ---
Subjective Date of Service: 03/16/23 Chief Complaint: Chest pain Subjective: No new changes, Doing well, Other (Still c/o pain, now in here epigastric and joint.) Physical Examination - Vital Signs Temperature: 97.8 F Blood Pressure: 103/65 Pulse: 70 Respirations: 16 Pulse Ox (%): 100 - Physical Exam General: In no apparent distress, Oriented x3 HEENT: Atraumatic Neck: Supple Respiratory: Clear to auscultation bilaterally Cardiovascular: No edema, Regular rate/rhythm Neurological: Normal speech Assessment And Plan - Plan 1.: Chest pain: Atypical and pleuritic in nature likely pericarditis, patient on colchicine we will continue with that, Gave IV Toradol switch to p.o. indomethacin 25 mg 3 times daily for a week and follow-up with her battery loader for titrating the dose down. 2. Hyperlipidemia: Continue with statins 3. Hypertension continue home meds
[2023-03-16] MEDS: METHYLPREDNISOLONE 40 MG INJ IV ONE ×2 (14:23→14:30)
[2023-03-16] MEDS: ALPRAZOLAM 0.25 MG TABLET PO PRN (16:00)
[2023-03-16] MEDS ORDERED: ALPRAZOLAM 0.25 MG TABLET ONE (16:11)
[2023-03-16] MEDS ORDERED: INDOMETHACIN 25 MG CAP PO SCH (18:00)
--- NOTE | 2023-03-16 18:05 | P.DS ---
Admission Date: 03/15/23 Discharge Date: 03/16/23 Disposition: ROUTINE DISCHARGE Discharge Condition: GOOD Reason for Admission: Chest pain Consultations: Cardiology Brief History of Present Illness: 52-year-old female who was recently admitted at our hospital from 03/07/2023 to 03/11/2023 for chest pain, suspected pericarditis presents emergency department with recurrence of chest pain. During her recent hospitalization she was evaluated with CT aorta for dissection, echocardiogram, troponins were trended and patient was seen by cardiology. Her CT was negative for acute findings at that time echocardiogram showed normal EF, normal diastolic dysfunction, mild tricuspid regurg, mild mitral regurg and troponins trended negative. CRP was 3.74. She was given a prescription for colchicine 0.6 mg p.o. twice daily which she has been taking. She also reports having a heart catheterization around 2 years ago and the second heart catheterization around 5 years ago which did not require intervention, last stress test and May of this year again reportedly normal. She reports waking up at 02 45 this morning with severe pain that originally started in her back and radiated to her chest described as pressure associated with nausea which persisted and for that reason she came to the emergency department. She was evaluated in the emergency department her EKG was without STEMI criteria, sinus rhythm initial high-sensitivity troponin -3.[address] PE protocol was performed which was negative for acute findings. ED provider wishes to admit under observation given ongoing chest pain. Hospital Course: Assessment: Chest pain likely secondary to pericarditis Hypertension Hypothyroidism Lupus Patient was admitted to the hospital for chest pain which is deemed secondary to pericarditis. During her recent admission she had an echocardiogram performed on 03/11/2023 which was normal, she also had a heart catheterization around 2 years ago and threes before that which did not require intervention, also had a stress test in May which was normal per patient. Troponins were trended and negative, she had a CTA of her chest on admission that was negative for acute findings. She has lupus which is likely the cause of her pericarditis. In the hospital she was treated with Toradol, colchicine with mild improvement of her symptoms. She was evaluated by cardiology who recommends addition of indomethacin 25 mg p.o. 3 times daily in addition to the colchicine. She also be sent a prescription for Medrol Dosepak given the history of her lupus and Protonix for GI prophylaxis. 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 Vital Signs/Physical Exam: Temp Pulse Resp BP Pulse Ox 98.2 F 71 17 137/86 98 03/16/23 16:00 03/16/23 16:00 03/16/23 16:00 03/16/23 16:00 03/16/23 16:00 General: Alert, In no apparent distress, Oriented x3 HEENT: Atraumatic, PERRLA Neck: Supple Respiratory: Clear to auscultation bilaterally, Normal air movement Cardiovascular: Regular rate/rhythm, Normal S1 S2 Gastrointestinal: Non-distended Integumentary: No rashes Neurological: Normal speech, Normal affect Laboratory Data at Discharge: WBC 7.20 thou/uL (4.3-10.9) 03/16/23 01:46 Hgb 12.4 g/dL (12.0-15.0) D 03/16/23 01:46 Hct 36.3 % (36.0-45.0) 03/16/23 01:46 Plt Count 256 thou/uL (152-406) 03/16/23 01:46 PT 10.3 SECONDS (9.5-12.5) 03/15/23 04:20 INR 0.94 03/15/23 04:20 Sodium 137 mEq/L (136-145) 03/16/23 01:46 Potassium 4.1 mEq/L (3.5-5.1) D 03/16/23 01:46 BUN 24 mg/dL (7-18) H 03/16/23 01:46 Creatinine 0.85 mg/dL (0.55-1.02) 03/16/23 01:46 Glucose 105 mg/dL (74-106) 03/16/23 01:46 Lipase Cancelled 03/15/23 07:20 Home Medications: Nebivolol HCl [Bystolic*] 10 mg PO DAILY 06/03/18 Aspirin 81 mg PO DAILY 03/09/23 Levothyroxine [Synthroid*] 100 mcg PO [id number] 03/09/23 Rosuvastatin Calcium 40 mg PO BEDTIME 03/09/23 Colchicine 0.6 mg PO BID #60 tab 03/11/23 Indomethacin 25 mg PO TID 7 Days #21 tab 03/16/23 Methylprednisolone [Medrol dosepack] 4 mg PO DIRECTED #1 erlin 03/16/23 Pantoprazole Sodium [Protonix] 40 mg PO DAILY #30 tab 03/16/23 New Medications: Indomethacin 25 mg PO TID 7 Days #21 tab Methylprednisolone [Medrol dosepack] 4 mg PO DIRECTED #1 erlin Pantoprazole Sodium [Protonix] 40 mg PO DAILY #30 tab Physician Discharge Instructions: You were admitted to the hospital for chest pain which has been deemed secondary to pericarditis. During a previous hospitalization you were prescribed colchicine. You were evaluated by cardiology again during this hospitalization and made recommendations for additional medications including indomethacin 25 mg 3 times daily for 1 week, since he also have lupus he will be prescribed a Medrol Dosepak as well. We recommend you follow-up with your primary care doctor as well as cardiology in 1 week, also please schedule appointment with your nail setter. In order to protect your stomach you have also been prescribed a medication called Protonix which she will take daily. Diet: Regular Activity: Ad stacey Followup: NONE,NONE [Primary Care Provider] - 1 Week Brian Caldwell MD [ACTIVE - CAN ADMIT] - 1 Week
[2023-03-16 18:43] VITALS: BP 134/75; TEMP 97.9
[2023-03-16 19:15] VITALS: O2SAT 97
[2023-03-17] MEDS ORDERED: PANTOPRAZOLE 40MG TABLET PO SCH (06:30)
[2023-03-17] MEDS ORDERED: predniSONE 10 MG TAB PO SCH (09:00)
--- NOTE | 2023-03-18 08:00 | EKG ---
Test Date: 2023-03-15 Test Time: 04:12:54 Multiple Slide Operator: HUAN MEASUREMENT RESULTS: Intervals: Rate: 73 TN: 190 QRSD: 100 QT: 404 QTc: 445 [place]: P: 56 TN: 190 QRS: -22 T: 19 INTERPRETIVE STATEMENTS: Normal sinus rhythm Normal ECG Compared to ECG 03/09/2023 16:20:42 No significant changes Electronically Signed On 03-18-23 07:53:32 CDT by Brian Caldwell
== END 2023-03-16 18:49 | disposition home or self-care (01) ==
LOC: ER 04:00 → ERHOLD 07:17
PROVIDERS: ADMIT Hospitalist; ATTEND Hospitalist
DX: R07.9 Chest pain, unspecified (principal); I31.9 Disease of pericardium, unspecified; I10 Essential (primary) hypertension; E03.9 Hypothyroidism, unspecified; M32.9 Systemic lupus erythematosus, unspecified; E78.5 Hyperlipidemia, unspecified; Z88.2 Allergy status to sulfonamides; Z88.5 Allergy status to narcotic agent; Z88.0 Allergy status to penicillin
CPT/HCPCS: 85025 ×2; 81001; 80048 ×2; 36415; 85610; 84443; 84484 ×3; 84439; 83880; 71275; 71045; 96375; 96374; 99285; Q9967; J1650 ×2; J2270 ×2; J2405 ×3; J2920; G0378 ×3; 93005

== ENCOUNTER 2023-07-07 10:08 | Inpatient (IN) | payer BC ==
--- NOTE | 2023-07-07 11:06 | RAD REPORT ---
EXAM DESCRIPTION: CT - Ct Stroke Brain Wo Cont - 07/07/2023 10:53 am CLINICAL HISTORY: Numbness COMPARISON: 2022 TECHNIQUE: Computed axial tomography of the head was obtained. All CT scans are performed using dose optimization technique as appropriate and may include automated exposure control or mA/KV adjustment according to patient size. FINDINGS: An intracranial bleed is not seen . The ventricles are normal in caliber. No extra-axial fluid collection is noted. No significant hypodensity within the brain Fluid within the sinuses/ mastoids is not seen. IMPRESSION: No acute intracranial abnormality is seen. If patient's symptoms persist MRI of the bra in would be recommended Chris Page of the emergency room was notified at 11 a.m. on July 07, 2023
[2023-07-07] MEDS ORDERED: MECLIZINE HCL 12.5 MG TAB ONE (11:33)
[2023-07-07 11:55] LABS: MCV 89.5 fL (80-100); MPV 8.2 fL (7.6-11.3); Platelets 265 thou/uL (152-406); RBC Red Blood Cell Count 4.69 M/uL (3.86-4.86)
[2023-07-07 12:03] LABS: Protime INR 1.01
[2023-07-07 12:12] LABS: Magnesium 2.3 mg/dL (1.6-2.4)
[2023-07-07 12:16] LABS: Troponin High Sensitivity < 3.0 pg/mL (<58.9)
[2023-07-07] MEDS ORDERED: METOCLOPRAMIDE 10 MG/2mL INJ ONE (12:27)
--- NOTE | 2023-07-07 13:35 | RAD REPORT ---
EXAM DESCRIPTION: CT - Head angio - 07/07/2023 12:46 pm CLINICAL HISTORY: code stroke COMPARISON: Ct Stroke Brain Wo Cont dated 07/07/2023; Head Brain Wo Cont dated 03/09/2023; Neck Angio dated 07/07/2023; Brain Wo Cont dated 07/07/2023 TECHNIQUE: Axial CT angiography images of the head was performed with multiplanar and maximum intens ity projection reconstructions. Images performed following intravenous administration of 100mL Isovue 370. All CT scans are performed using dose optimization technique as appropriate and may include automated exposure control or mA/KV adjustment according to patient size. FINDINGS: No evidence of large vessel occlusion. No evidence of aneurysm or dissection flap is detec alba. No flow-limiting stenosis or vascular malformation identified. Antegrade flow is seen in the vertebral arteries. The vertebral arteries are codominant. The visualized dural venous sinuses are grossly patent. IMPRESSION: No evidence of large vessel occlusion or flow-limiting stenosis.
[2023-07-07 13:38] LABS: SARS-CoV-2 Antigen Rapid Res Negative (Negative)
[2023-07-07 13:42] LABS: Specific Gravity 1.021 (1.005-1.030)
--- NOTE | 2023-07-07 13:45 | RAD REPORT ---
EXAM DESCRIPTION: CT - Neck Angio - 07/07/2023 12:46 pm CLINICAL HISTORY: code stroke COMPARISON: No comparisons TECHNIQUE: Axial CT angiography images of the head was performed with multiplanar and maximum intens ity projection reconstructions. Images performed following intravenous administration of 100mL Isovue 370. All CT scans are performed using dose optimization technique as appropriate and may include automated exposure control or mA/KV adjustment according to patient size. Quantification of carotid stenosis, if any, is performed according to NASCET criteria. FINDINGS: A left aortic arch is identified with normal three vessel configuration of the great vesse ls. No significant flow abnormality is seen of the common carotid bilaterally. No significant stenosis is identified involving the cervical segments of both internal carotid arteri es. Tortuosity of the distal cervical ICAs bilaterally. Normal flow is seen within both vertebral arteries. IMPRESSION: No significant flow abnormality of the neck vessels is identified. CAROTID STENOSIS REFERENCE USING NASCET CRITERIA: % ICA stenosis = (1 - narrowest ICA diameter/diameter of distal cervical ICA) x 100. Mild - <50% stenosis. Moderate - 50-69% stenosis. Severe - 70-94% stenosis. Near occlusion - 95-99% stenosis. Occluded - 100% stenosis.
[2023-07-07 13:48] LABS: Specific Gravity 1.021 (1.005-1.030); Urine Bacteria None Seen /HPF (<20); Urine Bilirubin NEGATIVE (Negative); Urine Blood 1+ (Negative); Urine Clarity Clear (Clear); Urine Color Colorless (Yellow); Urine Glucose NEGATIVE (Negative); Urine Protein NEGATIVE (Negative); Urine Urobilinogen Normal (Normal)
--- NOTE | 2023-07-07 13:49 | RAD REPORT ---
EXAM DESCRIPTION: MRI - Brain Wo Cont - 07/07/2023 1:17 pm CLINICAL HISTORY: Dizziness;Headache COMPARISON: Stroke protocol head CT and CT angiogram of the same day. MRI brain 06/03/2018 TECHNIQUE: Multiplanar multisequence MRI of the brain performed without IV contrast. FINDINGS: No evidence of acute infarct or other diffusion signal abnormality. No evidence of acute intracranial hemorrhage or abnormal extra-axial fluid collections. Mild diffuse parenchymal volume loss. Ventricular caliber otherwise within normal for age. Midline st ructures are unremarkable. Progressive burden of scattered subcortical and deep white matter T2/FLAIR hyperintensities, nonspeci fic, but again most suggestive of chronic small vessel ischemic changes. No mass effect or midline shift. Major vascular flow voids are preserved. Mastoid air cells and paranasal sinuses are clear. IMPRESSION: No acute intracranial process. Mildly progressive burden of nonspecific deep white matter T2/FLAIR hyperintensities, again most sugg estive of chronic small vessel ischemic changes.
--- NOTE | 2023-07-07 13:56 | RAD REPORT ---
[facility] CLINICAL HISTORY: left side weakness COMPARISON: Chest Single View dated 03/15/2023; Chest Single View dated 03/09/2023; Chest Single Vie w dated 10/25/2020; Chest Single View dated 10/24/2020 TECHNIQUE: Portable AP view of the chest. FINDINGS: The lungs are clear. No pneumothorax or effusion. The cardiomediastinal contours are unre markable. IMPRESSION: No acute cardiopulmonary process.
[2023-07-07] MEDS ORDERED: ONDANSETRON 4 MG/2 ML VIAL ONE (14:18)
[2023-07-07] MEDS ORDERED: ATORVASTATIN 20 MG TAB ONE (14:18)
[2023-07-07] MEDS ORDERED: CLOPIDOGREL 75 MG TABLET ONE (14:18)
[2023-07-07] MEDS ORDERED: ASPIRIN 81 MG CHEWABLE TABLET ONE (14:18)
[2023-07-07] MEDS ORDERED: DIAZEPAM 10 MG/2 ML INJ SYRINGE ONE (14:18)
[2023-07-07] MEDS ORDERED: FOLIC ACID 5 MG/ML VIAL ONE (14:19)
--- NOTE | 2023-07-07 14:20 | ER ---
Nurse's Notes [facility] Name: Debora Lozano Age: 53 yrs Sex: Female : 1970 Arrival Date: 07/07/2023 Time: 10:08 Bed [id number] Private MD: BLOSSOM RUSSELL Diagnosis: Dizziness and giddiness;Nausea;Headache;Hypertensive heart disease without heart failure Presentation: 07/07 10:21 Ebola Screen: Patient denies travel to an Ebola-affected area in the 21 days before ll1 illness onset. 10:21 Method Of Arrival: Wheelchair ll1 10:26 Onset of symptoms was July 07, 2023 at 05:30. ll1 10:30 Chief complaint: Patient states: PATEL off/on for 1 month. Vision changes for 1 week. ll1 Vertigo started at 0530 when getting out of bed and she fell to ground she was so dizzy. Hit her head when she fell, no LOC. + ringing in ears now. Coronavirus screen: Client denies travel out of the [place] in the last 14 days. At this time, the client does not indicate any symptoms associated with coronavirus-19. Initial Sepsis Screen: Does the patient meet any 2 criteria? No. Patient's initial sepsis screen is negative. Does the patient have a suspected source of infection? No. Patient's initial sepsis screen is negative. Risk Assessment: Do you want to hurt yourself or someone else? Patient reports no desire to harm self or others. 10:30 Acuity: KAYLYNN 2 ll1 Historical: - Allergies: 10:20 Sulfa (Sulfonamide Antibiotics); ll1 10:20 Codeine; ll1 - PMHx: 10:20 Endometrosis; Hypertension; pericarditis; possible lupus; thyroid disease; ll1 - PSHx: 10:20 knee sx; L wrist SX; Total abdominal hysterectomy; ll1 - Immunization history:: Adult Immunizations up to date. - Social history:: Smoking status: Patient denies any tobacco usage or history of. Screenin:26 [facility] ED Fall Risk Assessment (Adult) History of falling in the last 3 months, mb9 including since admission Yes- physiologic fall (2 pts) Confusion or Disorientation No (0 pts) Intoxicated or Sedated No (0 pts) Impaired Gait No (0 pts) Mobility Assist Device Used No (0 pt) Altered Elimination No (0 pt) Score/Fall Risk Level 3 or more points = High Risk Oriented to surroundings, Maintained a safe environment, Educated pt \T\ family on fall prevention, incl call for assistance when getting out of bed. Abuse screen: Denies threats or abuse. Nutritional screening: No deficits noted. Tuberculosis screening: No symptoms or risk factors identified. 11:35 Alexa Swallow Protocol Brief Cognitive Screen What is your name? Normal, Where are you mb9 right now? Normal, What year is it? Normal. Oral Mechanism Examination Facial Symmetry: Normal, Motion: Normal, Lip Closure: Normal, Oral Mechanism Result: Normal. 3 oz Water Swallow Challenge: Pt able to drink all water without stopping, coughing, choking or throat clearing: Yes Result: PASS MD Notified: Chris LOYA. Assessment: 10:32 General: Appears uncomfortable, Behavior is calm, cooperative. Pain: Complains of pain mb9 in head Pain does not radiate. Neuro: Pupils are PERRLA. Neuro: Lucio Agitation-Sedation Scale (RASS): 0 - Alert and Calm Level of Consciousness is awake, alert, obeys commands, Oriented to person, place, time, situation, Appropriate for age Rn Managed Care are equal bilaterally Moves all extremities. Gait is unsteady, Speech is normal, Facial symmetry appears normal, Tingling in face, right hand and left hand Reports dizziness. Cardiovascular: Patient's skin is warm and dry. Respiratory: Airway is patent Respiratory effort is even, unlabored, Respiratory pattern is regular, symmetrical. GI: Abdomen is round non-distended. : No signs and/or symptoms were reported regarding the genitourinary system. EENT: No signs and/or symptoms were reported regarding the EENT system. Derm: Skin is pink, warm \T\ dry. Musculoskeletal: Range of motion: intact in all extremities. 10:38 Reassessment: pt taken to CT via stretcher accompanied by nurse. sharron 11:30 Reassessment: Unable to IV access/blood at this time. Cass NIELSON, and charge nurse, sharron Owusu, notified. 11:53 Reassessment: No changes from previously documented assessment. Patient and/or family ll1 updated on plan of care and expected duration. Pain level reassessed. 12:30 Reassessment: No changes from previously documented assessment. Patient and/or family mb9 updated on plan of care and expected duration. Pain level reassessed. Patient is alert, oriented x 3, equal unlabored respirations, skin warm/dry/pink. 12:32 Reassessment: pt taken to MRI/CT via wheelchair. mb9 13:37 Reassessment: No changes from previously documented assessment. Patient and/or family mb9 updated on plan of care and expected duration. Pain level reassessed. Patient is alert, oriented x 3, equal unlabored respirations, skin warm/dry/pink. 14:45 Reassessment: No changes from previously documented assessment. Patient and/or family mb9 updated on plan of care and expected duration. Pain level reassessed. Patient is alert, oriented x 3, equal unlabored respirations, skin warm/dry/pink. 15:35 Reassessment: see [facility] for further charting. mb9 Vital Signs: 10:30 BP 181 / 104; Pulse 66; Resp 17; Temp 97.9; Pulse Ox 100% ; Weight 81.65 kg; Height 5 ll1 ft. 2 in. ; Pain 7/10; 11:25 BP 169 / 107; Pulse 67; Resp 18; Pulse Ox 100% on R/A; mb9 12:05 BP 152 / 94; Pulse 74; Resp 18; Pulse Ox 100% on R/A; mb9 13:38 BP 143 / 95; Pulse 64; Resp 18; Pulse Ox 100% on R/A; mb9 14:29 BP 157 / 97; Pulse 66; Resp 18; Pulse Ox 100% on R/A; mb9 15:35 BP 126 / 97; Pulse 70; Resp 18; Pulse Ox 100% on R/A; mb9 10:30 Body Mass Index 32.92 (81.65 kg, 157.48 cm) ll1 10:30 Pain Scale: Adult ll1 NIH Stroke Scale Scores: 10:40 NIHSS Score: 0 mb9 11:10 NIHSS Score: 5 cp ED Course: 10:10 Patient arrived in ED. rg4 10:10 BLOSSOM RUSSELL is Private Physician. rg4 10:20 Arm band placed on Patient placed in an exam room, on a stretcher. ll1 10:22 Violeta Greene RN is Primary Nurse. mb9 10:26 Chris Odell PA is PHCP. cp 10:26 Nic Richards MD is Attending Physician. cp 10:26 Placed in gown. Bed in low position. Call light in reach. Side rails up X 1. Client mb9 placed on continuous cardiac and pulse oximetry monitoring. NIBP monitoring applied. 10:31 Triage completed. ll1 10:33 No provider procedures requiring assistance completed. mb9 10:55 CT Stroke Brain w/o Contrast In Process Unspecified. EDMS 11:00 Missed attempt(s): 22 gauge in right antecubital area. Bleeding controlled, band aid mb9 applied, catheter tip intact. 11:10 Missed attempt(s): 22 gauge in right forearm. Bleeding controlled, band aid applied, mb9 catheter tip intact. 11:43 EKG done, by ED staff, reviewed by Chris LOYA. mb9 11:53 Inserted saline lock: 22 gauge in left antecubital area, using aseptic technique. Blood ll1 collected. 12:48 Head angio In Process Unspecified. EDMS 12:49 Neck Angio In Process Unspecified. EDMS 13:18 Brain Wo Cont In Process Unspecified. EDMS 13:43 Stroke CXR 1 View In Process Unspecified. EDMS 15:06 Zuhair Bella MD is Hospitalizing Provider. bd 16:02 Patient admitted, IV remains in place. mb9 19:08 Report given to MELISSA ARMENTA. mb9 Administered Medications: 11:40 Drug: Meclizine PO 25 mg PO once Route: PO; mb9 12:24 Follow up: Response: No adverse reaction mb9 12:29 Drug: metoCLOPramide IVP 10 mg IVP once; over 1 to 2 minutes Route: IVP; Site: left mb9 antecubital; 14:14 Follow up: Response: No adverse reaction mb9 14:20 Drug: foLIC Acid IVPB 1 mg IVPB once Route: IVPB; Site: left antecubital; mb9 18:29 Follow up: Response: No adverse reaction; IV Status: Completed infusion mb9 14:22 Drug: Ondansetron IVP 4 mg IVP once; over 2 minutes Route: IVP; Site: left antecubital; mb9 18:29 Follow up: Response: No adverse reaction mb9 14:25 Drug: Diazepam IVP 5 mg IVP once Route: IVP; Site: left antecubital; mb9 18:29 Follow up: Response: No adverse reaction mb9 14:28 Drug: Aspirin PO 81 mg PO once Route: PO; mb9 18:29 Follow up: Response: No adverse reaction mb9 14:28 Drug: Clopidogrel PO 75 mg PO once Route: PO; mb9 18:29 Follow up: Response: No adverse reaction mb9 14:28 Drug: Atorvastatin PO 20 mg PO once Route: PO; mb9 18:29 Follow up: Response: No adverse reaction mb9 Medication: 10:25 VIS not applicable for this client. mb9 Outcome: 14:19 Decision to Hospitalize by Provider. cp 20:24 Admitted to Med/surg accompanied by tech, room 212, Report called to ELEONORA TORRES jj7 20:25 Condition: improved jj7 21:46 Patient left the ED. jj7 NIH Stroke Scale - NIH Stroke Score Date: 07/07/2023 Time: 10:40 Total Score = 0 10. Dysarthria (speech clarity - read or repeat words) - 0(Normal) 11. Extinction and Inattention (visual/tactile/auditory/spatial/personal) - 0(No abnormality) 1a. Level of Consciousness (LOC) - 0(Alert) 1b. Level of Consciousness (LOC) (Month \T\ Age) - 0(Both) 1c. LOC Commands (Open \T\ Closes Eyes/Addiction Professional) - 0(Both) 2. Best Gaze (Lateral Gaze Paresis) - 0(Normal) 3. Visual Field Loss - 0(No visual loss) 4. Facial Palsy - 0(Normal) 5a. Left Arm: Motor (10-second hold) - 0(No drift) 5b. Right Arm: Motor (10-second hold) - 0(No drift) 6a. Left Leg: Motor (5-second hold - always test supine) - 0(No drift) 6b. Right Leg: Motor (5-second hold - always test supine) - 0(No drift) 7. Limb Ataxia (finger/nose \T\ heel/vegas - test with eyes open) - 0(Absent) 8. Sensory Loss (pinprick arms/legs/face) - 0(Normal) 9. Best Language: Aphasia (description/naming/reading) - 0(No aphasia) Initials: mb9 NIH Stroke Scale - NIH Stroke Score Date: 07/07/2023 Time: 11:10 Total Score = 5 10. Dysarthria (speech clarity - read or repeat words) - 0(Normal) 11. Extinction and Inattention (visual/tactile/auditory/spatial/personal) - 0(No abnormality) 1a. Level of Consciousness (LOC) - 0(Alert) 1b. Level of Consciousness (LOC) (Month \T\ Age) - 0(Both) 1c. LOC Commands (Open \T\ Closes Eyes/Addiction Professional) - 0(Both) 2. Best Gaze (Lateral Gaze Paresis) - 0(Normal) 3. Visual Field Loss - 0(No visual loss) 4. Facial Palsy - 0(Normal) 5a. Left Arm: Motor (10-second hold) - 1(Drift) 5b. Right Arm: Motor (10-second hold) - 0(No drift) 6a. Left Leg: Motor (5-second hold - always test supine) - 1(Drift) 6b. Right Leg: Motor (5-second hold - always test supine) - 0(No drift) 7. Limb Ataxia (finger/nose \T\ heel/vegas - test with eyes open) - 2(Present in two limbs) 8. Sensory Loss (pinprick arms/legs/face) - 1(Mild to moderate loss) 9. Best Language: Aphasia (description/naming/reading) - 0(No aphasia) Initials: cp Signatures: Dispatcher [employer] EDMS Mindy Daigle Corey, PA PA cp Garcia, Rubi rg4 Aminah Hernandez RN RN ll1 Barbara Hidalgo RN RN jj7 Violeta Greene, RN RN mb9 Corrections: (The following items were deleted from the chart) 10:31 10:26 Onset of symptoms was July 07, 2023 [email or web address] ll1 10:48 10:32 Neuro: Lucio Agitation-Sedation Scale (RASS): 0 - Alert and Calm Level mb9 of Consciousness is awake, alert, obeys commands, Oriented to person, place, time, situation, Appropriate for age Reports dizziness, mb9 13:00 11:40 EKG done, by ED staff, reviewed by Chris [email or web address] mb9
--- NOTE | 2023-07-07 14:21 | EDPHYS ---
Physician Documentation [facility] Name: Debora Friday Age: 53 yrs Sex: Female : 1970 Arrival Date: 07/07/2023 Time: 10:08 Bed IW10 Private MD: BLOSSOM RUSSELL ED Physician Nic Richards HPI: 07/07 11:00 This 53 yrs old Female presents to ER via Wheelchair with complaints of Vertigo. cp 11:00 Patient is a 53-year-old female with past medical history significant for hypertension, cp hypothyroidism who presents to the emergency department with complaints of headache and dizziness. Patient reports she awoke this morning about 3 at 330 with a reported headache to the right back of the head. She states she went to lay back down and then woke back up about 530 and as she went to stand became dizzy and fell and struck the side of her head against the dresser. No reported loss of consciousness but reports the dizziness has continued she awoke about 530. Patient report bilateral tingling in her fingertips. Historical: - Allergies: 10:20 Sulfa (Sulfonamide Antibiotics); ll1 10:20 Codeine; ll1 - PMHx: 10:20 Endometrosis; Hypertension; pericarditis; possible lupus; thyroid disease; ll1 - PSHx: 10:20 knee sx; L wrist SX; Total abdominal hysterectomy; ll1 - Immunization history:: Adult Immunizations up to date. - Social history:: Smoking status: Patient denies any tobacco usage or history of. ROS: 11:05 Constitutional: Negative for body aches, chills, fever, poor PO intake, cp 11:05 Eyes: Negative for pain, redness, vision loss, cp 11:05 ENT: Negative for drainage from ear(s), ear pain, sore throat, difficulty swallowing, difficulty handling secretions, 11:05 Neck: Negative for pain with movement, pain at rest, stiffness, 11:05 Cardiovascular: Negative for chest pain, edema, palpitations, 11:05 Respiratory: Negative for cough, shortness of breath, wheezing, 11:05 Abdomen/GI: Positive for nausea, Negative for abdominal pain, diarrhea, constipation, active vomiting, 11:05 Back: Positive for pain at rest, pain with movement, 11:05 : Negative for urinary symptoms, 11:05 Neuro: Positive for dizziness, headache, tingling, Negative for altered mental status, 11: All other systems are negative, Exam: 11: Radiologist reports: negative CT head results cp 11: Head/Face: Normocephalic, atraumatic. cp 11:07 Constitutional: The patient appears in no acute distress, alert, awake, non-diaphoretic, non-toxic, well developed, well nourished, 11:07 Eyes: Periorbital structures: appear normal, Pupils: equal, round, and reactive to light and accomodation, Extraocular movements: intact throughout, Conjunctiva: normal, no exudate, no injection, Sclera: no appreciated abnormality, Lids and lashes: appear normal, bilaterally, 11: ENT: External ear(s): are unremarkable, Ear canal(s): are normal, clear, TM's: dullness, bilaterally, Nose: is normal, Mouth: Lips: moist, Oral mucosa: pink and intact, moist, Posterior pharynx: is normal, airway is patent, no erythema, no exudate, 11: Neck: ROM/movement: is normal, is supple, without pain, no range of motions limitations, no meningismus, no nuchal rigidity, 11: Chest/axilla: Inspection: normal, 11: Cardiovascular: Rate: normal, Rhythm: regular, Edema: is not appreciated, JVD: is not appreciated, 11: Respiratory: the patient does not display signs of respiratory distress, Respirations: normal, no use of accessory muscles, no retractions, labored breathing, is not present, Breath sounds: are clear throughout, no decreased breath sounds, no stridor, no wheezing, 11: Abdomen/GI: Inspection: abdomen appears normal, Palpation: abdomen is soft and non-tender, in all quadrants, 11: Back: pain, of the left low back, 11: Neuro: Orientation: to person, place \T\ time. Mentation: is normal, Cerebellar function: Romberg testing is abnormal, left side with mild drift, dysmetria is noted on the left, left side with difficulty, Motor: moves all fours, Sensation: tingling, that is mild, of the face, Vital Signs: 10:30 BP 181 / 104; Pulse 66; Resp 17; Temp 97.9; Pulse Ox 100% ; Weight 81.65 kg; Height 5 ll1 ft. 2 in. ; Pain 7/10; 11:25 BP 169 / 107; Pulse 67; Resp 18; Pulse Ox 100% on R/A; mb9 12:05 BP 152 / 94; Pulse 74; Resp 18; Pulse Ox 100% on R/A; mb9 13:38 BP 143 / 95; Pulse 64; Resp 18; Pulse Ox 100% on R/A; mb9 14:29 BP 157 / 97; Pulse 66; Resp 18; Pulse Ox 100% on R/A; mb9 15:35 BP 126 / 97; Pulse 70; Resp 18; Pulse Ox 100% on R/A; mb9 10:30 Body Mass Index 32.92 (81.65 kg, 157.48 cm) ll1 10:30 Pain Scale: Adult ll1 NIH Stroke Scale Scores: 10:40 NIHSS Score: 0 mb9 11:10 NIHSS Score: 5 cp MDM: 10:26 Patient medically screened. cp 10:50 Differential diagnosis: CVA, TIA, metabolic disorder, drug effects. cp 10:50 ED course: patient is not a candidate for TNK. 14:15 Management of patient was discussed with the following: Cotton Wringer: DR Dalal, cp neurologist, will consult after discussion. 14:18 Data reviewed: vital signs, nurses notes, lab test result(s), EKG, radiologic studies, cp CT scan, MRI, plain films. 14:18 I considered the following discharge prescriptions or medication management in the emergency department Medications were administered in the Emergency Department. See MAR. Independent interpretation of the following test(s) in the Emergency Department EKG: See my EKG interpretation above. Care significantly affected by the following chronic conditions: Hypertension. Counseling: I had a detailed discussion with the patient and/or guardian regarding the historical points, exam findings, and any diagnostic results supporting the discharge/admit diagnosis, the presence of at least one elevated blood pressure reading (>120/80) during this emergency department visit, lab results, radiology results, the need for further work-up and treatment in the hospital. 14:25 Management of patient was discussed with the following: Hospitalist: Antonino Alabrran NP, cp will admit to services of DR Bella after discussion. 07/07 10:40 Order name: CBC with Diff; Complete Time: 13:01 07/07 13:02 Interpretation: Reviewed. 07/07 10:40 Order name: High Sensitivity Troponin; Complete Time: 13: 07/07 13:02 Interpretation: Reviewed. 07/07 10:40 Order name: Magnesium; Complete Time: 13: 07/07 10:40 Order name: Protime (+inr); Complete Time: 13: 07/07 10:40 Order name: Ptt, Activated; Complete Time: 13: 07/07 10:40 Order name: Urinalysis W/Microscopic; Complete Time: 14:07 07/07 14:07 Interpretation: Normal except: UBLD 1+; UESTR 75; URBC 5-10. 07/07 10:40 Order name: Test, Urine; Complete Time: 14:07 07/07 10:55 Order name: CK; Complete Time: 13: 07/07 10:55 Order name: SARS RAPID; Complete Time: 14:07 07/07 11:49 Order name: Glucose, Ancillary Testing; Complete Time: 13: [facility] 07/07 12:54 Order name: CREATININE WHOLE BLOOD; Complete Time: 13:01 [facility] 07/07 13:15 Order name: CREATININE WHOLE BLOOD [facility] 07/07 14:34 Order name: CMP; Complete Time: 16:15 07/07 16:15 Interpretation: Normal except: CL 110; GLOB 4.2; A/G 0.9. 07/07 10:40 Order name: CT Stroke Brain w/o Contrast; Complete Time: 13: 07/07 13:02 Interpretation: Report reviewed. 07/07 10:40 Order name: Stroke CXR 1 View; Complete Time: 14:07 07/07 10:56 Order name: Head angio; Complete Time: 14:07 [facility] 07/07 10:56 Order name: Neck Angio; Complete Time: 14:07 [facility] 07/07 13:18 Order name: Brain Wo Cont; Complete Time: 14:07 [facility] 07/07 10:40 Order name: EKG; Complete Time: 10:41 07/07 10:40 Order name: Accucheck; Complete Time: 11:44 07/07 10:40 Order name: Cardiac monitoring; Complete Time: 10:51 07/07 10:40 Order name: EKG - Nurse/Tech; Complete Time: 11:44 cp 07/07 10:40 Order name: IV Saline Lock; Complete Time: 12:30 cp 07/07 10:40 Order name: Labs collected and sent; Complete Time: 12:30 cp 07/07 10:40 Order name: NPO; Complete Time: 10:51 cp 07/07 10:40 Order name: O2 Per Protocol; Complete Time: 10:51 cp 07/07 10:40 Order name: O2 Sat Monitoring; Complete Time: 10:51 cp 07/07 10:40 Order name: Stroke Swallow Screen; Complete Time: 11:44 cp Administered Medications: 11:40 Drug: Meclizine PO 25 mg PO once Route: PO; mb9 12:24 Follow up: Response: No adverse reaction mb9 12:29 Drug: metoCLOPramide IVP 10 mg IVP once; over 1 to 2 minutes Route: IVP; Site: left mb9 antecubital; 14:14 Follow up: Response: No adverse reaction mb9 14:20 Drug: foLIC Acid IVPB 1 mg IVPB once Route: IVPB; Site: left antecubital; mb9 18:29 Follow up: Response: No adverse reaction; IV Status: Completed infusion mb9 14:22 Drug: Ondansetron IVP 4 mg IVP once; over 2 minutes Route: IVP; Site: left antecubital; mb9 18:29 Follow up: Response: No adverse reaction mb9 14:25 Drug: Diazepam IVP 5 mg IVP once Route: IVP; Site: left antecubital; mb9 18:29 Follow up: Response: No adverse reaction mb9 14:28 Drug: Aspirin PO 81 mg PO once Route: PO; mb9 18:29 Follow up: Response: No adverse reaction mb9 14:28 Drug: Clopidogrel PO 75 mg PO once Route: PO; mb9 18:29 Follow up: Response: No adverse reaction mb9 14:28 Drug: Atorvastatin PO 20 mg PO once Route: PO; mb9 18:29 Follow up: Response: No adverse reaction mb9 Disposition: 07/08 09:16 Co-signature as Attending Physician, Nic Richards MD I reviewed the patient's care rt provided by the Advanced Practice Provider and agree with the diagnosis and treatment plan. Disposition Summary: 07/07/23 14:19 Hospitalization Ordered Notes: Hospitalization Status: Observation cp Condition: Stable cp Problem: new cp Symptoms: have improved cp Bed/Room Type: Standard cp Provider: Zuhair Bella(07/07/23 15:06) vianney Location: Telemetry/MedSurg (observation)(07/07/23 19:34) kl Room Assignment: 212(07/07/23 19:34) Diagnosis - Dizziness and giddiness cp - Nausea cp - Headache cp - Hypertensive heart disease without heart failure cp Forms: - Medication Reconciliation Form cp - SBAR form cp - Leadership Thank You Letter cp NIH Stroke Scale - NIH Stroke Score Date: 07/07/2023 Time: 10:40 Total Score = 0 10. Dysarthria (speech clarity - read or repeat words) - 0(Normal) 11. Extinction and Inattention (visual/tactile/auditory/spatial/personal) - 0(No abnormality) 1a. Level of Consciousness (LOC) - 0(Alert) 1b. Level of Consciousness (LOC) (Month \T\ Age) - 0(Both) 1c. LOC Commands (Open \T\ Closes Eyes/All Purpose Clerk) - 0(Both) 2. Best Gaze (Lateral Gaze Paresis) - 0(Normal) 3. Visual Field Loss - 0(No visual loss) 4. Facial Palsy - 0(Normal) 5a. Left Arm: Motor (10-second hold) - 0(No drift) 5b. Right Arm: Motor (10-second hold) - 0(No drift) 6a. Left Leg: Motor (5-second hold - always test supine) - 0(No drift) 6b. Right Leg: Motor (5-second hold - always test supine) - 0(No drift) 7. Limb Ataxia (finger/nose \T\ heel/vegas - test with eyes open) - 0(Absent) 8. Sensory Loss (pinprick arms/legs/face) - 0(Normal) 9. Best Language: Aphasia (description/naming/reading) - 0(No aphasia) Initials: mb9 NIH Stroke Scale - NIH Stroke Score Date: 07/07/2023 Time: 11:10 Total Score = 5 10. Dysarthria (speech clarity - read or repeat words) - 0(Normal) 11. Extinction and Inattention (visual/tactile/auditory/spatial/personal) - 0(No abnormality) 1a. Level of Consciousness (LOC) - 0(Alert) 1b. Level of Consciousness (LOC) (Month \T\ Age) - 0(Both) 1c. LOC Commands (Open \T\ Closes Eyes/All Purpose Clerk) - 0(Both) 2. Best Gaze (Lateral Gaze Paresis) - 0(Normal) 3. Visual Field Loss - 0(No visual loss) 4. Facial Palsy - 0(Normal) 5a. Left Arm: Motor (10-second hold) - 1(Drift) 5b. Right Arm: Motor (10-second hold) - 0(No drift) 6a. Left Leg: Motor (5-second hold - always test supine) - 1(Drift) 6b. Right Leg: Motor (5-second hold - always test supine) - 0(No drift) 7. Limb Ataxia (finger/nose \T\ heel/vegas - test with eyes open) - 2(Present in two limbs) 8. Sensory Loss (pinprick arms/legs/face) - 1(Mild to moderate loss) 9. Best Language: Aphasia (description/naming/reading) - 0(No aphasia) Initials: cp Signatures: Dispatcher [employer] EDMS Mindy Daigle Kimberly, RN RN Chris Gilman PA PA cp Lewis, Lynsay, RN RN ll1 Violeta Greene, RN RN mb9 Nic Richards MD MD rt Corrections: (The following items were deleted from the chart) 07/07 13:18 11:46 MR STROKE PROTOCOL+MRI.RAD.BRZ ordered. EDMS EDMS 15:06 14:19 Zuhair Bella cp bd 15:06 14:19 Telemetry/MedSurg (observation) cp bd 15:06 14:19 cp bd 19:34 15:06 [facility] ER HOLD bd kl 19:34 15:06 ERHOLD- bd kl 07/08 13:02 07/07 11:03 Radiologist reports: negative CT head results cp cp 07/08 13:02 07/07 11:55 NIHSS Score: 5 cp cp
--- NOTE | 2023-07-07 15:36 | P.HP ---
Certification for Inpatient Patient admitted to: Observation With expected LOS: <2 Midnights Patient will require the following post-hospital care: None Practitioner: I am a practitioner with admitting privileges, knowledge of patient current condition, hospital course, and medical plan of care. Services: Services provided to patient in accordance with Admission requirements found in Title 42 Section 412.3 of the Code of Federal Regulations Patient History Date of Service: 07/07/23 Reason for admission: Hemiparesis, vertigo History of Present Illness: 53-year-old female with history of lupus, hypertension, hypothyroidism presents emergency department chief complaint of dizziness, left-sided weakness. She reports she noticed she was having left-sided weakness, dropping things out of her left arm and having trouble walking since 07/06/2023 at around 1900. She woke up at 530 this morning on 07/07/2023 with severe vertigo, sensation of room spinning and fell as well as had a few episodes of vomiting. She came to the emergency department for evaluation her labs were unremarkable CT head without contrast was negative acute findings CTA of the head and neck were negative for large vessel occlusion or other acute findings MRI of the brain showed findings suggestive of chronic small vessel ischemic changes. NIH score 6. Still with dizziness/vertigo. ED provider discussed with neurology recommends admission, treatment with aspirin, Plavix, folic acid. Patient is taking aspirin at home already. Allergies Sulfa (Sulfonamide Antibiotics) Allergy (Severe, Verified 07/07/23 14:48) Hives/Rash codeine Allergy (Mild, Verified 07/07/23 14:48) Nausea/Vomiting PENICILLINS Allergy (Severe, Uncoded 07/07/23 14:48) Hives/Rash Home Medications: Nebivolol HCl [Bystolic*] 10 mg PO DAILY 06/03/18 Aspirin 81 mg PO DAILY 03/09/23 Levothyroxine [Synthroid*] 100 mcg PO [id number] 03/09/23 Rosuvastatin Calcium 40 mg PO BEDTIME 03/09/23 Colchicine 0.6 mg PO BID #60 tab 03/11/23 Alprazolam [Xanax] 0.25 mg PO Q12H PRN 5 Days #10 tab 03/16/23 Indomethacin 25 mg PO TID 7 Days #21 tab 03/16/23 Methylprednisolone [Medrol dosepack] 4 mg PO DIRECTED #1 erlin 03/16/23 Pantoprazole Sodium [Protonix] 40 mg PO DAILY #30 tab 03/16/23 - Past Medical/Surgical History Diabetic: No -: History of pericarditis -: Hypothyroidism -: Hyperlipidemia -: Neuropathy -: Hypertension -: Lupus -: hysterectomy -: tonsillectomy -: appendectomy -: kidney stone removal -: right knee surgery -: left wrist surgery Psychosocial/ Personal History: lives w/ - Family History Father -: Heart disease Notes: heart failure 50s Mother -: Stroke Notes: abdominal aneurysm Brother -: Heart disease - Social History Smoking Status: Never smoker Alcohol use: Yes CD- Drugs: No Caffeine use: Yes Place of Residence: Home Review of Systems 10-point ROS is otherwise unremarkable Neurological: Weakness, Other (headache, vertigo, tinnitus) Physical Examination - Physical Exam General: Alert, In no apparent distress, Oriented x3 HEENT: Atraumatic, PERRLA, Mucous membr. moist/pink Neck: Supple, 2+ carotid pulse no bruit, No LAD Respiratory: Clear to auscultation bilaterally, Normal air movement Cardiovascular: Regular rate/rhythm, Normal S1 S2 Gastrointestinal: Normal bowel sounds, No tenderness Musculoskeletal: No tenderness Integumentary: No rashes Neurological: Normal speech, Normal tone, Normal affect, Other (NIH 6-left upper and left lower extremity drift, left-sided facial droop, decreased sensation left side), Abnormal strength (RUE and RLL 4/5), Abnormal sensation (decreased sensation left side) - Studies Laboratory Data (last 24 hrs) 07/07/23 07/07/23 07/07/23 11:45 11:45 11:45 WBC 7.30 Hgb 14.3 Hct 42.0 Plt Count 265 PT 11.1 INR 1.01 APTT 33.8 Magnesium 2.3 Assessment and Plan - Plan Assessment: Dizziness, left-sided hemiparesis Lupus Hypertension Hyperlipidemia Hypothyroidism Plan: Dizziness, left-sided hemiparesis CT head without contrast negative acute findings CT angio head and neck negative for large vessel occlusion MRI brain with findings suggestive of chronic small vessel disease NIH course currently 6 [id number] and lower extremity drift, flattening left nasolabial fold, decreased sensation left side Neurology, PT consultation takes aspirin at home, add Plavix and folic acid continue statin Lupus Has not seen rheumatology in over a year Recommend close follow-up rheumatology discharge Hypertension Hyperlipidemia Hypothyroidism Continue home medications, check thyroid panel/lipid panel in the morning DVT PPX:Lovenox Code status:Full Discharge Plan: Home Plan to discharge in: 24 Hours - Advance Directives Does patient have a Living Will: No Does patient have a Durable POA for Healthcare: No Critical Care: No Time Spent Managing Pts Care (In Minutes): 70
[2023-07-07 15:41] LABS: Albumin 3.6 g/dL (3.4-5.0); Bilirubin Total 0.6 mg/dL (0.2-1.0); Protein, Total 7.8 g/dL (6.4-8.2)
[2023-07-07] MEDS: ENOXAPARIN 40 MG/0.4 ML SQ SCH (16:00)
[2023-07-07 16:08] VITALS: BMI 32.9
[2023-07-07] MEDS ORDERED: TRAMADOL HCL 50 MG TAB ONE (16:16)
[2023-07-07] MEDS ORDERED: ENOXAPARIN 40 MG/0.4 ML SQ ONE (16:16)
[2023-07-07] MEDS: TRAMADOL HCL 50 MG TAB PO PRN (16:20)
[2023-07-07] MEDS: INFLUENZA VACCINE (for 6+ mo) 0.5 ML DOSE IMVAC ONE (17:00)
[2023-07-07] MEDS ORDERED: INFLUENZA VACCINE (for 6+ mo) 0.5 ML DOSE IMVAC ONE (17:49)
[2023-07-07 22:16] VITALS: O2SAT 100
[2023-07-07] MEDS: ONDANSETRON 4 MG/2 ML VIAL IV PRN (22:40)
[2023-07-07] MEDS: ATORVASTATIN 20 MG TAB PO SCH (22:48)
[2023-07-08 03:56] LABS: Absolute Lymphocytes (CBC) 2.7 K/uL (0.7-4.9); Hematocrit 36.6 % (36.0-45.0); Lymphocytes % 42.7 % (15.3-44.8); MCV 90.5 fL (80-100); MPV 8.6 fL (7.6-11.3); Platelets 222 thou/uL (152-406); RBC Red Blood Cell Count 4.05 M/uL (3.86-4.86)
[2023-07-08 04:41] LABS: C-Reactive Protein 6.63 mg/L (<3.00); Magnesium 2.4 mg/dL (1.6-2.4); T4,Total 7.5 ug/dL (4.8-13.9); Thyroid Stimulating Hormone 2.54 uIU/mL (0.358-3.740)
[2023-07-08] MEDS: FOLIC ACID 1 MG TABLET PO SCH (09:52)
[2023-07-08] MEDS: CLOPIDOGREL 75 MG TABLET PO SCH (09:52)
[2023-07-08] MEDS: ASPIRIN EC 81 MG TAB PO SCH (09:52)
[2023-07-08] MEDS: ACETAMIN/CAFFEINE/BUTALB TAB PO PRN (10:45)
--- NOTE | 2023-07-08 14:19 | P.PN ---
Date of Service: 07/08/23 Subjective Awake, still complaining of a headache Dr. Dalal visited and made a plan ROS 10 point ROS as noted above, otherwise negative Physical Exam General: AAOx3, NAD, calm HEENT: Atraumatic, PERRLA, Mucous membr. moist/pink Neck: Supple, 2+ carotid pulse no bruit, No LAD Respiratory: Clear to auscultation bilaterally, Normal air movement Cardiovascular: RRR, Normal S1 S2, no murmur noted Gastrointestinal: Normal bowel sounds, No tenderness Musculoskeletal: No tenderness Integumentary: No rashes Neurological: Normal speech, Normal tone, Normal affect Vitals Reviewed Problem list Dizziness, left-sided hemiparesis Lupus Hypertension Hyperlipidemia Hypothyroidism Plan: Dizziness, left-sided hemiparesis Hemiplegia headache CT head without contrast negative acute findings CT angio head and neck negative for large vessel occlusion MRI brain with findings suggestive of chronic small vessel disease Initial NIH course (07/07) 6 [id number] and lower extremity drift, flattening left nasolabial fold, decreased sensation left side Neurology, PT consultation - starting Qulipta and Ubrelvy takes aspirin at home, add Plavix and folic acid continue statin Lupus Has not seen rheumatology in over a year Recommend close follow-up rheumatology discharge Hypertension Hyperlipidemia Hypothyroidism Continue home medications TSH/T4 2.540/7.5 Triglycerides 174, Cholesterol 250, LDL 167, HDL 48 DVT PPX:Lovenox Code status:Full Discharge Plan: Home Plan to discharge in: 24 Hours subjective
[2023-07-08] MEDS: QULIPTA 60 MG PO SCH (15:00)
[2023-07-08] MEDS ORDERED: FUROSEMIDE 20 MG/ 2ML VIAL IV ONE (16:00)
[2023-07-08] MEDS: UBRELVY 100 MG PO PRN (16:07)
[2023-07-08] MEDS: DIPHENHYDRAMINE 25 MG TAB/CAP PO PRN (23:13)
--- NOTE | 2023-07-09 03:26 | CON ---
Reason For Consultation: Consultation called because of hemiparesis, vertigo, and headache. History Of Present Illness: Ms. Lozano is a 53-year-old patient with history of lupus, hypertension, hypothyroidism, who developed left-sided weakness about 2 days prior to coming to [facility]. The weakness was face, arm, and leg and she was dropping things due to weakness. She woke up farhad und 5:30 on the morning of the with severe of vertigo with a sensation of the room spinning from right to left and she was unable to stand. She fell and was vomiting. She came to [facility] where she was identified to have an NIH Stroke Scale of 6 with left-sided deficits of sensation, strength, coordination and with that some dysarthria. CT scan of her head and neck was unremarkable for any acute ischemic hemorrhagic change. CT angiogram showed no large vessel occlusion. MRI of th e brain showed chronic small vessel ischemic disease, progressive since 2019. She received hydration and Zofran, which did help her nausea. Reportedly was taking aspirin daily on a regular basis. She was placed on aspirin, Plavix, folic acid, and received hydration. Since the onset, the symptoms maradiaga ve improved slightly, but she still has significant difficulty with vertigo symptoms, especially if m oving her head to either side. She attempted ambulation with physical therapy, but only walked about 5 feet and had vertigo and was forced to go back to bed. At the time of my evaluation, she did have some lingering headache and was sitting up in bed with her head supported on either side and making good effort not to turn her head to either side. Past Medical History: As noted above. Allergies: SULFA, CODEINE, AND PENICILLIN. Surgical History: Hysterectomy, tonsillectomy, appendectomy, kidney stone removal, right knee surger y, left wrist surgery. Medications: At home: Bystolic 10 mg daily, aspirin 81 mg daily, levothyroxine 100 mcg daily, rosuv astatin 40 mg daily, colchicine mg twice daily, Xanax 0.25 mg every 12 hours as needed, in domethacin 25 mg 3 times daily, methylprednisolone, she received Medrol Dosepak in February last ye ar and Protonix 40 mg daily. Family History: Heart disease in father, of myocardial infarction in his 50s; mother had stroke , abdominal aneurysm; and brother with heart disease. Social History: Alcohol and caffeinated beverage use. No tobacco or IV drug use. Review of Systems: As noted left-sided weakness, nausea, vomiting, headache. Otherwise, some tinnitus bilaterally. No other positives on the systems review. Physical Examination: Vital Signs: Blood pressure 129/72, pulse 66, respiratory rate 14, temperature 97.1, oxygen saturati on 96%. Weight 180 pounds, height 5 feet 2 inches, BMI 32. General: Friday is lying in bed. She is in no significant distress. HEENT: She is normocephalic, atraumatic. Sclerae anicteric. Oropharynx pink and moist. Neck: Supple. Chest: Clear. Heart: Regular. Extremities: Show no clubbing, cyanosis, or edema. Neurologic: She is alert and oriented to person, place, time, and situation. She has no expressive or receptive aphasias. She has normal labial, lingual, and guttural sounds. Her face shows decrease d light touch and temperature on the left compared to right side and slight decrease of the left faci al strength such as eye closing and slightly less strong on the left compared to right side. In term s of her strength in the upper and lower extremities, she has 4/5 strength proximally and distally in the left arm and leg compared to the right side. Also, has decrease to light touch and temperature on the left arm and leg compared to the right side. Reflexes symmetric. Sensation again on the righ t intact. Coordination intact in the upper extremities. Laboratory Studies: Complete blood count with differential done completely normal. Coagu lation panel completely normal. Electrolyte panel essentially all normal. Sodium 139, potassium 4.0 , chloride 109, carbon dioxide 27, BUN 18, creatinine 0.73, glucose 103, calcium 8.9, magnesium 2.4. C-reactive protein was elevated to 6.63. Triglycerides elevated at 174, total cholesterol elevated at 250, cholesterol elevated to 167, HDL cholesterol 45. Her cholesterol to HDL ratio was 5.21. TSH 2.54, thyroxine T4 7.5. Urinalysis: 1+ blood, 75 esterase, 5 to 10 red blood cells. COVID-19 test ing is negative. Chest x-ray on 07/07/2023 is unremarkable. Assessment: Ms. Lozano is a 53-year-old patient with possible basilar migraines with hemiplegia. Santos bland has vertigo possibly related to central causes, however, still aggravated by position changes of he r head. She has weakness and numbness in the left face, arm, and leg. MRI of the brain shows no acu te ischemic hemorrhagic stroke, but chronic small vessel ischemic disease. Plan: 1.Aspirin 81 mg daily along with Plavix 75 mg daily, folic acid 1 mg daily, and continue Lipitor, wh ich is 40 mg at bedtime. 2.Continue with Lovenox 40 mg subcutaneously daily. 3.We will start Qulipta 60 mg daily. 4.Use Ubrelvy 100 mg up to twice daily to abort headaches. 5.Chelated magnesium 100 mg daily. 6.She is encouraged to hydrate with about 8 glasses of water daily and cut back on caffeinated bever age intake. She may be ambulated with physical therapy and if need be have outpatient therapy based on her rate of recovery, especially if she is able to mobilize without significant vertigo. GONSALO/JAMAR Voice ID: [id number] Report ID: [id number]
[2023-07-09 04:54] LABS: Absolute Lymphocytes (CBC) 2.4 K/uL (0.7-4.9); Hematocrit 43.1 % (36.0-45.0); MCV 90.5 fL (80-100); MPV 8.8 fL (7.6-11.3); Platelets 190 thou/uL (152-406); RBC Red Blood Cell Count 4.76 M/uL (3.86-4.86)
[2023-07-09 05:24] LABS: Magnesium 2.2 mg/dL (1.6-2.4); Potassium 4.2 mEq/L (3.5-5.1)
[2023-07-09] MEDS: MAGNESIUM OXIDE 400 MG TAB PO SCH (09:00)
[2023-07-09] MEDS: NEBIVOLOL HCL 5 MG TAB PO SCH (10:19)
[2023-07-09] MEDS: FENTANYL CITR 100 MCG/2 ML IV ONE (12:39)
--- NOTE | 2023-07-09 14:47 | RAD REPORT ---
EXAM DESCRIPTION: MRI - Iac W/Wo Cont - 07/09/2023 1:44 pm CLINICAL HISTORY: with/without for bilateral ear image COMPARISON: Brain Wo Cont dated 07/07/2023; Brain W/Wo Cont dated 06/03/2018; MRA Head Wo Cont dated TECHNIQUE: Multisequence, multiplanar imaging was obtained of the brain with particular attention to the IAC's. Contrast was administered. FINDINGS: No focal parenchymal signal abnormality. The temporal bones, specifically the internal auditory canals and seventh and eighth cranial nerves, are normal bilaterally. The inner ear structures and cerebellopontine angles are unremarkable. Four cranial nerves present within the internal auditory canals bilaterally as seen on the high resol ution T2 imaging. Partially opacified right maxillary sinus likely reflecting chronic sinusitis. No abnormal enhancement. IMPRESSION: Normal MR of the internal auditory canals with and without contrast.
--- NOTE | 2023-07-09 15:12 | RAD REPORT ---
EXAM DESCRIPTION: RAD - Barium Swallow Modified - 07/09/2023 3:02 pm CLINICAL HISTORY: ST consult COMPARISON: Abdomen Pelvis Wo Contrast dated 12/22/2022 TECHNIQUE: The patient was given liquid, semi-solid and solid forms of barium. Lateral view fluorosc opic imaging was performed in conjunction with speech pathology service. FINDINGS: No aspiration or penetration identified. Cricopharyngeal bar noted. Reference speech patho logy note. Total fluoroscopy time: 1.15 minutes
--- NOTE | 2023-07-09 15:35 | P.PN ---
Subjective Date of Service: 07/09/23 Chief Complaint: Hemiparesis, vertigo Patient complaining of vertigo worse with left head turn. Patient reports she closes her eyes. She reports headache, denies nausea or photophobia. Physical Examination - Vital Signs Temperature: 97.0 F Blood Pressure: 122/82 Pulse: 60 Respirations: 16 Pulse Ox (%): 96 - Studies Laboratory Data (last 24 hrs) 07/09/23 07/09/23 04:12 04:12 WBC 5.00 Hgb 14.3 D Hct 43.1 Plt Count 190 Sodium 140 Potassium 4.2 BUN 18 Creatinine 0.86 Glucose 101 Magnesium 2.2 Assessment And Plan - Plan Physical Exam General: AAOx3, NAD. HEENT: Atraumatic, PERRLA, Mucous membr. moist/pink Neck: Supple, 2+ carotid pulse no bruit, No LAD Respiratory: Clear to auscultation bilaterally, Normal air movement Cardiovascular: RRR, Normal S1 S2, no murmur noted Gastrointestinal: Normal bowel sounds, No tenderness Musculoskeletal: No tenderness Integumentary: No rashes Neurological: Normal speech, Normal tone, no focal motor deficit. Vitals Reviewed Diagnosis Dizziness, left-sided hemiparesis Lupus Hypertension Hyperlipidemia Hypothyroidism Plan: Vertigo left-sided hemiparesis Leftsided headache CT head without contrast negative acute findings CT angio head and neck negative for large vessel occlusion MRI brain with findings suggestive of chronic small vessel disease, no acute disease. Internal auditory canal MRI is unremarkable. Neurology Dr. Dalal input appreciated. Complex migraine versus acute labyrinthitis suspected Continue Qulipta and Ubrelvy. Meclizine as needed for symptom relief. Continue aspirin, folic acid, statin, and Plavix and folic acid Continue PT. Lupus Has not seen rheumatology in over a year Recommend close follow-up rheumatology. Hypertension Hyperlipidemia Hypothyroidism Continue home medications TSH/T4 2.540/7.5 Triglycerides 174, Cholesterol 250, LDL 167, HDL 48 DVT PPX:Lovenox Code status:Full Discharge Plan: Home
[2023-07-09] MEDS: MECLIZINE HCL 12.5 MG TAB PO SCH (18:40)
[2023-07-10 04:27] LABS: Absolute Lymphocytes (CBC) 2.5 K/uL (0.7-4.9); Hematocrit 37.8 % (36.0-45.0); Lymphocytes % 44.1 % (15.3-44.8); MCV 88.9 fL (80-100); MPV 8.6 fL (7.6-11.3); Platelets 231 thou/uL (152-406); RBC Red Blood Cell Count 4.25 M/uL (3.86-4.86)
[2023-07-10 04:40] LABS: Magnesium 2.2 mg/dL (1.6-2.4); Potassium 4.2 mEq/L (3.5-5.1)
[2023-07-10] MEDS: LEVOTHYROXINE SOD 0.1 MG TAB PO SCH (05:48)
[2023-07-10 13:05] VITALS: BP 109/72; TEMP 97.2
--- NOTE | 2023-07-10 13:18 | P.DS ---
Admission Date: 07/09/23 Discharge Date: 07/10/23 Disposition: ROUTINE DISCHARGE Discharge Condition: FAIR Reason for Admission: Hemiparesis, vertigo Brief History of Present Illness: 53-year-old female with history of lupus, hypertension, hypothyroidism presented to the emergency department with complaint of vertigo and left-sided weakness. She reported she noticed she was having left-sided weakness, dropping things out of her left arm and having trouble walking since 07/06/2023 at around 1900. She woke up at 530 in the morning on 07/07/2023 with severe vertigo, sensation of room spinning and fell as well as had a few episodes of vomiting. She came to the emergency department for evaluation and her labs were unremarkable. CT head without contrast was negative acute findings. CTA of the head and neck were negative for large vessel occlusion or other acute findings. MRI of the brain showed findings suggestive of chronic small vessel ischemic changes. Patient was hospitalized for further management. Hospital Course: Diagnosis Vertigo, left-sided hemiparesis Acute labyrinthitis/vestibular neuritis Lupus Hypertension Hyperlipidemia Hypothyroidism Patient was admitted for transient left-sided weakness with numbness, vertigo, tinnitus and headache. Workup with MRI, CT scans did not show any structural cause for her symptoms. Note that she has history of lupus but has not been on treatment for a couple of years. Neurologist Dr. Dalal was involved in her care. Patient diagnosed with acute labyrinthitis/vestibular neuritis which could be related to lupus flare. Differential diagnosis include complex migraine. She is prescribed antivirals, antibiotics and 22-day department steroid. Patient is informed to follow-up with an ENT specialist for a comprehensive ear examination. Patient's lipid profile showed he had elevated cholesterol and LDL. Patient prescribed statins and aspirin and folic acid. Patient is advised also to follow-up with rheumatology regarding her lupus treatment. Vital Signs/Physical Exam: Temp Pulse Resp BP Pulse Ox 97.2 F 65 12 109/72 96 07/10/23 12:44 07/10/23 12:44 07/10/23 12:44 07/10/23 12:44 07/10/23 12:44 General: Alert, In no apparent distress, Oriented x3 HEENT: Mucous membr. moist/pink Neck: Supple, No Thyromegaly Respiratory: Clear to auscultation bilaterally, Normal air movement Cardiovascular: No edema, Regular rate/rhythm, Normal S1 S2 Gastrointestinal: Normal bowel sounds, Soft and benign, Non-distended, No tenderness Musculoskeletal: No swelling Integumentary: No rashes, No cyanosis Neurological: Normal speech, Normal strength at 5/5 x4 extr, Cranial nerves 3-12 intact, Other (No obvious nystagmus) Laboratory Data at Discharge: WBC 5.60 thou/uL (4.3-10.9) 07/10/23 03:57 Hgb 12.9 g/dL (12.0-15.0) D 07/10/23 03:57 Hct 37.8 % (36.0-45.0) 07/10/23 03:57 Plt Count 231 thou/uL (152-406) 07/10/23 03:57 PT 11.1 SECONDS (9.5-12.5) 07/07/23 11:45 INR 1.01 07/07/23 11:45 APTT 33.8 SECONDS (24.3-36.9) 07/07/23 11:45 Sodium 138 mEq/L (136-145) 07/10/23 03:57 Potassium 4.2 mEq/L (3.5-5.1) 07/10/23 03:57 BUN 13 mg/dL (7-18) 07/10/23 03:57 Creatinine 0.94 mg/dL (0.55-1.02) 07/10/23 03:57 Glucose 109 mg/dL (74-106) H 07/10/23 03:57 Magnesium 2.2 mg/dL (1.6-2.4) 07/10/23 03:57 Total Bilirubin 0.6 mg/dL (0.2-1.0) 07/07/23 15:16 AST 16 U/L (15-37) 07/07/23 15:16 ALT 30 U/L (13-56) 07/07/23 15:16 Alkaline Phosphatase 94 U/L (45-117) 07/07/23 15:16 Triglycerides 174 mg/dL (<150) H 07/08/23 03:10 Cholesterol 250 mg/dL (<200) H 07/08/23 03:10 HDL Cholesterol 48 mg/dL (40-60) 07/08/23 03:10 Cholesterol/HDL Ratio 5.21 07/08/23 03:10 Home Medications: Nebivolol HCl [Bystolic*] 10 mg PO DAILY 06/03/18 Levothyroxine [Synthroid*] 100 mcg PO [id number] 03/09/23 Atorvastatin Calcium [Lipitor*] 40 mg PO BEDTIME #30 tab 07/10/23 Doxycycline Hyclate [Vibramycin] 100 mg PO BID #14 cap 07/10/23 Folic Acid 1 mg PO DAILY #30 tab 07/10/23 Magnesium Oxide [Mag 0X*] 400 mg PO DAILY #30 tab 07/10/23 Meclizine HCl [Antivert*] 25 mg PO TID #60 tab 07/10/23 Ondansetron [Zofran] 4 mg PO Q6H PRN #20 tab 07/10/23 Valacyclovir HCl [Valtrex] 1,000 mg PO TID #21 tab 07/10/23 methylPREDNISolone [Methylprednisolone] 100 mg PO DAILY #246 tab 07/10/23 traMADol HCL [Ultram*] 50 mg PO TID PRN #30 tab 07/10/23 New Medications: Meclizine HCl [Antivert*] 25 mg PO TID #60 tab Folic Acid 1 mg PO DAILY #30 tab Atorvastatin Calcium [Lipitor*] 40 mg PO BEDTIME #30 tab Magnesium Oxide [Mag 0X*] 400 mg PO DAILY #30 tab methylPREDNISolone [Methylprednisolone] 100 mg PO DAILY #246 tab traMADol HCL [Ultram*] 50 mg PO TID PRN #30 tab PRN Reason: Pain Scale 5-7 (Moderate) Valacyclovir HCl [Valtrex] 1,000 mg PO TID #21 tab Doxycycline Hyclate [Vibramycin] 100 mg PO BID #14 cap Ondansetron [Zofran] 4 mg PO Q6H PRN #20 tab PRN Reason: Nausea / Vomiting Physician Discharge Instructions: Patient was admitted for transient left-sided weakness with numbness, vertigo, tinnitus and headache. Workup with MRI, CT scans did not show any structural cause for her symptoms. Note that she has history of lupus but has not been on treatment for a couple of years. Neurologist Dr. Dalal was involved in her care. Patient diagnosed with acute labyrinthitis/vestibular neuritis which could be related to lupus flare. She is prescribed antivirals, antibiotics and 22-day department steroid. Patient is informed to follow-up with an ENT specialist for a comprehensive ear examination. Patient's lipid profile showed he had elevated cholesterol and LDL. Patient prescribed statins and aspirin and folic acid. Patient is advised also to follow-up with rheumatology regarding her lupus treatment. Diet: AHA Activity: Fall precautions Followup: Adryan Dalal MD [ASSOCIATE-ACTIVE - CAN ADMIT] - Bev Henry NP [Primary Care Provider] -
--- NOTE | 2023-07-10 16:18 | EKG ---
Test Date: 2023-07-07 Test Time: 11:41:03 Dairy Worker: HONORIO MEASUREMENT RESULTS: Intervals: Rate: 63 HI: 172 QRSD: 94 QT: 448 QTc: 458 [place]: P: 39 HI: 172 QRS: -2 T: 61 INTERPRETIVE STATEMENTS: Normal sinus rhythm Nonspecific ST abnormality Abnormal ECG Compared to ECG 03/15/2023 04:12:54 ST (T wave) deviation now present Electronically Signed On 07-10-23 16:08:03 TELEVISION MECHANIC by Brian Caldwell
== END 2023-07-10 12:51 | disposition home or self-care (01) | DRG 57 ==
LOC: ER 10:08 → ERHOLD 15:00 → 2ND 20:34 → OBSVTOIN 07-09 12:15
PROVIDERS: ADMIT Hospitalist; ATTEND Internal Medicine
DX: G81.94 Hemiplegia, unspecified affecting left nondominant side (principal); H83.02 Labyrinthitis, left ear; I10 Essential (primary) hypertension; E03.9 Hypothyroidism, unspecified; E78.5 Hyperlipidemia, unspecified; G62.9 Polyneuropathy, unspecified; M32.9 Systemic lupus erythematosus, unspecified; R42 Dizziness and giddiness; R29.706 NIHSS score 6; Z23 Encounter for immunization; Z88.5 Allergy status to narcotic agent; Z88.2 Allergy status to sulfonamides; Z88.0 Allergy status to penicillin; Z11.52 Encounter for screening for COVID-19; Z79.82 Long term (current) use of aspirin; Z79.890 Hormone replacement therapy; Z90.710 Acquired absence of both cervix and uterus; Z79.899 Other long term (current) drug therapy
CPT/HCPCS: 36415; 70450; 70496; 70498; 70551; 70553; 71045; 74230; 80048; 80053; 80061; 81001; 81025; 82550; 82565; 82947; 83735; 84436; 84443; 84484; 85025; 85610; 85730; 86140; 87811; 90471; 92523; 92610; 92611; 93005; 96365; 96366; 96375; 97112; 97116; 97161; 97530; 99285; A9577; G0378; J1650; J1940; J2405; J2765; J3010; J3360; J8597; Q2035; Q9967